=== PATIENT | male | born 1965 | race Caucasian/White ===

== ENCOUNTER 2018-01-23 08:14 | Outpatient (REF) | payer OTHER, SELFPAY ==
[2018-01-23 12:09] LABS: Microalb ug/mg Crea 159.7 ug/mg Cr
== END 2018-01-23 08:34 ==
LOC: NCHCN 08:14
PROVIDERS: PCP Family Medicine; Visit Provider Family Medicine
DX: E11.65 Type 2 diabetes mellitus with hyperglycemia (principal)
CPT/HCPCS: 82043; 82570

== ENCOUNTER 2018-01-23 09:18 | Outpatient (CLI) | payer OTHER, SELFPAY ==
[2018-01-23 09:56] LABS: HCT 41.1 % (40.0-50.0); HGB 13.9 g/dL (13.5-17.5); Mean Corp. HGB Concentration 33.8 g/dL (32.0-36.0); Mean Corpuscular Hemoglobin 26.5 pg (27.0-33.0); Mean Corpuscular Volume 78.3 fL (80-95); Mean Platelet Volume 10.2 fL (8.0-11.0); Platelet Count 282 x1000/uL (130-400); RBC 5.25 m/cumm (4.50-6.00); RBC Distribution Width 13.4 % (11.8-14.1); White Blood Cell Count 8.03 k/cumm (4.4-10.8)
[2018-01-23 11:19] LABS: ALT 38 U/L (12-78); AST 27 U/L (15-37); Alkaline Phosphatase 128 U/L (46-116); Anion Gap 9.9 mmol/L (3-11); BUN 24 mg/dL (7-18); Bilirubin, Total 0.3 mg/dL (0.2-1.0); CO2 33.1 mmol/L (21.0-32.0); CREATININE 0.81 mg/dL (0.70-1.30); Calcium 10.3 mg/dL (8.5-10.1); Chloride 93 mmol/L (98-107); Glucose 245 mg/dL (70-100); Potassium 3.8 mmol/L (3.5-5.1); Sodium 136 mmol/L (136-145); TSH (W/Ref FT4) 1.32 uIU/mL (0.358-3.74); Total Protein 7.5 g/dL (6.4-8.2)
[2018-01-24 12:16] LABS: Hepatitis C Ab w Rflx HCV PCR Reactive (NEGAT)
[2018-01-25 14:21] LABS: HCV RNA Detection Quantitative Undetected IU/mL (UNDECT)
== END 2018-01-23 09:38 ==
PROVIDERS: PCP Family Medicine; Visit Provider Family Medicine
DX: E11.65 Type 2 diabetes mellitus with hyperglycemia (principal); I10 Essential (primary) hypertension; F41.8 Other specified anxiety disorders; Z00.00 Encounter for general adult medical examination without abnormal findings; Z86.19 Personal history of other infectious and parasitic diseases; Z11.59 Encounter for screening for other viral diseases
CPT/HCPCS: 36415; 80053; 85027; 86803; 83036; 84443; 87522

== ENCOUNTER 2018-02-15 07:39 | Day surgery (SDC) | payer OTHER, SELFPAY ==
[2018-02-15 07:58] VITALS: BP 148/98; PULSE 70; RESP 16; TEMP 35.7; O2SAT 93
[2018-02-15] MEDS: Lactated Ringers 1,000 ML 30 ML IV (08:26)
--- NOTE | 2018-02-15 09:34 | W.COLOREPORT ---
Date of service: 02/15/18 Time of Service: 09:34 Colonoscopy Report Date of procedure: 02/15/18 Pre-op diagnosis general: Personal history of Colon Polyps Post-op diagnosis procedure note: other (Ascending colon polyp) Procedure: Colonoscopy to cecum with biopsy by cold Surgeon: Joey Gonzales Anesthesia proc note operative: MAC (Susie Guajardo CRNA; ASA 2 Mallampati class II) Pathology: other (Ascending colon polyp) Complications: None Disposition: same day Indications: 52 y/o male with history of pancreatitis presents for colonoscopy screening pre-op. His last screening was in 2010, which was remarkable for submucosal leiomyoma and surface hyperplastic epithelial changes. He reports a family history of colon cancer in his maternal grandfather. He denies any changes in bowel habits including bloody or black tarry stools, abdominal pain, diarrhea or constipation. He denies constitutional symptoms. Uses marijuana 1-2x/week. Denies use of other recreational or illegal drugs. Prep: Miralax/Dulcolax (Prep quality good) Procedure Start Time: 09:41 Procedure End Time: 10:05 Retraction Time: 18 Findings: In examining the colon from cecum to anus, one polyp less than 1 cm in greatest diameter was found in the ascending colon subsequently removed. No other abnormalities were noted of the colon, rectum, and anus. Procedure Description: The patient was seen in the day surgery waiting area. His identification was confirmed, and procedure checked. He was then brought to the procedure room. Monitoring for telemetry, blood pressure, oxygen saturation, and end tidal CO2 monitoring were applied. An appropriate time out was performed to confirm, identification, allergies, medication, procedure, was performed. Sedation was titrated for affect by the SED SPECIAL EDUCATION TEACHER; Once adequate sedation was achieved, I performed a inspection of the external perineum, and a digitial rectal examination. No significant external abnormalities were noted. On digital rectal examination, there was no blood, no masses, good rectal tone, and a normal prostate. I advanced the colonoscope from the anus to the cecum under direct visualization. The cecum was identified by the ileal-cecal valve, and the appendiceal orifice. The scope was then withdrawn in circumferential manner from the cecum to the rectum. A single polyp was identified in the transverse colon and removed by cold biopsy forceps, no other abnormalities are noted of the colon. The scope was then withdrawn into the rectum, and retroflexed. No abnormalities were noted of the rectum or anorectal junction. The scope was then withdrawn, terminating the procedure. There were no complications during the procedure, and the patient tolerated the procedure well. He was returned to the day surgery recovery area in good condition. Plan: We will await pathology before making further recommendations.
--- NOTE | 2018-02-15 09:54 | BOWEL_PTH ---
PATIENT: Alfredo Perez LOC: [facility] U#:[id number] AGE/SX: 52/M ROOM: RE02/15/[address]: Joey Gonzales DO : 1965 BED: DIS: 02/15/2018 SPEC #: [id number] RECD: 02/15/18 13:00 STATUS: CASSY REQ #: [id number] LUCA: 02/15/18 09:[address]: Joey Gonzales DEPT: Surgical Specimen RECD BY: Loli Burnett ENTERED: 02/15/18 13:00 SP TYPE: Bowel OTHR DR: Yulia Cortez Tissues: 1 - BIOPSY BOWEL Procedures: GROSS AND MICRO LEVEL 4 Comments: [id number]
--- NOTE | 2018-02-15 10:12 | W.PM.DSUDISC ---
Discharge Plan Disposition Patient Disposition: HOME Condition: Good Discharge Details Reason For Visit: Personal history of colon polyps Attending Provider: Joey Gonzales Primary Care Provider: Yulia Cortez Home Meds and New Rx's Prescriptions: Continue buprenorphine-naloxone [Suboxone] 8-2 mg film 1 film SL DAILY RF: 0 venlafaxine [Effexor XR] 75 mg capsule,extended release 24hr 225 mg PO DAILY RF: 0 gabapentin 600 mg tablet 800 mg PO TID RF: 0 sitagliptin-metformin [Janumet] 1 EACH tablet 1 ea PO BID RF: 0 atenolol 100 MG tablet 100 mg PO DAILY RF: 0 glipizide 10 MG tablet 10 mg PO BID RF: 0 aspirin [Aspir-Low] 81 MG tablet,delayed release (DR/EC) 81 mg PO DAILY RF: 0 omeprazole 20 MG capsule,delayed release(DR/EC) 20 mg PO DAILY RF: 0 losartan 100 MG tablet 100 mg PO DAILY RF: 0 rosuvastatin [Crestor] 40 MG tablet 40 mg PO DAILY RF: 0 cholecalciferol (vitamin D3) [Vitamin D3] 2,000 UNIT capsule 2,000 unit PO DAILY RF: 0 insulin glargine [Lantus U-100 Insulin] 100 UNIT/ML solution 50 units SQ HS RF: 0 amlodipine 10 MG tablet 10 mg PO DAILY RF: 0 Discharge Instructions Instructions: Colonoscopy (DC) Stand Alone Forms: Colonoscopy Post Instructions, Nesha Berry (DSU) Activity:: Activity as Tolerated Diet:: As Tolerated Discharge Orders Discharge Orders: Discharge Order (Routine); Ordered 02/15/18 Ordered By: Joey Gonzales DS: Diagnosis Discharge Diagnosis (1) History of colon polyps: Status: Acute Asessment and Plan: Colonoscopy performed: Colonoscopy Report Date of procedure: 02/15/18 Pre-op diagnosis general: Personal history of Colon Polyps Post-op diagnosis procedure note: other (Ascending colon polyp) Procedure: Colonoscopy to cecum with biopsy by cold Surgeon: Joey Gonzales Anesthesia proc note operative: MAC (Susie Guajardo CRNA; ASA 2 Mallampati class II) Pathology: other (Ascending colon polyp) Complications: None Disposition: same day Indications: 52 y/o male with history of pancreatitis presents for colonoscopy screening pre-op. His last screening was in 2010, which was remarkable for submucosal leiomyoma and surface hyperplastic epithelial changes. He reports a family history of colon cancer in his maternal grandfather. He denies any changes in bowel habits including bloody or black tarry stools, abdominal pain, diarrhea or constipation. He denies constitutional symptoms. Uses marijuana 1-2x/week. Denies use of other recreational or illegal drugs. Prep: Miralax/Dulcolax (Prep quality good) Procedure Start Time: 09:41 Procedure End Time: 10:05 Retraction Time: 18 Findings: In examining the colon from cecum to anus, one polyp less than 1 cm in greatest diameter was found in the ascending colon subsequently removed. No other abnormalities were noted of the colon, rectum, and anus. Procedure Description: The patient was seen in the day surgery waiting area. His identification was confirmed, and procedure checked. He was then brought to the procedure room. Monitoring for telemetry, blood pressure, oxygen saturation, and end tidal CO2 monitoring were applied. An appropriate time out was performed to confirm, identification, allergies, medication, procedure, was performed. Sedation was titrated for affect by the SUPERVISOR PHOTOENGRAVING; Once adequate sedation was achieved, I performed a inspection of the external perineum, and a digitial rectal examination. No significant external abnormalities were noted. On digital rectal examination, there was no blood, no masses, good rectal tone, and a normal prostate. I advanced the colonoscope from the anus to the cecum under direct visualization. The cecum was identified by the ileal-cecal valve, and the appendiceal orifice. The scope was then withdrawn in circumferential manner from the cecum to the rectum. A single polyp was identified in the transverse colon and removed by cold biopsy forceps, no other abnormalities are noted of the colon. The scope was then withdrawn into the rectum, and retroflexed. No abnormalities were noted of the rectum or anorectal junction. The scope was then withdrawn, terminating the procedure. There were no complications during the procedure, and the patient tolerated the procedure well. He was returned to the day surgery recovery area in good condition. Plan: We will await pathology before making further recommendations.
[2018-02-15 10:35] VITALS: BP 120/85; PULSE 69; RESP 20; TEMP 36.6; O2SAT 95
== END 2018-02-15 10:45 | disposition home or self-care (01) ==
PROVIDERS: PCP Family Medicine; Visit Provider Surgery
PROC: 0DJD8ZZ Inspection of Lower Intestinal Tract, Via Natural or Artificial Opening Endoscopic (ICD-10-PCS; CPT 45378; principal; 2018-02-15 09:15)
DX: Z12.11 Encounter for screening for malignant neoplasm of colon (principal); Z86.010 Personal history of colon polyps; D12.3 Benign neoplasm of transverse colon; Z80.0 Family history of malignant neoplasm of digestive organs
CPT/HCPCS: 45380; 88305

== ENCOUNTER 2018-06-26 16:06 | Outpatient (REF) | payer OTHER, SELFPAY ==
[2018-06-29 16:05] LABS: Gabapentin, Urine NEGATIVE
== END 2018-06-26 16:26 ==
LOC: NCHCN 16:06
PROVIDERS: PCP Family Medicine; Visit Provider Family Medicine
DX: F11.20 Opioid dependence, uncomplicated (principal)
CPT/HCPCS: 80307

== ENCOUNTER 2018-06-30 13:07 | Inpatient (IN) | payer OTHER, SELFPAY ==
[2018-06-30] VITALS (34 sets, daily range): BP systolic 127–187; BP diastolic 77–145; PULSE 64–169; RESP 9–26; TEMP 36.2–37; O2SAT 89–99
--- NOTE | 2018-06-30 13:28 | DI.COMBO_ITS ---
SYMPTOM/DIAGNOSIS: BACK PAIN, WT LOSS, EPIGASTRIC ABD PAIN, H/O ETOH ABDOMEN AND PELVIC CT: CT examination of the abdomen and pelvis was performed with a bolus infusion of 100 cc's of Omnipaque 350. Images obtained through the lung bases are unremarkable. There is decreased hepatic attenuation consistent with hepatic steatosis. No focal hepatic abnormality is seen. Spleen is unremarkable in appearance. Pancreas is unremarkable in appearance. No biliary dilatation or gallbladder abnormality is seen. Stomach is collapsed, gastric wall thickening not excluded on the basis of this examination. Adrenals and kidneys appear normal. Abdominal aorta is of normal diameter and no major vascular abnormality is seen. Small fat containing left inguinal hernia noted. No abdominal or pelvic adenopathy is seen. Appendix is normal. No evidence of diverticulitis or bowel obstruction. CONCLUSION: Hepatic steatosis. Incidental finding of vacuum disc phenomenon with bulging/herniated disc at L 5-S 1. No evidence of acute intra-abdominal process. PA AND LATERAL CHEST: The heart is not enlarged. The lungs are generally clear except for a questionable nodular density overlying the left lower lung field, likely nipple shadow. Repeat PA chest with nipple markers requested. No pleural effusion is seen. CONCLUSION: Repeat PA chest with nipple markers requested to exclude intrapulmonary nodule. No other significant findings.
--- NOTE | 2018-06-30 13:31 | ED.GENADUL_ITS ---
Discharge Plan Disposition Patient Disposition: [facility] INPATIENT Condition: Fair Discharge Details Chief Complaint: ETOHWithdr Clinical Impression: Hyponatremia, Hyperglycemia, Alcohol withdrawal Primary Care Provider: Yulia Cortez ED Provider: Елена Pearson Home Meds and New Rx's Prescriptions: No Action buprenorphine-naloxone [Suboxone] 8-2 mg film 1 film SL DAILY RF: 0 Janumet 1 EACH tablet 1 ea PO BID RF: 0 atenolol 100 MG tablet 100 mg PO DAILY RF: 0 glipizide 10 MG tablet 10 mg PO BID RF: 0 aspirin [Aspir-Low] 81 MG tablet,delayed release (DR/EC) 81 mg PO DAILY RF: 0 omeprazole 20 MG capsule,delayed release(DR/EC) 20 mg PO DAILY RF: 0 losartan 100 MG tablet 100 mg PO DAILY RF: 0 rosuvastatin [Crestor] 40 MG tablet 40 mg PO DAILY RF: 0 cholecalciferol (vitamin D3) [Vitamin D3] 2,000 UNIT capsule 2,000 unit PO DAILY RF: 0 Lantus U-100 Insulin 100 UNIT/ML solution 50 units SQ HS RF: 0 amlodipine 10 MG tablet 10 mg PO DAILY RF: 0 sertraline 100 mg Tablet 100 mg PO DAILY RF: 0 Medical Decision Making 52-year-old male with history of diabetes, GERD, hypertension, hyperlipidemia, restless leg syndrome and heavy alcohol abuse with previous history of IV drug and prescription drug abuse on Suboxone for the past 3 months who presents with alcohol withdrawal and hyperglycemia. Also c/o decreased appetite and 30 pound weight loss over the last 2 months, intermittent vomiting and diarrhea and epigastric abdominal pain for the past few days. States he has not taken his diabetes medications recently due to his lost appetite and his blood sugar was 534 this morning. Last alcoholic drink 10 a.m. yesterday morning. Blood pressure hypertensive on arrival. Normal heart rate. Remainder vitals wi thin normal limits. Patient appears diaphoretic and mildly shaky. Will give a dose of Ativan. Will place an IV, bolus IV fluids, labs, urinalysis, chest x-ray and CT abdomen and pelvis. EKG notes a rate of 71, sinus and no acute ST findings. 1450 --labs reviewed. Normal white blood cell count. Sodium 121. Glucose 667. Bicarb 30. Anion gap 11. Lipase normal at 294. Urinalysis notes glucose but no infection. UDS notes THC. 1500 --d/w hospitalist - accepts pt for admission. Will notify of CT result. 1600 --CT abdomen negative. Chest x-ray notes possible pulmonary nodule versus nipple shadow but otherwise negative. Hospitalist called and notified of results. Medical Records Medical records reviewed: Yes I reviewed the patient's medical records. Imaging Data Radiologic Study: Radiologist's impression: XR Chest, 2 Views EXAM DATE/TIME: 06/30/2018 1:30 PM FINDINGS: Lungs: Rounded radiodensity superimposed over the lateral aspect of the left lower lung zone, likely presents a nipple shadow. Followup chest radiograph with nipple markers is suggested. However, a pulmonary nodule cannot be excluded. Pleural space: Unremarkable. No pleural effusion. No pneumothorax. Heart/Mediastinum: The cardiomediastinal silhouette and pulmonary vasculature are within normal limits. Bones/joints: Unremarkable. Soft tissues: Unremarkable. IMPRESSION: Rounded radiodensity superimposed over the lateral aspect of the left lower lung zone, likely presents a nipple shadow. However, a pulmonary nodule cannot be excluded. Followup chest radiograph with nipple markers is suggested. The lungs are otherwise clear. CT Abdomen and Pelvis With Contrast EXAM DATE/TIME: 06/30/2018 2:11 PM FINDINGS: Lower thorax: No acute findings. ABDOMEN: Liver: Diffuse fatty infiltration of the liver. Gallbladder and bile ducts: Unremarkable. No calcified stones. No ductal dilation. Pancreas: Unremarkable. No ductal dilation. Spleen: Unremarkable. No splenomegaly. Adrenals: Normal. No mass. Kidneys and ureters: Unremarkable. No stones. No hydronephrosis. Stomach and bowel: Unremarkable. No obstruction. No mucosal thickening. Appendix: No evidence of appendicitis. PELVIS: Bladder: Unremarkable as visualized. Reproductive: Unremarkable as visualized. ABDOMEN and PELVIS: Intraperitoneal space: Unremarkable. No free air. No significant fluid collection. Bones/joints: Degenerative disc disease and facet arthrosis of the lower lumbar spine, most severe at L5-S1. Soft tissues: Unremarkable. Vasculature: Mild atherosclerosis of the abdominal aorta and iliac arteries. No aneurysm. Lymph nodes: Unremarkable. No enlarged lymph nodes. IMPRESSION: No acute abnormality. Lab Data Lab results reviewed: Yes I reviewed the patient's lab results. Laboratory Tests Range/Units 06/30/18 06/30/18 06/30/18 13:24 13:24 13:30 WBC (4.4-10.8) k/cumm RBC (4.50-6.00) m/cumm Hgb (13.5-17.5) g/dL Hct (40.0-50.0) % MCV (80-95) fL MCH (27.0-33.0) pg MCHC (32.0-36.0) g/dL RDW (11.8-14.1) % Plt Count (130-400) x1000/uL MPV (8.0-11.0) fL Immature Gran % Neutrophils % Lymphocytes % Monocytes % Eosinophils % Basophils % Absolute Neutrophils (1.2-6.7) k/cumm Absolute Lymphocytes (1.2-3.4) k/cumm Absolute Monocytes (0.11-0.7) k/cumm Absolute Eosinophils (0.0-0.7) k/cumm Absolute Basophils (0.0-0.2) k/cumm Sodium (136-145) mmol/L Potassium (3.5-5.1) mmol/L Chloride (98-107) mmol/L Carbon Dioxide (21.0-32.0) mmol/L Anion Gap (3-11) mmol/L BUN (7-18) mg/dL Creatinine (0.70-1.30) mg/dL Estimated GFR/1.73 m2 (mL/min/1.73m2) Glucose (70-100) mg/dL Calcium (8.5-10.1) mg/dL Magnesium (1.8-2.4) mg/dL 1.9 Total Bilirubin (0.2-1.0) mg/dL Troponin I (0.00-0.06) ng/mL Total Protein (6.4-8.2) g/dL Albumin (3.4-5.0) g/dL Lipase (73-393) U/L 294 Urine Color (Yellow) Yellow Urine Clarity Clear Urine pH (5-8) 6.5 Ur Specific [place] (1.005-1.025) 1.010 Urine Protein (Negative) mg/dL Negative Urine Ketones (Negative) mg/dL Trace H Urine Blood (Negative) Negative Urine Nitrite (Negative) Negative Urine Bilirubin (Negative) Negative Urine Urobilinogen (Up TO 0.2) EU/dL 0.2 Ur Leukocyte Esterase (Negative) Negative Urine Glucose (Negative) mg/dL 500 H Urine Opiates Screen (Negative) Negative Urine Methadone Screen (Negative) Negative Ur Barbiturates Screen (Negative) Negative Ur Tricyclics Screen (Negative) Negative Ur Amphetamines Screen (Negative) Negative U Benzodiazepines Scrn (Negative) Negative Urine Cocaine Screen (Negative) Negative Ur THC Screen (Negative) Positive Ethyl Alcohol (<3) mg/dL < 3.0 Range/Units 06/30/18 06/30/18 13:30 13:30 WBC (4.4-10.8) k/cumm 10.55 RBC (4.50-6.00) m/cumm 5.67 Hgb (13.5-17.5) g/dL 14.9 Hct (40.0-50.0) % 43.1 MCV (80-95) fL 76.0 L MCH (27.0-33.0) pg 26.3 L MCHC (32.0-36.0) g/dL 34.6 RDW (11.8-14.1) % 13.0 Plt Count (130-400) x1000/uL 321 MPV (8.0-11.0) fL 10.9 Immature Gran % 0.3 Neutrophils % 69.5 Lymphocytes % 22.4 Monocytes % 7.2 Eosinophils % 0.5 Basophils % 0.1 Absolute Neutrophils (1.2-6.7) k/cumm 7.34 H Absolute Lymphocytes (1.2-3.4) k/cumm 2.36 Absolute Monocytes (0.11-0.7) k/cumm 0.76 H Absolute Eosinophils (0.0-0.7) k/cumm 0.05 Absolute Basophils (0.0-0.2) k/cumm 0.01 Sodium (136-145) mmol/L 121 L* Potassium (3.5-5.1) mmol/L 3.5 Chloride (98-107) mmol/L 80 L Carbon Dioxide (21.0-32.0) mmol/L 30.0 Anion Gap (3-11) mmol/L 11.0 BUN (7-18) mg/dL 25 H Creatinine (0.70-1.30) mg/dL 1.18 Estimated GFR/1.73 m2 (mL/min/1.73m2) >= 60.00 Glucose (70-100) mg/dL 667 H* Calcium (8.5-10.1) mg/dL 9.7 Magnesium (1.8-2.4) mg/dL Total Bilirubin (0.2-1.0) mg/dL 0.4 Troponin I (0.00-0.06) ng/mL < 0.02 Total Protein (6.4-8.2) g/dL 8.1 Albumin (3.4-5.0) g/dL 3.8 Lipase (73-393) U/L Urine Color (Yellow) Urine Clarity Urine pH (5-8) Ur Specific [place] (1.005-1.025) Urine Protein (Negative) mg/dL Urine Ketones (Negative) mg/dL Urine Blood (Negative) Urine Nitrite (Negative) Urine Bilirubin (Negative) Urine Urobilinogen (Up TO 0.2) EU/dL Ur Leukocyte Esterase (Negative) Urine Glucose (Negative) mg/dL Urine Opiates Screen (Negative) Urine Methadone Screen (Negative) Ur Barbiturates Screen (Negative) Ur Tricyclics Screen (Negative) Ur Amphetamines Screen (Negative) U Benzodiazepines Scrn (Negative) Urine Cocaine Screen (Negative) Ur THC Screen (Negative) Ethyl Alcohol (<3) mg/dL ECG Data Attestation: I personally reviewed and interpreted this ECG (s) as follows: Interpretation: Rate of 71, sinus, no acute ST elevation or depression. QTc 472. QRS 110. HPI General Mode of arrival: ambulatory . Date/Time Provider Initiated Documentation: 06/30/18 13:24 . Limitations to Documentation: no limitations . Information obtained by: patient . HPI Narrative: Patient is a 52-year-old male with history of diabetes, GERD, hypertension, hyperlipidemia and restless leg syndrome with daily heavy alcohol use and previous history of IV drug use and prescription narcotic abuse who is on Suboxone for the past 3 months who presents with concern for alcohol withdrawal and hyperglycemia. Patient states he has been drinking a pint of 100 proof vodka every day for the past few months. States his last drink was yesterday morning at 10 AM. He states he has not been eating much due to intermittent vomiting and diarrhea over the past few weeks, worse over the past 3-4 days. He states he vomits 1-2 times daily. He states the diarrhea is proximally once daily and is loose without blood. He states his doctor took him off his gabapentin for his restless leg syndrome 2 weeks ago due to concern for abuse and he feels like this is the cause of his loss of appetite and weight loss. He states he has lost approximately 30 pounds in the last 2 months. He also states he has not been taking his diabetes medications due to his lack of appetite. States his blood sugar this morning was 534. He denies fever, chest pain, shortness of breath. He does admit to intermittent epigastric pain and is concerned about pancreatitis. He also admits to lower back pain. He denies any urinary symptoms. Related Data Home Medications Medication Instructions Recorded Confirmed aspirin [Aspir-Low] 81 mg PO DAILY 02/08/13 06/30/18 atenolol 100 mg PO DAILY 02/08/13 06/30/18 glipizide 10 mg PO BID 02/08/13 06/30/18 losartan 100 mg PO DAILY 02/08/13 06/30/18 omeprazole 20 mg PO DAILY 02/08/13 06/30/18 rosuvastatin [Crestor] 40 mg PO DAILY 02/08/13 06/30/18 cholecalciferol (vitamin D3) 2,000 unit PO DAILY 09/09/13 06/30/18 [Vitamin D3] Lantus U-100 Insulin 50 units SQ HS 08/07/14 06/30/18 amlodipine 10 mg PO DAILY 08/07/14 06/30/18 Janumet 1 ea PO BID 08/03/15 06/30/18 buprenorphine 8 mg-naloxone 2 mg 1 film SL DAILY 01/21/18 06/30/18 sublingual film sertraline 100 mg PO DAILY 06/30/18 06/30/18 Allergies Allergy/AdvReac Type Severity Reaction Status Date / Time ampicillin Allergy Skin Rash Verified 06/30/18 13:45 zolpidem tartrate AdvReac Intermediate confusion Verified 06/30/18 13:45 [From Dona] lisinopril AdvReac cough Verified 06/30/18 13:45 General Stated Complaint: ETOHWithdr ANNITA: 2 Review of Systems Review of Systems All systems reviewed & are unremarkable except as noted in HPI and below Constitutional Reports as per HPI, Denies chills, Denies fever(s), Reports poor appetite and Reports weight loss Eyes Denies blurry vision ENT Denies dizziness, Denies sore throat and Denies throat swelling Cardiovascular Denies chest pain and Denies dyspnea Respiratory Denies cough and Denies dyspnea Gastrointestinal Reports abdominal pain, Reports diarrhea and Reports vomiting Genitourinary Denies hematuria and Denies dysuria Musculoskeletal Denies back pain and Denies numbness Integumentary/Breasts Denies lesions and Denies rash Neurologic Denies dizziness, Denies focal weakness and Denies numbness Allergic/Immunologic Denies throat swelling [facility] Medical History Adjustment disorder with anxious mood (Acute) Alcoholism (Acute) Diabetes type 2, uncontrolled (Acute) History of positive hepatitis C (Acute) History of tobacco use (Acute) Hypertension, essential, benign (Acute) Opioid dependence on agonist therapy (Acute) Restless leg syndrome (Acute) Anxiety (Chronic) Surgical History Birthmark (Acute) History of knee surgery (Acute) H/O shoulder surgery (Chronic) H/O colonoscopy (Resolved 02/15/18) Social History Smoking/Tobacco Use Status: Current every day Tobacco Type: cigarettes Smoking cigarettes per day: 10 Alcohol Intake: current Alcohol Intake frequency: 3 or more drinks per day Alcohol type: hard liquor Drug use: Occasionally Substance use type: marijuana Do you feel safe at home: Yes Do you feel safe in your relationship?: Yes Exam Const General: cooperative, diaphoretic and other (mild shaking, tremors) Orientation: alert, awake and oriented x3 HENMT Head: normal to inspection Ears: hearing grossly normal bilaterally, external ears normal and TM's normal bilaterally General nose exam: external nose normal Face and sinus: normal facial exam Mouth: oral mucosae normal Teeth and gingiva: dentition normal Throat: posterior oropharynx normal Eyes General: appearance normal, both eyes and all related structures Eyelids: eyelids normal Pupils: PERRL EOM: EOM intact bilaterally Neck Neck: normal visual inspection Lymphatic: no lymphadenopathy noted Chest Chest: normal inspection of the chest Resp Effort & Inspection: normal respiratory effort and able to speak in complete sentences Auscultation: clear to auscultation bilaterally Cardio Rate: regular rate Rhythm: regular rhythm GI Inspection: normal to inspection Palpation: soft, not firm, no guarding, no hepatosplenomegaly, no masses and tender in the epigastrum Auscultation: normal bowel sounds Skin General skin exam: no rashes or lesions noted Neuro General: alert, awake, oriented x3, moves all extremities and no focal motor deficits Cognition: normal cognition Speech: speech normal Gait: normal gait Motor: muscle tone normal throughout Sensory Exam: no sensory deficits noted Extrem General: normal to inspection, full ROM and no edema Psych Appearance: grossly normal Mental Status: mental status grossly normal Speech and Movement: speech and movement normal Affect: normal affect Thought Process: normal Course Vital Signs Temperature 97.2 F L 06/30/18 13:12 Pulse 71 06/30/18 13:12 Respiratory Rate 16 06/30/18 13:12 Blood Pressure 187/102 H 06/30/18 13:12 Pulse Oximetry 98 06/30/18 13:12 Temperature 97.2 F L 06/30/18 13:12 Temperature Source Temporal Artery Scan 06/30/18 13:12 Pulse 71 06/30/18 13:12 Respiratory Rate 16 06/30/18 13:12 Blood Pressure 187/102 H 06/30/18 13:12 Blood Pressure Position Sitting 06/30/18 13:12 Pulse Oximetry 98 06/30/18 13:12 Oxygen Delivery Method Room Air 06/30/18 13:12 Oxygen Flow Rate 0 06/30/18 13:12 Pain Level 0 06/30/18 13:12
[2018-06-30] MEDS: Normal Saline 1,000 ML 1000 ML IV (13:35)
[2018-06-30 13:37] LABS: Bilirubin Negative (Negative); Blood Negative (Negative); Clarity Clear; Glucose 500 mg/dL (Negative); Ketones Trace mg/dL (Negative); Leukocyte Esterase Negative (Negative); Nitrite Negative (Negative); Urobilinogen 0.2 EU/dL (Up TO 0.2); pH 6.5 (5-8)
[2018-06-30 13:42] LABS: Abs Immature Grans 0.03 k/cumm (0.0-0.09); Absolute Basophil Count 0.01 k/cumm (0.0-0.2); Absolute Eosinophil Count 0.05 k/cumm (0.0-0.7); Absolute Lymphocyte Count 2.36 k/cumm (1.2-3.4); Absolute Monocyte Count 0.76 k/cumm (0.11-0.7); Absolute Neutrophil Count 7.34 k/cumm (1.2-6.7); Basophils % 0.1; Eosinophils % 0.5; HCT 43.1 % (40.0-50.0); HGB 14.9 g/dL (13.5-17.5); Immature Grans % 0.3; Lymphocytes % 22.4; Mean Corp. HGB Concentration 34.6 g/dL (32.0-36.0); Mean Corpuscular Hemoglobin 26.3 pg (27.0-33.0); Mean Platelet Volume 10.9 fL (8.0-11.0); Monocytes % 7.2; Neutrophils % 69.5; Platelet Count 321 x1000/uL (130-400); RBC 5.67 m/cumm (4.50-6.00); White Blood Cell Count 10.55 k/cumm (4.4-10.8)
[2018-06-30 13:45] LABS: *AMPHETAMINES SCREEN URINE Negative (Negative); *BARBITURATES SCREEN URINE Negative (Negative); *BENZODIAZEPINES SCREEN URINE Negative (Negative); Cannabinoids THC POSITIVE (Negative); Cocaine Screen,Urine Negative (Negative); METHADONE URINE SCREEN Negative (Negative); OPIATES URINE SCREEN Negative (Negative)
[2018-06-30 13:47] LABS: Tricyclic Antidepressants Negative (Negative)
[2018-06-30] MEDS: LORazepam 2 MG/ML VIAL IVP (13:56)
[2018-06-30 14:24] LABS: BUN 25 mg/dL (7-18); Calcium 9.7 mg/dL (8.5-10.1)
[2018-06-30 14:25] LABS: Albumin 3.8 g/dL (3.4-5.0); Bilirubin, Total 0.4 mg/dL (0.2-1.0); CREATININE 1.18 mg/dL (0.70-1.30); Chloride 80 mmol/L (98-107); Potassium 3.5 mmol/L (3.5-5.1); Total Protein 8.1 g/dL (6.4-8.2)
[2018-06-30 14:27] LABS: Sodium 121 mmol/L (136-145)
[2018-06-30 14:31] LABS: Glucose 667 mg/dL (70-100)
[2018-06-30 14:34] LABS: Troponin I < 0.02 ng/mL (0.00-0.06)
[2018-06-30 14:48] LABS: ETHANOL BLOOD < 3.0 mg/dL (<3); Lipase 294 U/L (73-393); Magnesium 1.9 mg/dL (1.8-2.4)
[2018-06-30 14:55] LABS: ALT 26 U/L (12-78); AST 16 U/L (15-37); Alkaline Phosphatase 153 U/L (46-116)
[2018-06-30] MEDS: LORazepam 2 MG/ML VIAL 0.5 MG IVP (15:11)
[2018-06-30] MEDS: Insulin REGULAR-Human 100 UNITS/ML UNIT 8 UNITS IV (15:15)
[2018-06-30] MEDS: LORazepam 2 MG/ML VIAL (15:50)
[2018-06-30] MEDS: Omnipaque 350 MG/ML 100 ML BTL IJ (15:51)
--- NOTE | 2018-06-30 15:56 | DI.VRAD_ITS ---
EXAM: CT Abdomen and Pelvis With Contrast EXAM DATE/TIME: 06/30/2018 2:11 PM CLINICAL HISTORY: 52 years old, male; Pain; Abdominal pain; Epigastric; Patient HX: Epigastric pain, h/0 ETOH TECHNIQUE: Imaging protocol: Axial computed tomography images of the abdomen and pelvis with intravenous contrast. Coronal and sagittal reformatted images were created and reviewed. Radiation optimization: All CT scans at this facility use at least one of these dose optimization techniques: automated exposure control; mA and/or kV adjustment per patient size (includes targeted exams where dose is matched to clinical indication); or iterative reconstruction. Contrast material: omni 350 Contrast volume: 100 ml Contrast route: iv COMPARISON: CT ABD PELVIS WITH CONTRAST 06/13/2017 9:59 AM FINDINGS: Lower thorax: No acute findings. ABDOMEN: Liver: Diffuse fatty infiltration of the liver. Gallbladder and bile ducts: Unremarkable. No calcified stones. No ductal dilation. Pancreas: Unremarkable. No ductal dilation. Spleen: Unremarkable. No splenomegaly. Adrenals: Normal. No mass. Kidneys and ureters: Unremarkable. No stones. No hydronephrosis. Stomach and bowel: Unremarkable. No obstruction. No mucosal thickening. Appendix: No evidence of appendicitis. PELVIS: Bladder: Unremarkable as visualized. Reproductive: Unremarkable as visualized. ABDOMEN and PELVIS: Intraperitoneal space: Unremarkable. No free air. No significant fluid collection. Bones/joints: Degenerative disc disease and facet arthrosis of the lower lumbar spine, most severe at L5-S1. Soft tissues: Unremarkable. Vasculature: Mild atherosclerosis of the abdominal aorta and iliac arteries. No aneurysm. Lymph nodes: Unremarkable. No enlarged lymph nodes. IMPRESSION: No acute abnormality. Dictated and Authenticated by: Balbir Barnes MD. Ordering:MAKRIE Christiansen MD
--- NOTE | 2018-06-30 16:00 | DI.VRAD_ITS ---
EXAM: XR Chest, 2 Views EXAM DATE/TIME: 06/30/2018 1:30 PM CLINICAL HISTORY: 52 years old, male; Pain; Other: Back; Patient HX: Back pain. Wt loss TECHNIQUE: Imaging protocol: XR of the chest, 2 views. COMPARISON: CR CHEST 2 VIEWS PA,LAT 07/13/2015 8:32 AM FINDINGS: Lungs: Rounded radiodensity superimposed over the lateral aspect of the left lower lung zone, likely presents a nipple shadow. Followup chest radiograph with nipple markers is suggested. However, a pulmonary nodule cannot be excluded. Pleural space: Unremarkable. No pleural effusion. No pneumothorax. Heart/Mediastinum: The cardiomediastinal silhouette and pulmonary vasculature are within normal limits. Bones/joints: Unremarkable. Soft tissues: Unremarkable. IMPRESSION: Rounded radiodensity superimposed over the lateral aspect of the left lower lung zone, likely presents a nipple shadow. However, a pulmonary nodule cannot be excluded. Followup chest radiograph with nipple markers is suggested. The lungs are otherwise clear. Dictated and Authenticated by: Balbir Barnes MD. Ordering:MARKIE Christiansen MD
[2018-06-30] MEDS: Normal Saline Flush 10 ML SYR IVP (16:41)
[2018-06-30] MEDS: Normal Saline 1,000 ML 125 ML IV (16:46)
--- NOTE | 2018-06-30 17:02 | W.PM.HP.N ---
Date of service: 06/30/18 Time of Service: 17:02 Assessment and Plan (1) Alcohol withdrawal: Current visit: Yes Status: Acute Appears to be actively withdrawing from alcohol. Has been through withdrawal before, no history of seizures with withdrawal. Reports drinking 1 pint of vodka daily x2-3 weeks, since he stopped taking Gabapentin, last drink was yesterday at 1000. Initiate Gabapentin taper at 800 mg TID x4 days, then taper to 400 mg TID x4 days, then stop. Schedule Oxazepam. Monitor on CIWA protocol with PRN ativan. (2) Abdominal pain: Current visit: Yes Status: Acute Likely gastritis in the setting of increased alcohol intake, has not been eating due to abdominal pain, with history of GERD. IV Protonix 40 mg BID, clear liquid diet for now. Consider adding carafate if abdominal pain continues. Hematest stools. Monitor H&H. (3) Hyponatremia: Current visit: Yes Status: Acute New acute hyponatremia. Give IV NS to slowly correct sodium. Follow sodium closely, reassess Sodium level at 2000. (4) History of opioid abuse: Current visit: Yes Status: Acute History of IVDA 17 years ago. Has been treated for Hepatitis C. Had knee surgery and right rotator cuff surgery with opiate pain control which triggered relapse, began abusing prescription opiates. Was started on suboxone by PCP 3 months ago, has not misused opiates since. Continue Suboxone per outpatient dose. (5) Diabetes mellitus, type II: Current visit: No Status: Chronic Hyperglycemia on presentation to >600. Has not been taking diabetic medications for last 2-3 weeks due to poor PO intake and concern for hypoglycemia. Restart home regimen including glipizide, lantus, and janumet. Monitor fingersticks, sliding scale aspart at . (6) GERD (gastroesophageal reflux disease): Current visit: No Status: Chronic History of GERD, presents with likely gastritis as above. PPI as above. Clear liquid diet as above. (7) Hypertension: Current visit: No Status: Chronic Hypertensive on presentation. Continue home regimen for blood pressure. Monitor blood pressure closely. (8) Depression: Current visit: No Status: Chronic Continue sertraline. (9) Hyperlipidemia: Current visit: No Status: Chronic Continue Crestor. (10) Tobacco dependence: Current visit: Yes Status: Acute Smokes 1/2 pack per day. Nicotrol inhaler and nicotine patch PRN. (11) MING (acute kidney injury): Current visit: Yes Status: Acute Mild MING, creatinine within normal limits but high for him. Give IV fluids. (12) DVT prophylaxis: Current visit: Yes Status: Acute Subcutaneous Lovenox. (13) Discharge planning issues: Current visit: Yes Status: Acute He is a FULL code. He verbalizes a desire to stop drinking. He is reluctant to go to rehab as he has been to rehab many times throughout his life and he needs to work. He would be interested in outpatient services for addiction. This case was discussed with Dr. Villatoro who is in agreement. History of Present Illness Chief Complaint: Abdominal pain, hyponatremia, ETOH withdrawal Narrative: Mr. Perez is a very pleasant 52 year old man with a past medical history significant for IDDM2, hepatitis C (has been treated), IVDA (17 years ago), with recent surgeries with opiate pain control triggering relapse to misusing prescription opiates, for which he was placed on suboxone 3 months ago by his PCP. He also has a history of depression and anxiety which was significantly better while he was taking Gabapentin, originally for diabetic peripheral neuropathy, until his PCP tapered him off 2-3 weeks ago. Since then, he has been reportedly drinking 1 pint of vodka daily. He stopped drinking yesterday at 10 am and presented to the ED today with abdominal pain, diaphoresis, tremulousness, and elevated blood glucose, greater than 500 at home. He had not been taking his diabetic medications as he was not eating due to abdominal pain and was worried about hypoglycemia. In the ED, he was found to be in alcohol withdrawal and treated with ativan. His sodium was low at 121. His creatinine was higher than his baseline, but within normal limits at 1.18. His blood glucose was 667, improved to 281 with insulin. Lipase was 294. UDS was positive for THC, alcohol level was less than 3. Troponin negative. UA not suspicious for infection, Chest x-ray negative for acute process, CT abdomen with no acute abnormality. He is admitted to the med/surg floor for alcohol withdrawal, treatment of presumed gastritis, hyperglycemia. He verbalizes a desire to abstain from using alcohol. He would prefer outpatient treatment. He currently continues to feel tremulous, inside especially, but his hands are shaking, he is diaphoretic, he has upper abdominal pain bilaterally, and in the epigastric region, he has been having some diarrhea, he is nauseated, he has had some mild shortness of breath, and occasional cough productive of brown sputum, he has been wheezing occasionally, no chest pain/pressure, palpitations. He has had high anxiety and worsening depression since he stopped taking gabapentin. He felt that the gabapentin was very helpful for his anxiety and depression. He has been through alcohol withdrawal in the past, it has always been medically guided, he denies ever having seizures with alcohol withdrawal. Review of Systems Review of Systems All systems reviewed & are unremarkable except as noted in HPI and below PFS Medical History Adjustment disorder with anxious mood (Acute) Alcoholism (Acute) Diabetes type 2, uncontrolled (Acute) History of positive hepatitis C (Acute) History of tobacco use (Acute) Hypertension, essential, benign (Acute) Opioid dependence on agonist therapy (Acute) Restless leg syndrome (Acute) Anxiety (Chronic) Surgical History Birthmark (Acute) History of knee surgery (Acute) H/O shoulder surgery (Chronic) H/O colonoscopy (Resolved 02/15/18) Social History Smoking/Tobacco Use Status: Current every day Tobacco Type: cigarettes Smoking cigarettes per day: 10 Alcohol Intake: current Alcohol Intake frequency: 3 or more drinks per day Alcohol type: hard liquor Drug use: Occasionally Substance use type: marijuana Do you feel safe at home: Yes Do you feel safe in your relationship?: Yes Meds Home Medications Medication Instructions Recorded Confirmed Type aspirin [Aspir-Low] 81 mg PO DAILY 02/08/13 06/30/18 History atenolol 100 mg PO DAILY 02/08/13 06/30/18 History glipizide 10 mg PO BID 02/08/13 06/30/18 History losartan 100 mg PO DAILY 02/08/13 06/30/18 History omeprazole 20 mg PO DAILY 02/08/13 06/30/18 History rosuvastatin [Crestor] 40 mg PO DAILY 02/08/13 06/30/18 History cholecalciferol (vitamin D3) 2,000 unit PO DAILY 09/09/13 06/30/18 History [Vitamin D3] Lantus U-100 Insulin 50 units SQ HS 08/07/14 06/30/18 History amlodipine 10 mg PO DAILY 08/07/14 06/30/18 History Janumet 1 ea PO BID 08/03/15 06/30/18 History buprenorphine 8 mg-naloxone 2 mg 1 film SL DAILY 01/21/18 06/30/18 History sublingual film sertraline 100 mg PO DAILY 06/30/18 06/30/18 History Allergies Allergy/AdvReac Type Severity Reaction Status Date / Time ampicillin Allergy Skin Rash Verified 06/30/18 13:45 zolpidem tartrate AdvReac Intermediate confusion Verified 06/30/18 13:45 [From Ambien] lisinopril AdvReac cough Verified 06/30/18 13:45 Exam Narrative Exam Narrative: General: He is sitting up in bed, he is tremulous, he appears anxious, his face is flushed, he is diaphoretic. He is answering questions appropriately, he is very pleasant, depressed affect. HEENT: Normocephalic, atraumatic, mucous membranes dry, pupils equal round and reactive to light, extraocular movements intact. Neck: Supple, no JVD, no lymphadenopathy. Cardiovascular: Heart has regular rate and rhythm, no murmur appreciated. Respiratory: Respirations even and unlabored, lung sounds clear to auscultation throughout. Gastrointestinal: Normoactive bowel sounds throughout, abdomen soft, mildly tender on palpation, especially across upper abdomen. Extremities: Well perfused, no clubbing, cyanosis or edema. Results Labs : 07/01/18 06:43 07/01/18 06:43 Laboratory Results - last 24 hr 06/30/18 06/30/18 06/30/18 13:24 13:24 13:30 WBC RBC Hgb Hct MCV MCH MCHC RDW Plt Count MPV Immature Gran % Neutrophils % Lymphocytes % Monocytes % Eosinophils % Basophils % Absolute Neutrophils Absolute Lymphocytes Absolute Monocytes Absolute Eosinophils Absolute Basophils Sodium Potassium Chloride Carbon Dioxide Anion Gap BUN Creatinine Estimated GFR/1.73 m2 Glucose Calcium Magnesium 1.9 Total Bilirubin AST ALT Alkaline Phosphatase Troponin I Total Protein Albumin Lipase 294 Urine Color Yellow Urine Clarity Clear Urine pH 6.5 Ur Specific [place] 1.010 Urine Protein Negative Urine Ketones Trace H Urine Blood Negative Urine Nitrite Negative Urine Bilirubin Negative Urine Urobilinogen 0.2 Ur Leukocyte Esterase Negative Urine Glucose 500 H Urine Opiates Screen Negative Urine Methadone Screen Negative Ur Barbiturates Screen Negative Ur Tricyclics Screen Negative Ur Amphetamines Screen Negative U Benzodiazepines Scrn Negative Urine Cocaine Screen Negative Ur THC Screen Positive Ethyl Alcohol < 3.0 06/30/18 06/30/18 13:30 13:30 WBC 10.55 RBC 5.67 Hgb 14.9 Hct 43.1 MCV 76.0 L MCH 26.3 L MCHC 34.6 RDW 13.0 Plt Count 321 MPV 10.9 Immature Gran % 0.3 Neutrophils % 69.5 Lymphocytes % 22.4 Monocytes % 7.2 Eosinophils % 0.5 Basophils % 0.1 Absolute Neutrophils 7.34 H Absolute Lymphocytes 2.36 Absolute Monocytes 0.76 H Absolute Eosinophils 0.05 Absolute Basophils 0.01 Sodium 121 L* Potassium 3.5 Chloride 80 L Carbon Dioxide 30.0 Anion Gap 11.0 BUN 25 H Creatinine 1.18 Estimated GFR/1.73 m2 >= 60.00 Glucose 667 H* Calcium 9.7 Magnesium Total Bilirubin 0.4 AST 16 ALT 26 Alkaline Phosphatase 153 H Troponin I < 0.02 Total Protein 8.1 Albumin 3.8 Lipase Urine Color Urine Clarity Urine pH Ur Specific [place] Urine Protein Urine Ketones Urine Blood Urine Nitrite Urine Bilirubin Urine Urobilinogen Ur Leukocyte Esterase Urine Glucose Urine Opiates Screen Urine Methadone Screen Ur Barbiturates Screen Ur Tricyclics Screen Ur Amphetamines Screen U Benzodiazepines Scrn Urine Cocaine Screen Ur THC Screen Ethyl Alcohol Last Vital Signs Temp 36.2 C L 06/30/18 13:12 Pulse 70 06/30/18 16:31 Resp 18 06/30/18 16:40 BP 143/96 H 06/30/18 16:31 Pulse Ox 89 L 06/30/18 16:40
[2018-06-30] MEDS: LORazepam 1 MG TAB PO/SL ×2 (17:33→20:28)
[2018-06-30] MEDS: glipiZIDE 10 MG TAB PO (18:34)
[2018-06-30] MEDS: Pantoprazole 40 MG VIAL IVP (19:23)
[2018-06-30] MEDS: Enoxaparin 40 MG/0.4 ML SYR SC (19:23)
[2018-06-30] MEDS: Rosuvastatin 10 MG TAB 40 MG PO (19:24)
[2018-06-30] MEDS: Gabapentin 800 MG TAB PO (19:24)
[2018-06-30 20:34] LABS: Sodium 127 mmol/L (136-145)
[2018-06-30] MEDS: Insulin Glargine 300 UNITS/3 ML PEN 50 UNITS SC (21:30)
[2018-07-01] VITALS (7 sets, daily range): BP systolic 118–143; BP diastolic 78–92; PULSE 64–78; RESP 16–20; TEMP 36.1–37.1; O2SAT 92–98
[2018-07-01] MEDS: Normal Saline 1,000 ML 125 ML IV ×4 (00:37→22:09)
[2018-07-01 07:08] LABS: HCT 38.9 % (40.0-50.0); HGB 13.3 g/dL (13.5-17.5); Mean Corp. HGB Concentration 34.2 g/dL (32.0-36.0); Mean Corpuscular Hemoglobin 26.5 pg (27.0-33.0); Mean Corpuscular Volume 77.5 fL (80-95); Mean Platelet Volume 10.4 fL (8.0-11.0); Platelet Count 250 x1000/uL (130-400); RBC 5.02 m/cumm (4.50-6.00); RBC Distribution Width 13.1 % (11.8-14.1); White Blood Cell Count 6.96 k/cumm (4.4-10.8)
[2018-07-01 07:53] LABS: BUN 15 mg/dL (7-18); CREATININE 0.67 mg/dL (0.70-1.30); Calcium 8.4 mg/dL (8.5-10.1); Chloride 95 mmol/L (98-107); Glucose 269 mg/dL (70-100); Magnesium 1.7 mg/dL (1.8-2.4); Sodium 134 mmol/L (136-145)
[2018-07-01 08:02] LABS: Potassium 2.6 mmol/L (3.5-5.1)
[2018-07-01] MEDS: Normal Saline Flush 10 ML SYR IVP (08:19)
[2018-07-01] MEDS: Buprenorphine/Naloxone 8 mg/2 mg FILM 1 EACH SL (08:19)
[2018-07-01] MEDS: Sertraline 50 MG TAB 100 MG PO (08:19)
[2018-07-01] MEDS: Pantoprazole 40 MG VIAL IVP ×2 (08:19→19:36)
[2018-07-01] MEDS: Multivitamin TAB 1 TAB PO (08:20)
[2018-07-01] MEDS: Aspirin E.C. 81 MG TABEC PO (08:20)
[2018-07-01] MEDS: Gabapentin 800 MG TAB PO ×3 (08:20→19:35)
[2018-07-01] MEDS: Atenolol 50 MG TAB 100 MG PO (08:20)
[2018-07-01] MEDS: Folic Acid 1 MG TAB PO (08:21)
[2018-07-01] MEDS: Thiamine 100 MG TAB PO (08:21)
[2018-07-01] MEDS: metFORMIN 500 MG TAB 1000 MG PO ×2 (08:21→17:17)
[2018-07-01] MEDS: amLODIPine 10 MG TAB PO (08:21)
[2018-07-01] MEDS: Insulin Aspart 300 UNITS/3 ML PEN SC ×3 (08:22→17:18)
[2018-07-01] MEDS: glipiZIDE 10 MG TAB PO ×2 (08:30→15:23)
[2018-07-01] MEDS: SITagliptin 100 MG TAB PO ×2 (08:30→17:17)
[2018-07-01] MEDS: Potassium Chloride 20 MEQ TABCR 40 MEQ PO ×2 (08:35→15:23)
[2018-07-01] MEDS: LORazepam 1 MG TAB PO/SL ×6 (08:35→22:17)
[2018-07-01] MEDS: POTASSIUM CHLORIDE 10 MEQ/100 ML BAG 100 MEQ IVPB ×2 (09:19→10:24)
[2018-07-01] MEDS: Magnesium Oxide 400 MG TAB PO (09:56)
--- NOTE | 2018-07-01 11:53 | PDOC.CMIN ---
Care Management Initial Assess REASON FOR HOSPITALIZATION:: ETOH Withdrawal, Hyponatremia, ABD Pain, hyperglycemia PAST MEDICAL HISTORY/PAST SURGICAL HISTORY:: Adjustment disorder with anxious mood, anxiety, restless leg syndrome, MING, Tobacco dependence, DVT, discharge planning issues, opiod abuse, hyponatremia, abdominal pain, alcohol withdrawal, osteoarthritis R knee, total right knee replacement, [place] [facility] [place] back pain, hypertension, depression, DM type II, IV drug use in remission, Hep C with undetectable load, GERD, Hyperlipemia PREVIOUS FUNCTIONAL STATUS/SOCIAL/FAMILY SUPPORTS:: Alfredo resides in [place], [place] with his of 32 years, Nidia. 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 Alfredo reports a robust local support system of family and friends. CURRENT FUNCTIONAL STATUS:: Alfredo is sleeping when attempts to meet with him. ADVANCE DIRECTIVES:: None on file at [facility]. Has patient been provided with information about the portal?: Yes Did the patient sign up for the portal?: No CODE STATUS:: Full Code INSURANCE COVERAGE / FINANCIAL ISSUES:: BCBS CURRENT HOME/COMMUNITY SERVICES/EQUIPMENT:: Currently Alfredo has no services or medical equipment at home. PRIMARY CARE PHYSICIAN:: Yulia Cortez POTENTIAL DISCHARGE NEEDS:: Follow up appointments with PCP PATIENT/FAMILY EDUCATION NEEDS:: Review discharge instructions, discuss Ask Me Three. ANTICIPATED BARRIERS TO DISCHARGE:: None identified. TRANSPORTATION:: Via private vehicle with his . PLAN:: Alfredo will continue to be closely monitored at this time. He will discharge home when ready per MD. He will follow up with his PCP and plan of care as prescribed. No additional services anticipated at this time. Alfredo will transport via private vehicle with his .
--- NOTE | 2018-07-01 13:22 | INITIAL_ITS ---
Care Management Initial Assess REASON FOR HOSPITALIZATION:: ETOH Withdrawal, Hyponatremia, ABD Pain, hyperglycemia PAST MEDICAL HISTORY/PAST SURGICAL HISTORY:: Adjustment disorder with anxious mood, anxiety, restless leg syndrome, MING, Tobacco dependence, DVT, discharge planning issues, opiod abuse, hyponatremia, abdominal pain, alcohol withdrawal, osteoarthritis R knee, total right knee replacement, right rotator cuff surgery [facility] [place], low back pain, hypertension, depression, DM type II, IV drug use in remission, Hep C with undetectable load, GERD, Hyperlipemia PREVIOUS FUNCTIONAL STATUS/SOCIAL/FAMILY SUPPORTS:: Alfredo resides in [place], [place] with his of 32 years, Nidia. 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 Alfredo reports a robust local support system of family and friends. CURRENT FUNCTIONAL STATUS:: Alfredo is sleeping when attempts to meet with him. ADVANCE DIRECTIVES:: None on file at [facility]. Has patient been provided with information about the portal?: Yes Did the patient sign up for the portal?: No CODE STATUS:: Full Code INSURANCE COVERAGE / FINANCIAL ISSUES:: BCBS CURRENT HOME/COMMUNITY SERVICES/EQUIPMENT:: Currently Alfredo has no services or medical equipment at home. PRIMARY CARE PHYSICIAN:: Yulia Cortez POTENTIAL DISCHARGE NEEDS:: Follow up appointments with PCP PATIENT/FAMILY EDUCATION NEEDS:: Review discharge instructions, discuss Ask Me Three. ANTICIPATED BARRIERS TO DISCHARGE:: None identified. TRANSPORTATION:: Via private vehicle with his . PLAN:: Alfredo will continue to be closely monitored at this time. He will discharge home when ready per MD. He will follow up with his PCP and plan of care as prescribed. No additional services anticipated at this time. Alfredo will transport via private vehicle with his .
[2018-07-01] MEDS: ROSUVASTATIN 20 MG TAB 40 MG PO (19:35)
[2018-07-01] MEDS: Enoxaparin 40 MG/0.4 ML SYR SC (19:35)
--- NOTE | 2018-07-01 19:50 | W.PM.PROGNOT ---
Date of Service Date of service: 07/01/18 Time of Service: 19:51 Assessment and Plan (1) Alcohol withdrawal: Current visit: Yes Status: Acute Initially with concern for active alcohol withdrawal,the patient has appeared fairly stable since the time of his admission. Continue current treatment with standing oxazepam as well as gabapentin taper. Continue to monitor on CIWA protocol. (2) Abdominal pain: Current visit: Yes Status: Acute Potential for alcohol-induced gastritis in the setting of significant EtOH intake in patient with a history of GERD. Continue twice daily dosing of IV PPI, and advance diet as patient reports essential resolution of his discomfort. Continue to monitor hemoglobin. (3) Hyponatremia: Current visit: Yes Status: Acute Likely hypovolemic hyponatremia in the setting of decreased oral intake and dehydration. Appears improved with IV fluid hydration. (4) History of opioid abuse: Current visit: Yes Status: Acute Noted. Continue home Suboxone dose. (5) Diabetes mellitus, type II: Current visit: No Status: Chronic Initial hyperglycemia in the setting of insulin noncompliance?patient had not been taking his diabetic medications for some time now due to poor oral intake and concern for hypoglycemia. Continue reinitiated home regimen of glipizide and Lantus, as well as Janumet. Monitor fingersticks and blood sugar closely. (6) MING (acute kidney injury): Current visit: Yes Status: Acute Creatinine improved with hydration. Etiology likely pre-renal in the setting of dehydration. (7) DVT prophylaxis: Current visit: Yes Status: Acute SC Lovenox. Subjective Interval history since last seen: 52 year old man with a prior history significant for anxiety, prior IVDA, and EtOH abuse admitted from [facility] emergency department on 06/30 with a diagnosis of Mr. Perez has a prior medical history significant for insulin-dependent DM, previously treated HCV, prior IVDA in remission, and EtOH abuse. Reportedly the patient has had some recent surgeries requiring opiates for pain control, triggering relapse to misuse of prescription medications, for which she was placed on Suboxone 3 months ago by his PCP. His gabapentin, originally being taken for his diabetic neuropathy as well as subjective control of his anxiety, was weaned off approximately 3 weeks ago due to concern for misuse. Since that time the patient has been reportedly drinking 1 pint of vodka daily. Reportedly stopped drinking alcohol, and stopped having oral intake of any kind at approximately 10 AM on the day prior to his admission secondary to onset of significant abdominal pain. Evaluation in the ED noted diaphoretic patient's with obvious tremors, significant elevation in blood glucose (the patient reportedly stopped taking his home insulin regimen due to poor p.o. intake), hyponatremia, MING, and an undetectable alcohol level. CT of the abdomen and pelvis showed no acute abnormality. Since his admission the patient has been scoring steadily on the CIWA protocol, but mostly for anxiety, headache, and abdominal discomfort with nausea. This morning he appears comfortable, nondiaphoretic, and at baseline mental status without any confusion or delirium. He is also not overtly hypertensive. No other overnight events reported. Remains afebrile. Exam Narrative Exam Narrative: General: Patient appears comfortable, AAOX3, NAD. Appears tremulous only when attempting to show the examiner's hands. Nondiaphoretic. Neck: Supple CV: Regular, nontachycardic, S1S2, No rubs, murmurs, or gallops. Pulmonary: Clear to auscultation bilaterally, no crackles, wheezing, or rhonchi Abdomen: + Bowel Sounds, soft, nontender, nondistended Vascular: No lower extremity edema Psych: Normal mood and affect. Objective Objective Clinical Data: Abnormal lab results 06/30/18 07/01/18 07/01/18 Range/Units 20:16 06:43 06:43 Hgb 13.3 L (13.5-17.5) g/dL Hct 38.9 L (40.0-50.0) % MCV 77.5 L (80-95) fL MCH 26.5 L (27.0-33.0) pg Sodium 127 L 134 L (136-145) mmol/L Potassium 2.6 L* (3.5-5.1) mmol/L Chloride 95 L (98-107) mmol/L Creatinine 0.67 L (0.70-1.30) mg/dL Glucose 269 H D (70-100) mg/dL Calcium 8.4 L (8.5-10.1) mg/dL Magnesium 1.7 L (1.8-2.4) mg/dL Vital Signs Temperature 37.1 C 07/01/18 19:20 Temperature Source Tympanic 07/01/18 19:20 Pulse 76 07/01/18 19:20 Pulse Rhythm Regular 07/01/18 09:05 Pulse 70 06/30/18 16:40 Respiratory Rate 18 07/01/18 19:20 Respiratory Effort Non-Labored 07/01/18 09:05 Respiratory Depth Normal 07/01/18 09:05 Respiratory Pattern Normal 07/01/18 09:05 Blood Pressure 134/86 07/01/18 19:20 Blood Pressure Mean 105 06/30/18 16:31 Blood Pressure Position Sitting 06/30/18 13:12 Pulse Oximetry 94 L 07/01/18 19:20 Oxygen Delivery Method Room Air 07/01/18 19:20 Oxygen Flow Rate 0 07/01/18 19:20 Pain Level 3 07/01/18 12:05 Comment 07/01/18 07:38 Intake & Output 06/30/18 07/01/18 07/01/18 23:59 11:59 23:59 Intake Total 1240 / 1240 2610 / 3970 1360 / 3970 Balance 1240 / 1240 2610 / 3970 1360 / 3970 Weight 86.183 kg 88.2 kg Intake: IV 1000 / 1000 2210 / 3210 1000 / 3210 Oral 240 / 240 400 / 760 360 / 760 Other: Urine Color Yellow Yellow Urine Appearance Clear Clear Comment Pt voiding ad indira in toilet. No hat. Voiding Methods Toilet Toilet Laboratory Results WBC 6.96 k/cumm (4.4-10.8) D 07/01/18 06:43 RBC 5.02 m/cumm (4.50-6.00) 07/01/18 06:43 Hgb 13.3 g/dL (13.5-17.5) L 07/01/18 06:43 Hct 38.9 % (40.0-50.0) L 07/01/18 06:43 MCV 77.5 fL (80-95) L 07/01/18 06:43 MCH 26.5 pg (27.0-33.0) L 07/01/18 06:43 MCHC 34.2 g/dL (32.0-36.0) 07/01/18 06:43 RDW 13.1 % (11.8-14.1) 07/01/18 06:43 Plt Count 250 x1000/uL (130-400) 07/01/18 06:43 MPV 10.4 fL (8.0-11.0) 07/01/18 06:43 Immature Gran % 0.3 06/30/18 13:30 Neutrophils % 69.5 06/30/18 13:30 Lymphocytes % 22.4 06/30/18 13:30 Monocytes % 7.2 06/30/18 13:30 Eosinophils % 0.5 06/30/18 13:30 Basophils % 0.1 06/30/18 13:30 Absolute Neutrophils 7.34 k/cumm (1.2-6.7) H 06/30/18 13:30 Absolute Lymphocytes 2.36 k/cumm (1.2-3.4) 06/30/18 13:30 Absolute Monocytes 0.76 k/cumm (0.11-0.7) H 06/30/18 13:30 Absolute Eosinophils 0.05 k/cumm (0.0-0.7) 06/30/18 13:30 Absolute Basophils 0.01 k/cumm (0.0-0.2) 06/30/18 13:30 Sodium 134 mmol/L (136-145) L 07/01/18 06:43 Potassium 2.6 mmol/L (3.5-5.1) L* 07/01/18 06:43 Chloride 95 mmol/L (98-107) L 07/01/18 06:43 Carbon Dioxide 31.0 mmol/L (21.0-32.0) 07/01/18 06:43 Anion Gap 8.0 mmol/L (3-11) 07/01/18 06:43 BUN 15 mg/dL (7-18) D 07/01/18 06:43 Creatinine 0.67 mg/dL (0.70-1.30) L 07/01/18 06:43 Estimated GFR/1.73 m2 >= 60.00 (mL/min/1.73m2) 07/01/18 06:43 Glucose 269 mg/dL (70-100) H D 07/01/18 06:43 Calcium 8.4 mg/dL (8.5-10.1) L 07/01/18 06:43 Magnesium 1.7 mg/dL (1.8-2.4) L 07/01/18 06:43 Total Bilirubin 0.4 mg/dL (0.2-1.0) 06/30/18 13:30 AST 16 U/L (15-37) 06/30/18 13:30 ALT 26 U/L (12-78) 06/30/18 13:30 Alkaline Phosphatase 153 U/L (46-116) H 06/30/18 13:30 Troponin I < 0.02 ng/mL (0.00-0.06) 06/30/18 13:30 Total Protein 8.1 g/dL (6.4-8.2) 06/30/18 13:30 Albumin 3.8 g/dL (3.4-5.0) 06/30/18 13:30 Lipase 294 U/L (73-393) 06/30/18 13:30 Urine Color Yellow (Yellow) 06/30/18 13:24 Urine Clarity Clear 06/30/18 13:24 Urine pH 6.5 (5-8) 06/30/18 13:24 Ur Specific Solomon 1.010 (1.005-1.025) 06/30/18 13:24 Urine Protein Negative mg/dL (Negative) 06/30/18 13:24 Urine Ketones Trace mg/dL (Negative) H 06/30/18 13:24 Urine Blood Negative (Negative) 06/30/18 13:24 Urine Nitrite Negative (Negative) 06/30/18 13:24 Urine Bilirubin Negative (Negative) 06/30/18 13:24 Urine Urobilinogen 0.2 EU/dL (Up TO 0.2) 06/30/18 13:24 Ur Leukocyte Esterase Negative (Negative) 06/30/18 13:24 Urine Glucose 500 mg/dL (Negative) H 06/30/18 13:24 Urine Opiates Screen Negative (Negative) 06/30/18 13:24 Urine Methadone Screen Negative (Negative) 06/30/18 13:24 Ur Barbiturates Screen Negative (Negative) 06/30/18 13:24 Ur Tricyclics Screen Negative (Negative) 06/30/18 13:24 Ur Amphetamines Screen Negative (Negative) 06/30/18 13:24 U Benzodiazepines Scrn Negative (Negative) 06/30/18 13:24 Urine Cocaine Screen Negative (Negative) 06/30/18 13:24 Ur THC Screen Positive (Negative) 06/30/18 13:24 Ethyl Alcohol < 3.0 mg/dL (<3) 06/30/18 13:30
[2018-07-01] MEDS: Insulin Glargine 300 UNITS/3 ML PEN 50 UNITS SC (21:09)
--- NOTE | 2018-07-01 21:52 | NUR.NOTE ---
Nursing Note: Pt. requesting something for pain I have offered the patient the PRN tylenol ordered by the MD, pt refuses this saying tylenol won't do anything for me. Pt. did accept nicotine inhaler.
[2018-07-02] VITALS (7 sets, daily range): BP systolic 132–154; BP diastolic 81–102; PULSE 71–80; RESP 14–20; TEMP 35.2–36.6; O2SAT 94–98
[2018-07-02] MEDS: LORazepam 1 MG TAB PO/SL ×4 (02:01→17:05)
[2018-07-02] MEDS: Normal Saline 1,000 ML 125 ML IV ×3 (06:24→20:36)
[2018-07-02] MEDS: Atenolol 50 MG TAB 100 MG PO (08:32)
[2018-07-02] MEDS: Sertraline 50 MG TAB 100 MG PO (08:32)
[2018-07-02] MEDS: Buprenorphine/Naloxone 8 mg/2 mg FILM 1 EACH SL (08:32)
[2018-07-02] MEDS: glipiZIDE 10 MG TAB PO ×2 (08:32→15:59)
[2018-07-02] MEDS: Gabapentin 800 MG TAB PO ×3 (08:33→19:15)
[2018-07-02] MEDS: Multivitamin TAB 1 TAB PO (08:33)
[2018-07-02] MEDS: SITagliptin 100 MG TAB PO ×2 (08:33→17:06)
[2018-07-02] MEDS: Folic Acid 1 MG TAB PO (08:34)
[2018-07-02] MEDS: Pantoprazole 40 MG VIAL IVP ×2 (08:34→19:15)
[2018-07-02] MEDS: Thiamine 100 MG TAB PO (08:34)
[2018-07-02] MEDS: amLODIPine 10 MG TAB PO (08:34)
[2018-07-02] MEDS: Aspirin E.C. 81 MG TABEC PO (08:34)
[2018-07-02] MEDS: metFORMIN 500 MG TAB 1000 MG PO ×2 (08:34→17:06)
[2018-07-02 09:27] LABS: Abs Immature Grans 0.01 k/cumm (0.0-0.09); Absolute Basophil Count 0.01 k/cumm (0.0-0.2); Absolute Eosinophil Count 0.17 k/cumm (0.0-0.7); Absolute Lymphocyte Count 1.61 k/cumm (1.2-3.4); Absolute Monocyte Count 0.43 k/cumm (0.11-0.7); Absolute Neutrophil Count 3.59 k/cumm (1.2-6.7); Basophils % 0.2; Eosinophils % 2.9; HCT 37.2 % (40.0-50.0); HGB 12.5 g/dL (13.5-17.5); Immature Grans % 0.2; Lymphocytes % 27.7; Mean Corp. HGB Concentration 33.6 g/dL (32.0-36.0); Mean Corpuscular Hemoglobin 26.3 pg (27.0-33.0); Mean Corpuscular Volume 78.2 fL (80-95); Mean Platelet Volume 10.3 fL (8.0-11.0); Monocytes % 7.4; Neutrophils % 61.6; Platelet Count 247 x1000/uL (130-400); RBC 4.76 m/cumm (4.50-6.00); RBC Distribution Width 13.3 % (11.8-14.1); White Blood Cell Count 5.82 k/cumm (4.4-10.8)
[2018-07-02 09:40] LABS: Alkaline Phosphatase 88 U/L (46-116); Anion Gap 9.4 mmol/L (3-11); BUN 10 mg/dL (7-18); Bilirubin, Total 0.3 mg/dL (0.2-1.0); CO2 26.6 mmol/L (21.0-32.0); CREATININE 0.61 mg/dL (0.70-1.30); Calcium 8.2 mg/dL (8.5-10.1); Chloride 99 mmol/L (98-107); Glucose 239 mg/dL (70-100); Magnesium 1.7 mg/dL (1.8-2.4); Sodium 135 mmol/L (136-145); Total Protein 6.3 g/dL (6.4-8.2)
[2018-07-02] MEDS: Acetaminophen 325 MG TAB PO (09:40)
[2018-07-02] MEDS: Ondansetron 4 MG/2 ML VIAL IVP (09:40)
[2018-07-02 09:46] LABS: Potassium 2.9 mmol/L (3.5-5.1)
[2018-07-02 10:29] LABS: ALT 20 U/L (12-78); AST 20 U/L (15-37)
[2018-07-02] MEDS: Insulin Aspart 300 UNITS/3 ML PEN SC ×2 (12:32→17:06)
[2018-07-02] MEDS: Normal Saline Flush 10 ML SYR (14:42)
--- NOTE | 2018-07-02 17:00 | CMPROGNOTE_ITS ---
Care Management Progress Note S/O: Alfredo remains unable to participate in assessment at this time due to increasing withdrawal symptoms. He continues to be closely monitored with CIWA protocol. CM will continue to follow. A: 52 year old male admitted to [facility] 06/30/18 for ETOH Withdrawal, Hyponatremia, Abd Pain P: Alfredo will continue to be closely monitored at this time. He will discharge home when ready per MD. He will follow up with his PCP and plan of care as prescribed. Alfredo will transport via private vehicle with his .
[2018-07-02] MEDS: ROSUVASTATIN 20 MG TAB 40 MG PO (19:14)
[2018-07-02] MEDS: Enoxaparin 40 MG/0.4 ML SYR SC (19:16)
--- NOTE | 2018-07-02 20:07 | PGE_ITS ---
Date of Service Date of service: 07/02/18 Time of Service: 20:03 Assessment and Plan (1) Alcohol withdrawal: Current visit: Yes Status: Acute Initially with concern for active alcohol withdrawal,the patient has appeared fairly stable since the time of his admission. Continue current treatment with standing oxazepam as well as gabapentin taper. Continue to monitor on CIWA protocol. (2) Abdominal pain: Current visit: Yes Status: Acute Potential for alcohol-induced gastritis in the setting of significant EtOH intake in patient with a history of GERD. Continue twice daily dosing of IV PPI. Tolerating advanced diet with resolution of his abdominal discomfort. Hemoglobin mildly low but stable. (3) Hyponatremia: Current visit: Yes Status: Acute Likely hypovolemic hyponatremia in the setting of decreased oral intake and dehydration. Continues to improve with IV fluid hydration. (4) History of opioid abuse: Current visit: Yes Status: Acute Noted. Continue home Suboxone dose. (5) Diabetes mellitus, type II: Current visit: No Status: Chronic Initial hyperglycemia in the setting of insulin noncompliance?patient had not been taking his diabetic medications for some time now due to poor oral intake and concern for hypoglycemia. Continue reinitiated home regimen of glipizide and Lantus, as well as Janumet. Monitor fingersticks and blood sugar closely - currently mostly in the 100's range. (6) MING (acute kidney injury): Current visit: Yes Status: Acute Resolved with hydration. Etiology likely pre-renal in the setting of dehydration. (7) DVT prophylaxis: Current visit: Yes Status: Acute SC Lovenox. Subjective Interval history since last seen: 52 year old man with a prior history significant for anxiety, prior IVDA, and EtOH abuse admitted from [facility] emergency department on 06/30 with a diagnosis of Mr. Perez has a prior medical history significant for insulin-dependent DM, previously treated HCV, prior IVDA in remission, and EtOH abuse. Reportedly the patient has had some recent surgeries requiring opiates for pain control, triggering relapse to misuse of prescription medications, for which she was placed on Suboxone 3 months ago by his PCP. His gabapentin, originally being taken for his diabetic neuropathy as well as subjective control of his anxiety, was weaned off approximately 3 weeks ago due to concern for misuse. Since that time the patient has been reportedly drinking 1 pint of vodka daily. Reportedly stopped drinking alcohol, and stopped having oral intake of any kind at approximately 10 AM on the day prior to his admission secondary to onset of significant abdominal pain. Evaluation in the ED noted diaphoretic patient's with obvious tremors, significant elevation in blood glucose (the patient reportedly stopped taking his home insulin regimen due to poor p.o. intake), hyponatremia, MING, and an undetectable alcohol level. CT of the abdomen and pelvis showed no acute abnormality. Since his admission the patient has been scoring steadily on the CIWA protocol, but mostly for anxiety, headache, and abdominal discomfort with nausea. This morning he AGAIN appears comfortable, nondiaphoretic, and at baseline mental status without any confusion or delirium. He is somewhat sedated following administration of Lorazepam, but witnessed ambulating and back to his baseline later in the day. He is also not significantly hypertensive. No other overnight events reported. Remains afebrile. Exam Narrative Exam Narrative: General: Patient appears comfortable, AAOX3, NAD. Appears tremulous only when attempting to show the examiner's hands. Nondiaphoretic. Neck: Supple CV: Regular, nontachycardic, S1S2, No rubs, murmurs, or gallops. Pulmonary: Clear to auscultation bilaterally, no crackles, wheezing, or rhonchi Abdomen: + Bowel Sounds, soft, nontender, nondistended Vascular: No lower extremity edema Psych: Normal mood and affect. Objective Objective Clinical Data: Abnormal lab results 07/02/18 07/02/18 Range/Units 09:16 09:16 Hgb 12.5 L (13.5-17.5) g/dL Hct 37.2 L (40.0-50.0) % MCV 78.2 L (80-95) fL MCH 26.3 L (27.0-33.0) pg Sodium 135 L (136-145) mmol/L Potassium 2.9 L* (3.5-5.1) mmol/L Creatinine 0.61 L (0.70-1.30) mg/dL Glucose 239 H (70-100) mg/dL Calcium 8.2 L (8.5-10.1) mg/dL Magnesium 1.7 L (1.8-2.4) mg/dL Total Protein 6.3 L (6.4-8.2) g/dL Albumin 3.0 L (3.4-5.0) g/dL Vital Signs Temperature 36.6 C 07/02/18 16:14 Temperature Source Tympanic 07/02/18 16:14 Pulse 72 07/02/18 16:14 Pulse Rhythm Regular 07/02/18 15:50 Pulse 70 06/30/18 16:40 Respiratory Rate 18 07/02/18 16:14 Respiratory Effort Non-Labored 07/02/18 15:50 Respiratory Depth Normal 07/02/18 15:50 Respiratory Pattern Normal 07/02/18 15:50 Blood Pressure 143/81 H 07/02/18 16:14 Blood Pressure Mean 105 06/30/18 16:31 Blood Pressure Position Sitting 06/30/18 13:12 Pulse Oximetry 96 07/02/18 16:14 Oxygen Delivery Method Room Air 07/02/18 16:14 Oxygen Flow Rate 0 07/02/18 16:14 Pain Level 6 07/02/18 09:40 Comment 07/02/18 11:13 Intake & Output 07/01/18 07/02/18 07/02/18 23:59 11:59 23:59 Intake Total 2631.25 / 5241.25 1208.75 / 2987.500 1778.750 / 2987.500 Balance 2631.25 / 5241.25 1208.75 / 2987.500 1778.750 / 2987.500 Weight 90.2 kg Intake: IV 2031.25 / 4241.25 968.75 / 2387.500 1418.750 / 2387.500 Oral 600 / 1000 240 / 600 360 / 600 Other: Urine Color Yellow Yellow Yellow Urine Appearance Clear Clear Clear Urine Odor None Normal Comment Pt voiding ad indira in toilet. No hat. no hat Voiding Methods Toilet Toilet Toilet Laboratory Results WBC 5.82 k/cumm (4.4-10.8) 07/02/18 09:16 RBC 4.76 m/cumm (4.50-6.00) 07/02/18 09:16 Hgb 12.5 g/dL (13.5-17.5) L 07/02/18 09:16 Hct 37.2 % (40.0-50.0) L 07/02/18 09:16 MCV 78.2 fL (80-95) L 07/02/18 09:16 MCH 26.3 pg (27.0-33.0) L 07/02/18 09:16 MCHC 33.6 g/dL (32.0-36.0) 07/02/18 09:16 RDW 13.3 % (11.8-14.1) 07/02/18 09:16 Plt Count 247 x1000/uL (130-400) 07/02/18 09:16 MPV 10.3 fL (8.0-11.0) 07/02/18 09:16 Immature Gran % 0.2 07/02/18 09:16 Neutrophils % 61.6 07/02/18 09:16 Lymphocytes % 27.7 07/02/18 09:16 Monocytes % 7.4 07/02/18 09:16 Eosinophils % 2.9 07/02/18 09:16 Basophils % 0.2 07/02/18 09:16 Absolute Neutrophils 3.59 k/cumm (1.2-6.7) 07/02/18 09:16 Absolute Lymphocytes 1.61 k/cumm (1.2-3.4) 07/02/18 09:16 Absolute Monocytes 0.43 k/cumm (0.11-0.7) 07/02/18 09:16 Absolute Eosinophils 0.17 k/cumm (0.0-0.7) 07/02/18 09:16 Absolute Basophils 0.01 k/cumm (0.0-0.2) 07/02/18 09:16 Sodium 135 mmol/L (136-145) L 07/02/18 09:16 Potassium 2.9 mmol/L (3.5-5.1) L* 07/02/18 09:16 Chloride 99 mmol/L (98-107) 07/02/18 09:16 Carbon Dioxide 26.6 mmol/L (21.0-32.0) 07/02/18 09:16 Anion Gap 9.4 mmol/L (3-11) 07/02/18 09:16 BUN 10 mg/dL (7-18) 07/02/18 09:16 Creatinine 0.61 mg/dL (0.70-1.30) L 07/02/18 09:16 Estimated GFR/1.73 m2 >= 60.00 (mL/min/1.73m2) 07/02/18 09:16 Glucose 239 mg/dL (70-100) H 07/02/18 09:16 Calcium 8.2 mg/dL (8.5-10.1) L 07/02/18 09:16 Magnesium 1.7 mg/dL (1.8-2.4) L 07/02/18 09:16 Total Bilirubin 0.3 mg/dL (0.2-1.0) 07/02/18 09:16 AST 20 U/L (15-37) 07/02/18 09:16 ALT 20 U/L (12-78) 07/02/18 09:16 Alkaline Phosphatase 88 U/L (46-116) 07/02/18 09:16 Troponin I < 0.02 ng/mL (0.00-0.06) 06/30/18 13:30 Total Protein 6.3 g/dL (6.4-8.2) L 07/02/18 09:16 Albumin 3.0 g/dL (3.4-5.0) L 07/02/18 09:16 Lipase 294 U/L (73-393) 06/30/18 13:30 Urine Color Yellow (Yellow) 06/30/18 13:24 Urine Clarity Clear 06/30/18 13:24 Urine pH 6.5 (5-8) 06/30/18 13:24 Ur Specific Hundred 1.010 (1.005-1.025) 06/30/18 13:24 Urine Protein Negative mg/dL (Negative) 06/30/18 13:24 Urine Ketones Trace mg/dL (Negative) H 06/30/18 13:24 Urine Blood Negative (Negative) 06/30/18 13:24 Urine Nitrite Negative (Negative) 06/30/18 13:24 Urine Bilirubin Negative (Negative) 06/30/18 13:24 Urine Urobilinogen 0.2 EU/dL (Up TO 0.2) 06/30/18 13:24 Ur Leukocyte Esterase Negative (Negative) 06/30/18 13:24 Urine Glucose 500 mg/dL (Negative) H 06/30/18 13:24 Urine Opiates Screen Negative (Negative) 06/30/18 13:24 Urine Methadone Screen Negative (Negative) 06/30/18 13:24 Ur Barbiturates Screen Negative (Negative) 06/30/18 13:24 Ur Tricyclics Screen Negative (Negative) 06/30/18 13:24 Ur Amphetamines Screen Negative (Negative) 06/30/18 13:24 U Benzodiazepines Scrn Negative (Negative) 06/30/18 13:24 Urine Cocaine Screen Negative (Negative) 06/30/18 13:24 Ur THC Screen Positive (Negative) 06/30/18 13:24 Ethyl Alcohol < 3.0 mg/dL (<3) 06/30/18 13:30
--- NOTE | 2018-07-02 20:24 | NUR.NOTE ---
Nursing Note: At approximately 2014 Mr. Perez tried to go down the back stairwell, setting off the alarms. He was found sitting in an upright position but stated that he fell. Pt had been seen earlier ambulating the halls as if looking for a way out with a cigarette in his hand. When asked where he was going he stated i don't know. Nursing Library Page was informed of this incident and the nursing staff requested a cadre to sit with the patient as he is clearly confused and is a fall/elopement risk. Staff was informed there are no cadres available at this time to sit with this patient.
[2018-07-02] MEDS: Magnesium Oxide 400 MG TAB PO (20:27)
[2018-07-02] MEDS: Potassium Chloride 20 MEQ TABCR 40 MEQ PO (20:27)
[2018-07-02] MEDS: LORazepam 2 MG/ML VIAL IVP (20:28)
[2018-07-03 01:00] VITALS: BP 123/82; PULSE 72; RESP 18; TEMP 36.4; O2SAT 95
[2018-07-03 02:47] VITALS: O2SAT 95
[2018-07-03] MEDS: Normal Saline 1,000 ML 125 ML IV (04:32)
[2018-07-03 07:22] VITALS: BP 168/108; PULSE 74; RESP 15; TEMP 36.6; O2SAT 95
--- NOTE | 2018-07-03 08:14 | CMPROGNOTE_ITS ---
- If Service Date Differs Date of service: 07/03/18 Time of Service: 08:13 Care Management Progress Note S/O: Alfredo remains unable to participate in assessment at this time due to increasing withdrawal symptoms. He continues to be closely monitored with [facility] protocol. CM will continue to follow. A: 52 year old male admitted to [facility] 06/30/18 for ETOH Withdrawal, Hyponatremia, Abd Pain P: Alfredo will continue to be closely monitored at this time. He will discharge home when ready per MD. He will follow up with his PCP and plan of care as prescribed. Alfredo will transport via private vehicle with his .
[2018-07-03] MEDS: SITagliptin 100 MG TAB PO (09:02)
[2018-07-03] MEDS: Pantoprazole 40 MG VIAL IVP (09:02)
[2018-07-03] MEDS: metFORMIN 500 MG TAB 1000 MG PO (09:02)
[2018-07-03] MEDS: Folic Acid 1 MG TAB PO (09:03)
[2018-07-03] MEDS: Aspirin E.C. 81 MG TABEC PO (09:03)
[2018-07-03] MEDS: Atenolol 50 MG TAB 100 MG PO (09:03)
[2018-07-03] MEDS: Sertraline 50 MG TAB 100 MG PO (09:03)
[2018-07-03] MEDS: glipiZIDE 10 MG TAB PO (09:03)
[2018-07-03] MEDS: Multivitamin TAB 1 TAB PO (09:03)
[2018-07-03] MEDS: Gabapentin 800 MG TAB PO (09:03)
[2018-07-03] MEDS: Thiamine 100 MG TAB PO (09:03)
[2018-07-03] MEDS: Buprenorphine/Naloxone 8 mg/2 mg FILM 1 EACH SL (09:03)
[2018-07-03] MEDS: amLODIPine 10 MG TAB PO (09:03)
[2018-07-03 09:30] VITALS: O2SAT 95
[2018-07-03 10:03] LABS: BUN 10 mg/dL (7-18); CREATININE 0.68 mg/dL (0.70-1.30); Calcium 8.2 mg/dL (8.5-10.1); Chloride 100 mmol/L (98-107); Glucose 236 mg/dL (70-100); Magnesium 1.5 mg/dL (1.8-2.4); Potassium 3.3 mmol/L (3.5-5.1); Sodium 135 mmol/L (136-145)
[2018-07-03] MEDS: Normal Saline Flush 10 ML SYR (10:10)
--- NOTE | 2018-07-03 11:01 | NUR.NOTE ---
DESTIN entered the room to removed the Patients IV. The patient was attempting to remove it himself at this time. He stated The doctor needs to have better bed side manner, He thinks I'm a piece of shit because I use drugs. The Patient Then stated that I'm just gonna go home and put a shot gun in my mouth. You'll be reading about it. After removing the IV the WORKFORCE INVESTMENT ACT CAREER MANAGER left the room And informed the Charge Nurse. Nursing Note:
--- NOTE | 2018-07-03 11:54 | NUR.NOTE ---
Nursing Note: 07/03/18 1200 During the course of care with Mr. Perez this morning, he stated I'll go home and drink myself to and I'll put a shotgun in my mouth. Mr. Perez became upset and insistent on leaving the unit. He took out the IV that was present in his left hand. With LEGAL PRACTICE MANAGER assistance, gauze and tape were placed over the site. On each occasion of the above statements, I stayed in the room with the patient to try to calm him down, and when I felt it appropriate, I left the room to report this to both his RN and manager of production. He stated drinking himself to at least three times, and the shotgun twice - once with an LEGAL PRACTICE MANAGER present in the room as well.
--- NOTE | 2018-07-03 12:05 | NUR.NOTE ---
Nursing Note: HW 1027 07/03/2018 (Copied from Nursing Communication Note at this date and time) Alfredo was sleeping but arousable to name when I entered his room initially this morning at 0720. I took his vitals and FS, and let him rest. His bed alarms were set, and he was up at 0830 to use the restroom, when breakfast was provided to him. His medications were administered after breakfast. He became increasingly anxious. He received word from his that his boss wanted to visit him. He verbally stated he was worried about this, but stated he was sure his boss was only interested in a supportive visit to see how he was doing. His anxiety seemed to lessen when he received a text directly from his boss asking if it was ok to visit later this evening. Alfredo asked to go outside and to talk to the doctor regarding his medications. He began to exhibit increased signs of anxiety - crying, concerned about when his oxazepam would start working, asking for lorazepam, figity, stating he was shaky. He continued to ask about his medications, saying he needed a drink or lorazepam, and I encouraged him to let more time pass for the meds he had already taken start to work. He stated he wanted to go outside, and I told him that we couldn't becuase he was receiving IV fluids. He then stated he would rip out the IV if that's all it would take to go outside. I offered a walk around the unit when we discussed again what medications he had been given for his symptoms, and to let more time pass for them to start working. We returned to his room, and he requested to talk to the DrMatthew and for lorazepam again. He then stated he wished he was at home becuause then it would be his problem and continued, stating he would drink myself to . We continued talking about distraction methods, to let more time pass for his current medications to start working. This appeased him for the time, and I said I would see about when the DrMatthew would be in, but we would see what we could do. I reset his bed alarms, and left the room. Reported to RN and qi specialist.
[2018-07-03] MEDS: Insulin Aspart 300 UNITS/3 ML PEN SC (12:16)
--- NOTE | 2018-07-03 12:26 | W.INMHPGNOTE ---
Date of service: 07/03/18 Time of Service: 12:26 Mental Health Crisis Note Presenting Issue How did you arrive at the ED and why did you come: Alfredo arrived to [facility] for pain and medical issues he was experiencing. While discharging, it was determined that changes to medications needed to be made due to risk factors identified by his PCP. Alfredo said some comments about suicide that prompted a mental health evaluation. Precipitating Factors Alfredo immediately reported that he told the doctor something about shooting himself that he is not going to do. He denies a history of suicidal ideation, planning, intent, or attempts. He denies homicidal ideation, planning, or attempts. From this, he discussed difficulties he has had with accessing services in the past. He agreed to have a counselor from [facility] and is seeing a med. provider tomorrow at his PCP office. Disposition BEHAVIOR: cooperative, fluent EYE CONTACT: good MOOD: calm, euthymic AFFECT: full APPETITE: good SLEEP(trouble falling/staying asleep: reports sleep is fair Plan Alfredo is being released on his own accord. He has a job that he plans to be present. He will see an COAL SCREENER at his physician's office. A referral for a counselor at [facility] will be made. Alfredo will call the [facility] number if he decides he needs an COAL SCREENER for medication for depression and/or if he starts to feel anxious or depressed to the point he contemplates giving up. Signature Clinician's Name/Title: Gwyn Parker MA [facility]
--- NOTE | 2018-07-03 12:33 | MHPN_ITS ---
Date of service: 07/03/18 Time of Service: 12:26 Mental Health Crisis Note Presenting Issue How did you arrive at the ED and why did you come: Alfredo arrived to [facility] for pain and medical issues he was experiencing. While discharging, it was determined that changes to medications needed to be made due to risk factors identified by his PCP. Alfredo said some comments about suicide that prompted a mental health evaluation. Precipitating Factors Alfredo immediately reported that he told the doctor something about shooting himself that he is not going to do. He denies a history of suicidal ideation, planning, intent, or attempts. He denies homicidal ideation, planning, or attempts. From this, he discussed difficulties he has had with accessing services in the past. He agreed to have a counselor from [facility] and is seeing a med. provider tomorrow at his PCP office. Disposition BEHAVIOR: cooperative, fluent EYE CONTACT: good MOOD: calm, euthymic AFFECT: full APPETITE: good SLEEP(trouble falling/staying asleep: reports sleep is fair Plan Alfredo is being released on his own accord. He has a job that he plans to be present. He will see an MATERIAL INSPECTOR at his physician's office. A referral for a counselor at [facility] will be made. Alfredo will call the [facility] number if he decides he needs an MATERIAL INSPECTOR for medication for depression and/or if he starts to feel anxious or depressed to the point he contemplates giving up. Signature Clinician's Name/Title: Gwyn Parker MA [facility]
--- NOTE | 2018-07-03 12:46 | W.PM.DS.N ---
Date of service: 07/03/18 Time of Service: 12:46 DS: Diagnosis Discharge Diagnosis (1) Alcohol withdrawal: Status: Suspected (2) Abdominal pain: Status: Acute (3) Hyponatremia: Status: Acute (4) History of opioid abuse: Status: Chronic (5) Diabetes mellitus, type II: Status: Chronic (6) MING (acute kidney injury): Status: Acute (7) DVT prophylaxis: Status: Acute Discharge Plan Disposition Patient Disposition: HOME Condition: Fair Discharge Details Reason For Visit: ETOH WITHDRAWAL, HYPONATREMIA, ABD PAIN Admit Date/Time: 06/30/18 16:09 Admit Provider: Steve Villatoro Attending Provider: Steve Villatoro Primary Care Provider: Yulia Cortez [facility] Hospital Course: CC: HPI: 52 year old man with a prior history significant for anxiety, prior IVDA, and EtOH abuse admitted from [facility] emergency department on 06/30 with a diagnosis of Dehydration, Hyperglycemia, potential gastritis, and possible Alcohol Withdrawl. Mr. Perez has a prior medical history significant for insulin-dependent DM, previously treated HCV, prior IVDA in remission, and EtOH abuse. Reportedly the patient has had some recent surgeries requiring opiates for pain control, triggering relapse to misuse of prescription medications, for which she was placed on Suboxone 3 months ago by his PCP. Per discussion with Dr. Cortez, there was also strong suspicion regarding gabapentin abuse, confirmed with a negative UDS during a time when the patient was supposedly actively taking this medication. The patient however reports that he was on this medicine for his diabetic neuropathy as well as subjective control of his anxiety, was weaned off approximately 3 weeks ago. Since that time the patient has been reportedly drinking 1 pint of vodka daily. Reportedly stopped drinking alcohol, and stopped having oral intake of any kind at approximately 10 AM on the day prior to his admission secondary to onset of significant abdominal pain. Evaluation in the ED noted diaphoretic patient's with tremors, significant elevation in blood glucose (the patient reportedly stopped taking his home insulin regimen due to poor p.o. intake), hyponatremia, MING, and an undetectable alcohol level. CT of the abdomen and pelvis showed no acute abnormality. Since his admission the patient has been scoring steadily on the CIWA protocol, but mostly for anxiety, headache, and abdominal discomfort with nausea. This morning he AGAIN appears comfortable, nondiaphoretic, and at baseline mental status without any confusion or delirium. He has been witnessed ambulating and back to his baseline mental status. Was noted to be attempting to smoke in the stairway last evening, but reported to have 'fallen' when confronted. He is also not significantly hypertensive. No other overnight events reported. Remains afebrile. Hospital Course: (1) Alcohol withdrawal: Initially with concern for active alcohol withdrawal,the patient has appeared stable since the time of his admission. Though he reports auditory and visual hallucinations he has been at a baseline and apparent normal mental status, and has also displayed some significant seeking type behavior. He also was caught in a lie regarding his prior use and misuse of medications (as confirmed via conversation with patient's PCP this morning). Please note that while being observed the patient does not appear tremulous, his anxiety is lifelong and at baseline, is not suffering from GI distress (as confirmed by his appetite and demand for food and intake), has not been diaphoretic, and has not been tachycardic. Despite a one time blood pressure this morning of 168, his systolic values have been in the 110-140's throughout his hospital course, and this is off of his usual antihypertensive medication Losartan (Held due to initial kidney injury). He has not been febrile or hyperthermic, and his agitation appears at the prospect of having Gabapentin discontinued. Patient does not appear to be in withdrawl. Gabapentin will be discontinued, and he will receive 2 additional days of Oxazepam to conclude a course >96 hours following his last stated EtOH intake. Both case management and Mental Health have met with the patient, and he has been provided with outpatient resources, and scheduled with [facility] Services. Of note, Mr. Perez had remarked that if he was discharged without Gabapentin he would return home and potentially harm himself. [facility] / Mental Health has met with patient, deemed him not suicidal, and safe for discharge. As stated, he will be scheduled to be seen as an outpatient. (2) Abdominal pain: Potential for alcohol-induced gastritis in the setting of significant EtOH intake in patient with a history of GERD. Continue twice daily dosing of PPI, and continue as outpatient. Has been tolerating advanced diet with resolution of his abdominal discomfort. Hemoglobin mildly low but stable. (3) Hyponatremia: Likely hypovolemic hyponatremia in the setting of decreased oral intake and dehydration. Sodium nearly normalized with hydration. (4) History of opioid abuse: Noted. Continue home Suboxone dose. Strongly recommended outpatient support services given his history as of IVDA, opiate abuse, prescription drug abuse, and EtOH abuse. (5) Diabetes mellitus, type II: Initial hyperglycemia in the setting of insulin noncompliance?patient had not been taking his diabetic medications for some time now due to poor oral intake and concern for hypoglycemia. Continue reinitiated home regimen of glipizide and Lantus, as well as Janumet. Monitor fingersticks and blood sugar closely - currently mostly in the 100's range. (6) MING (acute kidney injury): Resolved with hydration. Etiology likely pre-renal in the setting of dehydration. (7) DVT prophylaxis: Was maintained on SC Lovenox. (8) Hypokalemia Will be discharged with supplements given his significantly low values of 2.9 and 3.3 this morning, with a repeat BMP in 3 days, especially with reinitiation of his Losartan. (9) Abnormal CXR: Rounded radiodensity likely nipple shadow - repeat CXR to ensure lack of pulmonary nodule. Home Meds and New Rx's Prescriptions: New multivitamin [Multiple Vitamins] Tablet 1 tab PO DAILY Qty: 0 RF: 0 folic acid 1 mg Tablet 1 mg PO DAILY Qty: 30 RF: 0 oxazepam 15 mg Capsule 15 mg PO QID Qty: 5 RF: 0 thiamine mononitrate (vit B1) [Vitamin B-1 (mononitrate)] 100 mg Tablet 100 mg PO DAILY Qty: 30 RF: 0 omeprazole 40 mg capsule,delayed release(DR/EC) 40 mg PO BID Qty: 60 RF: 0 potassium chloride 20 mEq tablet extended release 20 meq PO BID Qty: 60 RF: 0 Continued buprenorphine-naloxone [Suboxone] 8-2 mg film 1 film SL DAILY RF: 0 Janumet 1 EACH tablet 1 ea PO BID RF: 0 atenolol 100 MG tablet 100 mg PO DAILY RF: 0 glipizide 10 MG tablet 10 mg PO BID RF: 0 aspirin [Aspir-Low] 81 MG tablet,delayed release (DR/EC) 81 mg PO DAILY RF: 0 losartan 100 MG tablet 100 mg PO DAILY RF: 0 rosuvastatin [Crestor] 40 MG tablet 40 mg PO DAILY RF: 0 cholecalciferol (vitamin D3) [Vitamin D3] 2,000 UNIT capsule 2,000 unit PO DAILY RF: 0 Lantus U-100 Insulin 100 UNIT/ML solution 50 units SQ HS RF: 0 amlodipine 10 MG tablet 10 mg PO DAILY RF: 0 sertraline 100 mg Tablet 100 mg PO DAILY RF: 0 Discontinued omeprazole 20 MG capsule,delayed release(DR/EC) 20 mg PO DAILY RF: 0 Discharge Instructions Stand Alone Forms: Nursing Discharge Form Referrals: Yulia Cortez MD [Primary Care Provider] - 07/17/18 8:20 am Activity:: No strenuous activity Equipment/Supplies:: No Equipment Needed Diet:: Carb Counting Discharge Orders Discharge Orders: Discharge Order (Routine); Ordered 07/03/18 Ordered By: Steve Villatoro Other Ambulatory Orders: Basic Metabolic Panel (Routine) Timeframe: 3 Days Location: Determined by Patient Ordered By: Steve Villatoro XR chest 2V PA & lateral (Routine) Timeframe: 3 Days Location: Determined by Patient Ordered By: Steve Villatoro DS: Data Vitals/I&O Vitals and I&O: Vital Signs Temperature 36.6 C 07/03/18 07:22 Temperature Source Tympanic 07/03/18 07:22 Pulse 74 07/03/18 07:22 Pulse Rhythm Regular 07/03/18 10:17 Pulse 70 06/30/18 16:40 Respiratory Rate 15 07/03/18 07:22 Respiratory Effort Non-Labored 07/03/18 10:17 Respiratory Depth Normal 07/03/18 10:17 Respiratory Pattern Normal 07/03/18 10:17 Blood Pressure 168/108 H 07/03/18 07:22 Blood Pressure Mean 105 06/30/18 16:31 Blood Pressure Position Sitting 06/30/18 13:12 Pulse Oximetry 95 07/03/18 07:22 Oxygen Delivery Method Room Air 07/03/18 07:22 Oxygen Flow Rate 0 07/03/18 07:22 Pain Level 6 07/02/18 09:40 Comment 07/03/18 07:22 Intake & Output 07/02/18 07/03/18 07/03/18 23:59 11:59 23:59 Intake Total 2302.083 / 3510.833 1231.667 / 1231.667 Balance 2302.083 / 3510.833 1231.667 / 1231.667 Weight 91.3 kg Intake: IV 1702.083 / 2670.833 991.667 / 991.667 Oral 600 / 840 240 / 240 Other: Urine Color Yellow Yellow Urine Appearance Clear Clear Urine Odor Normal Normal Comment voided in the tiolet Voiding Methods Toilet Toilet Completed studies during hospitalization [Text1]: Exam(s) 06/[address]:CT abdomen & pelvis w a RAD:XR chest 2V PA & lateral SYMPTOM/DIAGNOSIS: BACK PAIN, WT LOSS, EPIGASTRIC ABD PAIN, H/O ETOH ABDOMEN AND PELVIC CT: CT examination of the abdomen and pelvis was performed with a bolus infusion of 100 cc's of Omnipaque 350. Images obtained through the lung bases are unremarkable. There is decreased hepatic attenuation consistent with hepatic steatosis. No focal hepatic abnormality is seen. Spleen is unremarkable in appearance. Pancreas is unremarkable in appearance. No biliary dilatation or gallbladder abnormality is seen. Stomach is collapsed, gastric wall thickening not excluded on the basis of this examination. Adrenals and kidneys appear normal. Abdominal aorta is of normal diameter and no major vascular abnormality is seen. Small fat containing left inguinal hernia noted. No abdominal or pelvic adenopathy is seen. Appendix is normal. No evidence of diverticulitis or bowel obstruction. CONCLUSION: Hepatic steatosis. Incidental finding of vacuum disc phenomenon with bulging/herniated disc at L 5-S 1. No evidence of acute intra-abdominal process. PA AND LATERAL CHEST: The heart is not enlarged. The lungs are generally clear except for a questionable nodular density overlying the left lower lung field, likely nipple shadow. Repeat PA chest with nipple markers requested. No pleural effusion is seen. CONCLUSION: Repeat PA chest with nipple markers requested to exclude intrapulmonary nodule. No other significant findings. Labs on day of discharge: Labs from last 24 hours 07/03/18 09:40 Sodium 135 L Potassium 3.3 L Chloride 100 Carbon Dioxide 26.0 Anion Gap 9.0 BUN 10 Creatinine 0.68 L Estimated GFR/1.73 m2 >= 60.00 Glucose 236 H Calcium 8.2 L Magnesium 1.5 L PFS Medical History Adjustment disorder with anxious mood (Acute) Alcoholism (Acute) Diabetes type 2, uncontrolled (Acute) History of positive hepatitis C (Acute) History of tobacco use (Acute) Hypertension, essential, benign (Acute) Opioid dependence on agonist therapy (Acute) Restless leg syndrome (Acute) Anxiety (Chronic) Surgical History Birthmark (Acute) History of knee surgery (Acute) H/O shoulder surgery (Chronic) H/O colonoscopy (Resolved 02/15/18) Social History Smoking/Tobacco Use Status: Current every day Tobacco Type: cigarettes Smoking cigarettes per day: 10 Alcohol Intake: current Alcohol Intake frequency: 3 or more drinks per day Alcohol type: hard liquor Drug use: Occasionally Substance use type: marijuana Do you feel safe at home: Yes Do you feel safe in your relationship?: Yes
[2018-07-03] MEDS: Magnesium Oxide 400 MG TAB 800 MG PO (13:02)
[2018-07-03] MEDS: Potassium Chloride 20 MEQ TABCR 40 MEQ PO (13:02)
--- NOTE | 2018-07-03 15:31 | PDOC.CMDIS ---
- If Service Date Differs Date of service: 07/03/18 Time of Service: 15:31 Care Management Discharge Reason for Hospitalization: ETOH Withdrawal, Hyponatremia, ABD Pain, hyperglycemia Discharge Plan: Alfredo will have a psychiatric consult tomtala with YSABEL at [facility]. He will also have an appointment with a mental health counselor. He was provided resources for local AA groups and Recovery Services. Patient was seen by mental health crisis service prior to discharge. Patient familiarized with service and will follow up as needed. Patient's spouse present during discharge planning meeeting. Patient/Family Education Needs: Discharge education, limitations, follow up plan of care and self management. - MH Services (Omit if N/A) Current MH Services: Other (PCP for substance abuse services and psychiatric care.) Referred to [facility] (ED embedded) piano case maker?: Yes
--- NOTE | 2018-07-03 16:47 | NUR.NOTE ---
Nursing Note: 07/03/18 1030 Pt stated to MD i'm just going to go home and drink, drink myself to if I don't get to the shotgun first. Mental Health consulted, cleared pt for discharge with follow up plan in place.
--- NOTE | 2018-07-03 16:55 | W.INDIABCONS ---
Date of service: 07/03/18 Time of Service: 16:56 Diabetes Inpatient Consult DESCRIPTION/ASSESSMENT: Appreciate diabetes consult for Mr. Perez who is hospitalized for alcohol withdrawal and gastritis. A1c 10 last March. BMI 29 Alfredo is known to us from past outpatient consultation. Mr. Perez manages diabetes with Glipizide, glargine 50untis, Metformin and Sitagliptin. He recently stopped his medications for diabetes to prevent hypoglycemia. It appears this is not managing his blood sugars given his A1c. Here he receives his usual basal insulin dose and sensitive insulin correction.He eats 30-45 grams carbohydrate at a meal here. BLood sugars have improved from 200s to 100s yesterday and today. Attempted to visit last evening around mealtime but he was occupied with nursing. INTERVENTION: Blood sugars are reasonably well controlled eating a moderate carbohydrate intake and minimal insulin intervention beyond his usual basal insulin. PLAN: Will watch blood sugars. Will f/u by telephone as outpatient. Time Spent in Nutritional Counseling and Treatment: 0 minutes face to face inpatient
== END 2018-07-03 15:03 | disposition home or self-care (01) | DRG 895 ==
LOC: ER 16:49 → MS 17:08
PROVIDERS: Nurse Practitioner; Admitting Provider Internal Medicine; Emergency Provider Physician Assistant; PCP Family Medicine; Visit Provider Internal Medicine
DX: E87.1 Hypo-osmolality and hyponatremia; N17.9 Acute kidney failure, unspecified; R25.1 Tremor, unspecified; K29.20 Alcoholic gastritis without bleeding; E86.0 Dehydration; E11.65 Type 2 diabetes mellitus with hyperglycemia; E11.40 Type 2 diabetes mellitus with diabetic neuropathy, unspecified; E87.6 Hypokalemia; R91.1 Solitary pulmonary nodule; F41.8 Other specified anxiety disorders; I10 Essential (primary) hypertension; K21.9 Gastro-esophageal reflux disease without esophagitis; T38.3X6A Underdosing of insulin and oral hypoglycemic [antidiabetic] drugs, initial encounter; Z91.128 Patient's intentional underdosing of medication regimen for other reason; F17.210 Nicotine dependence, cigarettes, uncomplicated; Z79.4 Long term (current) use of insulin; Z71.3 Dietary counseling and surveillance; F11.11 Opioid abuse, in remission; F10.239 Alcohol dependence with withdrawal, unspecified
CPT/HCPCS: 36415; 36416; 80048; 80053; 80307; 82962; 83690; 85027; 93005; 96361; 96374; 96375; 96376; 99222; 99232; 99233; 99239; 99285; J1650; 71046; 74177; 80320; 81003; 83735; 84295; 84484; 85025; 93010; J2060; J2405; J3480; J3490

== ENCOUNTER 2018-08-05 18:19 | Emergency (ER) | payer OTHER, SELFPAY ==
[2018-08-05 18:22] VITALS: BP 131/78; PULSE 84; RESP 18; TEMP 36.7; O2SAT 96
--- NOTE | 2018-08-05 18:33 | ED.GENADUL_ITS ---
Discharge Plan Disposition Patient Disposition: AGAINST MEDICAL ADVICE Condition: Stable Discharge Details Chief Complaint: GenMedical Clinical Impression: Abdominal pain Primary Care Provider: Yulia Cortez ED Provider: Monster Drew [place] Meds and New Rx's Prescriptions: Continued buprenorphine-naloxone [Suboxone] 8-2 mg film 1 film SL DAILY RF: 0 Janumet 1 EACH tablet 1 ea PO BID RF: 0 atenolol 100 MG tablet 100 mg PO DAILY RF: 0 glipizide 10 MG tablet 10 mg PO BID RF: 0 aspirin [Aspir-Low] 81 MG tablet,delayed release (DR/EC) 81 mg PO DAILY RF: 0 losartan 100 MG tablet 100 mg PO DAILY RF: 0 rosuvastatin [Crestor] 40 MG tablet 40 mg PO DAILY RF: 0 cholecalciferol (vitamin D3) [Vitamin D3] 2,000 UNIT capsule 2,000 unit PO DAILY RF: 0 Lantus U-100 Insulin 100 UNIT/ML solution 50 units SQ HS RF: 0 amlodipine 10 MG tablet 10 mg PO DAILY RF: 0 sertraline 100 mg Tablet 100 mg PO DAILY RF: 0 multivitamin [Multiple Vitamins] Tablet 1 tab PO DAILY Qty: 0 RF: 0 folic acid 1 mg Tablet 1 mg PO DAILY Qty: 30 RF: 0 thiamine mononitrate (vit B1) [Vitamin B-1 (mononitrate)] 100 mg Tablet 100 mg PO DAILY Qty: 30 RF: 0 omeprazole 40 mg capsule,delayed release(DR/EC) 40 mg PO BID Qty: 60 RF: 0 potassium chloride 20 mEq tablet extended release 20 meq PO BID Qty: 60 RF: 0 Discharge Instructions Instructions: Abdominal Pain (ED) Referrals: Yulia Cortez MD [Primary Care Provider] - Medical Decision Making Patient history a little vague and he is not a great historian. He is a heavy drinker and seems to be complaining of abdominal and back pain. He is telling me it feels like his previous pancreatitis. EKG was obtained from triage and is sinus rhythm with no acute changes. We will establish IV and start fluids. Will give Toradol for pain. Will give Phenergan for nausea. Will check laboratory studies and get CT of the abdomen and pelvis. Patient laboratory studies for the most part unremarkable. Potassium and magnesium low. Lipase normal. Alcohol level only 60. CT scan is still pending. Toradol not helping with his pain. He wants something stronger. Given that his labs are unremarkable and he had a benign abdominal exam I told him that using narcotics for undifferentiated abdominal pain was probably not in his best interest. Told him I would try IV Tylenol when he came back from CAT scan. As he was being wheeled away he jumped off the stretcher came back to the room and demanded to be discharged if we were not going to treat his pain. Told him that that was not the case, that I was just not willing to use narcotics given his prior history until I had evidence of a significant problem. This was not acceptable to him. Patient attempted to leave with the IV in place. He was not allowed to leave until the IV was discontinued. He did not wait for discharge instructions. Started to mumble statements that he might have to hurt himself. When questioned directly he states he is not going to, then he states maybe he will. states that she is going to be with him at all times and is not worried about this, he is not going to harm himself. She could not convince him to stay for the CT scan. Patient left without d/c instructions and without signing AMA. HPI General Mode of arrival: ambulatory . Date/Time Provider Initiated Documentation: 08/05/18 18:23 . Limitations to Documentation: no limitations . Information obtained by: patient, RN notes reviewed and old records reviewed . HPI Narrative: Patient presents to ED complaining of not feeling well. He states he has shortness of breath but on elucidating this, it's that he has abdominal and low back pain that makes it hard for him to take a deep breath. He has had some nausea and vomiting today. He denies having chest pain or tightness. He denies upper back pain. He has had sweats but he does not know whether he has had fevers or not. He is a heavy drinker anywhere from 1/2 pint to a pint of vodka a day. He has been drinking today. He has had symptoms for a couple of days now. He reports having history of pancreatitis in the past. Related Data Home Medications Medication Instructions Recorded Confirmed aspirin [Aspir-Low] 81 mg PO DAILY 02/08/13 08/05/18 atenolol 100 mg PO DAILY 02/08/13 08/05/18 glipizide 10 mg PO BID 02/08/13 08/05/18 losartan 100 mg PO DAILY 02/08/13 08/05/18 rosuvastatin [Crestor] 40 mg PO DAILY 02/08/13 08/05/18 cholecalciferol (vitamin D3) 2,000 unit PO DAILY 09/09/13 08/05/18 [Vitamin D3] Lantus U-100 Insulin 50 units SQ HS 08/07/14 08/05/18 amlodipine 10 mg PO DAILY 08/07/14 08/05/18 Janumet 1 ea PO BID 08/03/15 08/05/18 buprenorphine 8 mg-naloxone 2 mg 1 film SL DAILY 01/21/18 08/05/18 sublingual film sertraline 100 mg PO DAILY 06/30/18 08/05/18 folic acid 1 mg PO DAILY #30 tab 07/03/18 08/05/18 multivitamin [Multiple Vitamins] 1 tab PO DAILY #0 tab 07/03/18 08/05/18 omeprazole 40 mg PO BID #60 cap 07/03/18 08/05/18 potassium chloride 20 meq PO BID #60 tab 07/03/18 08/05/18 thiamine mononitrate (vit B1) 100 mg PO DAILY #30 tab 07/03/18 08/05/18 [Vitamin B-1 (mononitrate)] Previous Rx's Medication Instructions Recorded folic acid 1 mg PO DAILY #30 tab 07/03/18 multivitamin [Multiple Vitamins] 1 tab PO DAILY #0 tab 07/03/18 omeprazole 40 mg PO BID #60 cap 07/03/18 potassium chloride 20 meq PO BID #60 tab 07/03/18 thiamine mononitrate (vit B1) 100 mg PO DAILY #30 tab 07/03/18 [Vitamin B-1 (mononitrate)] Allergies Allergy/AdvReac Type Severity Reaction Status Date / Time ampicillin Allergy Skin Rash Verified 08/05/18 18:26 zolpidem tartrate AdvReac Intermediate confusion Verified 08/05/18 18:26 [From Ambien] lisinopril AdvReac cough Verified 08/05/18 18:26 General ANNITA: 2 Review of Systems Review of Systems 01/13 Review of Systems completed and is negative except as stated above in HPI (Systems reviewed: Const, Eyes, ENT, Resp, CV, GI, , MSK, Skin, Neuro) PFSH Medical History Tobacco dependence (Chronic) History of colon polyps (Chronic) Low back pain (Chronic) Hypertension (Chronic) Depression (Chronic) Diabetes mellitus, type II (Chronic) 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) hepatitis c with undetectable load (Chronic) GERD (gastroesophageal reflux disease) (Chronic) Hyperlipidemia (Chronic) Adjustment disorder with anxious mood (Chronic) Alcoholism (Chronic) Anxiety (Chronic) Restless leg syndrome (Chronic) Surgical History History of total right knee replacement (Chronic 08/10/14) H/O shoulder surgery (Chronic) History of knee surgery (Chronic) H/O colonoscopy (Resolved 02/15/18) Birthmark (Inactive) Social History Smoking/Tobacco Use Status: Current every day Tobacco Type: cigarettes Alcohol Intake: current Alcohol Intake frequency: 3 or more drinks per day Alcohol type: hard liquor Drug use: Occasionally Substance use type: marijuana Do you feel safe at home: Yes Do you feel safe in your relationship?: Yes Exam Narrative Exam Narrative: Vitals: Afebrile with normal vital signs and normal saturations. Const: WDWN male in NAD. HEENT: NC/AT. Normal facial exam. Eyes: Normal conjunctiva and sclera. Neck: Supple. Trachea midline. Lungs: Normal respiratory effort. Lungs are clear. Cor: RRR without murmur/gallop. Good peripheral pulses. GI: Soft. NT/ND. No guarding or rebound. Neuro: A+O x 3. CN grossly in tact. Good strength and no focal deficit. Ext: No C/C/E. No deformity or tenderness. Skin: Warm and dry without rash.
[2018-08-05] MEDS: Lactated Ringers 1,000 ML 200 ML IV (19:02)
[2018-08-05] MEDS: Ketorolac 15 MG/ML VIAL IVP (19:03)
[2018-08-05 19:40] LABS: Lipase 286 U/L (73-393); Magnesium 1.7 mg/dL (1.8-2.4)
[2018-08-05 19:43] LABS: Albumin 3.7 g/dL (3.4-5.0); Alkaline Phosphatase 117 U/L (46-116); BUN 19 mg/dL (7-18); Bilirubin, Total 0.3 mg/dL (0.2-1.0); CREATININE 0.75 mg/dL (0.70-1.30); Calcium 9.6 mg/dL (8.5-10.1); Chloride 98 mmol/L (98-107); Glucose 213 mg/dL (70-100); Potassium 3.1 mmol/L (3.5-5.1); Sodium 137 mmol/L (136-145); Total Protein 7.2 g/dL (6.4-8.2)
[2018-08-05 19:44] LABS: ALT 26 U/L (12-78); AST 26 U/L (15-37); Anion Gap 9.6 mmol/L (3-11); CO2 29.4 mmol/L (21.0-32.0); Troponin I < 0.02 ng/mL (0.00-0.06)
--- NOTE | 2018-08-05 20:04 | NUR.NOTE ---
Nursing Note: Pt jumped off the stretcher on the way to radiology. Pt went back in the room and started getting dressed. He was going to leave because he was not being treated for the pain he was having. He had asked for methadone for his pain and was informed that we do not carry it in the ER. Pt allowed SCHUYLER Luciano to remove his IV. Pt ambulated out the door with steady gait. Dr. Drew spoke with him prior to his departure. at side.
[2018-08-05 20:08] VITALS: BP 131/78; PULSE 84; RESP 18; O2SAT 96
[2018-08-05 20:14] LABS: Abs Immature Grans 0.05 k/cumm (0.0-0.09); Absolute Basophil Count 0.02 k/cumm (0.0-0.2); Absolute Eosinophil Count 0.24 k/cumm (0.0-0.7); Absolute Lymphocyte Count 2.94 k/cumm (1.2-3.4); Basophils % 0.2; Eosinophils % 2.7; HCT 37.2 % (40.0-50.0); HGB 12.6 g/dL (13.5-17.5); Immature Grans % 0.6; Lymphocytes % 33.6; Mean Corp. HGB Concentration 33.9 g/dL (32.0-36.0); Mean Corpuscular Hemoglobin 26.4 pg (27.0-33.0); Mean Platelet Volume 9.8 fL (8.0-11.0); Neutrophils % 54.9; Platelet Count 277 x1000/uL (130-400); RBC 4.77 m/cumm (4.50-6.00); RBC Distribution Width 13.8 % (11.8-14.1); White Blood Cell Count 8.75 k/cumm (4.4-10.8)
--- NOTE | 2018-08-06 10:36 | PDOC.ERCMPRO ---
Care Management Progress Note 08/06-Alfredo presented to the ED last evening for abdominal pain. Alfredo left AMA as he stated he was not given Methadone for his pain. Please see provider and nursing notes. This CM called Alfredo and left a voice message with contact information if further assistance is needed.
== END 2018-08-05 20:30 | disposition left against medical advice (07) ==
PROVIDERS: Emergency Provider Emergency Medicine; PCP Family Medicine
DX: R10.9 Unspecified abdominal pain (principal); E11.9 Type 2 diabetes mellitus without complications; Z79.4 Long term (current) use of insulin; I10 Essential (primary) hypertension
CPT/HCPCS: 36415; 80053; 83690; 93005; 96361; 96365; 96375; 99285; 80320; 83735; 84484; 85025; 93010; J1885

== ENCOUNTER 2018-08-06 11:11 | Inpatient (IN) | payer OTHER, SELFPAY ==
[2018-08-06] VITALS (100 sets, daily range): BP systolic 86–136; BP diastolic 44–93; PULSE 67–83; RESP 10–30; TEMP 36.3–36.5; O2SAT 89–99
--- NOTE | 2018-08-06 11:31 | W.ED.GENAD ---
Discharge Plan Disposition Patient Disposition: [facility] INPATIENT Condition: Stable Discharge Details Chief Complaint: ETOHWithdr Clinical Impression: Abdominal pain, Hallucinations, Alcohol abuse Admit Date/Time: 08/06/18 16:01 Admit Provider: Luz Lynn Attending Provider: Luz Lynn Primary Care Provider: Yulia Cortez ED Provider: Елена Pearson Discharge Data Discharge Date/Time-TO BE ENTERED AT DEPARTURE: 08/06/18 18:11 Medical Decision Making 52-year-old male with a history of chronic alcohol abuse and diabetes who presents with lower abdominal and lower back pain for the past 10 days. Also admits to visual and auditory hallucinations. Last alcoholic drink at 10 AM today. Vitals within normal limits. Patient is complaining of feeling shaky but does not appear to be tremulous or diaphoretic. Patient is requesting a dose of Ativan for his shaking. EKG on arrival noted a rate of 80 in sinus with no acute ST findings. His abdomen is tender diffusely but worse in the left upper quadrant. Differential diagnosis includes pancreatitis, cholecystitis, appendicitis, colitis, electrolyte abnormality. 1340 --labs and imaging reviewed. Potassium 3. Magnesium 1.4. Lipase within normal limits. Troponin negative. Urinalysis negative. CT abdomen negative for acute findings. Patient given p.o. potassium and IV magnesium. 1415 --on reassessment, patient states he feels shaky again. Normal heart rate and blood pressure. Patient also admits to episodes of auditory and visual hallucinations while here. Nurse stated that patient seemed to be confused at times and asking questions that did not make sense. When the nurse asked patient if he felt better, he stated that he needed to check the weather outside. states she does not feel comfortable with patient going home. Will admit patient for observation. He does not appear clinically consistent with alcohol withdrawal, but concerned with this history of hallucinations. 1430 --discussed with hospitalist -accepts patient for admission. Medical Records Medical records reviewed: Yes I reviewed the patient's medical records. Imaging Data Radiologic Study: Radiologist's impression: CT SCAN OF THE ABDOMEN AND PELVIS: CT scan of the abdomen and pelvis was performed following the uneventful administration of intravenous contrast material. Comparison examination is 06/30/18. Mild atelectatic changes are seen in the lung bases. The liver shows diffuse decreased attenuation consistent with hepatic steatosis. No suspicious hepatic masses seen. The portal, superior mesenteric and splenic veins are patent. The gallbladder is negative. There is no biliary ductal dilatation. The pancreas is unremarkable. The spleen and adrenal glands are unremarkable. The kidneys show normal and symmetric enhancement. No suspicious solid renal mass or obstruction is identified. There is a tiny cyst in the lower pole of the right kidney. The urinary bladder is intact. The reproductive organs are unremarkable. There is atherosclerosis of the abdominal aorta but no aneurysmal dilatation is present. No significant abdominal or pelvic adenopathy, ascites or pneumoperitoneum is present. The bowel shows no evidence of obstruction or inflammation. No evidence of an acute appendicitis is present. The stomach wall appears thickened, but this is likely due to decreased distention. Degenerative changes are seen in the lower lumbar spine. IMPRESSION: 1. No evidence of an acute abdomen. 2. Hepatic steatosis. Lab Data Lab results reviewed: Yes I reviewed the patient's lab results. Laboratory Tests Range/Units 08/06/18 08/06/18 08/06/18 11:26 11:26 11:50 WBC (4.4-10.8) k/cumm RBC (4.50-6.00) m/cumm Hgb (13.5-17.5) g/dL Hct (40.0-50.0) % MCV (80-95) fL MCH (27.0-33.0) pg MCHC (32.0-36.0) g/dL RDW (11.8-14.1) % Plt Count (130-400) x1000/uL MPV (8.0-11.0) fL Immature Gran % Neutrophils % Lymphocytes % Monocytes % Eosinophils % Basophils % Absolute Neutrophils (1.2-6.7) k/cumm Absolute Lymphocytes (1.2-3.4) k/cumm Absolute Monocytes (0.11-0.7) k/cumm Absolute Eosinophils (0.0-0.7) k/cumm Absolute Basophils (0.0-0.2) k/cumm Sodium (136-145) mmol/L 139 Potassium (3.5-5.1) mmol/L 3.0 L Chloride (98-107) mmol/L 100 Carbon Dioxide (21.0-32.0) mmol/L 28.6 Anion Gap (3-11) mmol/L 10.4 BUN (7-18) mg/dL 20 H Creatinine (0.70-1.30) mg/dL 0.68 L Estimated GFR/1.73 m2 (mL/min/1.73m2) >= 60.00 Glucose (70-100) mg/dL 225 H Calcium (8.5-10.1) mg/dL 8.9 Magnesium (1.8-2.4) mg/dL 1.4 L Total Bilirubin (0.2-1.0) mg/dL 0.3 AST (15-37) U/L 20 ALT (12-78) U/L 26 Alkaline Phosphatase (46-116) U/L 111 Troponin I (0.00-0.06) ng/mL < 0.02 Total Protein (6.4-8.2) g/dL 6.7 Albumin (3.4-5.0) g/dL 3.5 Lipase (73-393) U/L 241 Urine Color (Yellow) Yellow Urine Clarity Clear Urine pH (5-8) 6.0 Ur Specific [place] (1.005-1.025) 1.025 Urine Protein (Negative) mg/dL Negative Urine Ketones (Negative) mg/dL Negative Urine Blood (Negative) Negative Urine Nitrite (Negative) Negative Urine Bilirubin (Negative) Negative Urine Urobilinogen (Up TO 0.2) EU/dL 0.2 Ur Leukocyte Esterase (Negative) Negative Urine Glucose (Negative) mg/dL 100 Urine Opiates Screen (Negative) Negative Urine Methadone Screen (Negative) Negative Ur Barbiturates Screen (Negative) Negative Ur Tricyclics Screen (Negative) Negative Ur Amphetamines Screen (Negative) Negative U Benzodiazepines Scrn (Negative) Negative Urine Cocaine Screen (Negative) Negative Ur THC Screen (Negative) Positive Ethyl Alcohol (<3) mg/dL 30.1 Range/Units 08/06/18 11:50 WBC (4.4-10.8) k/cumm 9.45 RBC (4.50-6.00) m/cumm 4.54 Hgb (13.5-17.5) g/dL 12.0 L Hct (40.0-50.0) % 35.8 L MCV (80-95) fL 78.9 L MCH (27.0-33.0) pg 26.4 L MCHC (32.0-36.0) g/dL 33.5 RDW (11.8-14.1) % 13.8 Plt Count (130-400) x1000/uL 264 MPV (8.0-11.0) fL 9.7 Immature Gran % 0.5 Neutrophils % 58.5 Lymphocytes % 31.2 Monocytes % 7.2 Eosinophils % 2.4 Basophils % 0.2 Absolute Neutrophils (1.2-6.7) k/cumm 5.52 Absolute Lymphocytes (1.2-3.4) k/cumm 2.95 Absolute Monocytes (0.11-0.7) k/cumm 0.68 Absolute Eosinophils (0.0-0.7) k/cumm 0.23 Absolute Basophils (0.0-0.2) k/cumm 0.02 Sodium (136-145) mmol/L Potassium (3.5-5.1) mmol/L Chloride (98-107) mmol/L Carbon Dioxide (21.0-32.0) mmol/L Anion Gap (3-11) mmol/L BUN (7-18) mg/dL Creatinine (0.70-1.30) mg/dL Estimated GFR/1.73 m2 (mL/min/1.73m2) Glucose (70-100) mg/dL Calcium (8.5-10.1) mg/dL Magnesium (1.8-2.4) mg/dL Total Bilirubin (0.2-1.0) mg/dL AST (15-37) U/L ALT (12-78) U/L Alkaline Phosphatase (46-116) U/L Troponin I (0.00-0.06) ng/mL Total Protein (6.4-8.2) g/dL Albumin (3.4-5.0) g/dL Lipase (73-393) U/L Urine Color (Yellow) Urine Clarity Urine pH (5-8) Ur Specific [place] (1.005-1.025) Urine Protein (Negative) mg/dL Urine Ketones (Negative) mg/dL Urine Blood (Negative) Urine Nitrite (Negative) Urine Bilirubin (Negative) Urine Urobilinogen (Up TO 0.2) EU/dL Ur Leukocyte Esterase (Negative) Urine Glucose (Negative) mg/dL Urine Opiates Screen (Negative) Urine Methadone Screen (Negative) Ur Barbiturates Screen (Negative) Ur Tricyclics Screen (Negative) Ur Amphetamines Screen (Negative) U Benzodiazepines Scrn (Negative) Urine Cocaine Screen (Negative) Ur THC Screen (Negative) Ethyl Alcohol (<3) mg/dL ECG Data Attestation: I personally reviewed and interpreted this ECG (s) as follows: Interpretation: Rate of 80 and sinus with no acute ST elevation or depression. QTc 496. QRS 110. HPI General Mode of arrival: ambulatory. Date/Time Provider Initiated Documentation: 08/06/18 11:29. Limitations to Documentation: no limitations. Information obtained by: patient. HPI Narrative: Patient is a 52-year-old male with a history of GERD, diabetes, hypertension, high cholesterol, chronic alcohol abuse and history of previous opioid dependence who presents with abdominal pain and back pain for the past 10 days. He describes abdominal pain is diffuse and constant described as dull and achy, and worse in the lower abdomen. He states his back pain is in his lower back. He states the abdominal pain is currently 6/10. He denies any aggravating or alleviating factors. He admits to occasional loose stools but denies any bleeding. He also states he has been hearing voices and seeing things that are not there for the past 3 to 4 days. He states he had stopped drinking several months ago but restarted 3 months ago. He states he has been drinking 1 pint of vodka daily. He states he last drank 1/2 pint of vodka at 10 AM this morning. He denies any suicidal or homicidal ideation, fever, chest pain, shortness of breath, urinary symptoms or leg weakness. Related Data Home Medications Medication Instructions Recorded Confirmed aspirin [Aspir-Low] 81 mg PO DAILY 02/08/13 08/06/18 atenolol 100 mg PO DAILY 02/08/13 08/06/18 glipizide 10 mg PO BID 02/08/13 08/06/18 losartan 100 mg PO DAILY 02/08/13 08/06/18 rosuvastatin [Crestor] 40 mg PO HS 02/08/13 08/06/18 Lantus U-100 Insulin 50 units SQ HS 08/07/14 08/06/18 amlodipine 10 mg PO DAILY 08/07/14 08/06/18 Janumet 1 ea PO BID 08/03/15 08/06/18 sertraline 150 mg PO DAILY 06/30/18 08/06/18 buprenorphine-naloxone [Suboxone] 1 film SUBLINGUAL DAILY 08/06/18 08/06/18 chlorthalidone 50 mg PO DAILY 08/06/18 08/06/18 omeprazole 20 mg PO DAILY 08/06/18 08/06/18 trazodone 100 mg PO HS 08/06/18 08/06/18 Allergies Allergy/AdvReac Type Severity Reaction Status Date / Time ampicillin Allergy Skin Rash Verified 08/05/18 18:26 zolpidem tartrate AdvReac Intermediate confusion Verified 08/05/18 18:26 [From Ambien] lisinopril AdvReac cough Verified 08/05/18 18:26 General Stated Complaint: ETOHWithdr ANNITA: 2 Review of Systems Review of Systems All systems reviewed & are unremarkable except as noted in HPI and below Constitutional Reports as per HPI, Denies chills, Denies fever(s) and Reports other (Shaking/tremors) Eyes Denies blurry vision ENT Denies dizziness, Denies sore throat and Denies throat swelling Cardiovascular Denies chest pain and Denies dyspnea Respiratory Denies cough and Denies dyspnea Gastrointestinal Reports abdominal pain, Denies diarrhea and Denies vomiting Genitourinary Denies hematuria and Denies dysuria Musculoskeletal Reports back pain and Denies numbness Integumentary/Breasts Denies lesions and Denies rash Neurologic Denies dizziness, Denies focal weakness and Denies numbness Allergic/Immunologic Denies throat swelling [facility] Medical History Tobacco dependence (Chronic) History of colon polyps (Chronic) Low back pain (Chronic) Hypertension (Chronic) Depression (Chronic) Diabetes mellitus, type II (Chronic) 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) hepatitis c with undetectable load (Chronic) GERD (gastroesophageal reflux disease) (Chronic) Hyperlipidemia (Chronic) Adjustment disorder with anxious mood (Chronic) Alcoholism (Chronic) Anxiety (Chronic) Restless leg syndrome (Chronic) Surgical History History of total right knee replacement (Chronic 08/10/14) H/O shoulder surgery (Chronic) History of knee surgery (Chronic) H/O colonoscopy (Resolved 02/15/18) Birthmark (Inactive) Social History Smoking/Tobacco Use Status: Current every day Tobacco Type: cigarettes Alcohol Intake: current Alcohol Intake frequency: 3 or more drinks per day Alcohol type: hard liquor Drug use: Occasionally Substance use type: marijuana Do you feel safe at home: Yes Do you feel safe in your relationship?: Yes Exam Const General: cooperative and anxious HENMT Head: normal to inspection Face and sinus: normal facial exam Eyes General: appearance normal, both eyes and all related structures EOM: EOM intact bilaterally Neck Neck: normal visual inspection and No submandibular swelling Lymphatic: no lymphadenopathy noted Chest Chest: normal inspection of the chest and no tenderness Resp Effort & Inspection: normal respiratory effort and able to speak in complete sentences Auscultation: clear to auscultation bilaterally Cardio Rate: regular rate Rhythm: regular rhythm GI Inspection: normal to inspection Palpation: soft, not firm, not rigid and tender (Diffuse, worse in left upper quadrant) Auscultation: normal bowel sounds Skin General skin exam: no rashes or lesions noted Neuro General: alert, awake and oriented x3 Cognition: normal cognition Speech: speech normal Motor: muscle tone normal throughout Sensory Exam: no sensory deficits noted Extrem General: normal to inspection, full ROM and no edema Psych Appearance: grossly normal Mental Status: mental status grossly normal Speech and Movement: speech and movement normal Affect: normal affect Course Vital Signs Temperature 97.3 F L 08/06/18 11:21 Pulse 81 08/06/18 11:21 Respiratory Rate 16 08/06/18 11:21 Blood Pressure 136/75 08/06/18 11:21 Pulse Oximetry 96 08/06/18 11:21 Temperature 97.3 F L 08/06/18 11:21 Temperature Source Temporal Artery Scan 08/06/18 11:21 Pulse 81 08/06/18 11:21 Respiratory Rate 16 08/06/18 11:21 Blood Pressure 136/75 08/06/18 11:21 Blood Pressure Position Sitting 08/06/18 11:21 Pulse Oximetry 96 08/06/18 11:21 Oxygen Delivery Method Room Air 08/06/18 11:21 Oxygen Flow Rate 0 08/06/18 11:21 Pain Level 7 08/06/18 11:21
[2018-08-06 11:42] LABS: Bilirubin Negative (Negative); Blood Negative (Negative); Clarity Clear; Glucose 100 mg/dL (Negative); Ketones Negative (Negative); Leukocyte Esterase Negative (Negative); Nitrite Negative (Negative); Specific Gravity 1.025 (1.005-1.025); Urobilinogen 0.2 EU/dL (Up TO 0.2)
[2018-08-06 11:58] LABS: *AMPHETAMINES SCREEN URINE Negative (Negative); *BARBITURATES SCREEN URINE Negative (Negative); *BENZODIAZEPINES SCREEN URINE Negative (Negative); Cannabinoids THC POSITIVE (Negative); Cocaine Screen,Urine Negative (Negative); METHADONE URINE SCREEN Negative (Negative); OPIATES URINE SCREEN Negative (Negative)
[2018-08-06 12:03] LABS: Tricyclic Antidepressants Negative (Negative)
--- NOTE | 2018-08-06 12:08 | DI.CT_ITS ---
SYMPTOMS/DIAGNOSIS: ABDOMINAL AND BACK PAIN, ? ACUTE PROCESS CT SCAN OF THE ABDOMEN AND PELVIS: CT scan of the abdomen and pelvis was performed following the uneventful administration of intravenous contrast material. Comparison examination is 06/30/18. Mild atelectatic changes are seen in the lung bases. The liver shows diffuse decreased attenuation consistent with hepatic steatosis. No suspicious hepatic masses seen. The portal, superior mesenteric and splenic veins are patent. The gallbladder is negative. There is no biliary ductal dilatation. The pancreas is unremarkable. The spleen and adrenal glands are unremarkable. The kidneys show normal and symmetric enhancement. No suspicious solid renal mass or obstruction is identified. There is a tiny cyst in the lower pole of the right kidney. The urinary bladder is intact. The reproductive organs are unremarkable. There is atherosclerosis of the abdominal aorta but no aneurysmal dilatation is present. No significant abdominal or pelvic adenopathy, ascites or pneumoperitoneum is present. The bowel shows no evidence of obstruction or inflammation. No evidence of an acute appendicitis is present. The stomach wall appears thickened, but this is likely due to decreased distention. Degenerative changes are seen in the lower lumbar spine. IMPRESSION: 1. No evidence of an acute abdomen. 2. Hepatic steatosis. The findings were discussed with the Emergency Department on the date of the examination.
[2018-08-06 12:09] LABS: Abs Immature Grans 0.05 k/cumm (0.0-0.09); Absolute Basophil Count 0.02 k/cumm (0.0-0.2); Absolute Eosinophil Count 0.23 k/cumm (0.0-0.7); Absolute Lymphocyte Count 2.95 k/cumm (1.2-3.4); Absolute Monocyte Count 0.68 k/cumm (0.11-0.7); Absolute Neutrophil Count 5.52 k/cumm (1.2-6.7); Basophils % 0.2; Eosinophils % 2.4; HCT 35.8 % (40.0-50.0); Immature Grans % 0.5; Lymphocytes % 31.2; Mean Corp. HGB Concentration 33.5 g/dL (32.0-36.0); Mean Corpuscular Hemoglobin 26.4 pg (27.0-33.0); Mean Corpuscular Volume 78.9 fL (80-95); Mean Platelet Volume 9.7 fL (8.0-11.0); Monocytes % 7.2; Neutrophils % 58.5; Platelet Count 264 x1000/uL (130-400); RBC 4.54 m/cumm (4.50-6.00); RBC Distribution Width 13.8 % (11.8-14.1); White Blood Cell Count 9.45 k/cumm (4.4-10.8)
[2018-08-06 12:42] LABS: ALT 26 U/L (12-78); AST 20 U/L (15-37); Albumin 3.5 g/dL (3.4-5.0); Alkaline Phosphatase 111 U/L (46-116); Anion Gap 10.4 mmol/L (3-11); BUN 20 mg/dL (7-18); Bilirubin, Total 0.3 mg/dL (0.2-1.0); CO2 28.6 mmol/L (21.0-32.0); CREATININE 0.68 mg/dL (0.70-1.30); Calcium 8.9 mg/dL (8.5-10.1); Chloride 100 mmol/L (98-107); ETHANOL BLOOD 30.1 mg/dL (<3); Glucose 225 mg/dL (70-100); Lipase 241 U/L (73-393); Magnesium 1.4 mg/dL (1.8-2.4); Sodium 139 mmol/L (136-145); Total Protein 6.7 g/dL (6.4-8.2)
[2018-08-06 12:43] LABS: Troponin I < 0.02 ng/mL (0.00-0.06)
[2018-08-06] MEDS: Omnipaque 350 MG/ML 100 ML BTL IJ (12:52)
[2018-08-06] MEDS: LORazepam 2 MG/ML VIAL 0.5 MG IVP ×2 (12:53→15:02)
[2018-08-06] MEDS: MAGNESIUM SULFATE 2 GM/50 ML BAG IVPB ×2 (13:05→19:01)
[2018-08-06] MEDS: Potassium Chloride 20 MEQ TABCR 40 MEQ PO (13:06)
[2018-08-06] MEDS: Normal Saline Flush 10 ML SYR IVP ×2 (13:06→19:00)
[2018-08-06] MEDS: LORazepam 1 MG TAB PO/SL (16:30)
--- NOTE | 2018-08-06 17:13 | HPE_ITS ---
Date of service: 08/06/18 Time of Service: 17:10 Assessment and Plan (1) Delirium tremens: Current visit: Yes Status: Acute With auditory and visual hallucinations as well as high CIWA score in the ED, requiring a high dose of IV ativan. Admit to ICU with CIWA, scheduled oxazepam, prn ativan; PO vitamins, IVF. (2) Abdominal pain: Current visit: No Status: Acute Based on the clinical picture, I think this is likely alcoholic gastritis. Diet is clear liquids. Start PPI IV BID + carafate. (3) Hypomagnesemia: Current visit: Yes Status: Acute Repleted - monitor (4) Hypokalemia: Current visit: Yes Status: Acute repleted (5) Hyperlipidemia: Current visit: No Status: Chronic Continue statin (6) GERD (gastroesophageal reflux disease): Current visit: No Status: Chronic PPI upgraded to BID (7) Diabetes mellitus, type II: Current visit: No Status: Chronic I lowered basal insulin a little as the patient is going to be on clears and not drinking. SSI. Hold oral hypoglycemics. (8) Hypertension: Current visit: No Status: Chronic Hold chlorthalidone. Continue remainder of home meds. (9) Depression: Current visit: No Status: Chronic Continue sertraline and trazodone (10) Discharge planning issues: Current visit: No Status: Acute Full code (11) DVT prophylaxis: Current visit: No Status: Acute Lovenox - but checking hemoccult. Low threshold to d/c. History of Present Illness Chief Complaint: Abdominal pain, alcohol withdrawal Narrative: Mr Perez is a 52 year old male with PMHx of alcohol abuse with prior episode of alcohol withd germain with auditory and visual hallucinations, as well as IDDM2, Hypertension, hyperlipidemia, whose last drink was at 10 am this morning, who presented to [facility] ED today complaining of abdominal pain and hallucinations. To me he reports that the pain is epigastric. He states he was having visual and auditory hallucinations just a little bit earlier. He did receive a dose of 4 mg of IV lasix for a CIWA score of 26. Per nursing, he was quite agitated, anxious, confused. He is not hallucinating now. Abdominal pain is also controlled. He is able to provide his history. He states he has never had a seizure. Review of Systems Review of Systems 12 systems reviewed. Pertinent positives and negatives are per HPI. Additionally. The patient describes nausea and vomiting at least 2-3 times per week for the last 3 months. He last vomited yesterday. Describes emetic contents as green. No blood in emesis. Last BM this morning - normal consistency, brown. No fevers. Describes night sweats. No weight loss. [facility] Social History Smoking/Tobacco Use Status: Current every day Tobacco Type: cigarettes Alcohol Intake: current Alcohol Intake frequency: 3 or more drinks per day Alcohol type: hard liquor Drug use: Occasionally Substance use type: marijuana Do you feel safe at home: Yes Do you feel safe in your relationship?: Yes Meds Home Medications Medication Instructions Recorded Confirmed Type aspirin [Aspir-Low] 81 mg PO DAILY 02/08/13 08/06/18 History atenolol 100 mg PO DAILY 02/08/13 08/06/18 History glipizide 10 mg PO BID 02/08/13 08/06/18 History losartan 100 mg PO DAILY 02/08/13 08/06/18 History rosuvastatin [Crestor] 40 mg PO DAILY 02/08/13 08/06/18 History Lantus U-100 Insulin 50 units SQ HS 08/07/14 08/06/18 History amlodipine 10 mg PO DAILY 08/07/14 08/06/18 History Janumet 1 ea PO BID 08/03/15 08/06/18 History sertraline 100 mg PO DAILY 06/30/18 08/06/18 History buprenorphine-naloxone [Suboxone] 1 film SUBLINGUAL DAILY 08/06/18 08/06/18 History chlorthalidone 50 mg PO DAILY 08/06/18 08/06/18 History omeprazole 20 mg PO DAILY 08/06/18 08/06/18 History trazodone 100 mg PO HS 08/06/18 08/06/18 History Allergies Allergy/AdvReac Type Severity Reaction Status Date / Time ampicillin Allergy Skin Rash Verified 08/05/18 18:26 zolpidem tartrate AdvReac Intermediate confusion Verified 08/05/18 18:26 [From Ambien] lisinopril AdvReac cough Verified 08/05/18 18:26 Exam Narrative Exam Narrative: General: well nourished, well developed middle aged male, atraumatic, appears under influence, but able to provide history, conversing fluently, mildly tremulous Neurological: alert and oriented x3, no focal deficits, mildly tremulous Psychiatric: appropriate speech pattern and content, appropriate affect Skin: on obvious bruising or rashes; intact HEENT: normocephalic, extraocular movements are intact, dry mucous membranes, clear oropharynx, no submandibular or cervical lymphadenopathy, no goiter or JVD Cardiovascular: regularly regular rhythm, no murmurs, rubs, or gallops Pulmonary: nonlabored breathing, clear to auscultation bilaterally Gastrointestinal: Abdomen is soft, nontender, nondistended. No organomegaly or ascites. Extremities: No edema, clubbing, or cyanosis. 2+ pedal pulses bilaterally. Results Labs : 08/06/18 11:50 08/06/18 11:50 Laboratory Results - last 24 hr 08/06/18 08/06/18 08/06/18 11:26 11:26 11:50 WBC RBC Hgb Hct MCV MCH MCHC RDW Plt Count MPV Immature Gran % Neutrophils % Lymphocytes % Monocytes % Eosinophils % Basophils % Absolute Neutrophils Absolute Lymphocytes Absolute Monocytes Absolute Eosinophils Absolute Basophils Sodium 139 Potassium 3.0 L Chloride 100 Carbon Dioxide 28.6 Anion Gap 10.4 BUN 20 H Creatinine 0.68 L Estimated GFR/1.73 m2 >= 60.00 Glucose 225 H Calcium 8.9 Magnesium 1.4 L Total Bilirubin 0.3 AST 20 ALT 26 Alkaline Phosphatase 111 Troponin I < 0.02 Total Protein 6.7 Albumin 3.5 Lipase 241 Urine Color Yellow Urine Clarity Clear Urine pH 6.0 Ur Specific Sullivan 1.025 Urine Protein Negative Urine Ketones Negative Urine Blood Negative Urine Nitrite Negative Urine Bilirubin Negative Urine Urobilinogen 0.2 Ur Leukocyte Esterase Negative Urine Glucose 100 Urine Opiates Screen Negative Urine Methadone Screen Negative Ur Barbiturates Screen Negative Ur Tricyclics Screen Negative Ur Amphetamines Screen Negative U Benzodiazepines Scrn Negative Urine Cocaine Screen Negative Ur THC Screen Positive Ethyl Alcohol 30.1 08/06/18 11:50 WBC 9.45 RBC 4.54 Hgb 12.0 L Hct 35.8 L MCV 78.9 L MCH 26.4 L MCHC 33.5 RDW 13.8 Plt Count 264 MPV 9.7 Immature Gran % 0.5 Neutrophils % 58.5 Lymphocytes % 31.2 Monocytes % 7.2 Eosinophils % 2.4 Basophils % 0.2 Absolute Neutrophils 5.52 Absolute Lymphocytes 2.95 Absolute Monocytes 0.68 Absolute Eosinophils 0.23 Absolute Basophils 0.02 Sodium Potassium Chloride Carbon Dioxide Anion Gap BUN Creatinine Estimated GFR/1.73 m2 Glucose Calcium Magnesium Total Bilirubin AST ALT Alkaline Phosphatase Troponin I Total Protein Albumin Lipase Urine Color Urine Clarity Urine pH Ur Specific [place] Urine Protein Urine Ketones Urine Blood Urine Nitrite Urine Bilirubin Urine Urobilinogen Ur Leukocyte Esterase Urine Glucose Urine Opiates Screen Urine Methadone Screen Ur Barbiturates Screen Ur Tricyclics Screen Ur Amphetamines Screen U Benzodiazepines Scrn Urine Cocaine Screen Ur THC Screen Ethyl Alcohol CT abdomen: . No evidence of an acute abdomen. 2. Hepatic steatosis. Last Vital Signs Temp 36.3 C L 08/06/18 11:21 Pulse 81 08/06/18 11:21 Resp 16 08/06/18 11:21 BP 136/75 08/06/18 11:21 Pulse Ox 96 08/06/18 11:21
[2018-08-06] MEDS: LORazepam 2 MG/ML VIAL IVP ×2 (18:00→22:25)
[2018-08-06] MEDS: Normal Saline 1,000 ML 150 ML IV (18:51)
[2018-08-06] MEDS: THIAMINE 100 MG in Normal Saline 100 ML 200 MG IVPB (18:57)
[2018-08-06] MEDS: Enoxaparin 40 MG/0.4 ML SYR SC (19:01)
[2018-08-06] MEDS: Pantoprazole 40 MG VIAL IVP (21:57)
[2018-08-06] MEDS: Sucralfate 1 GM TAB PO (22:09)
[2018-08-06] MEDS: Potassium Chloride 20 MEQ TABCR PO (22:09)
[2018-08-07] VITALS (30 sets, daily range): BP systolic 87–135; BP diastolic 44–89; PULSE 67–93; RESP 11–25; TEMP 36.1–37.6; O2SAT 89–99
[2018-08-07] MEDS: Normal Saline 1,000 ML 150 ML IV (02:43)
[2018-08-07] MEDS: LORazepam 2 MG/ML VIAL IVP ×5 (02:57→17:24)
[2018-08-07] MEDS: Normal Saline Flush 10 ML SYR IVP ×6 (02:58→21:03)
[2018-08-07] MEDS: LORazepam 1 MG TAB PO/SL ×3 (05:50→08:16)
[2018-08-07 07:33] LABS: HCT 39.8 % (40.0-50.0); HGB 13.1 g/dL (13.5-17.5); Mean Corp. HGB Concentration 32.9 g/dL (32.0-36.0); Mean Corpuscular Hemoglobin 26.2 pg (27.0-33.0); Mean Corpuscular Volume 79.6 fL (80-95); Mean Platelet Volume 10.1 fL (8.0-11.0); Platelet Count 275 x1000/uL (130-400); RBC Distribution Width 14.3 % (11.8-14.1)
[2018-08-07 07:38] LABS: Anion Gap 9.2 mmol/L (3-11); BUN 12 mg/dL (7-18); CO2 28.8 mmol/L (21.0-32.0); CREATININE 0.63 mg/dL (0.70-1.30); Calcium 8.2 mg/dL (8.5-10.1); Chloride 102 mmol/L (98-107); Glucose 122 mg/dL (70-100); Magnesium 1.9 mg/dL (1.8-2.4); Potassium 3.2 mmol/L (3.5-5.1); Sodium 140 mmol/L (136-145)
[2018-08-07 07:41] LABS: Lipase 165 U/L (73-393)
[2018-08-07 07:44] LABS: ALT 29 U/L (12-78); AST 27 U/L (15-37); Albumin 3.5 g/dL (3.4-5.0); Alkaline Phosphatase 95 U/L (46-116); Bilirubin, Total 0.5 mg/dL (0.2-1.0); Total Protein 6.9 g/dL (6.4-8.2)
[2018-08-07] MEDS: Pantoprazole 40 MG VIAL IVP ×2 (07:45→21:01)
[2018-08-07] MEDS: Sertraline 50 MG TAB 150 MG PO (07:46)
[2018-08-07] MEDS: Multivitamin TAB 1 TAB PO (07:46)
[2018-08-07] MEDS: Insulin Aspart 300 UNITS/3 ML PEN SC ×3 (07:46→21:12)
--- NOTE | 2018-08-07 07:46 | PDOC.CMIN ---
Care Management Initial Assess REASON FOR HOSPITALIZATION:: Alcohol withdrawal, hypokalemia, hypomagnesemia PAST MEDICAL HISTORY/PAST SURGICAL HISTORY:: Adjustment disorder with anxious mood, anxiety, restless leg syndrome, MING, Tobacco dependence, DVT, discharge planning issues, opiod abuse, hyponatremia, abdominal pain, alcohol withdrawal, osteoarthritis R knee, total right knee replacement, [place] rotator [place] [facility] [place] low back pain, hypertension, depression, DM type II, IV drug use in remission, Hep C with undetectable load, GERD, Hyperlipemia PREVIOUS FUNCTIONAL STATUS/SOCIAL/FAMILY SUPPORTS:: Alfredo resides in [place], [place] with his of 32 years, Nidia. 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 Alfredo reports a robust local support system of family and friends. CURRENT FUNCTIONAL STATUS:: Alfredo was sleeping the two times CM attempted to meet with him, CM will continue to follow. ADVANCE DIRECTIVES:: None on file at [facility]. Has patient been provided with information about the portal?: Yes Did the patient sign up for the portal?: No CODE STATUS:: Full Code INSURANCE COVERAGE / FINANCIAL ISSUES:: [employer]BS CURRENT HOME/COMMUNITY SERVICES/EQUIPMENT:: Currently Alfredo has no services or medical equipment at home. PRIMARY CARE PHYSICIAN:: Yulia Cortez POTENTIAL DISCHARGE NEEDS:: Follow up appointments with PCP PATIENT/FAMILY EDUCATION NEEDS:: Review discharge instructions, discuss Ask Me Three. ANTICIPATED BARRIERS TO DISCHARGE:: None identified. TRANSPORTATION:: Via private vehicle with his . PLAN:: Alfredo will continue to be closely monitored at this time. He will discharge home when ready per MD. He will follow up with his PCP and plan of care as prescribed. No additional services anticipated at this time. Alfredo will transport via private vehicle with his .
[2018-08-07] MEDS: Oxazepam 10 MG CAP PO ×3 (07:47→21:01)
[2018-08-07] MEDS: Folic Acid 1 MG TAB PO (07:47)
[2018-08-07] MEDS: Thiamine 100 MG TAB PO (07:48)
[2018-08-07] MEDS: Losartan 50 MG TAB 100 MG PO (07:48)
[2018-08-07] MEDS: amLODIPine 10 MG TAB PO (07:48)
[2018-08-07] MEDS: Sucralfate 1 GM TAB PO ×3 (07:48→21:01)
[2018-08-07] MEDS: Buprenorphine/Naloxone 12 mg/3 mg FILM 1 EACH SL (07:48)
[2018-08-07] MEDS: Aspirin E.C. 81 MG TABEC PO (07:48)
--- NOTE | 2018-08-07 07:56 | INITIAL_ITS ---
Care Management Initial Assess REASON FOR HOSPITALIZATION:: Alcohol withdrawal, hypokalemia, hypomagnesemia PAST MEDICAL HISTORY/PAST SURGICAL HISTORY:: Adjustment disorder with anxious mood, anxiety, restless leg syndrome, MING, Tobacco dependence, DVT, discharge planning issues, opiod abuse, hyponatremia, abdominal pain, alcohol withdrawal, osteoarthritis R knee, total right knee replacement, right rotator cuff surgery [facility], low back pain, hypertension, depression, DM type II, IV drug use in remission, Hep C with undetectable load, GERD, Hyperlipemia PREVIOUS FUNCTIONAL STATUS/SOCIAL/FAMILY SUPPORTS:: Alfredo resides in [place], [place] with his of 32 years, Nidia. 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 Alfredo reports a robust local support system of family and friends. CURRENT FUNCTIONAL STATUS:: Alfredo was sleeping the two times CM attempted to meet with him, CM will continue to follow. ADVANCE DIRECTIVES:: None on file at [facility]. Has patient been provided with information about the portal?: Yes Did the patient sign up for the portal?: No CODE STATUS:: Full Code INSURANCE COVERAGE / FINANCIAL ISSUES:: BCBS CURRENT HOME/COMMUNITY SERVICES/EQUIPMENT:: Currently Alfredo has no services or medical equipment at home. PRIMARY CARE PHYSICIAN:: Yulia Cortez POTENTIAL DISCHARGE NEEDS:: Follow up appointments with PCP PATIENT/FAMILY EDUCATION NEEDS:: Review discharge instructions, discuss Ask Me Three. ANTICIPATED BARRIERS TO DISCHARGE:: None identified. TRANSPORTATION:: Via private vehicle with his . PLAN:: Alfredo will continue to be closely monitored at this time. He will discharge home when ready per MD. He will follow up with his PCP and plan of care as prescribed. No additional services anticipated at this time. Alfredo will transport via private vehicle with his .
[2018-08-07 08:22] LABS: Vitamin B12 716 pg/mL (193-986)
[2018-08-07 08:25] LABS: Folate > 20.0 ng/mL (8.6-20.0)
[2018-08-07] MEDS: Potassium Chloride 20 MEQ TABCR PO ×2 (09:13→21:01)
[2018-08-07] MEDS: POTASSIUM CHLORIDE/0.9% NACL 1,000 ML 150 MEQ IV ×3 (09:19→22:24)
[2018-08-07] MEDS: Atenolol 50 MG TAB 100 MG PO (09:57)
[2018-08-07] MEDS: Gabapentin 300 MG CAP 600 MG PO (09:57)
[2018-08-07] MEDS: Potassium Chloride 20 MEQ TABCR 40 MEQ PO (09:59)
--- NOTE | 2018-08-07 11:25 | PGE_ITS ---
Date of Service Date of service: 08/07/18 Time of Service: 11:23 Assessment and Plan (1) Delirium tremens: Current visit: Yes Status: Acute With auditory and visual hallucinations, high CIWA scores, continuing to require IV ativan. I have scheduled oxazepam and added neurontin. Continue monitoring in ICU with prn ativan.Continue IVF, vitamins. (2) Abdominal pain: Current visit: No Status: Acute Likely alcoholic gastritis. Continue clear liquids, PPI IV BID + carafate. (3) Hypomagnesemia: Current visit: Yes Status: Acute Repleted - monitor (4) Hypokalemia: Current visit: Yes Status: Acute repleted (5) Hyperlipidemia: Current visit: No Status: Chronic Continue statin (6) GERD (gastroesophageal reflux disease): Current visit: No Status: Chronic Continue PPI (bid) (7) Diabetes mellitus, type II: Current visit: No Status: Chronic Decrease basal insulin to 40 units HS. SSI. Hold oral hypoglycemics. (8) Hypertension: Current visit: No Status: Chronic Hold chlorthalidone. Continue remainder of home meds. (9) Depression: Current visit: No Status: Chronic Continue sertraline and trazodone (10) Discharge planning issues: Current visit: No Status: Acute Full code (11) DVT prophylaxis: Current visit: No Status: Acute Lovenox Subjective Interval history since last seen: Mr Perez was quite agitated last night and this morning. No hallucinations in ICU, but he has been confused, anxious, agitated. CIWA score of 18 this am. He has required 3 mg of PO ativan and 3 mg of IV ativan as well as 10 mg of oxazepam this morning already. Patient is deeply asleep and snoring when I came to see him. Based on his agitation earlier, I did not wake him up. Exam Narrative Exam Narrative: General: well nourished, well developed middle aged male, asleep in bed, snoring, not waking up to when I call his name HEENT: eyes closed, MMM Cardiovascular: regularly regular rhythm, no murmurs, rubs, or gallops Pulmonary: nonlabored breathing, clear to auscultation bilaterally, snoring Gastrointestinal: Abdomen is soft, nondistended. Extremities: legs covered by a blanket. Upper extremities without edema Objective Objective Clinical Data: Abnormal lab results 08/06/18 08/06/18 08/07/18 Range/Units 11:50 11:50 06:20 Hgb 12.0 L (13.5-17.5) g/dL Hct 35.8 L (40.0-50.0) % MCV 78.9 L (80-95) fL MCH 26.4 L (27.0-33.0) pg RDW (11.8-14.1) % Potassium 3.0 L 3.2 L (3.5-5.1) mmol/L BUN 20 H (7-18) mg/dL Creatinine 0.68 L 0.63 L (0.70-1.30) mg/dL Glucose 225 H 122 H D (70-100) mg/dL Calcium 8.2 L (8.5-10.1) mg/dL Magnesium 1.4 L (1.8-2.4) mg/dL Folate (8.6-20.0) ng/mL 08/07/18 08/07/18 Range/Units 06:20 06:20 Hgb 13.1 L (13.5-17.5) g/dL Hct 39.8 L (40.0-50.0) % MCV 79.6 L (80-95) fL MCH 26.2 L (27.0-33.0) pg RDW 14.3 H (11.8-14.1) % Potassium (3.5-5.1) mmol/L BUN (7-18) mg/dL Creatinine (0.70-1.30) mg/dL Glucose (70-100) mg/dL Calcium (8.5-10.1) mg/dL Magnesium (1.8-2.4) mg/dL Folate > 20.0 H (8.6-20.0) ng/mL Vital Signs Temperature 37.0 C 08/07/18 07:45 Temperature Source Temporal Artery Scan 08/07/18 07:45 Pulse 87 08/07/18 09:04 Pulse 89 08/07/18 09:04 Respiratory Rate 16 08/07/18 09:04 Respiratory Effort 08/07/18 07:45 Respiratory Depth Normal 08/07/18 07:45 Respiratory Pattern Normal 08/07/18 07:45 Blood Pressure 117/72 08/07/18 09:04 Blood Pressure Mean 82 08/07/18 09:04 Blood Pressure Position Supine 08/07/18 04:20 Pulse Oximetry 98 08/07/18 08:00 Oxygen Delivery Method Room Air 08/07/18 07:45 Oxygen Flow Rate 0 08/07/18 07:45 Pain Level 0 08/07/18 07:45 Intake & Output 08/06/18 08/06/18 08/07/18 11:59 23:59 11:59 Intake Total 721 / 721 2490 / 2490 Output Total 550 / 550 1700 / 1700 Balance 171 / 171 790 / 790 Weight 92.986 kg 91.3 kg Intake: IV 721 / 721 1410 / 1410 Oral 1080 / 1080 Output: Urine 550 / 550 1700 / 1700 Other: Urine Color Yellow Yellow Urine Appearance Clear Clear Urine Odor None Comment reports urinary incontinence WILL IN PLACE. PATIENT AGITATED ABOUT PRESENCE OF WILL. Voiding Methods Urinal Laboratory Results WBC 9.90 k/cumm (4.4-10.8) 08/07/18 06:20 RBC 5.00 m/cumm (4.50-6.00) 08/07/18 06:20 Hgb 13.1 g/dL (13.5-17.5) L 08/07/18 06:20 Hct 39.8 % (40.0-50.0) L 08/07/18 06:20 MCV 79.6 fL (80-95) L 08/07/18 06:20 MCH 26.2 pg (27.0-33.0) L 08/07/18 06:20 MCHC 32.9 g/dL (32.0-36.0) 08/07/18 06:20 RDW 14.3 % (11.8-14.1) H 08/07/18 06:20 Plt Count 275 x1000/uL (130-400) 08/07/18 06:20 MPV 10.1 fL (8.0-11.0) 08/07/18 06:20 Immature Gran % 0.5 08/06/18 11:50 Neutrophils % 58.5 08/06/18 11:50 Lymphocytes % 31.2 08/06/18 11:50 Monocytes % 7.2 08/06/18 11:50 Eosinophils % 2.4 08/06/18 11:50 Basophils % 0.2 08/06/18 11:50 Absolute Neutrophils 5.52 k/cumm (1.2-6.7) 08/06/18 11:50 Absolute Lymphocytes 2.95 k/cumm (1.2-3.4) 08/06/18 11:50 Absolute Monocytes 0.68 k/cumm (0.11-0.7) 08/06/18 11:50 Absolute Eosinophils 0.23 k/cumm (0.0-0.7) 08/06/18 11:50 Absolute Basophils 0.02 k/cumm (0.0-0.2) 08/06/18 11:50 Sodium 140 mmol/L (136-145) 08/07/18 06:20 Potassium 3.2 mmol/L (3.5-5.1) L 08/07/18 06:20 Chloride 102 mmol/L (98-107) 08/07/18 06:20 Carbon Dioxide 28.8 mmol/L (21.0-32.0) 08/07/18 06:20 Anion Gap 9.2 mmol/L (3-11) 08/07/18 06:20 BUN 12 mg/dL (7-18) D 08/07/18 06:20 Creatinine 0.63 mg/dL (0.70-1.30) L 08/07/18 06:20 Estimated GFR/1.73 m2 >= 60.00 (mL/min/1.73m2) 08/07/18 06:20 Glucose 122 mg/dL (70-100) H D 08/07/18 06:20 Calcium 8.2 mg/dL (8.5-10.1) L 08/07/18 06:20 Magnesium 1.9 mg/dL (1.8-2.4) 08/07/18 06:20 Total Bilirubin 0.5 mg/dL (0.2-1.0) 08/07/18 06:20 Conjugated Bilirubin 0.10 mg/dL (0.00-0.20) 08/07/18 06:20 AST 27 U/L (15-37) 08/07/18 06:20 ALT 29 U/L (12-78) 08/07/18 06:20 Alkaline Phosphatase 95 U/L (46-116) 08/07/18 06:20 Troponin I < 0.02 ng/mL (0.00-0.06) 08/06/18 11:50 Total Protein 6.9 g/dL (6.4-8.2) 08/07/18 06:20 Albumin 3.5 g/dL (3.4-5.0) 08/07/18 06:20 Lipase 165 U/L (73-393) 08/07/18 06:20 Vitamin B12 716 pg/mL (193-986) 08/07/18 06:20 Folate > 20.0 ng/mL (8.6-20.0) H 08/07/18 06:20 Urine Color Yellow (Yellow) 08/06/18 11:26 Urine Clarity Clear 08/06/18 11:26 Urine pH 6.0 (5-8) 08/06/18 11:26 Ur Specific [place] 1.025 (1.005-1.025) 08/06/18 11:26 Urine Protein Negative mg/dL (Negative) 08/06/18 11:26 Urine Ketones Negative mg/dL (Negative) 08/06/18 11:26 Urine Blood Negative (Negative) 08/06/18 11:26 Urine Nitrite Negative (Negative) 08/06/18 11:26 Urine Bilirubin Negative (Negative) 08/06/18 11:26 Urine Urobilinogen 0.2 EU/dL (Up TO 0.2) 08/06/18 11:26 Ur Leukocyte Esterase Negative (Negative) 08/06/18 11:26 Urine Glucose 100 mg/dL (Negative) 08/06/18 11:26 Urine Opiates Screen Negative (Negative) 08/06/18 11:26 Urine Methadone Screen Negative (Negative) 08/06/18 11:26 Ur Barbiturates Screen Negative (Negative) 08/06/18 11:26 Ur Tricyclics Screen Negative (Negative) 08/06/18 11:26 Ur Amphetamines Screen Negative (Negative) 08/06/18 11:26 U Benzodiazepines Scrn Negative (Negative) 08/06/18 11:26 Urine Cocaine Screen Negative (Negative) 08/06/18 11:26 Ur THC Screen Positive (Negative) 08/06/18 11:26 Ethyl Alcohol 30.1 mg/dL (<3) 08/06/18 11:50
--- NOTE | 2018-08-07 12:24 | PHARADMIT ---
Addendum entered by Alisha Vázquez 08/10/18 10:14: Pharmacy Note Subjective day 4 of withdrawal Objective vs ok, CIWA 4, FS 128 Assessment Md will de escalate meds if pt improving, one dose quetiapine yesterday, magox x 1 today Plan awaiting potential med changes today Addendum entered by Skyler Henry III 08/08/18 14:16: Pharmacy Note Subjective Patient experiecned quiet night (CIWA 1-8 with no hallucinations), but have disgressed this afternoon, (CIWA-25) and MD has increased Serx from 10mg to 15mg q6h. Electrolytes have normalized (K+3.8 Mag-1.8) Objective VS-OK SCr-0.56 H&H-11.7/36.4 WBC- 6.68 Wgt-93.1kg No BM Assessment Still requires IV Lorazepam & PO Gabapentin. Alcoholic gastritis treated with protonix & Carafate Lantus decreased fro 30units to 20. Home diabetes meds on hold. Plan Awaiting patients condition to improve, continue supportive care. Original Note: Admission Pharmacy Clinical Review alcohol withdrawal, hypokalemia,hypomagnesemia Code Status Full Code Current Weight 91.3 kg Renally Cleared and Narrow Therapeutic Index Meds crcl ~106ml/min QTc Value / Action Taken 496(meds listed as CR trazodone, pantoprazole, sertraline, ondansetron) BP Control, Fever 110/70 afebrile Electrolytes reviewed K 3.2 being replaced DVT Prophylaxis enoxaparin Opiate Usage / Scheduled Bowel Regimen Ordered no/PRN Plt/SCr for Heparin / Enoxaparin 275/0.63 INR for Warfarin na H/H stable, WBC/Bands 13.1/39.8 wbc 9.90 Antibiotic appropriateness na Cultures and Sensitivities na Surgical ABX d/c within 24 hr na DM control / Insulin Dosing insulin aspart and glargine, FS 163, Heart Failure (Check EF%) (MARITZA's, B-Block, Diuretics) na IV to PO Switch Home Meds Reviewed glipizide 10 mg PO BID Janumet 1 ea PO BID chlorthalidone 50 mg PO DAILY omeprazole 20 mg PO DAILY (on pantoprazole inpt) Home Meds Not Ordered Comments
[2018-08-07] MEDS: Enoxaparin 40 MG/0.4 ML SYR SC (17:55)
[2018-08-07] MEDS: LORazepam 2 MG/ML VIAL 0.5 MG IVP ×2 (18:25→21:39)
[2018-08-07] MEDS: ROSUVASTATIN 20 MG TAB 40 MG PO (21:01)
[2018-08-07] MEDS: traZODone 100 MG TAB PO (21:01)
[2018-08-07] MEDS: Insulin Glargine 300 UNITS/3 ML PEN 30 UNITS SC (21:12)
[2018-08-08] VITALS (30 sets, daily range): BP systolic 97–163; BP diastolic 61–97; PULSE 67–85; RESP 9–27; TEMP 36.7–37.3; O2SAT 90–98
[2018-08-08] MEDS: LORazepam 2 MG/ML VIAL IVP ×5 (03:12→18:20)
[2018-08-08] MEDS: Oxazepam 10 MG CAP PO ×2 (03:49→10:08)
[2018-08-08 06:45] LABS: Abs Immature Grans 0.02 k/cumm (0.0-0.09); Absolute Basophil Count 0.01 k/cumm (0.0-0.2); Absolute Eosinophil Count 0.23 k/cumm (0.0-0.7); Absolute Lymphocyte Count 2.26 k/cumm (1.2-3.4); Absolute Monocyte Count 0.49 k/cumm (0.11-0.7); Absolute Neutrophil Count 3.68 k/cumm (1.2-6.7); Basophils % 0.1; Eosinophils % 3.4; HCT 36.4 % (40.0-50.0); HGB 11.7 g/dL (13.5-17.5); Immature Grans % 0.3; Lymphocytes % 33.8; Mean Corp. HGB Concentration 32.1 g/dL (32.0-36.0); Mean Corpuscular Hemoglobin 26.2 pg (27.0-33.0); Mean Corpuscular Volume 81.4 fL (80-95); Mean Platelet Volume 9.8 fL (8.0-11.0); Monocytes % 7.3; Neutrophils % 55.1; Platelet Count 255 x1000/uL (130-400); RBC 4.47 m/cumm (4.50-6.00); RBC Distribution Width 14.5 % (11.8-14.1); White Blood Cell Count 6.68 k/cumm (4.4-10.8)
[2018-08-08 06:56] LABS: Anion Gap 4.5 mmol/L (3-11); BUN 7 mg/dL (7-18); CO2 29.5 mmol/L (21.0-32.0); CREATININE 0.56 mg/dL (0.70-1.30); Calcium 8.3 mg/dL (8.5-10.1); Chloride 106 mmol/L (98-107); Glucose 110 mg/dL (70-100); Magnesium 1.8 mg/dL (1.8-2.4); Potassium 3.8 mmol/L (3.5-5.1); Sodium 140 mmol/L (136-145)
--- NOTE | 2018-08-08 08:11 | W.PM.PROGNOT ---
Date of Service Date of service: 08/08/18 Time of Service: 14:19 Assessment and Plan (1) Delirium tremens: Current visit: Yes Status: Acute With auditory and visual hallucinations, high CIWA scores, continuing to require IV ativan. Increase scheduled oxazepam, continue neurontin, prn ativan, monitor in ICU (2) Abdominal pain: Current visit: No Status: Acute Likely alcoholic gastritis. Improved. PPI IV BID + carafate. Advancing diet as tolerated - with low threshold to make NPO if agitation worsens in anticipation of ativan gtt. (3) Hypomagnesemia: Current visit: Yes Status: Acute Repleted - monitor (4) Hypokalemia: Current visit: Yes Status: Acute repleted (5) Hyperlipidemia: Current visit: No Status: Chronic Continue statin (6) GERD (gastroesophageal reflux disease): Current visit: No Status: Chronic Continue PPI (bid) (7) Diabetes mellitus, type II: Current visit: No Status: Chronic Continue basal bolus insulin. Lower dose of long acting insulin. Hold oral hypoglycemics. (8) Hypertension: Current visit: No Status: Chronic Hold chlorthalidone. Continue remainder of home meds. (9) Depression: Current visit: No Status: Chronic Continue sertraline and trazodone (10) Discharge planning issues: Current visit: No Status: Acute Full code (11) DVT prophylaxis: Current visit: No Status: Acute Lovenox Subjective Interval history since last seen: A&Ox2, CIWA 1-8 overnight, 2 mg PO ativan given overnight. He just required 4 mg of IV ativan after starting to hallucinate again. He was having conversations with people that weren't there and seeing the chair move. He was really anxious. Earlier today, he denied hallucinations, dizziness, chest pain, shortness of breath, nausea, abdominal pain. Nursing reported unsteady gait. He wanted to have his diet advanced. He has been thinking about his alcohol cessation plan on the outside. He has a substance abuse counselor he wants to see, as well as two different support groups/AA he would like to attend. Exam Narrative Exam Narrative: General: well nourished, well developed middle aged male, anxious, tremulous HEENT: EOMI, MMM Cardiovascular: regularly regular rhythm, no murmurs, rubs, or gallops (in the am) Pulmonary: nonlabored breathing, CTAB (in the am) Gastrointestinal: Abdomen is soft, nondistended. Extremities: no e/c/c BLE's Objective Objective Clinical Data: Abnormal lab results 08/07/18 08/08/18 08/08/18 Range/Units 06:20 06:15 06:15 RBC 4.47 L (4.50-6.00) m/cumm Hgb 11.7 L (13.5-17.5) g/dL Hct 36.4 L (40.0-50.0) % MCH 26.2 L (27.0-33.0) pg RDW 14.5 H (11.8-14.1) % Creatinine 0.56 L (0.70-1.30) mg/dL Glucose 110 H (70-100) mg/dL Calcium 8.3 L (8.5-10.1) mg/dL Folate > 20.0 H (8.6-20.0) ng/mL Vital Signs Temperature 36.7 C 08/08/18 04:23 Temperature Source Temporal Artery Scan 08/08/18 04:23 Pulse 72 08/08/18 07:00 Pulse 73 08/08/18 07:00 Respiratory Rate 19 08/08/18 06:01 Respiratory Effort Non-Labored 08/08/18 04:23 Respiratory Depth Normal 08/08/18 04:23 Respiratory Pattern Normal 08/08/18 04:23 Blood Pressure 111/71 08/08/18 07:00 Blood Pressure Mean 80 08/08/18 07:00 Blood Pressure Position Supine 08/08/18 04:23 Pulse Oximetry 93 L 08/08/18 07:00 Oxygen Delivery Method Room Air 08/07/18 23:50 Oxygen Flow Rate 0 08/07/18 23:50 Pain Level 0 08/08/18 04:23 Intake & Output 08/07/18 08/07/18 08/08/18 11:59 23:59 11:59 Intake Total 2490 / 5300 2810 / 5300 Output Total 3150 / 5050 1900 / 5050 800 / 800 Balance -660 / 250 910 / 250 -800 / -800 Weight 93.1 kg Intake: IV 1410 / 3550 2140 / 3550 Oral 1080 / 1750 670 / 1750 Output: Urine 3150 / 5050 1900 / 5050 800 / 800 Other: Urine Color Yellow Yellow Yellow Urine Appearance Clear Clear Clear Urine Odor None Normal Normal Comment WILL REMOVED THIS AM, HAS SINCE VOIDED. PATIENT IS CONTINENT TO URINAL, BUT NEEDS HELP WITH URINAL PLACEMENT. void of 350ml, with 45ml pVR URINE DIP: PH 6, SG 1.025, 500 GLUCOSE, LARGE BLOOD. Voiding Methods Urinal Urinal Urinal Laboratory Results WBC 6.68 k/cumm (4.4-10.8) D 08/08/18 06:15 RBC 4.47 m/cumm (4.50-6.00) L 08/08/18 06:15 Hgb 11.7 g/dL (13.5-17.5) L 08/08/18 06:15 Hct 36.4 % (40.0-50.0) L 08/08/18 06:15 MCV 81.4 fL (80-95) 08/08/18 06:15 MCH 26.2 pg (27.0-33.0) L 08/08/18 06:15 MCHC 32.1 g/dL (32.0-36.0) 08/08/18 06:15 RDW 14.5 % (11.8-14.1) H 08/08/18 06:15 Plt Count 255 x1000/uL (130-400) 08/08/18 06:15 MPV 9.8 fL (8.0-11.0) 08/08/18 06:15 Immature Gran % 0.3 08/08/18 06:15 Neutrophils % 55.1 08/08/18 06:15 Lymphocytes % 33.8 08/08/18 06:15 Monocytes % 7.3 08/08/18 06:15 Eosinophils % 3.4 08/08/18 06:15 Basophils % 0.1 08/08/18 06:15 Absolute Neutrophils 3.68 k/cumm (1.2-6.7) 08/08/18 06:15 Absolute Lymphocytes 2.26 k/cumm (1.2-3.4) 08/08/18 06:15 Absolute Monocytes 0.49 k/cumm (0.11-0.7) 08/08/18 06:15 Absolute Eosinophils 0.23 k/cumm (0.0-0.7) 08/08/18 06:15 Absolute Basophils 0.01 k/cumm (0.0-0.2) 08/08/18 06:15 Sodium 140 mmol/L (136-145) 08/08/18 06:15 Potassium 3.8 mmol/L (3.5-5.1) 08/08/18 06:15 Chloride 106 mmol/L (98-107) 08/08/18 06:15 Carbon Dioxide 29.5 mmol/L (21.0-32.0) 08/08/18 06:15 Anion Gap 4.5 mmol/L (3-11) 08/08/18 06:15 BUN 7 mg/dL (7-18) 08/08/18 06:15 Creatinine 0.56 mg/dL (0.70-1.30) L 08/08/18 06:15 Estimated GFR/1.73 m2 >= 60.00 (mL/min/1.73m2) 08/08/18 06:15 Glucose 110 mg/dL (70-100) H 08/08/18 06:15 Calcium 8.3 mg/dL (8.5-10.1) L 08/08/18 06:15 Magnesium 1.8 mg/dL (1.8-2.4) 08/08/18 06:15 Total Bilirubin 0.5 mg/dL (0.2-1.0) 08/07/18 06:20 Conjugated Bilirubin 0.10 mg/dL (0.00-0.20) 08/07/18 06:20 AST 27 U/L (15-37) 08/07/18 06:20 ALT 29 U/L (12-78) 08/07/18 06:20 Alkaline Phosphatase 95 U/L (46-116) 08/07/18 06:20 Troponin I < 0.02 ng/mL (0.00-0.06) 08/06/18 11:50 Total Protein 6.9 g/dL (6.4-8.2) 08/07/18 06:20 Albumin 3.5 g/dL (3.4-5.0) 08/07/18 06:20 Lipase 165 U/L (73-393) 08/07/18 06:20 Vitamin B12 716 pg/mL (193-986) 08/07/18 06:20 Folate > 20.0 ng/mL (8.6-20.0) H 08/07/18 06:20 Urine Color Yellow (Yellow) 08/06/18 11:26 Urine Clarity Clear 08/06/18 11:26 Urine pH 6.0 (5-8) 08/06/18 11:26 Ur Specific [place] 1.025 (1.005-1.025) 08/06/18 11:26 Urine Protein Negative mg/dL (Negative) 08/06/18 11:26 Urine Ketones Negative mg/dL (Negative) 08/06/18 11:26 Urine Blood Negative (Negative) 08/06/18 11:26 Urine Nitrite Negative (Negative) 08/06/18 11:26 Urine Bilirubin Negative (Negative) 08/06/18 11:26 Urine Urobilinogen 0.2 EU/dL (Up TO 0.2) 08/06/18 11:26 Ur Leukocyte Esterase Negative (Negative) 08/06/18 11:26 Urine Glucose 100 mg/dL (Negative) 08/06/18 11:26 Urine Opiates Screen Negative (Negative) 08/06/18 11:26 Urine Methadone Screen Negative (Negative) 08/06/18 11:26 Ur Barbiturates Screen Negative (Negative) 08/06/18 11:26 Ur Tricyclics Screen Negative (Negative) 08/06/18 11:26 Ur Amphetamines Screen Negative (Negative) 08/06/18 11:26 U Benzodiazepines Scrn Negative (Negative) 08/06/18 11:26 Urine Cocaine Screen Negative (Negative) 08/06/18 11:26 Ur THC Screen Positive (Negative) 08/06/18 11:26 Ethyl Alcohol 30.1 mg/dL (<3) 08/06/18 11:50
[2018-08-08] MEDS: Normal Saline Flush 10 ML SYR IVP ×2 (09:01→14:12)
[2018-08-08] MEDS: Pantoprazole 40 MG VIAL IVP ×2 (09:01→19:58)
--- NOTE | 2018-08-08 09:23 | PDOC.CMPRO ---
Care Management Progress Note S/O: Alfredo is sitting up in bed, engaging with MD when CM first observes him. He is not agreeable to inpatient intervention. CM met with Alfredo and provided resources for community follow up. Alfredo immediately began to struggle, and required Ativan. CM sat with Alfredo for an extended period of time. Anjana reported Alfredo requested Real Estate Transaction Manager coordination which she is working on. CM notified Lumber Salvager that Alfredo would appreciate consult prior to discharge. CM also reviewed AA supports which Alfredo found helpful in the past, and Al-Anon for his family which he was receptive to as well. CM provided patient education around the tipping point of alcohol abuse and Alfredo's organs and provided a metaphor for his body's warning system. Alfredo was receptive to this conversation and appeared open to engaging in further discussion and recovery supports. Alfredo will meet with the certified diabetes educator and have a physical therapy evaluation. Per MD, he still requires continued inpatient care for withdrawal monitoring. CM continues to follow. A: 52 year old male admitted to [facility] 08/06/18 for Alcohol Withdrawal, Hypokalemia, Hypomagnesemia P: Alfredo will continue to be closely monitored at this time. He will discharge home when ready per MD. He will follow up with his PCP and plan of care as prescribed. He will also follow up with community based services supports. Alfredo will transport via private vehicle with his .
[2018-08-08] MEDS: LORazepam 1 MG TAB PO/SL ×3 (09:27→20:18)
[2018-08-08] MEDS: Atenolol 50 MG TAB 100 MG PO (09:28)
[2018-08-08] MEDS: Sertraline 50 MG TAB 150 MG PO (09:28)
[2018-08-08] MEDS: Sucralfate 1 GM TAB PO ×4 (09:28→21:00)
[2018-08-08] MEDS: Buprenorphine/Naloxone 12 mg/3 mg FILM 1 EACH SL (09:28)
[2018-08-08] MEDS: Folic Acid 1 MG TAB PO (09:29)
[2018-08-08] MEDS: amLODIPine 10 MG TAB PO (09:29)
[2018-08-08] MEDS: Aspirin E.C. 81 MG TABEC PO (09:29)
[2018-08-08] MEDS: Losartan 50 MG TAB 100 MG PO (09:29)
[2018-08-08] MEDS: Gabapentin 300 MG CAP 600 MG PO (09:29)
[2018-08-08] MEDS: Thiamine 100 MG TAB PO (09:29)
[2018-08-08] MEDS: Multivitamin TAB 1 TAB PO (09:29)
[2018-08-08] MEDS: Potassium Chloride 20 MEQ TABCR PO ×2 (09:30→20:12)
--- NOTE | 2018-08-08 09:58 | CMPROGNOTE_ITS ---
Care Management Progress Note S/O: Alfredo is sitting up in bed, engaging with MD when CM first observes him. He is not agreeable to inpatient intervention. CM met with Alfredo and provided resources for community follow up. Alfredo immediately began to struggle, and required Ativan. CM sat with Alfredo for an extended period of time. Anjana reported Alfredo requested [employer] coordination which she is working on. CM notified Rrt that Alfredo would appreciate consult prior to discharge. CM also reviewed AA supports which Alfredo found helpful in the past, and Al-Anon for his family which he was receptive to as well. CM provided patient education around the tipping point of alcohol abuse and Alfredo's organs and provided a metaphor for his body's warning system. Alfredo was receptive to this conversation and appeared open to engaging in further discussion and recovery supports. Alfredo will meet with the adaptive physical educator and have a physical therapy evaluation. Per MD, he still requires continued inpatient care for withdrawal monitoring. CM continues to follow. A: 52 year old male admitted to [facility] 08/06/18 for Alcohol Withdrawal, Hypokalemia, Hypomagnesemia P: Alfredo will continue to be closely monitored at this time. He will discharge home when ready per MD. He will follow up with his PCP and plan of care as prescribed. He will also follow up with community based services supports. Alfredo will transport via private vehicle with his .
[2018-08-08] MEDS: POTASSIUM CHLORIDE/0.9% NACL 1,000 ML 150 MEQ IV ×2 (11:02→18:32)
[2018-08-08] MEDS: Insulin Aspart 300 UNITS/3 ML PEN SC ×3 (13:07→21:04)
[2018-08-08] MEDS: Haloperidol 5 MG/ML VIAL 2 MG IM (15:43)
--- NOTE | 2018-08-08 16:11 | CHAPLAIN ---
I visited Alfredo this morning, after a requested from Shweta Tapia RN, who was caring for Alfredo today. She said he was behaving anxiously and has been having visual hallucinations. He is detoxing from alcohol use. Alfredo was talkative and told me that he has been seeing people in his room, and has felt like he was looking at a coworker and having a conversation with them, but would realize that he was in the hospital. This happened both when his eyes were opened and closed. During our conversation I learned that Alfredo is part of the [facility], and in the past has participated in their Celebrate Recovery program, and hopes to do that again. He has also been involved in AA and found that helpful. He said his goal is to leave here with a plan to support him in staying sober. He shared some personal history and talked about bit out his knowledge of AA, as well as the history of alcoholism in his family. He is grateful for the support of his and son. He has been nearly more than 30 years. Alfredo gave me permission to contact Rev. Luke Chowdary at [facility] to request him to visit. I left a message of Rev. Weathers's voice mail. I offered a prayer with Alfredo before leaving. Later Shweta asked me to return, as Alfredo continued to seem anxious and was calmed by having someone else in the room with him. He eventually asked Shweta for stronger medication. After he received that dose and had some custard, he seemed more relaxed.
[2018-08-08] MEDS: Enoxaparin 40 MG/0.4 ML SYR SC (18:21)
[2018-08-08] MEDS: ROSUVASTATIN 20 MG TAB 40 MG PO (21:01)
[2018-08-08] MEDS: traZODone 100 MG TAB PO (21:01)
[2018-08-08] MEDS: Insulin Glargine 300 UNITS/3 ML PEN 20 UNITS SC (21:05)
[2018-08-09] VITALS (36 sets, daily range): BP systolic 96–141; BP diastolic 55–98; PULSE 68–100; RESP 12–28; TEMP 37–38; O2SAT 89–98
[2018-08-09] MEDS: POTASSIUM CHLORIDE/0.9% NACL 1,000 ML 150 MEQ IV ×4 (00:46→19:52)
[2018-08-09] MEDS: LORazepam 2 MG/ML VIAL IVP ×4 (00:59→17:53)
[2018-08-09 07:31] LABS: HCT 36.5 % (40.0-50.0); HGB 11.9 g/dL (13.5-17.5); Mean Corp. HGB Concentration 32.6 g/dL (32.0-36.0); Mean Corpuscular Hemoglobin 26.2 pg (27.0-33.0); Mean Corpuscular Volume 80.4 fL (80-95); Mean Platelet Volume 9.9 fL (8.0-11.0); Platelet Count 243 x1000/uL (130-400); RBC 4.54 m/cumm (4.50-6.00); RBC Distribution Width 13.8 % (11.8-14.1); White Blood Cell Count 11.89 k/cumm (4.4-10.8)
[2018-08-09 07:46] LABS: Anion Gap 8.3 mmol/L (3-11); BUN 6 mg/dL (7-18); CO2 26.7 mmol/L (21.0-32.0); CREATININE 0.58 mg/dL (0.70-1.30); Calcium 8.7 mg/dL (8.5-10.1); Chloride 102 mmol/L (98-107); Glucose 144 mg/dL (70-100); Magnesium 1.7 mg/dL (1.8-2.4); Sodium 137 mmol/L (136-145)
--- NOTE | 2018-08-09 07:48 | DI.RAD_ITS ---
SYMPTOM/DIAGNOSIS: LEUKOCYTOSIS PORTABLE CHEST: 0800 HOURS 08/09/18 The heart is not enlarged. The lungs appear clear. No pleural effusion seen on this frontal film. CONCLUSION: No evidence of acute disease.
--- NOTE | 2018-08-09 08:14 | PGE_ITS ---
Date of Service Date of service: 08/09/18 Time of Service: 08:13 Assessment and Plan (1) Delirium tremens: Current visit: Yes Status: Acute With auditory and visual hallucinations, high CIWA scores, continuing to require IV ativan. Continue scheduled oxazepam, continue neurontin, prn ativan, monitoring in ICU (2) Abdominal pain: Current visit: No Status: Resolved Likely alcoholic gastritis. Resolved. Continue PPI IV BID + carafate. Tolerating advanced diet. (3) Hypomagnesemia: Current visit: Yes Status: Acute Repleted - monitor (4) Hypokalemia: Current visit: Yes Status: Acute repleted (5) Hyperlipidemia: Current visit: No Status: Chronic Continue statin (6) GERD (gastroesophageal reflux disease): Current visit: No Status: Chronic Continue PPI (bid) (7) Diabetes mellitus, type II: Current visit: No Status: Chronic Continue current doses of basal bolus insulin. Hold oral hypoglycemics. (8) Hypertension: Current visit: No Status: Chronic Hold chlorthalidone. Continue remainder of home meds. (9) Depression: Current visit: No Status: Chronic Continue sertraline and trazodone (10) Discharge planning issues: Current visit: No Status: Acute Full code (11) DVT prophylaxis: Current visit: No Status: Acute Lovenox Subjective Interval history since last seen: CIWA 11-12 overnight, got a total of 5 mg of ativan (2 mg of PO, 3 mg IV) over 12 hours. Anxious again in am. Needed IV ativan again today - No BM yet. The patient is anxious talking to me, states he wants to leave AMA. I spoke with him about him needing medications which requiring monitoring while he is withdrawing. He denied dizziness, chest pain, shortness of breath, nausea, vomiting. Abdominal pain has resolved. Exam Narrative Exam Narrative: General: well nourished, well developed middle aged male, anxious, tremulous, agitated HEENT: EOMI, MMM Cardiovascular: regularly regular rhythm, no murmurs, rubs, or gallops Pulmonary: nonlabored breathing, CTAB Gastrointestinal: Abdomen is soft, nondistended. Extremities: no e/c/c BLE's Objective Objective Clinical Data: Abnormal lab results 08/09/18 08/09/18 Range/Units 06:35 06:35 WBC 11.89 H D (4.4-10.8) k/cumm Hgb 11.9 L (13.5-17.5) g/dL Hct 36.5 L (40.0-50.0) % MCH 26.2 L (27.0-33.0) pg BUN 6 L (7-18) mg/dL Creatinine 0.58 L (0.70-1.30) mg/dL Glucose 144 H (70-100) mg/dL Magnesium 1.7 L (1.8-2.4) mg/dL Vital Signs Temperature 37.3 C 08/09/18 04:19 Temperature Source Tympanic 08/09/18 04:19 Pulse 85 08/09/18 06:00 Pulse 85 08/09/18 06:00 Respiratory Rate 21 08/09/18 06:00 Respiratory Effort 08/09/18 04:12 Respiratory Depth Normal 08/09/18 04:12 Respiratory Pattern Normal 08/09/18 04:12 Blood Pressure 128/82 08/09/18 06:00 Blood Pressure Mean 91 08/09/18 06:00 Blood Pressure Position Supine 08/08/18 18:20 Pulse Oximetry 95 08/09/18 06:00 Oxygen Delivery Method Room Air 08/08/18 21:01 Oxygen Flow Rate 0 08/08/18 21:01 Pain Level 0 08/09/18 04:19 Intake & Output 08/08/18 08/08/18 08/09/18 11:59 23:59 11:59 Intake Total 1240 / 3480 2240 / 3480 1707.5 / 1707.5 Output Total 1970 / 3770 1800 / 3770 900 / 900 Balance -730 / -290 440 / -290 807.5 / 807.5 Weight 93.1 kg 93.2 kg Intake: IV 1000 / 3000 2000 / 3000 1707.5 / 1707.5 Oral 240 / 480 240 / 480 Output: Urine 1969 / 3770 1800 / 3770 900 / 900 Other: Urine Color Yellow Yellow Yellow Urine Appearance Clear Clear Clear Urine Odor Normal Normal Comment Patient stands to void with 1 assist. Patient stands to void with 1 assist. Voiding Methods Urinal Urinal Incontinent Laboratory Results WBC 11.89 k/cumm (4.4-10.8) H D 08/09/18 06:35 RBC 4.54 m/cumm (4.50-6.00) 08/09/18 06:35 Hgb 11.9 g/dL (13.5-17.5) L 08/09/18 06:35 Hct 36.5 % (40.0-50.0) L 08/09/18 06:35 MCV 80.4 fL (80-95) 08/09/18 06:35 MCH 26.2 pg (27.0-33.0) L 08/09/18 06:35 MCHC 32.6 g/dL (32.0-36.0) 08/09/18 06:35 RDW 13.8 % (11.8-14.1) 08/09/18 06:35 Plt Count 243 x1000/uL (130-400) 08/09/18 06:35 MPV 9.9 fL (8.0-11.0) 08/09/18 06:35 Immature Gran % 0.3 08/08/18 06:15 Neutrophils % 55.1 08/08/18 06:15 Lymphocytes % 33.8 08/08/18 06:15 Monocytes % 7.3 08/08/18 06:15 Eosinophils % 3.4 08/08/18 06:15 Basophils % 0.1 08/08/18 06:15 Absolute Neutrophils 3.68 k/cumm (1.2-6.7) 08/08/18 06:15 Absolute Lymphocytes 2.26 k/cumm (1.2-3.4) 08/08/18 06:15 Absolute Monocytes 0.49 k/cumm (0.11-0.7) 08/08/18 06:15 Absolute Eosinophils 0.23 k/cumm (0.0-0.7) 08/08/18 06:15 Absolute Basophils 0.01 k/cumm (0.0-0.2) 08/08/18 06:15 Sodium 137 mmol/L (136-145) 08/09/18 06:35 Potassium 4.0 mmol/L (3.5-5.1) 08/09/18 06:35 Chloride 102 mmol/L (98-107) 08/09/18 06:35 Carbon Dioxide 26.7 mmol/L (21.0-32.0) 08/09/18 06:35 Anion Gap 8.3 mmol/L (3-11) 08/09/18 06:35 BUN 6 mg/dL (7-18) L 08/09/18 06:35 Creatinine 0.58 mg/dL (0.70-1.30) L 08/09/18 06:35 Estimated GFR/1.73 m2 >= 60.00 (mL/min/1.73m2) 08/09/18 06:35 Glucose 144 mg/dL (70-100) H 08/09/18 06:35 Calcium 8.7 mg/dL (8.5-10.1) 08/09/18 06:35 Magnesium 1.7 mg/dL (1.8-2.4) L 08/09/18 06:35 Total Bilirubin 0.5 mg/dL (0.2-1.0) 08/07/18 06:20 Conjugated Bilirubin 0.10 mg/dL (0.00-0.20) 08/07/18 06:20 AST 27 U/L (15-37) 08/07/18 06:20 ALT 29 U/L (12-78) 08/07/18 06:20 Alkaline Phosphatase 95 U/L (46-116) 08/07/18 06:20 Troponin I < 0.02 ng/mL (0.00-0.06) 08/06/18 11:50 Total Protein 6.9 g/dL (6.4-8.2) 08/07/18 06:20 Albumin 3.5 g/dL (3.4-5.0) 08/07/18 06:20 Lipase 165 U/L (73-393) 08/07/18 06:20 Vitamin B12 716 pg/mL (193-986) 08/07/18 06:20 Folate > 20.0 ng/mL (8.6-20.0) H 08/07/18 06:20 Urine Color Yellow (Yellow) 08/06/18 11:26 Urine Clarity Clear 08/06/18 11:26 Urine pH 6.0 (5-8) 08/06/18 11:26 Ur Specific [place] 1.025 (1.005-1.025) 08/06/18 11:26 Urine Protein Negative mg/dL (Negative) 08/06/18 11:26 Urine Ketones Negative mg/dL (Negative) 08/06/18 11:26 Urine Blood Negative (Negative) 08/06/18 11:26 Urine Nitrite Negative (Negative) 08/06/18 11:26 Urine Bilirubin Negative (Negative) 08/06/18 11:26 Urine Urobilinogen 0.2 EU/dL (Up TO 0.2) 08/06/18 11:26 Ur Leukocyte Esterase Negative (Negative) 08/06/18 11:26 Urine Glucose 100 mg/dL (Negative) 08/06/18 11:26 Urine Opiates Screen Negative (Negative) 08/06/18 11:26 Urine Methadone Screen Negative (Negative) 08/06/18 11:26 Ur Barbiturates Screen Negative (Negative) 08/06/18 11:26 Ur Tricyclics Screen Negative (Negative) 08/06/18 11:26 Ur Amphetamines Screen Negative (Negative) 08/06/18 11:26 U Benzodiazepines Scrn Negative (Negative) 08/06/18 11:26 Urine Cocaine Screen Negative (Negative) 08/06/18 11:26 Ur THC Screen Positive (Negative) 08/06/18 11:26 Ethyl Alcohol 30.1 mg/dL (<3) 08/06/18 11:50
[2018-08-09] MEDS: Normal Saline Flush 10 ML SYR IVP ×2 (08:40→21:15)
[2018-08-09] MEDS: Buprenorphine/Naloxone 12 mg/3 mg FILM 1 EACH SL (09:02)
[2018-08-09] MEDS: Losartan 50 MG TAB 100 MG PO (09:03)
[2018-08-09] MEDS: Folic Acid 1 MG TAB PO (09:03)
[2018-08-09] MEDS: Sertraline 50 MG TAB 150 MG PO (09:03)
[2018-08-09] MEDS: Multivitamin TAB 1 TAB PO (09:03)
[2018-08-09] MEDS: amLODIPine 10 MG TAB PO (09:03)
[2018-08-09] MEDS: Atenolol 50 MG TAB 100 MG PO (09:03)
[2018-08-09] MEDS: Gabapentin 300 MG CAP 600 MG PO (09:03)
[2018-08-09] MEDS: Pantoprazole 40 MG VIAL IVP ×2 (09:04→21:15)
[2018-08-09] MEDS: Aspirin E.C. 81 MG TABEC PO (09:04)
[2018-08-09] MEDS: Docusate Sodium 100 MG CAP PO ×2 (09:04→22:15)
[2018-08-09] MEDS: Sucralfate 1 GM TAB PO ×4 (09:04→22:15)
[2018-08-09] MEDS: Senna TAB 1 TAB PO ×2 (09:04→22:15)
[2018-08-09] MEDS: Thiamine 100 MG TAB PO (09:04)
[2018-08-09] MEDS: Potassium Chloride 20 MEQ TABCR PO ×2 (09:04→22:14)
[2018-08-09] MEDS: Insulin Aspart 300 UNITS/3 ML PEN SC ×3 (09:14→21:30)
[2018-08-09] MEDS: MAGNESIUM SULFATE 2 GM/50 ML BAG IVPB (09:17)
[2018-08-09] MEDS: LORazepam 1 MG TAB PO/SL ×3 (10:05→15:27)
[2018-08-09] MEDS: LORazepam 2 MG/ML VIAL 1 MG IVP (10:06)
[2018-08-09] MEDS: Nicotine 14 MG/24 HR PATCH TD (10:43)
[2018-08-09] MEDS: Nicotine 2 MG GUM CH (10:44)
[2018-08-09 12:15] LABS: Bilirubin Negative (Negative); Blood Moderate (Negative); Clarity Clear; Glucose 500 mg/dL (Negative); Ketones Negative (Negative); Leukocyte Esterase Negative (Negative); Nitrite Negative (Negative); Specific Gravity 1.015 (1.005-1.025); Urobilinogen 0.2 EU/dL (Up TO 0.2)
[2018-08-09 12:28] LABS: Bacteria Negative HPF (Negative); C & S Indicated? No; Casts Negative LPF (Negative); Crystals Negative HPF (Negative); Epithelial Cells Negative HPF (Negative); Mucus Trace (Negative); RBC >50 (0-2); WBC 0-2 HPF (0-5)
--- NOTE | 2018-08-09 12:48 | PT.INNT ---
Date of service: 08/09/18 Time of Service: 11:42 PT Notes Patient was seen today for a referral for physical therapy evaluation and treat received on 08/08/2018. Patient states that he does not need physical therapy and that he is getting enough exercises at his work already. 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 Patient agreed to a strength testing to bilateral upper and lower extremities which are found to be 5/5. He refused any other testing and was hoping that he could go home today. ICU nurse updated and referring MD notified about patient's declination of services. Thank you for this referral. Joellen Guadalupe, PT, DPT, [facility]
--- NOTE | 2018-08-09 12:54 | NT_ITS ---
Date of service: 08/09/18 Time of Service: 11:42 PT Notes Patient was seen today for a referral for physical therapy evaluation and treat received on 08/08/2018. Patient states that he does not need physical therapy and that he is getting enough exercises at his work already. 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 Patient agreed to a strength testing to bilateral upper and lower extremities which are found to be 5/5. He refused any other testing and was hoping that he could go home today. ICU nurse updated and referring MD notified about patient's declination of services. Thank you for this referral. Joellen Guadalupe, PT, DPT, [facility]
--- NOTE | 2018-08-09 13:25 | NUR.NOTE ---
THIS MORNING AFTER PATIENT HAD PORTABLE CHEST XRAY, THIS RN FOUND A CAN OF SKOAL CHEWING TOBACCO IN PATIENTS BED. PATIENT WAS NOT FULLY AWAKE AT THIS TIME. I REMOVED THE CAN FROM HIS ROOM AND BROUGHT IT TO NURSES STATION. A LITTLE LATER IN THE MORNING WHEN PATIENT WAS FULLY AWAKE I HAD A CONVERSATION WITH HIM REGARDING THE CAN OF CHEWING TOBACCO. PATIENT REQUESTED TO HAVE THE CAN BACK, STATING I JUST WANT ONE DIP AND THEN YOU CAN FLUSH THE REST. HAD DISCUSSION WITH PATIENT ABOUT THE HOSPITAL'S TOBACCO POLICY. OFFERED PATIENT OTHER FORMS OF NICOTINE REPLACEMENT WHICH HE INITIALLY DENIED, THEN REQUESTED LATER IN SHIFT. Nursing Note:
--- NOTE | 2018-08-09 13:50 | PDOC.CMPRO ---
Care Management Progress Note S/O: MD request for support as Alfredo was reportedly threatening to leave AMA. Alfredo was sitting up in his chair, eating custard. He engaged with this song writer calmly and appeared alert and oriented. He stated he was feeling all better and was ready to return home. He reported MD was not on board with his discharge so he would be leaving AMA. He reported feeling confident about the process and shared no concerns or needs. CM spoke with RN who reported Alfredo had a period of struggle early this morning but had been calm and appropriate throughout the day. Alfredo shared meeting with a swimming coach or instructor this morning and shared a plan for follow up when he returns home. CM will continue to follow. A: 52 year old male admitted to [facility] 08/06/18 for Alcohol Withdrawal, Hypokalemia, Hypomagnesemia P: Alfredo will discharge home when ready per MD-vs-AMA when he so wishes. From a care management perspective; he has been provided all pertinent resources and the next steps to sobriety will be up to him. He has the opportunity to attend AA meetings, follow up with a swimming coach or instructor, meet with his Vice President Of Instruction and was provided resources for inpatient support as well. Alfredo reports he will transport via private vehicle with his .
--- NOTE | 2018-08-09 13:53 | CHAPLAIN ---
I visited with Alfredo this morning after spending some time with him yesterday. He asked me to call Blood Splatter Analyst Luke Chowdary at the [facility] to see if he could visit Alfredo. I left a message with Luke yesterday, but Alfredo said he hasn't been in to visit yet. Alfredo was waiting for his to arrive and said he is thinking about leaving AMA.
--- NOTE | 2018-08-09 14:09 | CMPROGNOTE_ITS ---
Care Management Progress Note S/O: MD request for support as Alfredo was reportedly threatening to leave AMA. Alfredo was sitting up in his chair, eating custard. He engaged with this specifications writer calmly and appeared alert and oriented. He stated he was feeling all better and was ready to return home. He reported MD was not on board with his discharge so he would be leaving AMA. He reported feeling confident about the process and shared no concerns or needs. CM spoke with RN who reported Alfredo had a period of struggle early this morning but had been calm and appropriate throughout the day. Alfredo shared meeting with a gymnastics coach this morning and shared a plan for follow up when he returns home. CM will continue to follow. A: 52 year old male admitted to [facility] 08/06/18 for Alcohol Withdrawal, Hypokalemia, Hypomagnesemia P: Alfredo will discharge home when ready per MD-vs-AMA when he so wishes. From a care management perspective; he has been provided all pertinent resources and the next steps to sobriety will be up to him. He has the opportunity to attend AA meetings, follow up with a gymnastics coach, meet with his Dean Of Men and was provided resources for inpatient support as well. Alfredo reports he will transport via private vehicle with his .
--- NOTE | 2018-08-09 15:03 | W.INDIABCONS ---
Date of service: 08/09/18 Time of Service: 15:04 Diabetes Inpatient Consult DESCRIPTION/ASSESSMENT: Appreciate diabetes consult for Alfredo Perez, 52 year old hospitalized with delirium tremens. BMI 10 6 months ago; BMI 30 BLood sugars this hospitalization fasting 123-164, otherwise 119-225. He is managed with now 20u Lantus and sensitive insulin correction. His usual medication regimen at home includes Metformin, Januvia, GLipizide and Lantus 50units a day. Even with that, his A1c is elevated. It is unclear how frequently he takes his medication. He continues on clear liquids consuming 15 grams carbohydrate at a time. Given this, will visit with him when he is feeling better. INTERVENTION: Current insulin intervention reasonable given unpredictable calorie consumption. PLAN: Will follow blood sugars and follow up with him prior to discharge regarding self management support desired. Time Spent in Nutritional Counseling and Treatment: 0 minutes face to face
[2018-08-09] MEDS: QUEtiapine 25 MG TAB PO (16:14)
[2018-08-09] MEDS: Enoxaparin 40 MG/0.4 ML SYR SC (17:10)
[2018-08-09] MEDS: Insulin Glargine 300 UNITS/3 ML PEN 20 UNITS SC (21:32)
[2018-08-09] MEDS: ROSUVASTATIN 20 MG TAB 40 MG PO (22:14)
[2018-08-09] MEDS: traZODone 100 MG TAB PO (22:14)
[2018-08-10] VITALS (14 sets, daily range): BP systolic 91–140; BP diastolic 62–91; PULSE 70–82; RESP 11–26; TEMP 36.5–37.3; O2SAT 87–98
[2018-08-10] MEDS: POTASSIUM CHLORIDE/0.9% NACL 1,000 ML 150 MEQ IV (02:36)
[2018-08-10 06:21] LABS: Abs Immature Grans 0.01 k/cumm (0.0-0.09); Absolute Basophil Count 0.02 k/cumm (0.0-0.2); Absolute Eosinophil Count 0.18 k/cumm (0.0-0.7); Absolute Lymphocyte Count 1.96 k/cumm (1.2-3.4); Absolute Monocyte Count 0.61 k/cumm (0.11-0.7); Absolute Neutrophil Count 6.37 k/cumm (1.2-6.7); Basophils % 0.2; HCT 34.5 % (40.0-50.0); HGB 11.3 g/dL (13.5-17.5); Immature Grans % 0.1; Lymphocytes % 21.4; Mean Corp. HGB Concentration 32.8 g/dL (32.0-36.0); Mean Corpuscular Hemoglobin 26.4 pg (27.0-33.0); Mean Corpuscular Volume 80.6 fL (80-95); Mean Platelet Volume 9.5 fL (8.0-11.0); Monocytes % 6.7; Neutrophils % 69.6; Platelet Count 250 x1000/uL (130-400); RBC 4.28 m/cumm (4.50-6.00); RBC Distribution Width 14.1 % (11.8-14.1); White Blood Cell Count 9.15 k/cumm (4.4-10.8)
[2018-08-10 06:24] LABS: Anion Gap 6.5 mmol/L (3-11); BUN 6 mg/dL (7-18); CO2 27.5 mmol/L (21.0-32.0); CREATININE 0.55 mg/dL (0.70-1.30); Calcium 8.6 mg/dL (8.5-10.1); Chloride 105 mmol/L (98-107); Glucose 119 mg/dL (70-100); Magnesium 1.9 mg/dL (1.8-2.4); Sodium 139 mmol/L (136-145)
[2018-08-10] MEDS: Sucralfate 1 GM TAB PO ×2 (08:38→11:46)
[2018-08-10] MEDS: amLODIPine 10 MG TAB PO (08:39)
[2018-08-10] MEDS: Aspirin E.C. 81 MG TABEC PO (08:39)
[2018-08-10] MEDS: Pantoprazole 40 MG VIAL IVP (08:39)
[2018-08-10] MEDS: Gabapentin 300 MG CAP 600 MG PO (08:40)
[2018-08-10] MEDS: Buprenorphine/Naloxone 12 mg/3 mg FILM 1 EACH SL (08:40)
[2018-08-10] MEDS: Losartan 50 MG TAB 100 MG PO (08:40)
[2018-08-10] MEDS: Atenolol 50 MG TAB 100 MG PO (08:40)
[2018-08-10] MEDS: Docusate Sodium 100 MG CAP PO (08:40)
[2018-08-10] MEDS: Folic Acid 1 MG TAB PO (08:40)
[2018-08-10] MEDS: Senna TAB 1 TAB PO (08:41)
[2018-08-10] MEDS: Multivitamin TAB 1 TAB PO (08:41)
[2018-08-10] MEDS: Sertraline 50 MG TAB 150 MG PO (08:41)
[2018-08-10] MEDS: Normal Saline Flush 10 ML SYR IVP (08:41)
[2018-08-10] MEDS: Potassium Chloride 20 MEQ TABCR PO (08:41)
[2018-08-10] MEDS: Thiamine 100 MG TAB PO (08:41)
[2018-08-10] MEDS: Magnesium Oxide 400 MG TAB PO (08:43)
--- NOTE | 2018-08-10 10:49 | DSE_ITS ---
Date of service: 08/10/18 Time of Service: 10:27 DS: Diagnosis Discharge Diagnosis (1) Abdominal pain: Status: Resolved (2) Hypomagnesemia: Status: Acute (3) Hypokalemia: Status: Acute (4) Hyperlipidemia: Status: Chronic (5) GERD (gastroesophageal reflux disease): Status: Chronic (6) Diabetes mellitus, type II: Status: Chronic (7) Hypertension: Status: Chronic (8) Alcohol withdrawal: Status: Suspected Discharge Plan Disposition Patient Disposition: HOME Condition: Stable Discharge Details Reason For Visit: ALCOHOL WITHDRAWAL, HYPOKALEMIA, HYPOMAGNESEMIA Admit Date/Time: 08/06/18 16:01 Admit Provider: Luz Lynn Attending Provider: Luz Lynn Primary Care Provider: Yulia Cortez [place] [facility] Hospital Course: 52 year old man with a past history significant for anxiety, prior IVDA, and EtOH abuse admitted from [facility] emergency department on 08/06 with a diagnosis of Alcohol Withdrawl and Abdominal Pain. Mr. Perez has a prior medical history significant for insulin-dependent DM, previously treated HCV, prior IVDA in remission, and EtOH abuse. He had experienced a relapse of misuse of prescription medications due to recent surgeries, for which he was placed on Suboxone 3 months ago by his PCP. Per prior discussion with Dr. Cortez, there was also strong suspicion regarding gabapentin abuse, and after discontinuation he had reportedly resorted to drinking 1 pint of vodka daily and leading to a hospitalization in early July. During that admission he was noted to have tremors, significant elevation in blood glucose (the patient reportedly stopped taking his home insulin regimen due to poor p.o. intake), hyponatremia, MING, and an undetectable alcohol level. CT of the abdomen and pelvis showed no acute abnormality. He vastly improved with hydration, and showed no signs of real withdrawl, appearing comfortable, non-diaphoretic, and at baseline mental status with stable vitals. The patient was admitted on 08/06 with complaints of abdominal pain and hallucinations. He reported having visual and auditory hallucinations, and was admitted and treated in the ICU for acute alcohol withdrawl. He continued to require IV Lorazepam based on his subjective complaints of hallucinations and tremors - however, he never appeared diaphoretic, and review of his vitals did not reveal any evidence of significant hypertension or labile blood pressure, and he was not tachycardic during the entirety of his hospitalization. He also reports his last drink on the morning of admission, at which time he was already reporting hallucinations. Of note, Mr. Perez had presented to the ED on the day prior to his admission with complaints of abdominal and back pain, and according to review of the ED notes left AMA when 'not given Methadone' for pain control. He is now nearly 96 hours past last drink, and close to 24 hours until his last administration of Lorazepam. He will be discharged with a 6 day taper off of Oxazepam. This morning he reports excellent sleep overnight, no hallucinations, lack of tremors, and appears to be at baseline mental status. No overnight events reported, and nursing reports no need for additional Benzodiazepine therapy. He was also treated for abdominal pain, deemed likely alcoholic gastritis, and now reports resolution of his discomfort and tolerating oral intake. His hemoglobin has remained mildly low and stable at 11.3 this morning. He will be discharged on oral PPI therapy on a BID basis. He is being discharged in stable condition, with outpatient services already scheduled and in place per discussion with Case Management and patient himself. Home Meds and New Rx's Prescriptions: New oxazepam 15 mg Capsule 15 mg PO Q6H Qty: 12 RF: 0 omeprazole 40 mg capsule,delayed release(DR/EC) 40 mg PO BID Qty: 60 RF: 0 Continued Janumet 1 EACH tablet 1 ea PO BID RF: 0 atenolol 100 MG tablet 100 mg PO DAILY RF: 0 glipizide 10 MG tablet 10 mg PO BID RF: 0 aspirin [Aspir-Low] 81 MG tablet,delayed release (DR/EC) 81 mg PO DAILY RF: 0 losartan 100 MG tablet 100 mg PO DAILY RF: 0 rosuvastatin [Crestor] 40 MG tablet 40 mg PO HS RF: 0 Lantus U-100 Insulin 100 UNIT/ML solution 50 units SQ HS RF: 0 amlodipine 10 MG tablet 10 mg PO DAILY RF: 0 sertraline 100 mg Tablet 150 mg PO DAILY RF: 0 trazodone 100 mg Tablet 100 mg PO HS RF: 0 buprenorphine-naloxone [Suboxone] 12-3 mg Film 1 film Sublingual DAILY RF: 0 chlorthalidone 50 mg Tablet 50 mg PO DAILY RF: 0 Discontinued omeprazole 20 mg Capsule,Delayed Release(Dr/Ec) 20 mg PO DAILY RF: 0 Discharge Instructions Additional Instructions: Please see your Primary Care Doctor (Dr. Cortez) as scheduled on 08/14 Activity:: No Strenuous Activity. Equipment/Supplies:: No Equipment Needed Diet:: Carb Counting Discharge Orders Discharge Orders: Discharge Order (Routine); Ordered 08/10/18 Ordered By: Steve Villatoro Exam Narrative Exam Narrative: General: Patient appears comfortable, AAOX3, NAD. Non- diaphoretic. Neck: Supple CV: Regular, nontachycardic, S1S2, No rubs, murmurs, or gallops. Pulmonary: Clear to auscultation bilaterally, no crackles, wheezing, or rhonchi Abdomen: + Bowel Sounds, soft, nontender, nondistended Vascular: No lower extremity edema Neurologic: CN II-XII grossly intact. No focal deficits. Psych: Normal mood and affect. DS: Data Vitals/I&O Vitals and I&O: Vital Signs Temperature 37.3 C 08/10/18 10:08 Temperature Source Temporal Artery Scan 08/10/18 10:08 Pulse 82 08/10/18 10:08 Pulse 82 08/10/18 10:00 Respiratory Rate 22 08/10/18 10:08 Respiratory Effort 08/10/18 08:03 Respiratory Depth Normal 08/10/18 08:03 Respiratory Pattern Normal 08/10/18 08:03 Blood Pressure 140/91 H 08/10/18 10:08 Blood Pressure Mean 84 08/10/18 08:00 Blood Pressure Position Supine 08/10/18 08:03 Pulse Oximetry 95 08/10/18 10:08 Oxygen Delivery Method Room Air 08/10/18 10:08 Oxygen Flow Rate 0 08/10/18 10:08 Pain Level 0 08/10/18 10:08 Comment 08/10/18 10:08 Intake & Output 08/09/18 08/09/18 08/10/18 11:59 23:59 11:59 Intake Total 2237.5 / 5570.0 3332.5 / 5570.0 2720 / 2720 Output Total 2275 / 4750 2475 / 4750 2150 / 2150 Balance -37.5 / 820.0 857.5 / 820.0 570 / 570 Weight 93.2 kg 89.2 kg Intake: IV 1707.5 / 3700.0 1992.5 / 3700.0 2019 Oral 530 / 1870 1340 / 1870 700 / 700 Output: Urine 2275 / 4750 2475 / 4750 2150 / 2150 Other: Urine Color Yellow Yellow Yellow Urine Appearance Clear Clear Clear Urine Odor None Normal Normal Comment CONTINENT VOID TO URINAL. Urinal contained 550 ml; Estimated 50 ml spilled due to grogginess and clumsiness with urinal. patient voided 600cc clear yellow urine to urinal at this time. Voiding Methods Urinal Urinal Bedside Commode Completed studies during hospitalization [Text1]: Exam(s) 08/06/[address]:CT abdomen & pelvis w SYMPTOMS/DIAGNOSIS: ABDOMINAL AND BACK PAIN, ? ACUTE PROCESS CT SCAN OF THE ABDOMEN AND PELVIS: CT scan of the abdomen and pelvis was performed following the uneventful administration of intravenous contrast material. Comparison examination is 06/30/18. Mild atelectatic changes are seen in the lung bases. The liver shows diffuse decreased attenuation consistent with hepatic steatosis. No suspicious hepatic masses seen. The portal, superior mesenteric and splenic veins are patent. The gallbladder is negative. There is no biliary ductal dilatation. The pancreas is unremarkable. The spleen and adrenal glands are unremarkable. The kidneys show normal and symmetric enhancement. No suspicious solid renal mass or obstruction is identified. There is a tiny cyst in the lower pole of the right kidney. The urinary bladder is intact. The reproductive organs are unremarkable. There is atherosclerosis of the abdominal aorta but no aneurysmal dilatation is present. No significant abdominal or pelvic adenopathy, ascites or pneumoperitoneum is present. The bowel shows no evidence of obstruction or inflammation. No evidence of an acute appendicitis is present. The stomach wall appears thickened, but this is likely due to decreased distention. Degenerative changes are seen in the lower lumbar spine. IMPRESSION: 1. No evidence of an acute abdomen. 2. Hepatic steatosis. Exam(s) 08/09/2018 a RAD:XR portable chest AP SYMPTOM/DIAGNOSIS: LEUKOCYTOSIS PORTABLE CHEST: 0800 HOURS 08/09/18 The heart is not enlarged. The lungs appear clear. No pleural effusion seen on this frontal film. CONCLUSION: No evidence of acute disease. Labs on day of discharge: Labs from last 24 hours 08/10/18 08/10/18 08/09/18 05:49 05:49 11:33 WBC 9.15 RBC 4.28 L Hgb 11.3 L Hct 34.5 L MCV 80.6 MCH 26.4 L MCHC 32.8 RDW 14.1 Plt Count 250 MPV 9.5 Immature Gran % 0.1 Neutrophils % 69.6 Lymphocytes % 21.4 Monocytes % 6.7 Eosinophils % 2.0 Basophils % 0.2 Absolute Neutrophils 6.37 Absolute Lymphocytes 1.96 Absolute Monocytes 0.61 Absolute Eosinophils 0.18 Absolute Basophils 0.02 Sodium 139 Potassium 4.0 Chloride 105 Carbon Dioxide 27.5 Anion Gap 6.5 BUN 6 L Creatinine 0.55 L Estimated GFR/1.73 m2 >= 60.00 Glucose 119 H Calcium 8.6 Magnesium 1.9 Urine Color Yellow Urine Clarity Clear Urine pH 6.0 Ur Specific [place] 1.015 Urine Protein Negative Urine Ketones Negative Urine Blood Moderate H Urine Nitrite Negative Urine Bilirubin Negative Urine Urobilinogen 0.2 Ur Leukocyte Esterase Negative Urine RBC >50 H Urine WBC 0-2 Ur Epithelial Cells Negative Urine Crystals Negative Urine Bacteria Negative Urine Casts Negative Urine Mucus Trace Ur Culture Indicated? 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) hepatitis c with undetectable load (Chronic) GERD (gastroesophageal reflux disease) (Chronic) Hyperlipidemia (Chronic) Adjustment disorder with anxious mood (Chronic) Alcoholism (Chronic) Anxiety (Chronic) Restless leg syndrome (Chronic) Surgical History History of total right knee replacement (Chronic 08/10/14) H/O shoulder surgery (Chronic) History of knee surgery (Chronic) H/O colonoscopy (Resolved 02/15/18) Birthmark (Inactive) Social History Smoking/Tobacco Use Status: Current every day Tobacco Type: cigarettes Alcohol Intake: current Alcohol Intake frequency: 3 or more drinks per day Alcohol type: hard liquor Drug use: Occasionally Substance use type: marijuana Do you feel safe at home: Yes Do you feel safe in your relationship?: Yes
[2018-08-10] MEDS: Insulin Aspart 300 UNITS/3 ML PEN SC (11:46)
--- NOTE | 2018-08-10 14:25 | PDOC.CMDIS ---
LACE Index Scoring Tool - Questions: Length of Stay (in days): 4 - 6 Acuity (Admit via E.D.?): Yes E.D. Visits: 2 - Answers: Total Score: 9 Risk of Readmission: Low Risk Care Management Discharge Reason for Hospitalization: Alcohol withdrawal, hypokalemia, hypomagnesemia Discharge Plan: Alfredo will return home today. He has been provided all pertinent resources and the next steps to sobriety will be up to him. He has the opportunity to attend AA meetings, follow up with a organ recovery coordinator, meet with his Cutting Table Operator and was provided resources for inpatient support as well. His will be transporting him home by car. Patient/Family Education Needs: Discharge instructions
--- NOTE | 2018-08-10 14:29 | CMDISCH_ITS ---
LACE Index Scoring Tool - Questions: Length of Stay (in days): 4 - 6 Acuity (Admit via E.D.?): Yes E.D. Visits: 2 - Answers: Total Score: 9 Risk of Readmission: Low Risk Care Management Discharge Reason for Hospitalization: Alcohol withdrawal, hypokalemia, hypomagnesemia Discharge Plan: Alfredo will return home today. He has been provided all pertinent resources and the next steps to sobriety will be up to him. He has the opportunity to attend AA meetings, follow up with a recovery analyst, meet with his Director Sales Support and was provided resources for inpatient support as well. His will be transporting him home by car. Patient/Family Education Needs: Discharge instructions
== END 2018-08-10 12:20 | disposition home or self-care (01) | DRG 897 ==
LOC: ER 16:57 → ICU 18:32
PROVIDERS: Nurse Practitioner; Admitting Provider Internal Medicine; Emergency Provider Physician Assistant; PCP Family Medicine; Visit Provider Internal Medicine
DX: F10.231 Alcohol dependence with withdrawal delirium (principal); F11.20 Opioid dependence, uncomplicated; F10.232 Alcohol dependence with withdrawal with perceptual disturbance; K29.20 Alcoholic gastritis without bleeding; R10.9 Unspecified abdominal pain; E83.42 Hypomagnesemia; E87.6 Hypokalemia; E78.5 Hyperlipidemia, unspecified; K21.9 Gastro-esophageal reflux disease without esophagitis; I10 Essential (primary) hypertension; F32.9 Major depressive disorder, single episode, unspecified; F17.210 Nicotine dependence, cigarettes, uncomplicated; D72.829 Elevated white blood cell count, unspecified; F19.11 Other psychoactive substance abuse, in remission; E11.9 Type 2 diabetes mellitus without complications; Z79.4 Long term (current) use of insulin
CPT/HCPCS: 36415; 36416; 80048; 80053; 80076; 80307; 82962; 83690; 85027; 93005; 96365; 96366; 99223; 99232; 99233; 99239; 99285; J1650; 71045; 74177; 80320; 81003; 81015; 82607; 82746; 83735; 84484; 85025; 93010; J1630; J2060; J3490

== ENCOUNTER 2018-08-14 15:57 | Outpatient (REF) | payer OTHER, SELFPAY ==
[2018-08-14 20:56] LABS: COMMENT (LAB VIEW ONLY) 119.81 mg/dL; Microalb ug/mg Crea 62.4 ug/mg Cr
== END 2018-08-14 16:17 ==
LOC: NCHCN 15:57
PROVIDERS: PCP Family Medicine; Visit Provider Family Medicine
DX: E11.65 Type 2 diabetes mellitus with hyperglycemia (principal)
CPT/HCPCS: 82043; 82570

== ENCOUNTER 2018-09-03 05:43 | Inpatient (IN) | payer OTHER, SELFPAY ==
[2018-09-03] VITALS (95 sets, daily range): BP systolic 81–214; BP diastolic 46–154; PULSE 56–98; RESP 10–34; TEMP 36.3–36.5; O2SAT 67–99
--- NOTE | 2018-09-03 05:55 | ED.GENADUL_ITS ---
Discharge Plan Disposition Patient Disposition: [facility] INPATIENT Condition: Stable Discharge Details Chief Complaint: Chest Pain Clinical Impression: Shortness of breath, Pneumonia Primary Care Provider: Yulia Cortez ED Provider: Kiran Smith Home Meds and New Rx's Prescriptions: No Action Janumet 1 EACH tablet 1 ea PO BID RF: 0 atenolol 100 MG tablet 100 mg PO DAILY RF: 0 glipizide 10 MG tablet 10 mg PO BID RF: 0 aspirin [Aspir-Low] 81 MG tablet,delayed release (DR/EC) 81 mg PO DAILY RF: 0 losartan 100 MG tablet 100 mg PO DAILY RF: 0 rosuvastatin [Crestor] 40 MG tablet 40 mg PO HS RF: 0 Lantus U-100 Insulin 100 UNIT/ML solution 50 units SQ HS RF: 0 amlodipine 10 MG tablet 10 mg PO DAILY RF: 0 methadone 10 mg/mL Concentrate 65 mg PO DAILY RF: 0 sertraline 100 mg Tablet 150 mg PO DAILY RF: 0 trazodone 100 mg Tablet 100 mg PO HS RF: 0 chlorthalidone 50 mg Tablet 50 mg PO DAILY RF: 0 omeprazole 40 mg capsule,delayed release(DR/EC) 40 mg PO BID Qty: 60 RF: 0 Medical Decision Making <Bogdan Garcia MD - Last Filed: 09/03/18 07:31> 52 yo male with hx of alcohol abuse, prior ivdu on methadone and denies any recent illicit drug use, htn, t2dm, who comes in with complaints of shortness of breath lasting for the past 5 hours. Denies any recent fevers or cough, also has chest tightness per patient anteriorly. He appears very anxious on exam and has an oxygen saturation of 88% otherwise normal vital signs. He is noted to have wheezing at the bases bilaterally on exam, no jvd or pitting pedal edema. Will tx with nebs and nebulizer and obtain CTA to eval for pe vs pna given his wells score is moderate given Pe just as likely dx. Will also tx his anxiety with lorazepam pt less anxious with anxiolytics, labs notable for wbc of 19 and probnp of over 1000. Also low K and mag ,will replete. His CTA reading is pending, I do not see a Pe or ptx or pericardial effusion. He appears to have either pulmonary edema vs pna on chest ct, given the elevated probnp and hypoxia and possible edema will tx with a dose of lasix Differential Diagnosis Pe, anxiety, copd, pna Medical Records Medical records reviewed: Yes I reviewed the patient's medical records. Lab Data Lab results reviewed: Yes I reviewed the patient's lab results. ECG Data Attestation: I personally reviewed and interpreted this ECG (s) as follows: Prior ECG tracings: available for review Interpretation: sinus rhythm, rate of 77, pr 146, qtc 473, no acute st t wave ischemic changes 2nd ekg shows sinus rhythm, rate of 68, pr 142, no acute changes <Kiran Smith DO - Last Filed: 09/03/18 08:37> Case was signed out to me by my colleague Dr. Bogdan Garcia pending CT scan results. Prior to signout the patient's proBNP was notably elevated, initial review of the CT scan did show concerns for pulmonary edema. Laboratory work-up shows an elevated white count of 19. Potassium was low at 3 and this was corrected, magnesium was low at 1.4 and this was corrected. Initial troponin was less than 0.02. However the proBNP was elevated at 1200 which is atypical for the patient. CT results per virtual radiologist have returned and are interpreted as bilateral lower lobe predominant groundglass opacities nearly diffuse with in the bilateral lower lobes right middle lobe and lingula. No PE. Differential includes opportunistic infection versus hypersensitivity pneumonitis. Patient has already been given [address] Garcia, patient has been admitted in the last 90 days, patient does have an ampicillin allergy, will give vancomycin, Flagyl, and aztreonam.. We discussed atypical coverage with the hospitalist and Dr. Lynn would like to hold off on doxycycline or azithromycin at this time. We will add HIV screen, sputum cultures, and admit for echocardiogram and further IV antibiotics and management. Dr. Lynn has asked that I place admission orders, and these will be placed.. I have extensively reviewed the treatment plan with the patient. I have addressed all patient concerns at this time. I have also discussed the plan with the admitting physician and they agree with the current assessment and plan and have agreed to assume responsibility for the patient. All parties demonstrate verbal understanding and agreement with our assessment and plan at this time. HPI <Bogdan Garcia MD - Last Filed: 09/03/18 07:31> General Mode of arrival: ambulatory . Date/Time Provider Initiated Documentation: 09/03/18 05:46 . Limitations to Documentation: no limitations . Information obtained by: patient . History of Present Illness 52 year old M presents to the emergency department with the chief complaint of shortness of breath, described as severe, Patient started experiencing this hour(s) (5) and it has been constant. No relieving factors improve symptom(s), No exacerbating factors reported . Patient notes chest pain. Patient did receive the following treatments prior to arrival, none Related Data Home Medications Medication Instructions Recorded Confirmed aspirin [Aspir-Low] 81 mg PO DAILY 02/08/13 09/03/18 atenolol 100 mg PO DAILY 02/08/13 09/03/18 glipizide 10 mg PO BID 02/08/13 09/03/18 losartan 100 mg PO DAILY 02/08/13 09/03/18 rosuvastatin [Crestor] 40 mg PO HS 02/08/13 09/03/18 Lantus U-100 Insulin 50 units SQ HS 08/07/14 09/03/18 amlodipine 10 mg PO DAILY 08/07/14 09/03/18 Janumet 1 ea PO BID 08/03/15 09/03/18 sertraline 150 mg PO DAILY 06/30/18 09/03/18 chlorthalidone 50 mg PO DAILY 08/06/18 09/03/18 trazodone 100 mg PO HS 08/06/18 09/03/18 omeprazole 40 mg PO BID #60 cap 08/10/18 09/03/18 methadone 65 mg PO DAILY 09/03/18 09/03/18 Previous Rx's Medication Instructions Recorded omeprazole 40 mg PO BID #60 cap 08/10/18 Allergies Allergy/AdvReac Type Severity Reaction Status Date / Time ampicillin Allergy Skin Rash Verified 08/28/18 09:04 zolpidem tartrate AdvReac Intermediate confusion Verified 08/28/18 09:04 [From Ambien] lisinopril AdvReac cough Verified 08/28/18 09:04 General ANNITA: 2 Review of Systems <Bogdan Garcia MD - Last Filed: 09/03/18 07:31> Review of Systems All systems reviewed & are unremarkable except as noted in HPI and below Constitutional Denies chills, Denies fever(s) and Denies weakness Respiratory Denies cough Gastrointestinal Denies abdominal pain, Denies nausea and Denies vomiting Integumentary/Breasts Denies rash Neurologic Denies weakness Endocrine Denies heat intolerance PFSH <Bogdan Garcia MD - Last Filed: 09/03/18 07:31> Social History Smoking/Tobacco Use Status: Current every day Tobacco Type: cigarettes Smoking cigarettes per day: 10 Tobacco: How many years used: 25 Alcohol Intake: current Alcohol Intake frequency: 3 or more drinks per day Alcohol type: hard liquor Drug use: Occasionally Substance use type: marijuana Do you feel safe at home: Yes Do you feel safe in your relationship?: Yes Exam <Bogdan Garcia MD - Last Filed: 09/03/18 07:31> Const General: no acute distress and anxious Orientation: alert HENMT Head: normal to inspection Ears: external ears normal General nose exam: external nose normal Mouth: moist mucous membranes Eyes General: appearance normal, both eyes and all related structures Neck Neck: normal visual inspection Resp Effort & Inspection: normal respiratory effort and able to speak in complete sentences Cardio Rate: regular rate Skin General skin exam: no rashes or lesions noted Neuro General: alert and oriented x3 Extrem General: normal to inspection Psych Mental Status: mental status grossly normal Sign Out <Bogdan Garcia MD - Last Filed: 09/03/18 07:31> Sign Out Data: Sign Out Comment: f/u on ct and dispo Last updated by Bogdan Garcia MD at 09/03/18 07:51
[2018-09-03] MEDS: Albuterol/Ipratropium 3 ML UPD VIAL UPD (06:01)
[2018-09-03] MEDS: LORazepam 2 MG/ML VIAL 1 MG IVP (06:01)
[2018-09-03] MEDS: Normal Saline 1,000 ML 1000 ML IV (06:01)
[2018-09-03] MEDS: Normal Saline Flush 10 ML SYR IVP ×6 (06:02→19:40)
[2018-09-03] MEDS: Omnipaque 350 MG/ML 100 ML BTL IJ (06:04)
[2018-09-03 06:17] LABS: Abs Immature Grans 0.11 k/cumm (0.0-0.09); Absolute Lymphocyte Count 1.52 k/cumm (1.2-3.4); Basophils % 0.1; Eosinophils % 0.1; HCT 36.2 % (40.0-50.0); HGB 11.9 g/dL (13.5-17.5); Immature Grans % 0.6; Lymphocytes % 7.9; Mean Corp. HGB Concentration 32.9 g/dL (32.0-36.0); Mean Corpuscular Hemoglobin 26.4 pg (27.0-33.0); Mean Corpuscular Volume 80.4 fL (80-95); Mean Platelet Volume 10.2 fL (8.0-11.0); Monocytes % 4.3; Platelet Count 279 x1000/uL (130-400); RBC Distribution Width 14.2 % (11.8-14.1); White Blood Cell Count 19.19 k/cumm (4.4-10.8)
[2018-09-03 06:20] LABS: Absolute Basophil Count 0.02 k/cumm (0.0-0.2); Absolute Eosinophil Count 0.02 k/cumm (0.0-0.7); Absolute Monocyte Count 0.83 k/cumm (0.11-0.7)
[2018-09-03 06:24] LABS: PTT Activated 26.7 sec (21.0-31.4); Prothrombin Time 9.8 sec (9.3-11.0)
--- NOTE | 2018-09-03 06:35 | DI.CT_ITS ---
SYMPTOM/DIAGNOSIS: SOB, CHEST PAIN PE CHEST CT: CT angiography was performed with multi slice acquisition and multi planar and 3D reconstruction. CT angiography of the chest was performed with a bolus infusion of 80 cc's of Omnipaque 350. Images obtained through the upper abdomen show unremarkable appearance of visualized portions of the liver, spleen and pancreas. Thoracic aorta is of normal diameter and there is no evidence of aneurysm or dissection. There is no evidence of pulmonary embolic disease. No pleural effusion is seen. There are diffuse bilateral, predominantly ground glass opacities seen in the lower lobes bilaterally. The findings are nonspecific and differential diagnosis would include CHF, ARDS or infectious process. Opportunistic infection or hypersensitivity pneumonia not excluded on the basis of this examination. Appropriate follow up studies requested.
[2018-09-03 06:37] LABS: ALT 22 U/L (12-78); AST 35 U/L (15-37); Albumin 3.6 g/dL (3.4-5.0); Alkaline Phosphatase 95 U/L (46-116); Anion Gap 9.9 mmol/L (3-11); BUN 21 mg/dL (7-18); Bilirubin, Total 0.8 mg/dL (0.2-1.0); CO2 30.1 mmol/L (21.0-32.0); CREATININE 1.01 mg/dL (0.70-1.30); Calcium 9.9 mg/dL (8.5-10.1); Chloride 94 mmol/L (98-107); ETHANOL BLOOD < 3.0 mg/dL (<3); Glucose 193 mg/dL (70-100); Magnesium 1.4 mg/dL (1.8-2.4); NT-proBNP 1239 pg/mL; Sodium 134 mmol/L (136-145); Total Protein 7.8 g/dL (6.4-8.2); Troponin I < 0.02 ng/mL (0.00-0.06)
[2018-09-03] MEDS: Potassium Chloride 20 MEQ TABCR 40 MEQ PO (06:45)
[2018-09-03] MEDS: MAGNESIUM SULFATE 2 GM/50 ML BAG IVPB (06:45)
[2018-09-03] MEDS: Furosemide 20 MG/2 ML VIAL IVP ×2 (06:51→07:35)
--- NOTE | 2018-09-03 06:52 | NUR.NOTE ---
Nursing Note: Contacted [facility] and spoke w/Nurse Uma. Verified pt takes 65mg of Methadone daily, last dose given yesterday, September 02. IF pt is not discharged before last dosing @ 12:30- requesting Pt to be dosed here and a letter of dosing to be sent to [facility] clinic. MD and next shift is aware.
[2018-09-03] MEDS: methylPREDNISolone SUCC 125 MG VIAL (07:15)
--- NOTE | 2018-09-03 07:56 | DI.VRAD_ITS ---
EXAM: CT Angiography Chest With Contrast EXAM DATE/TIME: 09/03/2018 5:52 AM CLINICAL HISTORY: 52 years old, male; Signs and symptoms; Shortness of breath; Patient HX: SOB, TECHNIQUE: Imaging protocol: Axial computed tomographic angiography images of the chest with intravenous contrast using CT angiography protocol. Coronal and sagittal reformatted images were created and reviewed. 3D rendering: MIP reconstructed images were created and reviewed. Radiation optimization: All CT scans at this facility use at least one of these dose optimization techniques: automated exposure control; mA and/or kV adjustment per patient size (includes targeted exams where dose is matched to clinical indication); or iterative reconstruction. Contrast material: OMNIPAQUE 350; Contrast volume: 80 ml; Contrast route: IV LAC; COMPARISON: CR XR PORTABLE CHEST AP 08/09/2018 7:[address] ABDOMEN AND PELVIS 08/06/2018 FINDINGS: Pulmonary arteries: No acute pulmonary embolus. Aorta: No aortic aneurysm. No aortic dissection. Lungs: Bilateral lower lobe predominant groundglass opacities, nearly diffuse within the bilateral lower lobes, right middle lobe, and lingula. Pleural space: Normal. No pneumothorax. No pleural effusion. Heart: No cardiomegaly. No pericardial effusion. Lymph nodes: Unremarkable. No enlarged lymph nodes. Bones/joints: No acute fracture. Soft tissues: Unremarkable. IMPRESSION: 1. No acute pulmonary embolus. 2. Bilateral lower lobe predominant groundglass opacities, nearly diffuse within the bilateral lower lobes, right middle lobe, and lingula. This is new since 08/06/2018. Differential diagnoses include opportunistic infections and hypersensitivity pneumonitis. Dictated and Authenticated by: João Kumar MD. Ordering:GRAY Mcfadden MD
[2018-09-03] MEDS: Methadone Liquid 10 MG/ML 65 MG PO (08:36)
[2018-09-03 09:40] LABS: Troponin I < 0.02 ng/mL (0.00-0.06)
[2018-09-03 09:48] LABS: *AMPHETAMINES SCREEN URINE Negative (Negative); *BARBITURATES SCREEN URINE Negative (Negative); *BENZODIAZEPINES SCREEN URINE Negative (Negative); Cannabinoids THC Negative (Negative); Cocaine Screen,Urine Negative (Negative); METHADONE URINE SCREEN POSITIVE (Negative); OPIATES URINE SCREEN Negative (Negative); Tricyclic Antidepressants Negative (Negative)
[2018-09-03 10:56] LABS: BE 8.7 mmol/L (-3-3); HCO3 33 mmol/L (22-28); pCO2 47 mmHg (34-47); pH 7.45 (7.35-7.45); pO2 55 mmHg (83-108); sO2 90 % (94-98); tCO2 30 mmol/L (22-29)
[2018-09-03 10:59] LABS: FIO2L 14 L; Site Right Radial
--- NOTE | 2018-09-03 11:09 | W.PM.HP.N ---
Date of service: 09/03/18 Time of Service: 11:09 Assessment and Plan (1) Acute respiratory failure with hypoxia: Current visit: Yes Status: Acute Etiology is not yet 100% clear - ARDS due to aspiration pneumonia/pneumonitis is highly suspected; additionally, the patient could have CHF or inhalation pneumonitis from drug use to which he is not confessing, ILD, opportunistic infection (HIV status unknown, Hep C+). Transferring to the ICU due to worsening oxygen requirement; will be placed on CPAP. Will diurese, treat aspiration pneumonia/pneumonitis with vancomycin, aztreonam, flagyl, IV steroids, nebs. Checking HIV. I have requested [place] [facility] [place] awaiting call back. (2) Sepsis: Current visit: Yes Status: Acute Due to aspiration pneumonia - as above (3) Aspiration pneumonitis: Current visit: Yes Status: Acute As above (4) Alcohol withdrawal: Current visit: Yes Status: Acute Admitted with CIWA and prn ativan (5) ARDS (adult respiratory distress syndrome): Current visit: Yes Status: Suspected As above (6) CHF (congestive heart failure): Current visit: Yes Status: Suspected EF unknown - obtain echo. (7) Hyponatremia: Current visit: Yes Status: Acute Monitor with diuresis. (8) Opioid dependence: Current visit: Yes Status: Chronic on methadone therapy through [facility] (9) GERD (gastroesophageal reflux disease): Current visit: No Status: Chronic Cover with PPI (10) Hypomagnesemia: Current visit: No Status: Acute Replete (11) Hypokalemia: Current visit: No Status: Acute Repleted - monitor (12) Tobacco dependence: Current visit: No Status: Chronic provide nicotine replacement therapy (13) Chronic anemia: Current visit: Yes Status: Chronic Follow up as outpatient (14) Diabetes mellitus, type II: Current visit: No Status: Chronic Half basal insulin as NPO in anticipation of possible intubation - on SSI q6H. Anticipate steroid induced hyperglycemia. (15) Hypertension: Current visit: No Status: Chronic Hold oral meds (16) Hyperlipidemia: Current visit: No Status: Chronic hold oral meds (17) Discharge planning issues: Current visit: Yes Status: Acute may require transfer to a tertiary care facility - awaiting call back from [facility] A total of 45 minutes were spent providing critical care/documentation for this patient. (18) DVT prophylaxis: Current visit: Yes Status: Acute lovenox History of Present Illness Chief Complaint: shortness of breath Narrative: Mr Perez is a 52 year old male with PMHx of alcohol abuse (last drink yesterday with history of prior alcohol withdrawal/DT's), IDDM2, IVD in remission, HTN, Hyperlipidemia, who presented to [facility] ED overnight complaining of shortness of breath. To me, he describes symptoms going on for 2 weeks, but especially worse over the last couple of nights. The patient states he vomited yesterday and may have aspirated. He has a cough productive of brown sputum. He describes fevers of up to 101 by oral thermometer at home. States he has a runny nose and a sore throat. He has been very thirsty all the time, describes decreased urinary output, although he is not sure because he also describes worsening forgetfulness. In the ED, he was found to be mildly hypoxic initially (87% on RA, 2L in the 90's); he was found to have bibasilar crackles and received a dose of IV lasix. Evidently, his oxygen requirement rapidly worsened. He is now requiring 14 L of O2 by high flow nasal cannula. He states it hurts to take a deep breath sometimes. He feels he is withdrawing from alcohol now. His feels he may have been doing drugs other than the ones prescribed to him. He is on methadone therapy through [facility] program, recently switched from suboxone. His last dose of methadone was this morning. Review of Systems Review of Systems 12 systems reviewed. Pertinent positives and negatives are as per [facility] Social History Smoking/Tobacco Use Status: Current every day Tobacco Type: cigarettes Smoking cigarettes per day: 10 Tobacco: How many years used: 25 Alcohol Intake: current Alcohol Intake frequency: 3 or more drinks per day Alcohol type: hard liquor Drug use: Occasionally Substance use type: marijuana Do you feel safe at home: Yes Do you feel safe in your relationship?: Yes Meds Home Medications Medication Instructions Recorded Confirmed Type aspirin [Aspir-Low] 81 mg PO DAILY 02/08/13 09/03/18 History atenolol 100 mg PO DAILY 02/08/13 09/03/18 History glipizide 10 mg PO BID 02/08/13 09/03/18 History losartan 100 mg PO DAILY 02/08/13 09/03/18 History rosuvastatin [Crestor] 40 mg PO HS 02/08/13 09/03/18 History Lantus U-100 Insulin 50 units SQ HS 08/07/14 09/03/18 History amlodipine 10 mg PO DAILY 08/07/14 09/03/18 History Janumet 1 ea PO BID 08/03/15 09/03/18 History sertraline 150 mg PO DAILY 06/30/18 09/03/18 History chlorthalidone 50 mg PO DAILY 08/06/18 09/03/18 History trazodone 100 mg PO HS 08/06/18 09/03/18 History omeprazole 40 mg PO BID #60 cap 08/10/18 09/03/18 Rx methadone 65 mg PO DAILY 09/03/18 09/03/18 History Allergies Allergy/AdvReac Type Severity Reaction Status Date / Time ampicillin Allergy Skin Rash Verified 08/28/18 09:04 zolpidem tartrate AdvReac Intermediate confusion Verified 08/28/18 09:04 [From Ambien] lisinopril AdvReac cough Verified 08/28/18 09:04 Exam Narrative Exam Narrative: General: Very pleasant and cooperative, but tremulous Middle-aged male, not visibly tachypneic, appears anxious, withdrawing from alcohol Neurological: tremulous, A&Ox3, no focal deficits Psychiatric: anxious Skin: visible skin intact HEENT: Atraumatic, normocephalic, EOMI, Dry MM, No goiter or JVD Cardiovascular: RRR, no m/r/g Lungs: Crackles auscultated to midlung; otherwise, no rhonchi/wheezing Gastrointestinal: abdomen is soft, nontender, nondistended Extremities: no e/c/c; 1+ pedal pulses B Results Imaging Additional studies: CTA chest 09/03/18: Thoracic aorta is of normal diameter and there is no evidence of aneurysm or dissection. There is no evidence of pulmonary embolic disease. No pleural effusion is seen. There are diffuse bilateral, predominantly ground glass opacities seen in the lower lobes bilaterally. The findings are nonspecific and differential diagnosis would include CHF, ARDS or infectious process. Opportunistic infection or hypersensitivity pneumonia not excluded on the basis of this examination. Appropriate follow up studies requested. CXR done, official read pending; per my read, he does have pulmonary edema vs alveolar edema C/w ARDS in BLL. Labs : 09/03/18 06:03 09/03/18 06:03 Laboratory Results - last 24 hr 09/03/18 09/03/18 09/03/18 06:03 06:03 06:03 WBC 19.19 H RBC 4.50 Hgb 11.9 L Hct 36.2 L MCV 80.4 MCH 26.4 L MCHC 32.9 RDW 14.2 H Plt Count 279 MPV 10.2 Immature Gran % 0.6 Neutrophils % 87.0 Lymphocytes % 7.9 Monocytes % 4.3 Eosinophils % 0.1 Basophils % 0.1 Absolute Neutrophils 16.70 H Absolute Lymphocytes 1.52 Absolute Monocytes 0.83 H Absolute Eosinophils 0.02 Absolute Basophils 0.02 PT 9.8 INR 1.0 APTT 26.7 Sample Site pCO2 pO2 O2 Saturation ABG pH ABG HCO3 ABG Total CO2 ABG Base Excess Oxygen Liter Flow Sodium 134 L Potassium 3.0 L Chloride 94 L Carbon Dioxide 30.1 Anion Gap 9.9 BUN 21 H Creatinine 1.01 Estimated GFR/1.73 m2 >= 60.00 Glucose 193 H Calcium 9.9 Magnesium 1.4 L Total Bilirubin 0.8 AST 35 ALT 22 Alkaline Phosphatase 95 Troponin I < 0.02 NT-Pro-B Natriuret Pep 1239 H Total Protein 7.8 Albumin 3.6 Urine Opiates Screen Urine Methadone Screen Ur Barbiturates Screen Ur Tricyclics Screen Ur Amphetamines Screen U Benzodiazepines Scrn Urine Cocaine Screen Ur THC Screen Ethyl Alcohol < 3.0 09/03/18 09/03/18 09/03/18 09:10 09:25 10:09 WBC RBC Hgb Hct MCV MCH MCHC RDW Plt Count MPV Immature Gran % Neutrophils % Lymphocytes % Monocytes % Eosinophils % Basophils % Absolute Neutrophils Absolute Lymphocytes Absolute Monocytes Absolute Eosinophils Absolute Basophils PT INR APTT Sample Site Right radial pCO2 47 pO2 55 L O2 Saturation 90 L ABG pH 7.45 ABG HCO3 33 H ABG Total CO2 30 H ABG Base Excess 8.7 H Oxygen Liter Flow 14 Sodium Potassium Chloride Carbon Dioxide Anion Gap BUN Creatinine Estimated GFR/1.73 m2 Glucose Calcium Magnesium Total Bilirubin AST ALT Alkaline Phosphatase Troponin I < 0.02 NT-Pro-B Natriuret Pep Total Protein Albumin Urine Opiates Screen Negative Urine Methadone Screen Positive Ur Barbiturates Screen Negative Ur Tricyclics Screen Negative Ur Amphetamines Screen Negative U Benzodiazepines Scrn Negative Urine Cocaine Screen Negative Ur THC Screen Negative Ethyl Alcohol Last Vital Signs Temp 36.4 C L 09/03/18 05:47 Pulse 66 09/03/18 08:03 Resp 27 H 09/03/18 09:20 BP 115/62 09/03/18 08:03 Pulse Ox 94 L 09/03/18 09:20
[2018-09-03] MEDS: LORazepam 2 MG/ML VIAL IVP (11:13)
--- NOTE | 2018-09-03 11:13 | DI.RAD_ITS ---
SYMPTOMS/DIAGNOSIS: SHORTNESS OF BREATH, CONCERN FOR ARDS PORTABLE AP CHEST AT 11:00 HOURS 09/03/18: The examination is compared with chest CT obtained early this morning, ground glass opacities noted in the lower lung menendez on the chest CT are appreciated as diffuse bilateral lower lung field radiodensities. Heart is mildly enlarged. No gross pleural effusion seen on this AP film. CONCLUSION: Bilateral diffuse lower lobe intrapulmonary infiltrates consistent with chest CT appearance noted this morning.
--- NOTE | 2018-09-03 11:21 | HPE_ITS ---
Date of service: 09/03/18 Time of Service: 11:09 Assessment and Plan (1) Acute respiratory failure with hypoxia: Current visit: Yes Status: Acute Etiology is not yet 100% clear - ARDS due to aspiration pneumon ia/pneumonitis is highly suspected; additionally, the patient could have CHF or inhalation pneumonitis from drug use to which he is not confessing, ILD, opportunistic infection (HIV status unknown, Hep C+). Transferring to the ICU due to worsening oxygen requirement; will be placed on CPAP. Will diurese, treat aspiration pneumonia/pneumonitis with vancomycin, aztreonam, flagyl, IV steroids, nebs. Checking HIV. I have [place] [facility] [place]. (2) Sepsis: Current visit: Yes Status: Acute Due to aspiration pneumonia - as above (3) Aspiration pneumonitis: Current visit: Yes Status: Acute As above (4) Alcohol withdrawal: Current visit: Yes Status: Acute Admitted with CIWA and prn ativan (5) ARDS (adult respiratory distress syndrome): Current visit: Yes Status: Suspected As above (6) CHF (congestive heart failure): Current visit: Yes Status: Suspected EF unknown - obtain echo. (7) Hyponatremia: Current visit: Yes Status: Acute Monitor with diuresis. (8) Opioid dependence: Current visit: Yes Status: Chronic on methadone therapy through [facility] (9) GERD (gastroesophageal reflux disease): Current visit: No Status: Chronic Cover with PPI (10) Hypomagnesemia: Current visit: No Status: Acute Replete (11) Hypokalemia: Current visit: No Status: Acute Repleted - monitor (12) Tobacco dependence: Current visit: No Status: Chronic provide nicotine replacement therapy (13) Chronic anemia: Current visit: Yes Status: Chronic Follow up as outpatient (14) Diabetes mellitus, type II: Current visit: No Status: Chronic Half basal insulin as NPO in anticipation of possible intubation - on SSI q6H. Anticipate steroid induced hyperglycemia. (15) Hypertension: Current visit: No Status: Chronic Hold oral meds (16) Hyperlipidemia: Current visit: No Status: Chronic hold oral meds (17) Discharge planning issues: Current visit: Yes Status: Acute may require transfer to a tertiary care facility - awaiting call back from [facility] A total of 45 minutes were spent providing critical care/documentation for this patient. (18) DVT prophylaxis: Current visit: Yes Status: Acute lovenox History of Present Illness Chief Complaint: shortness of breath Narrative: Mr Perez is a 52 year old male with PMHx of alcohol abuse (last drink yesterday with history of prior alcohol withdrawal/DT's), IDDM2, IVD in remission, HTN, Hyperlipidemia, who presented to [facility] ED overnight complaining of shortness of breath. To me, he describes symptoms going on for 2 weeks, but especially worse over the last couple of nights. The patient states he vomited yesterday and may have aspirated. He has a cough productive of brown sputum. He describes fevers of up to 101 by oral thermometer at home. States he has a runny nose and a sore throat. He has been very thirsty all the time, describes decreased urinary output, although he is not sure because he also describes worsening forgetfulness. In the ED, he was found to be mildly hypoxic initially (87% on RA, 2L in the 90's); he was found to have bibasilar crackles and received a dose of IV lasix. Evidently, his oxygen requirement rapidly worsened. He is now requiring 14 L of O2 by high flow nasal cannula. He states it hurts to take a deep breath sometimes. He feels he is withdrawing from alcohol now. His feels he may have been doing drugs other than the ones prescribed to him. He is on methadone therapy through [facility] program, recently switched from suboxone. His last dose of methadone was this morning. Review of Systems Review of Systems 12 systems reviewed. Pertinent positives and negatives are as per [facility] Social History Smoking/Tobacco Use Status: Current every day Tobacco Type: cigarettes Smoking cigarettes per day: 10 Tobacco: How many years used: 25 Alcohol Intake: current Alcohol Intake frequency: 3 or more drinks per day Alcohol type: hard liquor Drug use: Occasionally Substance use type: marijuana Do you feel safe at home: Yes Do you feel safe in your relationship?: Yes Meds Home Medications Medication Instructions Recorded Confirmed Type aspirin [Aspir-Low] 81 mg PO DAILY 02/08/13 09/03/18 History atenolol 100 mg PO DAILY 02/08/13 09/03/18 History glipizide 10 mg PO BID 02/08/13 09/03/18 History losartan 100 mg PO DAILY 02/08/13 09/03/18 History rosuvastatin [Crestor] 40 mg PO HS 02/08/13 09/03/18 History Lantus U-100 Insulin 50 units SQ HS 08/07/14 09/03/18 History amlodipine 10 mg PO DAILY 08/07/14 09/03/18 History Janumet 1 ea PO BID 08/03/15 09/03/18 History sertraline 150 mg PO DAILY 06/30/18 09/03/18 History chlorthalidone 50 mg PO DAILY 08/06/18 09/03/18 History trazodone 100 mg PO HS 08/06/18 09/03/18 History omeprazole 40 mg PO BID #60 cap 08/10/18 09/03/18 Rx methadone 65 mg PO DAILY 09/03/18 09/03/18 History Allergies Allergy/AdvReac Type Severity Reaction Status Date / Time ampicillin Allergy Skin Rash Verified 08/28/18 09:04 zolpidem tartrate AdvReac Intermediate confusion Verified 08/28/18 09:04 [From Ambien] lisinopril AdvReac cough Verified 08/28/18 09:04 Exam Narrative Exam Narrative: General: Very pleasant and cooperative, but tremulous Middle- aged male, not visibly tachypneic, appears anxious, withdrawing from alcohol Neurological: tremulous, A&Ox3, no focal deficits Psychiatric: anxious Skin: visible skin intact HEENT: Atraumatic, normocephalic, EOMI, Dry MM, No goiter or JVD Cardiovascular: RRR, no m/r/g Lungs: Crackles auscultated to midlung; otherwise, no rhonchi/wheezing Gastrointestinal: abdomen is soft, nontender, nondistended Extremities: no e/c/c; 1+ pedal pulses B Results Imaging Additional studies: CTA chest 09/03/18: Thoracic aorta is of normal diameter and there is no evidence of aneurysm or dissection. There is no evidence of pulmonary embolic disease. No pleural effusion is seen. There are diffuse bilateral, predominantly ground glass opacities seen in the lower lobes bilaterally. The findings are nonspecific and differential diagnosis would include CHF, ARDS or infectious process. Opportunistic infection or hypersensitivity pneumonia not excluded on the basis of this examination. Appropriate follow up studies requested. CXR done, official read pending; per my read, he does have pulmonary edema vs alveolar edema C/w ARDS in BLL. Labs : 09/03/18 06:03 09/03/18 06:03 Laboratory Results - last 24 hr 09/03/18 09/03/18 09/03/18 06:03 06:03 06:03 WBC 19.19 H RBC 4.50 Hgb 11.9 L Hct 36.2 L MCV 80.4 MCH 26.4 L MCHC 32.9 RDW 14.2 H Plt Count 279 MPV 10.2 Immature Gran % 0.6 Neutrophils % 87.0 Lymphocytes % 7.9 Monocytes % 4.3 Eosinophils % 0.1 Basophils % 0.1 Absolute Neutrophils 16.70 H Absolute Lymphocytes 1.52 Absolute Monocytes 0.83 H Absolute Eosinophils 0.02 Absolute Basophils 0.02 PT 9.8 INR 1.0 APTT 26.7 Sample Site pCO2 pO2 O2 Saturation ABG pH ABG HCO3 ABG Total CO2 ABG Base Excess Oxygen Liter Flow Sodium 134 L Potassium 3.0 L Chloride 94 L Carbon Dioxide 30.1 Anion Gap 9.9 BUN 21 H Creatinine 1.01 Estimated GFR/1.73 m2 >= 60.00 Glucose 193 H Calcium 9.9 Magnesium 1.4 L Total Bilirubin 0.8 AST 35 ALT 22 Alkaline Phosphatase 95 Troponin I < 0.02 NT-Pro-B Natriuret Pep 1239 H Total Protein 7.8 Albumin 3.6 Urine Opiates Screen Urine Methadone Screen Ur Barbiturates Screen Ur Tricyclics Screen Ur Amphetamines Screen U Benzodiazepines Scrn Urine Cocaine Screen Ur THC Screen Ethyl Alcohol < 3.0 09/03/18 09/03/18 09/03/18 09:10 09:25 10:09 WBC RBC Hgb Hct MCV MCH MCHC RDW Plt Count MPV Immature Gran % Neutrophils % Lymphocytes % Monocytes % Eosinophils % Basophils % Absolute Neutrophils Absolute Lymphocytes Absolute Monocytes Absolute Eosinophils Absolute Basophils PT INR APTT Sample Site Right radial pCO2 47 pO2 55 L O2 Saturation 90 L ABG pH 7.45 ABG HCO3 33 H ABG Total CO2 30 H ABG Base Excess 8.7 H Oxygen Liter Flow 14 Sodium Potassium Chloride Carbon Dioxide Anion Gap BUN Creatinine Estimated GFR/1.73 m2 Glucose Calcium Magnesium Total Bilirubin AST ALT Alkaline Phosphatase Troponin I < 0.02 NT-Pro-B Natriuret Pep Total Protein Albumin Urine Opiates Screen Negative Urine Methadone Screen Positive Ur Barbiturates Screen Negative Ur Tricyclics Screen Negative Ur Amphetamines Screen Negative U Benzodiazepines Scrn Negative Urine Cocaine Screen Negative Ur THC Screen Negative Ethyl Alcohol Last Vital Signs Temp 36.4 C L 09/03/18 05:47 Pulse 66 09/03/18 08:03 Resp 27 H 09/03/18 09:20 BP 115/62 09/03/18 08:03 Pulse Ox 94 L 09/03/18 09:20
--- NOTE | 2018-09-03 12:08 | W.PM.DS.N ---
Date of service: 09/03/18 Time of Service: 12:08 DS: Diagnosis Discharge Diagnosis (1) Acute respiratory failure with hypoxia: Status: Acute (2) Sepsis: Status: Acute (3) Aspiration pneumonitis: Status: Acute (4) Alcohol withdrawal: Status: Acute (5) ARDS (adult respiratory distress syndrome): Status: Suspected (6) CHF (congestive heart failure): Status: Suspected (7) Hyponatremia: Status: Acute (8) Opioid dependence: Status: Chronic (9) GERD (gastroesophageal reflux disease): Status: Chronic (10) Hypomagnesemia: Status: Acute (11) Hypokalemia: Status: Acute (12) Tobacco dependence: Status: Chronic (13) Chronic anemia: Status: Chronic (14) Diabetes mellitus, type II: Status: Chronic (15) Hypertension: Status: Chronic (16) Hyperlipidemia: Status: Chronic Discharge Plan Disposition Condition: Stable Discharge Details Chief Complaint: Chest Pain Reason For Visit: HCAP Admit Date/Time: 09/03/18 08:17 Admit Provider: Luz Lynn Attending Provider: Luz Lynn Primary Care Provider: Yulia Cortez ED Provider: Kiran Smith Hospital Course Hospital Course: Mr Perez is a 52 year old male with PMHx of alcohol abuse (last drink yesterday with history of prior alcohol withdrawal/DT's), IDDM2, IVD in remission, HTN, Hyperlipidemia, who presented to [facility] ED overnight complaining of shortness of breath. To me, he describes symptoms going on for 2 weeks, but especially worse over the last couple of nights. The patient states he vomited yesterday and may have aspirated. He has a cough productive of brown sputum. He describes fevers of up to 101 by oral thermometer at home. States he has a runny nose and a sore throat. He has been very thirsty all the time, describes decreased urinary output, although he is not sure because he also describes worsening forgetfulness. In the ED, he was found to be mildly hypoxic initially (87% on RA, 2L in the 90's); he was found to have bibasilar crackles and received a dose of IV lasix. His oxygen requirement rapidly worsened, as he became hypoxic with PO2 of 55% on 14 L of O2 by HFNC. He is now requiring BiPAP therapy (03/07, 60% FiO2). He was transferred to ICU. His imaging is concerning for possible ARDS, B pneumonia, opportunistic disease. He was initiated on vancomycin (recent admission to [facility]), aztreonam/flagyl (allergic to PCN), doxycycline, IV steroids, nebs, IV lasix. His case was discussed with [facility] [place] Care team - Dr Lundy accepts the patient in transfer to [facility] [place] ICU Green team. Of note, the patient is also withdrawing from alcohol and is on CIWA scale. Critical Care time spent on care of patient, arrangement of transfer is 45 minutes Home Meds and New Rx's Prescriptions: New furosemide 10 mg/mL Solution 40 mg IVP BID@0800,1600 Qty: 0 RF: 0 ipratropium-albuterol 0.5 mg-3 mg(2.5 mg base)/3 mL Solution For Nebulization 3 ml UPD Q4H Qty: 0 RF: 0 albuterol sulfate 2.5 mg /3 mL (0.083 %) Solution For Nebulization 2.5 mg UPD Q2H PRN PRNQty: 0 RF: 0 doxycycline hyclate [Doxy-100] 100 mg Recon Soln 100 mg IVPB NOW Qty: 0 RF: 0 enoxaparin [Lovenox] 40 mg/0.4 mL Syringe 40 mg subcut Q24H Qty: 0 RF: 0 Novolog Flexpen U-100 Insulin 100 unit/mL Insulin Pen subcut Q6H Qty: 0 RF: 0 Lantus Solostar U-100 Insulin 100 unit/mL (3 mL) Insulin Pen 25 units subcut HS Qty: 0 RF: 0 lorazepam 2 mg/mL Solution 1 - 4 mg IVP DIRECTED PRNQty: 0 RF: 0 Solu-Medrol (PF) 125 mg/2 mL Recon Soln 80 mg IVP Q8H Qty: 0 RF: 0 nicotine 14 mg/24 hr Patch 24 Hour 14 mg Transdermal DAILY PRN PRN (Reason: nicotine cravings) Qty: 1 RF: 0 metronidazole in NaCl (iso-os) 500 mg/100 mL Piggyback 500 mg IVPB Q8H Qty: 0 RF: 0 pantoprazole [Protonix] 40 mg Recon Soln 40 mg IVP Q24H Qty: 0 RF: 0 Continued aspirin [Aspir-Low] 81 MG tablet,delayed release (DR/EC) 81 mg PO DAILY RF: 0 rosuvastatin [Crestor] 40 MG tablet 40 mg PO HS RF: 0 methadone 10 mg/mL Concentrate 65 mg PO DAILY RF: 0 sertraline 100 mg Tablet 150 mg PO DAILY RF: 0 trazodone 100 mg Tablet 100 mg PO HS RF: 0 Discontinued Janumet 1 EACH tablet 1 ea PO BID RF: 0 atenolol 100 MG tablet 100 mg PO DAILY RF: 0 glipizide 10 MG tablet 10 mg PO BID RF: 0 losartan 100 MG tablet 100 mg PO DAILY RF: 0 Lantus U-100 Insulin 100 UNIT/ML solution 50 units SQ HS RF: 0 amlodipine 10 MG tablet 10 mg PO DAILY RF: 0 chlorthalidone 50 mg Tablet 50 mg PO DAILY RF: 0 omeprazole 40 mg capsule,delayed release(DR/EC) 40 mg PO BID Qty: 60 RF: 0 Exam Narrative Exam Narrative: General: Middle aged male, in bed on BiPAP. Neurological: tremulous, A&Ox3, no focal deficits Psychiatric: anxious Skin: visible skin intact HEENT: Atraumatic, normocephalic, EOMI, Dry MM, No goiter or JVD Cardiovascular: RRR, no m/r/g Lungs: Crackles auscultated to midlung; otherwise, no rhonchi/wheezing Gastrointestinal: abdomen is soft, nontender, nondistended Extremities: no e/c/c; 1+ pedal pulses B DS: Data Vitals/I&O Vitals and I&O: Vital Signs Temperature 36.3 C L 09/03/18 09:58 Temperature Source Tympanic 09/03/18 09:58 Pulse 72 09/03/18 11:49 Pulse Rhythm Irregular 09/03/18 09:53 Pulse 68 09/03/18 09:20 Respiratory Rate 30 H 09/03/18 11:49 Respiratory Effort Incrsd Work of Breathing 09/03/18 09:53 Respiratory Depth Deep 09/03/18 09:53 Respiratory Pattern Irregular 09/03/18 09:53 Blood Pressure 117/67 09/03/18 09:58 Blood Pressure Mean 76 09/03/18 08:03 Blood Pressure Position Sitting 09/03/18 05:47 Pulse Oximetry 92 L 09/03/18 11:49 Oxygen Delivery Method Hi Flow Nasal Cannula 09/03/18 11:23 Oxygen Flow Rate 14 09/03/18 11:23 Fraction of Inspired Oxygen (FIO2) 60 09/03/18 11:49 Pain Level 1 09/03/18 09:53 Comment 09/03/18 09:53 Intake & Output 09/02/18 09/03/18 09/03/18 23:59 11:59 23:59 Intake Total 700.000 / 700.000 Output Total 100 / 100 Balance 600.000 / 600.000 Weight 90.2 kg Intake: IV 700.000 / 700.000 Output: Urine 100 / 100 Other: Urine Color Yellow Urine Appearance Clear Voiding Methods Urinal Completed studies during hospitalization [Text1]: CTA chest: Images obtained through the upper abdomen show unremarkable appearance of visualized portions of the liver, spleen and pancreas. Thoracic aorta is of normal diameter and there is no evidence of aneurysm or dissection. There is no evidence of pulmonary embolic disease. No pleural effusion is seen. There are diffuse bilateral, predominantly ground glass opacities seen in the lower lobes bilaterally. The findings are nonspecific and differential diagnosis would include CHF, ARDS or infectious process. Opportunistic infection or hypersensitivity pneumonia not excluded on the basis of this examination. Appropriate follow up studies requested. CXR: Bilateral diffuse lower lobe intrapulmonary infiltrates consistent with chest CT appearance noted this morning. Labs on day of discharge: Labs from last 24 hours 09/03/18 09/03/18 09/03/18 17:21 14:21 10:09 WBC RBC Hgb Hct MCV MCH MCHC RDW Plt Count MPV Immature Gran % Neutrophils % Lymphocytes % Monocytes % Eosinophils % Basophils % Absolute Neutrophils Absolute Lymphocytes Absolute Monocytes Absolute Eosinophils Absolute Basophils PT INR APTT Sample Site Right radial pCO2 47 pO2 55 L O2 Saturation 90 L ABG pH 7.45 ABG HCO3 33 H ABG Total CO2 30 H ABG Base Excess 8.7 H Oxygen Liter Flow 14 Sodium Potassium Chloride Carbon Dioxide Anion Gap BUN Creatinine Estimated GFR/1.73 m2 Glucose Lactate Pending Pending Calcium Magnesium Total Bilirubin AST ALT Alkaline Phosphatase Troponin I C-Reactive Protein NT-Pro-B Natriuret Pep Total Protein Albumin Urine Opiates Screen Urine Methadone Screen Ur Barbiturates Screen Ur Tricyclics Screen Ur Amphetamines Screen U Benzodiazepines Scrn Urine Cocaine Screen Ur THC Screen Ethyl Alcohol HIV 1&2 Ag/Ab, 4th Gen 09/03/18 09/03/18 09/03/18 09:25 09:10 07:32 WBC RBC Hgb Hct MCV MCH MCHC RDW Plt Count MPV Immature Gran % Neutrophils % Lymphocytes % Monocytes % Eosinophils % Basophils % Absolute Neutrophils Absolute Lymphocytes Absolute Monocytes Absolute Eosinophils Absolute Basophils PT INR APTT Sample Site pCO2 pO2 O2 Saturation ABG pH ABG HCO3 ABG Total CO2 ABG Base Excess Oxygen Liter Flow Sodium Potassium Chloride Carbon Dioxide Anion Gap BUN Creatinine Estimated GFR/1.73 m2 Glucose Lactate Calcium Magnesium Total Bilirubin AST ALT Alkaline Phosphatase Troponin I < 0.02 C-Reactive Protein NT-Pro-B Natriuret Pep Total Protein Albumin Urine Opiates Screen Negative Urine Methadone Screen Positive Ur Barbiturates Screen Negative Ur Tricyclics Screen Negative Ur Amphetamines Screen Negative U Benzodiazepines Scrn Negative Urine Cocaine Screen Negative Ur THC Screen Negative Ethyl Alcohol HIV 1&2 Ag/Ab, 4th Gen Pending 09/03/18 09/03/18 09/03/18 06:03 06:03 06:03 WBC 19.19 H RBC 4.50 Hgb 11.9 L Hct 36.2 L MCV 80.4 MCH 26.4 L MCHC 32.9 RDW 14.2 H Plt Count 279 MPV 10.2 Immature Gran % 0.6 Neutrophils % 87.0 Lymphocytes % 7.9 Monocytes % 4.3 Eosinophils % 0.1 Basophils % 0.1 Absolute Neutrophils 16.70 H Absolute Lymphocytes 1.52 Absolute Monocytes 0.83 H Absolute Eosinophils 0.02 Absolute Basophils 0.02 PT 9.8 INR 1.0 APTT 26.7 Sample Site pCO2 pO2 O2 Saturation ABG pH ABG HCO3 ABG Total CO2 ABG Base Excess Oxygen Liter Flow Sodium Potassium Chloride Carbon Dioxide Anion Gap BUN Creatinine Estimated GFR/1.73 m2 Glucose Lactate Calcium Magnesium Total Bilirubin AST ALT Alkaline Phosphatase Troponin I C-Reactive Protein 18.10 H NT-Pro-B Natriuret Pep Total Protein Albumin Urine Opiates Screen Urine Methadone Screen Ur Barbiturates Screen Ur Tricyclics Screen Ur Amphetamines Screen U Benzodiazepines Scrn Urine Cocaine Screen Ur THC Screen Ethyl Alcohol HIV 1&2 Ag/Ab, 4th Gen 09/03/18 06:03 WBC RBC Hgb Hct MCV MCH MCHC RDW Plt Count MPV Immature Gran % Neutrophils % Lymphocytes % Monocytes % Eosinophils % Basophils % Absolute Neutrophils Absolute Lymphocytes Absolute Monocytes Absolute Eosinophils Absolute Basophils PT INR APTT Sample Site pCO2 pO2 O2 Saturation ABG pH ABG HCO3 ABG Total CO2 ABG Base Excess Oxygen Liter Flow Sodium 134 L Potassium 3.0 L Chloride 94 L Carbon Dioxide 30.1 Anion Gap 9.9 BUN 21 H Creatinine 1.01 Estimated GFR/1.73 m2 >= 60.00 Glucose 193 H Lactate Calcium 9.9 Magnesium 1.4 L Total Bilirubin 0.8 AST 35 ALT 22 Alkaline Phosphatase 95 Troponin I < 0.02 C-Reactive Protein NT-Pro-B Natriuret Pep 1239 H Total Protein 7.8 Albumin 3.6 Urine Opiates Screen Urine Methadone Screen Ur Barbiturates Screen Ur Tricyclics Screen Ur Amphetamines Screen U Benzodiazepines Scrn Urine Cocaine Screen Ur THC Screen Ethyl Alcohol < 3.0 HIV 1&2 Ag/Ab, 4th Gen 09/03/18 07:42 Blood Blood Culture - Pending 09/03/18 07:42 Blood Blood Culture - Pending Preliminary micro results at discharge 09/03/18 07:42 Blood Culture - Pending Blood 09/03/18 07:42 Blood Culture - Pending Blood [facility] Social History Smoking/Tobacco Use Status: Current every day Tobacco Type: cigarettes Smoking cigarettes per day: 10 Tobacco: How many years used: 25 Alcohol Intake: current Alcohol Intake frequency: 3 or more drinks per day Alcohol type: hard liquor Drug use: Occasionally Substance use type: marijuana Do you feel safe at home: Yes Do you feel safe in your relationship?: Yes
[2018-09-03] MEDS: Furosemide 40 MG/4 ML VIAL IVP (12:09)
--- NOTE | 2018-09-03 12:14 | DSE_ITS ---
Date of service: 09/03/18 Time of Service: 12:08 DS: Diagnosis Discharge Diagnosis (1) Acute respiratory failure with hypoxia: Status: Acute (2) Sepsis: Status: Acute (3) Aspiration pneumonitis: Status: Acute (4) Alcohol withdrawal: Status: Acute (5) ARDS (adult respiratory distress syndrome): Status: Suspected (6) CHF (congestive heart failure): Status: Suspected (7) Hyponatremia: Status: Acute (8) Opioid dependence: Status: Chronic (9) GERD (gastroesophageal reflux disease): Status: Chronic (10) Hypomagnesemia: Status: Acute (11) Hypokalemia: Status: Acute (12) Tobacco dependence: Status: Chronic (13) Chronic anemia: Status: Chronic (14) Diabetes mellitus, type II: Status: Chronic (15) Hypertension: Status: Chronic (16) Hyperlipidemia: Status: Chronic Discharge Plan Disposition Condition: Stable Discharge Details Chief Complaint: Chest Pain Reason For Visit: HCAP Admit Date/Time: 09/03/18 08:17 Admit Provider: Luz Lynn Attending Provider: Luz Lynn Primary Care Provider: Yulia Cortez ED Provider: Kiran Smith Hospital Course Hospital Course: Mr Perez is a 52 year old male with PMHx of alcohol abuse (last drink yesterday with history of prior alcohol withdrawal/DT's), IDDM2, IVD in remission, HTN, Hyperlipidemia, who presented to [facility] ED overnight complaining of shortness of breath. To me, he describes symptoms going on for 2 weeks, but especially worse over the last couple of nights. The patient states he vomited yesterday and may have aspirated. He has a cough productive of brown sputum. He describes fevers of up to 101 by oral thermometer at home. States he has a runny nose and a sore throat. He has been very thirsty all the time, describes d ecreased urinary output, although he is not sure because he also describes worsening forgetfulness. In the ED, he was found to be mildly hypoxic initially (87% on RA, 2L in the 90's); he was found to have bibasilar crackles and received a dose of IV lasix. His oxygen requirement rapidly worsened, as he became hypoxic with PO2 of 55% on 14 L of O2 by HFNC. He is now requiring BiPAP therapy (12/6, 60% FiO2). He was transferred to ICU. His imaging is concerning for possible ARDS, B pneumonia, opportunistic disease. He was initiated on vancomycin (recent admission to [facility]), aztreonam/flagyl (allergic to PCN), doxycycline, IV steroids, nebs, IV lasix. His case was discussed with [facility] [place] Critical Care team - Dr Lundy accepts the patient in transfer to [facility] [place] ICU Green team. Of note, the patient is also withdrawing from alcohol and is on CIWA scale. Critical Care time spent on care of patient, arrangement of transfer is 45 minutes Home Meds and New Rx's Prescriptions: New furosemide 10 mg/mL Solution 40 mg IVP BID@0800,1600 Qty: 0 RF: 0 ipratropium-albuterol 0.5 mg-3 mg(2.5 mg base)/3 mL Solution For Nebulization 3 ml UPD Q4H Qty: 0 RF: 0 albuterol sulfate 2.5 mg /3 mL (0.083 %) Solution For Nebulization 2.5 mg UPD Q2H PRN PRNQty: 0 RF: 0 doxycycline hyclate [Doxy-100] 100 mg Recon Soln 100 mg IVPB NOW Qty: 0 RF: 0 enoxaparin [Lovenox] 40 mg/0.4 mL Syringe 40 mg subcut Q24H Qty: 0 RF: 0 Novolog Flexpen U-100 Insulin 100 unit/mL Insulin Pen subcut Q6H Qty: 0 RF: 0 Lantus Solostar U-100 Insulin 100 unit/mL (3 mL) Insulin Pen 25 units subcut HS Qty: 0 RF: 0 lorazepam 2 mg/mL Solution 1 - 4 mg IVP DIRECTED PRNQty: 0 RF: 0 Solu-Medrol (PF) 125 mg/2 mL Recon Soln 80 mg IVP Q8H Qty: 0 RF: 0 nicotine 14 mg/24 hr Patch 24 Hour 14 mg Transdermal DAILY PRN PRN (Reason: nicotine cravings) Qty: 1 RF: 0 metronidazole in NaCl (iso-os) 500 mg/100 mL Piggyback 500 mg IVPB Q8H Qty: 0 RF: 0 pantoprazole [Protonix] 40 mg Recon Soln 40 mg IVP Q24H Qty: 0 RF: 0 Continued aspirin [Aspir-Low] 81 MG tablet,delayed release (DR/EC) 81 mg PO DAILY RF: 0 rosuvastatin [Crestor] 40 MG tablet 40 mg PO HS RF: 0 methadone 10 mg/mL Concentrate 65 mg PO DAILY RF: 0 sertraline 100 mg Tablet 150 mg PO DAILY RF: 0 trazodone 100 mg Tablet 100 mg PO HS RF: 0 Discontinued Janumet 1 EACH tablet 1 ea PO BID RF: 0 atenolol 100 MG tablet 100 mg PO DAILY RF: 0 glipizide 10 MG tablet 10 mg PO BID RF: 0 losartan 100 MG tablet 100 mg PO DAILY RF: 0 Lantus U-100 Insulin 100 UNIT/ML solution 50 units SQ HS RF: 0 amlodipine 10 MG tablet 10 mg PO DAILY RF: 0 chlorthalidone 50 mg Tablet 50 mg PO DAILY RF: 0 omeprazole 40 mg capsule,delayed release(DR/EC) 40 mg PO BID Qty: 60 RF: 0 Exam Narrative Exam Narrative: General: Middle aged male, in bed on BiPAP. Neurological: tremulous, A&Ox3, no focal deficits Psychiatric: anxious Skin: visible skin intact HEENT: Atraumatic, normocephalic, EOMI, Dry MM, No goiter or JVD Cardiovascular: RRR, no m/r/g Lungs: Crackles auscultated to midlung; otherwise, no rhonchi/wheezing Gastrointestinal: abdomen is soft, nontender, nondistended Extremities: no e/c/c; 1+ pedal pulses B DS: Data Vitals/I&O Vitals and I&O: Vital Signs Temperature 36.3 C L 09/03/18 09:58 Temperature Source Tympanic 09/03/18 09:58 Pulse 72 09/03/18 11:49 Pulse Rhythm Irregular 09/03/18 09:53 Pulse 68 09/03/18 09:20 Respiratory Rate 30 H 09/03/18 11:49 Respiratory Effort Incrsd Work of Breathing 09/03/18 09:53 Respiratory Depth Deep 09/03/18 09:53 Respiratory Pattern Irregular 09/03/18 09:53 Blood Pressure 117/67 09/03/18 09:58 Blood Pressure Mean 76 09/03/18 08:03 Blood Pressure Position Sitting 09/03/18 05:47 Pulse Oximetry 92 L 09/03/18 11:49 Oxygen Delivery Method Hi Flow Nasal Cannula 09/03/18 11:23 Oxygen Flow Rate 14 09/03/18 11:23 Fraction of Inspired Oxygen (FIO2) 60 09/03/18 11:49 Pain Level 1 09/03/18 09:53 Comment 09/03/18 09:53 Intake & Output 09/02/18 09/03/18 09/03/18 23:59 11:59 23:59 Intake Total 700.000 / 700.000 Output Total 100 / 100 Balance 600.000 / 600.000 Weight 90.2 kg Intake: IV 700.000 / 700.000 Output: Urine 100 / 100 Other: Urine Color Yellow Urine Appearance Clear Voiding Methods Urinal Completed studies during hospitalization [Text1]: CTA chest: Images obtained through the upper abdomen show unremarkable appearance of visualized portions of the liver, spleen and pancreas. Thoracic aorta is of normal diameter and there is no evidence of aneurysm or dissection. There is no evidence of pulmonary embolic disease. No pleural effusion is seen. There are diffuse bilateral, predominantly ground glass opacities seen in the lower lobes bilaterally. The findings are nonspecific and differential diagnosis would include CHF, ARDS or infectious process. Opportunistic infection or hypersensitivity pneumonia not excluded on the basis of this examination. Appropriate follow up studies requested. CXR: Bilateral diffuse lower lobe intrapulmonary infiltrates consistent with chest CT appearance noted this morning. Labs on day of discharge: Labs from last 24 hours 09/03/18 09/03/18 09/03/18 17:21 14:21 10:09 WBC RBC Hgb Hct MCV MCH MCHC RDW Plt Count MPV Immature Gran % Neutrophils % Lymphocytes % Monocytes % Eosinophils % Basophils % Absolute Neutrophils Absolute Lymphocytes Absolute Monocytes Absolute Eosinophils Absolute Basophils PT INR APTT Sample Site Right radial pCO2 47 pO2 55 L O2 Saturation 90 L ABG pH 7.45 ABG HCO3 33 H ABG Total CO2 30 H ABG Base Excess 8.7 H Oxygen Liter Flow 14 Sodium Potassium Chloride Carbon Dioxide Anion Gap BUN Creatinine Estimated GFR/1.73 m2 Glucose Lactate Pending Pending Calcium Magnesium Total Bilirubin AST ALT Alkaline Phosphatase Troponin I C-Reactive Protein NT-Pro-B Natriuret Pep Total Protein Albumin Urine Opiates Screen Urine Methadone Screen Ur Barbiturates Screen Ur Tricyclics Screen Ur Amphetamines Screen U Benzodiazepines Scrn Urine Cocaine Screen Ur THC Screen Ethyl Alcohol HIV 1&2 Ag/Ab, 4th Gen 09/03/18 09/03/18 09/03/18 09:25 09:10 07:32 WBC RBC Hgb Hct MCV MCH MCHC RDW Plt Count MPV Immature Gran % Neutrophils % Lymphocytes % Monocytes % Eosinophils % Basophils % Absolute Neutrophils Absolute Lymphocytes Absolute Monocytes Absolute Eosinophils Absolute Basophils PT INR APTT Sample Site pCO2 pO2 O2 Saturation ABG pH ABG HCO3 ABG Total CO2 ABG Base Excess Oxygen Liter Flow Sodium Potassium Chloride Carbon Dioxide Anion Gap BUN Creatinine Estimated GFR/1.73 m2 Glucose Lactate Calcium Magnesium Total Bilirubin AST ALT Alkaline Phosphatase Troponin I < 0.02 C-Reactive Protein NT-Pro-B Natriuret Pep Total Protein Albumin Urine Opiates Screen Negative Urine Methadone Screen Positive Ur Barbiturates Screen Negative Ur Tricyclics Screen Negative Ur Amphetamines Screen Negative U Benzodiazepines Scrn Negative Urine Cocaine Screen Negative Ur THC Screen Negative Ethyl Alcohol HIV 1&2 Ag/Ab, 4th Gen Pending 09/03/18 09/03/18 09/03/18 06:03 06:03 06:03 WBC 19.19 H RBC 4.50 Hgb 11.9 L Hct 36.2 L MCV 80.4 MCH 26.4 L MCHC 32.9 RDW 14.2 H Plt Count 279 MPV 10.2 Immature Gran % 0.6 Neutrophils % 87.0 Lymphocytes % 7.9 Monocytes % 4.3 Eosinophils % 0.1 Basophils % 0.1 Absolute Neutrophils 16.70 H Absolute Lymphocytes 1.52 Absolute Monocytes 0.83 H Absolute Eosinophils 0.02 Absolute Basophils 0.02 PT 9.8 INR 1.0 APTT 26.7 Sample Site pCO2 pO2 O2 Saturation ABG pH ABG HCO3 ABG Total CO2 ABG Base Excess Oxygen Liter Flow Sodium Potassium Chloride Carbon Dioxide Anion Gap BUN Creatinine Estimated GFR/1.73 m2 Glucose Lactate Calcium Magnesium Total Bilirubin AST ALT Alkaline Phosphatase Troponin I C-Reactive Protein 18.10 H NT-Pro-B Natriuret Pep Total Protein Albumin Urine Opiates Screen Urine Methadone Screen Ur Barbiturates Screen Ur Tricyclics Screen Ur Amphetamines Screen U Benzodiazepines Scrn Urine Cocaine Screen Ur THC Screen Ethyl Alcohol HIV 1&2 Ag/Ab, 4th Gen 09/03/18 06:03 WBC RBC Hgb Hct MCV MCH MCHC RDW Plt Count MPV Immature Gran % Neutrophils % Lymphocytes % Monocytes % Eosinophils % Basophils % Absolute Neutrophils Absolute Lymphocytes Absolute Monocytes Absolute Eosinophils Absolute Basophils PT INR APTT Sample Site pCO2 pO2 O2 Saturation ABG pH ABG HCO3 ABG Total CO2 ABG Base Excess Oxygen Liter Flow Sodium 134 L Potassium 3.0 L Chloride 94 L Carbon Dioxide 30.1 Anion Gap 9.9 BUN 21 H Creatinine 1.01 Estimated GFR/1.73 m2 >= 60.00 Glucose 193 H Lactate Calcium 9.9 Magnesium 1.4 L Total Bilirubin 0.8 AST 35 ALT 22 Alkaline Phosphatase 95 Troponin I < 0.02 C-Reactive Protein NT-Pro-B Natriuret Pep 1239 H Total Protein 7.8 Albumin 3.6 Urine Opiates Screen Urine Methadone Screen Ur Barbiturates Screen Ur Tricyclics Screen Ur Amphetamines Screen U Benzodiazepines Scrn Urine Cocaine Screen Ur THC Screen Ethyl Alcohol < 3.0 HIV 1&2 Ag/Ab, 4th Gen 09/03/18 07:42 Blood Blood Culture - Pending 09/03/18 07:42 Blood Blood Culture - Pending Preliminary micro results at discharge 09/03/18 07:42 Blood Culture - Pending Blood 09/03/18 07:42 Blood Culture - Pending Blood [facility] Social History Smoking/Tobacco Use Status: Current every day Tobacco Type: cigarettes Smoking cigarettes per day: 10 Tobacco: How many years used: 25 Alcohol Intake: current Alcohol Intake frequency: 3 or more drinks per day Alcohol type: hard liquor Drug use: Occasionally Substance use type: marijuana Do you feel safe at home: Yes Do you feel safe in your relationship?: Yes
[2018-09-03] MEDS: THIAMINE 100 MG in Normal Saline 100 ML 200 MG IVPB (12:15)
[2018-09-03] MEDS: AZTREONAM 2,000 MG in Normal Saline 100 ML 200 MG IVPB (12:22)
[2018-09-03] MEDS: Naloxone 0.4 MG/ML VIAL (12:33)
[2018-09-03] MEDS: LORazepam 2 MG/ML VIAL 0.5 MG IVP ×2 (12:40→12:45)
[2018-09-03 12:41] LABS: BE 9.7 mmol/L (-3-3); HCO3 34 mmol/L (22-28); pCO2 49 mmHg (34-47); pH 7.45 (7.35-7.45); pO2 64 mmHg (83-108); sO2 92 % (94-98); tCO2 31 mmol/L (22-29)
[2018-09-03 12:42] LABS: Site Right Radial
[2018-09-03 12:43] LABS: FIO2 65 %
[2018-09-03] MEDS: LORazepam 2 MG/ML VIAL (12:49)
[2018-09-03] MEDS: Rocuronium 50 MG/5 ML SYR 100 MG IVP ×2 (13:15→14:16)
--- NOTE | 2018-09-03 13:15 | DI.RAD_ITS ---
SYMPTOMS/DIAGNOSIS: HEALTHCARE-ASSOCIATED PNEUMONIA, S/P INTUBATION, CONFIRM ET TUBE PLACEMENT PORTABLE AP CHEST: Comparison with previous examination obtained at approximately 1100 hours shows increasing radiodensities in the lung bases bilaterally. Upper lung zones remain clear. ET tube is now noted in position, the tip of the ET tube lies approximately 7.5 cm above the mayra and should be advanced as clinically appropriate.
[2018-09-03] MEDS: DOXYCYCLINE 100 MG in Normal Saline 100 ML IVPB (14:04)
[2018-09-03 14:28] LABS: BE 6.1 mmol/L (-3-3); HCO3 31 mmol/L (22-28); pCO2 54 mmHg (34-47); pH 7.37 (7.35-7.45); pO2 70 mmHg (83-108); sO2 94 % (94-98); tCO2 29 mmol/L (22-29)
[2018-09-03 14:30] LABS: FIO2 100 %; Site Right Radial
[2018-09-03 14:33] LABS: Lactate 2.3 mmol/L (0.6-1.4)
[2018-09-03] MEDS: Enoxaparin 40 MG/0.4 ML SYR SC (14:43)
[2018-09-03] MEDS: Pantoprazole 40 MG VIAL IVP (14:43)
--- NOTE | 2018-09-03 19:06 | NUR.NOTE ---
The patient was on Bipap / 60% when he came to ICU from Med-Surg. Increased 02 to 80% on Bipap when obtunded. Ventilator started at 80% and then adjustments made between 80-100% with patient patient leaving the building at 100% 02 on a ventilator. Nursing Note:
[2018-09-03] MEDS: Normal Saline 100 ML BAG 90 ML IV (19:51)
--- NOTE | 2018-09-03 19:52 | NUR.NOTE ---
The patient received a total of 3mg ativan at 0.5mg, 0.5mg, 1mg and 1mg. The dosage was given from two 2mg/ml vials with 0.5mg being wasted in the patient's IV during his combative state. An additional vial was wasted from being out of the fridge also. All other vials were returned to the [facility] by Sowmya BROWNLEE Nursing Note:
[2018-09-04 12:09] LABS: HIV-1/2 Ag & Ab Screen Negative (NEGAT)
== END 2018-09-03 15:20 | disposition short-term general hospital (02) | DRG 208 ==
LOC: ER 08:37 → MS 10:02 → ICU 11:16
PROVIDERS: Emergency Medicine; Admitting Provider Internal Medicine; Emergency Provider Student in an Organized Health Care Education/Training Program; PCP Family Medicine; Visit Provider Internal Medicine
DX: R06.03 Acute respiratory distress (principal); A41.9 Sepsis, unspecified organism; R65.20 Severe sepsis without septic shock; J96.91 Respiratory failure, unspecified with hypoxia; J69.0 Pneumonitis due to inhalation of food and vomit; R40.20 Unspecified coma; E87.1 Hypo-osmolality and hyponatremia; F10.239 Alcohol dependence with withdrawal, unspecified; R45.1 Restlessness and agitation; Y95 Nosocomial condition; I50.9 Heart failure, unspecified; E83.42 Hypomagnesemia; R00.8 Other abnormalities of heart beat; K21.9 Gastro-esophageal reflux disease without esophagitis; E11.9 Type 2 diabetes mellitus without complications; I10 Essential (primary) hypertension; F11.21 Opioid dependence, in remission; Z79.4 Long term (current) use of insulin; Z78.1 Physical restraint status; F17.210 Nicotine dependence, cigarettes, uncomplicated
CPT/HCPCS: 36410; 36415; 71275; 80053; 80307; 82805; 87040; 87389; 93005; 94640; 96365; 96375; 99285; 99291; J1650; 36600; 71045; 80320; 83605; 83735; 83880; 84484; 85025; 85610; 85730; 86140; 93010; 94002; 94660; J1940; J1941; J2060; J2310; J2930; J3370; J3490; J7620

== ENCOUNTER 2018-10-02 14:18 | Outpatient (REF) | payer OTHER, SELFPAY ==
[2018-10-02 18:58] LABS: Ferritin 156 ng/mL (8-388); Folate > 20.0 ng/mL (8.6-20.0); Vitamin B12 835 pg/mL (193-986)
== END 2018-10-02 14:38 ==
LOC: NCHCN 14:18
PROVIDERS: PCP Family Medicine; Visit Provider Family Medicine
DX: F10.10 Alcohol abuse, uncomplicated (principal); R53.83 Other fatigue
CPT/HCPCS: 85027; 82607; 82728; 82746

== ENCOUNTER 2018-10-16 00:13 | Outpatient (CLI) | payer OTHER, SELFPAY ==
--- NOTE | 2018-10-16 08:15 | MERGEMPI_ITS ---
*[facility]* *[facility]* [address] [place] [address] Myocardial Perfusion Imaging - SPECT Jim protocol Date of study: 10/16/2018 *PATIENT PRESENTATION* Height: 172.7cm (68in) Blood Pressure: Weight: 86.4kg (190lb) BSA: 2.06m^2 Referring physician: Seven Rutledge Ordering physician: Yulia Cortez Impressions: - Prolonged QT interval. - Normal study after maximal exercise. - Low risk of cardiac events. Summary: 1. Myocardial perfusion imaging: No myocardial perfusion defects noted. 2. The calculated left ventricular ejection fraction after stress: 60%. LV global systolic function is normal. No left ventricular regional motion abnormality. 3. Stress ECG conclusions: The stress ECG is negative. 4. Stress: The target heart rate was achieved. There is a normal resting blood pressure with an appropriate response to stress. The patient experienced no chest pain during stress. Exercise capacity is above normal for age. 5. Baseline ECG: QTc 485ms; long QT interval. 6. Treadmill exercise testing was performed using the Jim protocol. The patient exercised for 11 min 52 sec, to protocol stage 4. Exercise was terminated due to fatigue. Imaging information: gated. Image quality reduced due to diaphragmatic attenuation. Attenuation correction used. Indication: R07.9, Appropriate Use Criteria: A (Appropriate). History: REASON FOR TESTING: PATIENT TESTING FOR FURTHER RISK STRATIFICATION. PATIENT REPORTS HE PRESENTED TO PCP'S OFFICE ON 10/02/18 WITH ANTERIOR UPPER BILATERAL CHEST PAIN (4/10) WHICH LASTED FOR APPROXIMATELY 30 MINUTES; SLIGHT DIZZYNESS REPORTED WITH CHEST PAIN. HE STATES HE HAS NOT HAD ANY CHEST PAIN SINCE THAT EPISODE. HE REPORTS HIS EKG WAS NORMAL IN THE PCP'S OFFICE. PATIENT DENIES CHEST PAIN UPON ARRIVAL TO TESTING TODAY. SIGNIFICANT PAST MEDICAL HISTORY: CHF, ARDS (RECENT ADMISSION TO [facility] [place] 09/03/18), GERD, OPIOID DEPENDENCE, HISTORY OF INTRAVENOUS DRUG USE IN REMISSION. SMOKING STATUS: QUIT August. SMOKED FOR 28 YEARS. 1 PPD. EXERCISE ROUTINE: DAILY ADLS. Risk factors: Hypertension. Diabetes mellitus. Dyslipidemia. Cholesterol: 191mg/dl. HDL: 38mg/dl. LDL: 112mg/dl. Triglycerides: 178mg/dl. ALLERGIES: AMPICILLIN, AMBIEN, LISINOPRIL. MEDICATIONS: ASPIRIN 81 MG DAILY, ATENOLOL 100 MG DAILY, GLIPIZIDE 10 MG BID, LOSARTAN 100 MG DAILY, ROSUVASTATIN 40 MG HS, LANTUS INSULIN 50 UNITS HS, AMLODIPINE 10 MG DAILY, JANUMET BID, SERTRALINE 50 MG DAILY, CHLORTHALIDONE 50 MG DAILY, TRAZODONE 100 MG HS, OMEPRAZOLE 20 MG BID. Imaging Technique: Protocol: Jim protocol. Acquisition: Gated SPECT; 1 day - rest/stress. The patient was imaged in the supine position. Attenuation correction used. Isotope administration: - Rest. Tc[99m]-sestamibi. Dose: 9.7mCi. Injection time: 08:30 AM. Injection to stress time: 00:45. - Stress. Tc[99m]-sestamibi. Dose: 33.1mCi. Injection time: 10:25 AM. 1-2 min before end of exercise Baseline ECG: SINUS RHYTHM WITH PROLONGED QT INTERVAL (0.40). QTc 485ms; long QT interval. Normal sinus rhythm. Stress protocol: + +---+ + !Stage !HR !BP (mmHg) ! + +---+ + !Baseline supine !67 !130/80 (97) ! + +---+ + !Baseline standing !82 !130/88 (102)! + +---+ + !Stage I; 1.7mph, 10degrees; 3 min !101!132/86 (101)! + +---+ + !Stage II; 2.5mph, 12degrees; 3 min !115!140/80 (100)! + +---+ + !Stage III; 3.4mph, 14degrees; 3 min!122!156/80 (105)! + +---+ + !Stage IV; 4.2mph, 16degrees; 3 min !143!180/90 (120)! + +---+ + !Peak stress !144! ! + +---+ + !Recovery; 1 min !126!158/70 (99) ! + +---+ + !Recovery; 3 min !98 !146/80 (102)! + +---+ + !Recovery; 6 min !94 !132/70 (91) ! + +---+ + !Recovery; 9 min !92 !120/74 (89) ! + +---+ + !Recovery; 12 min !89 !118/78 (91) ! + +---+ + * Stress results: STRESS TEST ENDED IN 11 MINUTES 57 SECONDS DUE TO FATIGUE. NORMAL HEART RATE AND BLOOD PRESSURE RESPONSE TO EXERCISE. MAX HEART RATE: 145 85 % OF TARGET HEART RATE ACHIEVED. MET'S: 13.48. NO ECTOPY. NO ANGINA. NO SIGNIFICANT ST SEGMENT CHANGES. ABOVE AVERAGE FUNCTIONAL CAPACITY. Maximal heart rate during stress was 145bpm (86% of maximal predicted heart rate). The maximal predicted heart rate was 169bpm. The target heart rate was achieved. There is a normal resting blood pressure with an appropriate response to stress. The rate-pressure product for the peak heart rate and blood pressure was 59744zl Hg/min. The patient experienced no chest pain during stress. Exercise capacity is above normal for age. Stress ECG: The stress ECG is negative. Bey treadmill score: 12. This score predicts a low risk of cardiac events. Myocardial perfusion: Imaging information: gated. Image quality reduced due to diaphragmatic attenuation. Left ventricular size is normal. No myocardial perfusion defects noted. Ventricular Function (Wall Motion): The calculated left ventricular ejection fraction after stress: 60%. LV global systolic function is normal. No left ventricular regional motion abnormality. Study data: Seven Rutledge MD supervised and was readily available during the procedure. This study was interpreted by [facility]. Study status: Routine. Consent: The risks, benefits, and alternatives to the procedure were explained to the patient and informed consent was obtained. Procedure: Initial setup. A baseline ECG was recorded. Surface ECG leads and manual cuff blood pressure measurements were monitored. Heart sounds: Normal. Lung sounds: Normal. Treadmill exercise testing was performed using the Jim protocol. The patient exercised for 11 min 52 sec, to protocol stage 4. Exercise was terminated due to fatigue. Study completion: All catheters inserted during the procedure were removed. The patient tolerated the procedure well and was discharged from the lab. Discharge: The patient left the laboratory in stable condition. Birthdate: Patient birthdate: 1965. Sex: Gender: male. Study date: Study date: 10/16/2018. Study time: 00:01 AM. Signature Documentation: - The imaging portion of this study was interpreted by Nuclear Vice President Tax Seven Rutledge MD. - The imaging portion of this study was interpreted by Nuclear Radiologist Dane Cummings MD. - The Stress ECG portion of this study was interpreted by Seven Rutledge MD. Electronically signed by Seven Rutledge 10/16/2018 15:42
== END 2018-10-16 00:33 ==
PROVIDERS: PCP Family Medicine; Visit Provider Family Medicine
DX: R07.9 Chest pain, unspecified (principal); R42 Dizziness and giddiness; I50.9 Heart failure, unspecified; F11.21 Opioid dependence, in remission; K21.9 Gastro-esophageal reflux disease without esophagitis; Z87.891 Personal history of nicotine dependence
CPT/HCPCS: 78452; 93017

== ENCOUNTER 2018-11-04 21:39 | Emergency (ER) | payer OTHER, SELFPAY ==
[2018-11-04 21:44] VITALS: BP 143/92; PULSE 75; RESP 16; TEMP 36.6; O2SAT 98
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
--- NOTE | 2018-11-04 21:49 | DI.RAD_ITS ---
SYMPTOM/DIAGNOSIS: RT LATERAL MALLEOLUS SWELLING, ? FX RIGHT ANKLE: There is soft tissue swelling over the lateral malleolus. No fracture or ankle mortise widening is seen. The talar dome appears intact. IMPRESSION: Lateral soft tissue swelling.
[2018-11-04] MEDS: Ibuprofen 600 MG TAB PO (21:56)
--- NOTE | 2018-11-04 22:45 | DI.VRAD_ITS ---
EXAM: XR Right Ankle EXAM DATE/TIME: 11/04/2018 10:07 PM CLINICAL HISTORY: 53 years old, male; Injury or trauma; Injury history: PT states he rolled ankle; Initial encounter; Blunt trauma; Right; Injury date: 11/04/2018 TECHNIQUE: Imaging protocol: XR Right ankle. Views: 3 or more views. COMPARISON: No relevant prior studies available. FINDINGS: Bones/joints: Normal. No fracture or subluxation. Soft tissues: Soft tissue swelling about lateral malleolus. IMPRESSION: 1. No fracture or subluxation. 2. Soft tissue swelling about lateral malleolus. Dictated and Authenticated by: Jose Angel Weiner MD. Ordering:MARKIE Christiansen MD
[2018-11-04] MEDS: Ibuprofen 600 MG TAB (23:01)
== END 2018-11-04 23:00 | disposition home or self-care (01) ==
PROVIDERS: Emergency Provider Physician Assistant; PCP Family Medicine
DX: S93.401A Sprain of unspecified ligament of right ankle, initial encounter (principal); I10 Essential (primary) hypertension; E11.9 Type 2 diabetes mellitus without complications; Z79.4 Long term (current) use of insulin
CPT/HCPCS: 29515; 99283; 73610; 99282; L1902

== ENCOUNTER 2018-12-23 09:15 | Outpatient (CLI) | payer OTHER, SELFPAY ==
[2018-12-23 14:32] LABS: Hemoglobin A1C 10.6 % (4.5-6.2)
== END 2018-12-23 09:35 ==
PROVIDERS: PCP Family Medicine; Visit Provider Family Medicine
DX: I10 Essential (primary) hypertension (principal); E11.65 Type 2 diabetes mellitus with hyperglycemia
CPT/HCPCS: 36415; 83036

== ENCOUNTER 2019-02-20 14:57 | Outpatient (CLI) | payer OTHER, SELFPAY ==
[2019-02-20 16:06] LABS: HCT 44.2 % (40.0-50.0); Mean Corp. HGB Concentration 33.9 g/dL (32.0-36.0); Mean Corpuscular Hemoglobin 25.2 pg (27.0-33.0); Mean Corpuscular Volume 74.2 fL (80-95); Mean Platelet Volume 10.4 fL (8.0-11.0); Platelet Count 281 x1000/uL (130-400); RBC 5.96 m/cumm (4.50-6.00); RBC Distribution Width 12.7 % (11.8-14.1); White Blood Cell Count 11.27 k/cumm (4.4-10.8)
[2019-02-20 17:27] LABS: ALT 28 U/L (16-63); AST 15 U/L (15-37); Albumin 4.3 g/dL (3.4-5.0); Alkaline Phosphatase 96 U/L (46-116); Anion Gap 9.6 mmol/L (3-11); BUN 21 mg/dL (7-18); Bilirubin, Total 0.2 mg/dL (0.2-1.0); CO2 29.4 mmol/L (21.0-32.0); CREATININE 0.97 mg/dL (0.70-1.30); Calcium 9.8 mg/dL (8.5-10.1); Chloride 96 mmol/L (98-107); Glucose 360 mg/dL (74-106); Potassium 3.5 mmol/L (3.5-5.1); Sodium 135 mmol/L (136-145); Total Protein 7.7 g/dL (6.4-8.2)
[2019-02-20 17:32] LABS: Hemoglobin A1C 11.3 % (4.5-6.2)
== END 2019-02-20 15:17 ==
PROVIDERS: PCP Family Medicine; Visit Provider Family Medicine
DX: E11.65 Type 2 diabetes mellitus with hyperglycemia (principal); I10 Essential (primary) hypertension
CPT/HCPCS: 36415; 80053; 85027; 83036

== ENCOUNTER 2020-01-19 16:41 | Outpatient (REF) | payer OTHER, SELFPAY ==
[2020-01-19 19:18] LABS: COMMENT (LAB VIEW ONLY) 114.05 mg/dL
[2020-01-19 19:23] LABS: Microalb ug/mg Crea 150.6 ug/mg Cr
== END 2020-01-19 17:01 ==
LOC: NCHCN 16:41
PROVIDERS: PCP Family Medicine; Visit Provider Family Medicine
DX: E11.65 Type 2 diabetes mellitus with hyperglycemia (principal)
CPT/HCPCS: 82043; 82570

== ENCOUNTER 2020-01-21 16:08 | Outpatient (REF) | payer OTHER, SELFPAY ==
[2020-01-25 15:55] LABS: Patient Race White; SARS-CoV-2 RNA Undetected (Undetected); SARS-CoV-2 Specimen Source Nasal
== END 2020-01-21 16:28 ==
LOC: NCHCN 16:08
PROVIDERS: PCP Family Medicine; Visit Provider Nurse Practitioner Family
DX: Z20.828 Contact with and (suspected) exposure to other viral communicable diseases (principal)
CPT/HCPCS: U0003

== ENCOUNTER 2020-02-11 04:43 | Outpatient (CLI) | payer OTHER, SELFPAY ==
[2020-02-11 11:38] LABS: HGB 13.9 g/dL (13.5-17.5); MCH 24.6 pg (27.0-33.0); MCHC 33.1 % (32.0-36.0); MCV 74.2 fL (80-95); Platelet Count 366 10^3/uL (130-400); RBC 5.66 10^6/uL (4.36-5.78); RDW 12.8 % (11.8-14.1); RDW-SD 34.1 fL; WBC 8.41 10^3/uL (4.4-10.8)
[2020-02-11 13:04] LABS: ALT 29 U/L (16-63); AST 22 U/L (15-37); Albumin 3.9 g/dL (3.4-5.0); Alkaline Phosphatase 136 U/L (46-116); BUN 24 mg/dL (7-18); Bilirubin, Total 0.3 mg/dL (0.2-1.0); CREATININE 1.06 mg/dL (0.70-1.30); Calcium 10.1 mg/dL (8.5-10.1); Chloride 97 mmol/L (98-107); Glucose 393 mg/dL (74-106); Potassium 3.4 mmol/L (3.5-5.1); Sodium 136 mmol/L (136-145); TSH (W/Ref FT4) 1.16 uIU/mL (0.36-3.74); Total Protein 7.3 g/dL (6.4-8.2)
[2020-02-12 13:25] LABS: C-Peptide 4.8 ng/mL (1.1 - 4.4)
[2020-02-12 17:06] LABS: Fructosamine 437 mcmol/L (200 - 285)
== END 2020-02-11 05:03 ==
PROVIDERS: PCP Family Medicine; Visit Provider Family Medicine
DX: E11.65 Type 2 diabetes mellitus with hyperglycemia (principal)
CPT/HCPCS: 36415; 80053; 85027; 82985; 84443; 84681

== ENCOUNTER 2020-04-23 02:46 | Outpatient (CLI) | payer OTHER, SELFPAY ==
[2020-04-23 16:39] LABS: Hemoglobin A1C 11.2 % (<5.7)
[2020-04-27 08:25] LABS: Fructosamine 340 mcmol/L (200 - 285)
== END 2020-04-23 03:06 ==
PROVIDERS: PCP Family Medicine; Visit Provider Family Medicine
DX: E11.65 Type 2 diabetes mellitus with hyperglycemia (principal)
CPT/HCPCS: 36415; 82985; 83036

== ENCOUNTER 2021-02-16 16:11 | Outpatient (REF) | payer BC, SELFPAY ==
[2021-02-16 18:42] LABS: HCT 44.3 % (40.0-50.0); HGB 13.4 g/dL (13.5-17.5); MCH 21.6 pg (27.0-33.0); MCHC 30.2 % (32.0-36.0); MCV 71.5 fL (80-95); MPV 9.7 fL (8.0-11.0); Platelet Count 411 10^3/uL (130-400); RDW 15.1 % (11.8-14.1); RDW-SD 37.6 fL; WBC 10.62 10^3/uL (4.4-10.8)
[2021-02-16 19:17] LABS: COMMENT (LAB VIEW ONLY) 80.64 mg/dL; Microalb ug/mg Crea 74.7 ug/mg Cr
[2021-02-16 19:29] LABS: ALT 38 U/L (16-63); AST 29 U/L (15-37); Alkaline Phosphatase 115 U/L (46-116); Anion Gap 9.3 mmol/L (3-11); BUN 21 mg/dL (7-18); Bilirubin, Total 0.3 mg/dL (0.2-1.0); CO2 30.7 mmol/L (21.0-32.0); CREATININE 1.1 mg/dL (0.70-1.30); Calcium 9.7 mg/dL (8.5-10.1); Chloride 102 mmol/L (98-107); Glucose 162 mg/dL (74-106); Potassium 3.1 mmol/L (3.5-5.1); Sodium 142 mmol/L (136-145); Total Protein 7.3 g/dL (6.4-8.2)
[2021-02-18 13:44] LABS: Fructosamine 301 mcmol/L (200 - 285)
[2021-02-18 18:50] LABS: Ferritin 15 ng/mL (26-388)
[2021-02-18 19:00] LABS: Iron 44 ug/dL (65-175); Total Iron Binding Capacity 477 ug/dL (250-450); Transferrin Sat 9 % (20-55)
== END 2021-02-16 16:12 | disposition home or self-care (01) ==
LOC: NCHCN 16:11
PROVIDERS: PCP Family Medicine; Visit Provider Family Medicine
DX: E11.65 Type 2 diabetes mellitus with hyperglycemia (principal); I10 Essential (primary) hypertension; E78.5 Hyperlipidemia, unspecified; R80.9 Proteinuria, unspecified
CPT/HCPCS: 80053; 85027; 82043; 82570; 82728; 82985; 83540; 83550

== ENCOUNTER 2021-03-07 02:57 | Outpatient (CLI) | payer BC, SELFPAY ==
[2021-03-07 10:42] LABS: Source Nasal/Nares
[2021-03-07 17:06] LABS: COVID-19 PCR Negative (Negative)
== END 2021-03-07 02:58 | disposition home or self-care (01) ==
LOC: LBO 02:57
PROVIDERS: PCP Family Medicine; Visit Provider Surgery
DX: Z20.822 Contact with and (suspected) exposure to COVID-19 (principal)
CPT/HCPCS: 87635

== ENCOUNTER 2021-03-08 09:48 | Day surgery (SDC) | payer BC, SELFPAY ==
--- NOTE | 2021-03-07 20:59 | PDOC.DSDIS_ITS ---
Discharge Plan Disposition Patient Disposition: HOME Condition: Good Discharge Details Reason For Visit: stomach and colon scope Attending Provider: Stephanie Whiteside Primary Care Provider: Yulia Cortez Home Meds and New Rx's Prescriptions: New pantoprazole [Protonix] 40 mg tablet,delayed release (DR/EC) 40 mg PO DAILY Qty: 90 RF: 4 ferrous sulfate 220 mg (44 mg iron)/5 mL solution 110 mg PO DAILY Qty: 473 RF: 6 Continued Humulin R U-500 (Conc) Kwikpen 500 unit/mL (3 mL) insulin pen 80 unit subcut BID RF: 0 sertraline 100 mg tablet 100 mg PO DAILY RF: 0 multivitamin Tablet 1 tab PO DAILY RF: 0 cholecalciferol (vitamin D3) 50 mcg (2,000 unit) capsule 50 mcg PO DAILY RF: 0 amlodipine 10 mg tablet 10 mg PO DAILY RF: 0 metformin 500 mg tablet extended release 24 hr 2,000 mg PO DAILY RF: 0 Jardiance 25 mg tablet 25 mg PO DAILY RF: 0 insulin lispro [Humalog KwikPen Insulin] 100 unit/mL insulin pen See Rx Instructions subcut USEASDIRECTD RF: 0 potassium chloride 10 mEq tablet extended release 10 meq PO DAILY RF: 0 Victoza 2-Papo 0.6 mg/0.1 mL (18 mg/3 mL) pen injector 3 mg subcut DAILY RF: 0 aspirin [Aspir-Low] 81 MG tablet,delayed release (DR/EC) 81 mg PO DAILY RF: 0 rosuvastatin [Crestor] 40 MG tablet 40 mg PO HS RF: 0 atenolol 100 mg Tablet 100 mg PO DAILY RF: 0 chlorthalidone 50 mg Tablet 50 mg PO DAILY RF: 0 losartan 100 mg Tablet 100 mg PO DAILY RF: 0 Discontinued polyethylene glycol 3350 17 gram/dose powder 238 g PO ONCE Qty: 238 RF: 0 bisacodyl [Dulcolax (bisacodyl)] 5 mg tablet,delayed release (DR/EC) 5 mg PO ONCE Qty: 4 RF: 0 omeprazole 20 mg Capsule,Delayed Release(Dr/Ec) 20 mg PO DAILY RF: 0 Discharge Instructions Additional Instructions: DSU Colonoscopy Post- Op Instructions Instructions for Everyone who is given Anesthesia: For your safety, please do the following for the next twenty-four (24) hours: *Do Not operate a motor vehicle (car, truck, motorcycle, etc.) *Do Not drink alcoholic beverages or use any recreational drugs for the first 24 hours or while taking pain medications. The medications in your body may have a reaction that can be dangerous. *Do Not make any important decisions or sign any important papers. Findings:bile alkaline reflux normal colon labs as outpt on 03/09 US- as outpt start: protonix daily. stop prilosec Iron drops daily Follow up: 04/04/21 @ 9:30am 1. No lifting over 20 pounds or strenuous activity for the first 24 hours after your procedure. After 24 hours there are no restrictions on your activity but you may feel fatigued for a few days. 2. After you arrive home you may have a light meal and return to your normal diet as you can tolerate it without feeling sick to your stomach. 3. You may have a bloated, gaseous feeling in your belly (abdomen) after a colonoscopy. Passing gas and belching will help. Walking or lying down on your left side with your knees flexed may relieve the discomfort. Call the office at [phone] (Office) or [phone] (Hospital) right away if you notice any of the following: a.Vomiting of blood or ?coffee ground stools?. b.Rectal bleeding 1Tbsp, blood clots or continuous bleeding. c.Severe belly (abdominal) pain. d.A hard distended belly (abdomen) and an inability to pass gas. 4. Please don?t expect to have a normal BM (bowel movement) for 2-3 days after your procedure. 5. If there are questions regarding the findings of your procedure, please contact your doctor 6. If you are unable to contact your doctor with a problem, contact the hospital at [phone]. 7. Continue all your regular medications unless directed otherwise. I understand the above instructions and have no questions. Signature of Patient or Adult Escort Name of Responsible Adult Escort Signature of Nurse Date/Time Activity:: see above Remove Dressings/Wound Care:: 24 hours Shower/Bathe:: 24 hours Diet:: Carb Counting Discharge Orders Discharge Orders: Discharge Order (Routine); Ordered 03/07/21 Ordered By: Stephanie Whiteside DS: Diagnosis Discharge Diagnosis (1) GERD (gastroesophageal reflux disease): Status: Acute (2) History of adenomatous polyp of colon: Status: Acute (3) Diabetes mellitus: Status: Acute (4) Iron deficiency anemia refractory to iron therapy: Status: Acute (5) Microalbuminuria: Status: Acute (6) Hyperlipidemia: Status: Chronic (7) Liver cirrhosis secondary to nonalcoholic steatohepatitis (CHOW[place]URY): Status: Acute
[2021-03-08 10:20] VITALS: BP 127/84; PULSE 77; RESP 18; TEMP 38.2; O2SAT 99
[2021-03-08] MEDS: Lactated Ringers 1,000 ML 80 ML IV (10:28)
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
[2021-03-08 11:29] VITALS: BMI 32.5
--- NOTE | 2021-03-08 12:21 | STOM_PTH ---
PATIENT: Alfredo Perez LOC: [facility] U#:[id number] AGE/SX: 55/M ROOM: RE03/08/[address]: Stephanie Whiteside : 1965 BED: DIS: 03/08/2021 SPEC #: [id number] RECD: 03/08/21 17:29 STATUS: CASSY REButch #: [id number] LUCA: 03/08/21 12:[address]: Stephanie Whiteside DEPT: Surgical Specimen RECD BY: Loli Burnett ENTERED: 03/08/21 17:30 SP TYPE: STOMACH OTHR DR: Yulia Cortez Tissues: 1 - BIOPSY BOWEL 2 - BIOPSY BOWEL 3 - STOMACH BIOPSY 4 - STOMACH BIOPSY 5 - ESOPHAGUS BIOPSY 6 - ESOPHAGUS BIOPSY Procedures: GROSS AND MICRO LEVEL 4 Comments: [id number]
[2021-03-08 12:57] VITALS: BP 91/54; PULSE 78; RESP 18; TEMP 36.7; O2SAT 94
--- NOTE | 2021-03-08 13:03 | W.ANESPOSTOP ---
Postoperative Evaluation Date, Time and Location Date Performed: 03/08/21 Time Performed: 12:57 Patient Location: Day Surgery Unit Vital Signs Most Recent Imported Vital Signs: Most Recent Vital Signs Temp Pulse Resp BP Pulse Ox 36.7 C 78 18 91/54 L 94 03/08/21 12:57 03/08/21 12:57 03/08/21 12:57 03/08/21 12:57 03/08/21 12:57 Pain Score Most Recent Pain Score: Most Recent Pain Score Pain Level 0 03/08/21 12:57 Assessment Mental Status: Awake (Alert & Oriented to Patient Baseline) Airway and Respiratory Function: Patent airway with normal (patient baseline) respiratory exam Cardiovascular Function: Hemodynamically Stable Hydration Status: Adequately Hydrated Nausea & Vomiting: No Nausea or Vomiting Pain: Pt. Denies Any Pain Peripheral Nerve Block: Patient did not receive a nerve block
[2021-03-08] MEDS: IRON SUCROSE COMPLEX 200 MG in Normal Saline 100 ML 400 MG IVPB (13:18)
[2021-03-08 13:24] VITALS: BP 105/72; PULSE 74; RESP 18; TEMP 37.2; O2SAT 96
--- NOTE | 2021-03-08 22:20 | ENDO_ITS ---
Date of service: 03/08/21 Time of Service: 13:30 Endoscopy Report DATE OF PROCEDURE: 03/08/21 PRE-OP DIAGNOSIS: gerd/hx hep C POST-OP DIAGNOSIS: other (bile reflux astritis) SURGEON: Stephanie Whiteside ANESTHESIA TYPE: General:No Airway ESTIMATED BLOOD LOSS: 1 PATHOLOGY: other COMPLICATIONS: None DISPOSITION: same day PROCEDURE DESCRIPTION: After informed consent was obtained the patient was take to the procedure room and placed in a supine position. Monitors were applied and a time out was done. The patients name, date of , procedure type, allergies to medications and metal in their body was reviewed. A bite block was placed and the patient was sedated. Once sedated and comfortable the gastroscope was advanced through the oropharynx which was grossly normal into the esophagus. The proximal and mid-esophagus were nl. In the distal esophagus there was no: Esophageal erosions, varices, diverticula or stricture apparent. As the scope enters the stomach, there is noted to be a small pool of bile in the antrum. This was suction. There is mild diffuse erythematous/gastritic pattern to this region. Biopsies are taken. The scope was advanced into the stomach and through the pylorus into the 3rd portion of the duodenum. The duodenum was noted to be normal. Biopsies were done, all specimens are retrieved and no bleeding is noted.. The scope was retracted back into the stomach and biopsies were done to rule out H. pylori. There were no ulcers. The scope was retroflexed. The cardia and fundus were noted to be normal. There no hiatal hernia noted. The scope was retracted back into the esophagus and biopsies were done of the GE junction to rule out Castro's. The Z line was regular. The scope was removed and the patient was woken up and taken back to [facility] in stable condition. Follow up:
--- NOTE | 2021-03-08 22:26 | W.COLOREPORT ---
Colonoscopy Report Date of procedure: 03/08/21 Pre-op diagnosis general: polyps Post-op diagnosis procedure note: other (normal) Surgeon: Stephanie Whiteside Anesthesia Type: General:No Airway Estimated blood loss (mL): 0 Pathology: none sent Complications: None Prep: Miralax/Dulcolax Retraction Time: 8 mins Procedure Description: After informed consent was obtained the patient was taken to the procedure room and placed in a left decubitous position. Monitors were applied and a time out was done. The patients name, date of , procedure, allergies to medications and metal in their body was reviewed. The patient was then sedated. Once sedated and comfortable a rectal exam was done. External exam was normal. Internal exam revealed a normal sphincter tone and no palpable masses. The scope was then introduced and retrofelexed. No internal hemorrhoids were identified. The scope was then advanced to the cecum [] difficulty. The TI and appendiceal orifice were identified. The prep was adequate. There was thick stool coating the lynch of the colon. This was lavaged w/ 1L of fluid. The scope was then slowly retracted over 8 minutes back into the rectum. There are no polyps, AVMs, or diverticula visualized today. The mucosa appears pink and healthy. The scope was removed and the patient was woken up and taken back to Same day surgery in stable condition. The patient tolerated the procedure well and there were no immediate complications. Follow up: The patient should follow up in 5 years unless they develop changes in bowel habits or other new gastrointestinal complaints.
== END 2021-03-08 14:24 | disposition home or self-care (01) ==
PROVIDERS: PCP Family Medicine; Visit Provider Surgery
PROC: (CPT 43239; principal; 2021-03-08 11:15)
DX: D50.9 Iron deficiency anemia, unspecified (principal); K21.9 Gastro-esophageal reflux disease without esophagitis; Z86.010 Personal history of colon polyps; E11.9 Type 2 diabetes mellitus without complications; I10 Essential (primary) hypertension; Z79.4 Long term (current) use of insulin; K29.70 Gastritis, unspecified, without bleeding; K31.89 Other diseases of stomach and duodenum
CPT/HCPCS: 43239; 45378; 88305; 96365; J1756

== ENCOUNTER 2021-03-09 09:23 | Outpatient (REF) | payer BC, SELFPAY ==
[2021-03-09 14:16] LABS: Reticulocyte 1.4 % (0.5-2.4)
[2021-03-09 14:36] LABS: C-Reactive Protein 0.62 mg/dL (0.0-0.3); TSH (W/Ref FT4) 2.32 uIU/mL (0.36-3.74)
[2021-03-09 14:39] LABS: Calculated LDL 87 mg/dL (<100); Cholesterol 191 mg/dL (<200); HDL Cholesterol 38 mg/dL (40-60); Triglyceride 332 mg/dL (<150)
[2021-03-09 15:09] LABS: Folate > 20.0 ng/mL (8.6-20.0)
[2021-03-10 21:48] LABS: Hemoglobin A1C 9.1 % (<5.7)
== END 2021-03-09 09:24 | disposition home or self-care (01) ==
LOC: NCHCN 09:23
PROVIDERS: Surgery; PCP Family Medicine; Visit Provider Family Medicine
DX: D50.8 Other iron deficiency anemias (principal); E11.65 Type 2 diabetes mellitus with hyperglycemia; F43.10 Post-traumatic stress disorder, unspecified; I10 Essential (primary) hypertension; K21.9 Gastro-esophageal reflux disease without esophagitis; M54.9 Dorsalgia, unspecified; R14.0 Abdominal distension (gaseous); R80.9 Proteinuria, unspecified; Z86.010 Personal history of colon polyps; Z87.09 Personal history of other diseases of the respiratory system; E78.5 Hyperlipidemia, unspecified; M54.50 Low back pain, unspecified; E87.6 Hypokalemia
CPT/HCPCS: 80061; 82746; 83036; 84443; 85045; 86140

== ENCOUNTER 2021-03-15 13:29 | Outpatient (REF) | payer BC, SELFPAY ==
[2021-03-15 16:34] LABS: Anion Gap 9.3 mmol/L (3-11); BUN 20 mg/dL (7-18); CO2 28.7 mmol/L (21.0-32.0); CREATININE 0.9 mg/dL (0.70-1.30); Calcium 9.5 mg/dL (8.5-10.1); Chloride 104 mmol/L (98-107); Glucose 135 mg/dL (74-106); Potassium 4.3 mmol/L (3.5-5.1); Sodium 142 mmol/L (136-145)
[2021-03-18 17:37] LABS: Testosterone, Free 7.17 ng/dL (4.06-15.6); Testosterone, Total 224 ng/dL (240-950)
== END 2021-03-15 13:30 | disposition home or self-care (01) ==
LOC: NCHCN 13:29
PROVIDERS: PCP Family Medicine; Visit Provider Family Medicine
DX: I10 Essential (primary) hypertension (principal); R53.83 Other fatigue
CPT/HCPCS: 80048; 84402; 84403

== ENCOUNTER 2021-04-04 12:37 | Outpatient (REF) | payer BC, SELFPAY ==
[2021-04-04 10:46] LABS: HCT 46.2 % (40.0-50.0); HGB 14.5 g/dL (13.5-17.5); MCH 22.3 pg (27.0-33.0); MCHC 31.4 % (32.0-36.0); MPV 9.6 fL (8.0-11.0); Platelet Count 334 10^3/uL (130-400); RBC 6.51 10^6/uL (4.36-5.78); RDW 17.7 % (11.8-14.1); RDW-SD 41.1 fL; WBC 9.74 10^3/uL (4.4-10.8)
[2021-04-04 11:03] LABS: Iron 119 ug/dL (65-175); Total Iron Binding Capacity 490 ug/dL (250-450); Transferrin Sat 24 % (20-55)
[2021-04-04 11:10] LABS: Ferritin 23 ng/mL (26-388)
== END 2021-04-04 12:38 | disposition home or self-care (01) ==
LOC: LBN 12:37
PROVIDERS: PCP Family Medicine; Visit Provider Surgery
DX: D50.8 Other iron deficiency anemias (principal); E11.9 Type 2 diabetes mellitus without complications; E78.5 Hyperlipidemia, unspecified; K21.9 Gastro-esophageal reflux disease without esophagitis; K74.60 Unspecified cirrhosis of liver; K75.81 Nonalcoholic steatohepatitis (NASH); R14.0 Abdominal distension (gaseous); R53.83 Other fatigue; R80.9 Proteinuria, unspecified
CPT/HCPCS: 85027; 82728; 83540; 83550

== ENCOUNTER 2021-06-13 11:21 | Outpatient (REF) | payer BC, SELFPAY ==
[2021-06-13 13:24] LABS: HCT 50.4 % (40.0-50.0); HGB 15.5 g/dL (13.5-17.5); MCH 22.3 pg (27.0-33.0); MCHC 30.8 % (32.0-36.0); MCV 72.4 fL (80-95); MPV 10.1 fL (8.0-11.0); Platelet Count 395 10^3/uL (130-400); RBC 6.96 10^6/uL (4.36-5.78); RDW 17.2 % (11.8-14.1); RDW-SD 40.7 fL; WBC 11.81 10^3/uL (4.4-10.8)
[2021-06-13 13:36] LABS: Iron 42 ug/dL (65-175); Total Iron Binding Capacity 488 ug/dL (250-450); Transferrin Sat 9 % (20-55)
[2021-06-13 13:49] LABS: Ferritin 15 ng/mL (26-388)
[2021-06-13 14:35] LABS: Hemoglobin A1C 8.7 % (<5.7)
== END 2021-06-13 11:22 | disposition home or self-care (01) ==
LOC: LBN 11:21
PROVIDERS: PCP Family Medicine; Visit Provider Family Medicine
DX: D50.9 Iron deficiency anemia, unspecified (principal); E11.65 Type 2 diabetes mellitus with hyperglycemia
CPT/HCPCS: 84402; 84403; 85027; 82728; 83036; 83540; 83550

== ENCOUNTER 2021-06-22 09:27 | Outpatient (REF) | payer BC, SELFPAY ==
[2021-06-28 15:17] LABS: Testosterone, Free 19.2 ng/dL (4.06-15.6); Testosterone, Total 392 ng/dL (240-950)
== END 2021-06-22 09:28 | disposition home or self-care (01) ==
LOC: NCHCN 09:27
PROVIDERS: PCP Family Medicine; Visit Provider Family Medicine
DX: E29.1 Testicular hypofunction (principal)
CPT/HCPCS: 84402; 84403

== ENCOUNTER 2021-06-29 13:50 | Outpatient (REF) | payer BC, SELFPAY | END 2021-06-29 13:51 | disposition home or self-care (01) | LOC: NCHCN 13:50 | PROVIDERS: PCP Family Medicine; Visit Provider Physician Assistant Medical ==

== ENCOUNTER 2021-06-29 15:13 | Outpatient (REF) | payer BC, SELFPAY ==
[2021-07-01 12:06] LABS: COVID-19 RT-PCR UVMMC Result Negative (Negative)
== END 2021-06-29 15:14 | disposition home or self-care (01) ==
LOC: LBN 15:13
PROVIDERS: PCP Family Medicine; Visit Provider Physician Assistant Medical
DX: Z20.822 Contact with and (suspected) exposure to COVID-19 (principal); R09.89 Other specified symptoms and signs involving the circulatory and respiratory systems
CPT/HCPCS: U0003

== ENCOUNTER 2021-06-29 15:41 | Outpatient (CLI) | payer BC, SELFPAY ==
--- NOTE | 2021-06-29 11:33 | DI.RAD_ITS ---
Exam(s) XR CHEST 2V PA LATERAL EXAM: XR CHEST 2V PA LATERAL CLINICAL HISTORY: COUGH, R05 TECHNIQUE: 2D digital imaging was performed. COMPARISON: CR XR PORTABLE CHEST AP from 09/03/2018 FINDINGS: The heart is not enlarged. The lungs are clear and well expanded. No pleural effusion seen. Mediastin al contours appear intact. IMPRESSION: Normal chest. RADIATION DOSE DELIVERED: Total DLP
== END 2021-06-29 16:01 ==
PROVIDERS: PCP Family Medicine; Visit Provider Physician Assistant Medical
DX: R05.8 Other specified cough (principal)
CPT/HCPCS: 71046

== ENCOUNTER 2022-01-05 09:34 | Emergency (ER) | payer BC, SELFPAY ==
[2022-01-05 09:48] VITALS: BP 161/94; PULSE 74; RESP 18; TEMP 37; O2SAT 97
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
[2022-01-05] MEDS: Cyclobenzaprine 10 MG TAB PO (10:50)
[2022-01-05] MEDS: Ketorolac 15 MG/ML VIAL IM (10:50)
== END 2022-01-05 10:56 | disposition home or self-care (01) ==
PROVIDERS: Emergency Provider Physician Assistant; PCP Family Medicine
DX: M54.50 Low back pain, unspecified (principal); I10 Essential (primary) hypertension; E11.9 Type 2 diabetes mellitus without complications; Z79.4 Long term (current) use of insulin; Z79.84 Long term (current) use of oral hypoglycemic drugs
CPT/HCPCS: 96372; 99284; J1885

== ENCOUNTER 2022-01-06 05:38 | Emergency (ER) | payer BC, SELFPAY ==
[2022-01-06 05:45] VITALS: BP 167/94; PULSE 91; RESP 18; TEMP 37.1; O2SAT 97
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
[2022-01-06] MEDS: oxyCODONE 5 MG TAB PO (06:31)
== END 2022-01-06 06:35 | disposition home or self-care (01) ==
PROVIDERS: Emergency Provider Emergency Medicine; PCP Family Medicine
DX: M54.16 Radiculopathy, lumbar region (principal); I10 Essential (primary) hypertension; E11.9 Type 2 diabetes mellitus without complications
CPT/HCPCS: 99283; 99284

== ENCOUNTER 2022-02-14 05:57 | Day surgery (SDC) | payer OTHER, SELFPAY ==
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
[2022-02-14 06:32] VITALS: BP 142/93; PULSE 80; RESP 16; TEMP 36.4; O2SAT 98
[2022-02-14] MEDS: Lactated Ringers 1,000 ML 80 ML IV (06:58)
[2022-02-14 07:02] VITALS: BMI 36.1
--- NOTE | 2022-02-14 07:14 | W.PM.DSUDISC ---
Date of service: 02/14/22 Time of Service: 07:15 Discharge Plan Disposition Patient Disposition: HOME Condition: Good Discharge Details Reason For Visit: R ECTR Attending Provider: Jan Hussein Primary Care Provider: Yulia Cortez Home Meds and New Rx's Prescriptions: New hydrocodone-acetaminophen 5-325 mg tablet 1 tab PO Q6H PRN (Reason: pain) Qty: 4 0RF acetaminophen 500 mg tablet 1,000 mg PO TID Qty: 90 0RF ibuprofen 600 mg tablet 600 mg PO TID PRN (Reason: pain) Qty: 90 0RF Continued sucralfate [Carafate] 1 gram tablet 1 g PO QAC Qty: 60 12RF Rx Instructions: and prn as needed for heartburn/indigestion sertraline 100 mg tablet 100 mg PO DAILY multivitamin Tablet 1 tab PO DAILY cholecalciferol (vitamin D3) 50 mcg (2,000 unit) capsule 50 mcg PO DAILY amlodipine 10 mg tablet 10 mg PO DAILY metformin 500 mg tablet extended release 24 hr 2,000 mg PO DAILY Jardiance 25 mg tablet 25 mg PO DAILY insulin lispro [Humalog KwikPen Insulin] 100 unit/mL insulin pen See Rx Instructions subcut USEASDIRECTD Rx Instructions: Directed subcut use as directed; rosuvastatin [Crestor] 40 MG tablet 40 mg PO HS atenolol 100 mg Tablet 100 mg PO DAILY chlorthalidone 50 mg Tablet 50 mg PO DAILY losartan 100 mg Tablet 100 mg PO DAILY pantoprazole [Protonix] 40 mg tablet,delayed release (DR/EC) 40 mg PO DAILY Qty: 90 4RF ferrous sulfate 220 mg (44 mg iron)/5 mL solution 110 mg PO DAILY Qty: 473 6RF Rx Instructions: -will cause constipation -will turn stools black testosterone 1 % (50 mg/5 gram) gel in packet 1 packet DAILY Toujeo Max U-300 SoloStar 300 unit/mL (3 mL) insulin pen 80 device SUBCUT BID Label Comments: INJECT 100 TO 200 UNITS SUBCUTANEOUSLY ONCE A DAY Discharge Instructions Stand Alone Forms: Keenan Hunt Tunnel Release Activity:: Activity as Tolerated Remove Dressings/Wound Care:: 48 hours Shower/Bathe:: 48 hours Diet:: As Tolerated Discharge Orders Discharge Orders: Discharge Order (Routine); Ordered 02/14/22 Ordered By: Leonardo Julio DS: Diagnosis Discharge Diagnosis (1) Bilateral carpal tunnel syndrome: Status: Acute
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
[2022-02-14] MEDS: ceFAZolin 2 GM/50 ML BAG IVPB (07:24)
[2022-02-14 07:49] VITALS: BP 136/92; PULSE 91; RESP 18; TEMP 36.8; O2SAT 93
[2022-02-14 08:12] VITALS: BP 122/90; PULSE 82; RESP 16; TEMP 36.9; O2SAT 93
--- NOTE | 2022-02-14 08:26 | W.ANESPOSTOP ---
Postoperative Evaluation Date, Time and Location Date Performed: 02/14/22 Time Performed: 08:26 Patient Location: Day Surgery Unit Vital Signs Most Recent Imported Vital Signs: Most Recent Vital Signs Temp Pulse Resp BP Pulse Ox 36.8 C 91 H 18 136/92 H 93 02/14/22 07:49 02/14/22 07:49 02/14/22 07:49 02/14/22 07:49 02/14/22 07:49 Pain Score Most Recent Pain Score: Most Recent Pain Score Pain Level 0 02/14/22 07:49 Assessment Mental Status: Awake (Alert & Oriented to Patient Baseline) Airway and Respiratory Function: Patent airway with normal (patient baseline) respiratory exam Cardiovascular Function: Hemodynamically Stable Hydration Status: Adequately Hydrated Nausea & Vomiting: No Nausea or Vomiting Pain: Pt. Denies Any Pain Peripheral Nerve Block: Patient did not receive a nerve block
--- NOTE | 2022-02-15 05:37 | W.PM.OP ---
Date of service: 02/14/22 Time of Service: 07:40 Operative Note Operative Note PRE-OP DIAGNOSIS: Right Carpal Tunnel Syndrome POST-OP DIAGNOSIS: same PROCEDURE: Right Endoscopic Carpal Tunnel Release SURGEON: Jan Hussein ANESTHESIA TYPE: General:No Airway Refer to Anesthesia Record ESTIMATED BLOOD LOSS: 0 PATHOLOGY: none sent TOURNIQUET TIME: 6 COMPLICATIONS: None Patient was transported to: same day Patient's condition: stable Indications: I have seen Alfredo in clinic for symptoms of carpal tunnel syndrome. The numbness, tingling, and pain limited function. Clinical exam findings with nerve conduction tests confirmed the diagnosis of carpal tunnel syndrome. Nonoperative measures such as bracing, time, activity modifications had been tried but disability and pain persisted. I discussed carpal tunnel release with the patient. I reviewed the risks of the procedure to include, but not limited to, bleeding, infection, pain, stiffness, incomplete release, damage to nerves or vessels, persistent numbness, recurrence. Despite these risks, the patient elected to proceed. Findings: There was tightened carpal tunnel. This was dilated and released successfully with the endoscopic with increased space within the tunnel. The antebrachial fascia was released proximally freeing the median nerve at the wrist. Procedure Description: Alfredo was greeted in the preoperative holding area where the correct side was identified and marked. The consent was reviewed with the patient and signed. The history and physical was updated. All questions were answered. He was taken back to the operating room. The patient was placed into the supine position on the operating room table with the right arm on an arm board. A nonsterile tourniquet was placed high onto the arm. All bony prominences were well padded. Prophylactic antibiotics in the form of Cefazolin were administered. The right arm was then prepped with Chloraprep and draped in a standard fashion with stockinette and extremity drape. A timeout to confirm correct identity, side and site, procedure, allergies, anesthesia, and medical concerns was performed. The surgical site was marked in the volar wrist creases in line with the radial border of the fourth ray. This area was anesthetized with approximately 6cc of 1% Lidocaine. The limb was then exsanguinated with an Esmarch. The skin was incised with a 15 blade, approximately 1cm. The skin only was cut and the deeper tissue was dissected bluntly with a tenotomy scissor, avoiding passing nerve and venous structures. The fascia was penetrated and opened bluntly. A two-prong skin hook was placed under this proximal fascial edge. A series of hamate finders were used to identify and dilate the carpal tunnel. Synovial elevator was used to free synovial attachments to the underside of the transverse carpal ligament. My thumb was kept in the palm to christian the distal extent of the carpal tunnel and correctly position the hand. The Microaire endoscope was inserted without difficulty and without resistance. Excellent visualization showed horizontally running fibers of the transverse carpal ligament (TCL). The distal extent of the TCL was visualized and the end of the scope palpated with the thumb. The blade was elevated and withdrawn from distal to proximal. The TCL was split into two flaps. The endoscope was reinserted to confirm complete release and any remnant ligament was incised. The scope was withdrawn and the proximal aspect of the carpal tunnel was grossly inspected and appeared release with the median nerve visible. The antebrachial fascia at the level of the wrist was then freed from the overlying skin and then the underlying median nerve with blunt dissection. This was transected longitudinally for about 3cm proximal to the wrist incision. The wound was then irrigated with easy flow of irrigant distally and proximally. The incision was closed with a single 4-0 Nylon suture. The wound was dressed with Xeroform, Gauze, Kerlix and Mak. The tourniquet was deflated with the initial dressing and held with some pressure. Blood flow returned easily to all digits with capillary refill less than 2 seconds. The patient tolerated the procedure well and was returned to the Same Day Surgery area in a stable condition suffering no known complication.
== END 2022-02-14 08:53 | disposition home or self-care (01) ==
PROVIDERS: PCP Family Medicine; Visit Provider Student in an Organized Health Care Education/Training Program
PROC: 01N54ZZ Release Median Nerve, Percutaneous Endoscopic Approach (ICD-10-PCS; CPT 29848; principal; 2022-02-14 07:30)
DX: G56.03 Carpal tunnel syndrome, bilateral upper limbs (principal); I10 Essential (primary) hypertension; D50.9 Iron deficiency anemia, unspecified; F17.210 Nicotine dependence, cigarettes, uncomplicated; E11.9 Type 2 diabetes mellitus without complications
CPT/HCPCS: 29848; J0690; J1100; J1885; J2405

== ENCOUNTER 2022-02-21 05:49 | Day surgery (SDC) | payer OTHER, SELFPAY ==
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
[2022-02-21 06:15] VITALS: BP 148/100; PULSE 76; RESP 18; TEMP 36.8; O2SAT 98
[2022-02-21] MEDS: Lactated Ringers 1,000 ML 80 ML IV (06:44)
--- NOTE | 2022-02-21 07:17 | PDOC.DSDIS_ITS ---
Date of service: 02/21/22 Time of Service: 07:20 Discharge Plan Disposition Patient Disposition: HOME Condition: Good Discharge Details Reason For Visit: Left carpal tunnel syndrome Attending Provider: Jan Hussein Primary Care Provider: Yulia Cortez Home Meds and New Rx's Prescriptions: New hydrocodone-acetaminophen 5-325 mg tablet 1 tab PO Q6H PRN (Reason: severe pain) Qty: 4 0RF Rx Instructions: Take one tablet up to every 6 hours as needed for severe postoperative pain Continued sucralfate [Carafate] 1 gram tablet 1 g PO QAC Qty: 60 12RF Rx Instructions: and prn as needed for heartburn/indigestion sertraline 100 mg tablet 100 mg PO DAILY multivitamin Tablet 1 tab PO DAILY cholecalciferol (vitamin D3) 50 mcg (2,000 unit) capsule 50 mcg PO DAILY amlodipine 10 mg tablet 10 mg PO DAILY metformin 500 mg tablet extended release 24 hr 2,000 mg PO DAILY Jardiance 25 mg tablet 25 mg PO DAILY insulin lispro [Humalog KwikPen Insulin] 100 unit/mL insulin pen See Rx Instructions subcut USEASDIRECTD Rx Instructions: Directed subcut use as directed; rosuvastatin [Crestor] 40 MG tablet 40 mg PO HS atenolol 100 mg Tablet 100 mg PO DAILY chlorthalidone 50 mg Tablet 50 mg PO DAILY losartan 100 mg Tablet 100 mg PO DAILY pantoprazole [Protonix] 40 mg tablet,delayed release (DR/EC) 40 mg PO DAILY Qty: 90 4RF ferrous sulfate 220 mg (44 mg iron)/5 mL solution 110 mg PO DAILY Qty: 473 6RF Rx Instructions: -will cause constipation -will turn stools black testosterone 1 % (50 mg/5 gram) gel in packet 1 packet DAILY Toujeo Max U-300 SoloStar 300 unit/mL (3 mL) insulin pen 80 device SUBCUT BID Label Comments: INJECT 100 TO 200 UNITS SUBCUTANEOUSLY ONCE A DAY acetaminophen 500 mg tablet 1,000 mg PO TID Qty: 90 0RF ibuprofen 600 mg tablet 600 mg PO TID PRN (Reason: pain) Qty: 90 0RF Discontinued hydrocodone-acetaminophen 5-325 mg tablet 1 tab PO Q6H PRN (Reason: pain) Qty: 4 0RF Discharge Instructions Stand Alone Forms: Keenan Hunt Tunnel Release Referrals: Jan Hussein MD [ [facility] STAFF PHYSICIAN] - Activity:: Elevate Remove Dressings/Wound Care:: 48 hours Shower/Bathe:: 48 hours Activity:: Activity as Tolerated Diet:: As Tolerated DS: Diagnosis Discharge Diagnosis (1) Bilateral carpal tunnel syndrome: Status: Acute
[2022-02-21] MEDS: ceFAZolin 2 GM/50 ML BAG IVPB (07:29)
[2022-02-21] MEDS: Lidocaine 1% Pres-Free W/EPI 1/200,000 10 ML VIAL (07:36)
[2022-02-21 07:45] VITALS: BP 124/78; PULSE 84; RESP 16; TEMP 36.8; O2SAT 94
[2022-02-21 08:20] VITALS: BP 102/75; PULSE 80; RESP 16; TEMP 36.8; O2SAT 94
[2022-02-21 08:33] VITALS: BMI 36.5
--- NOTE | 2022-02-21 08:33 | W.ANESPOSTOP ---
Postoperative Evaluation Date, Time and Location Date Performed: 02/21/22 Time Performed: 08:34 Patient Location: Day Surgery Unit Vital Signs Most Recent Imported Vital Signs: Most Recent Vital Signs Temp Pulse Resp BP Pulse Ox 36.8 C 84 16 124/78 94 02/21/22 07:45 02/21/22 07:45 02/21/22 07:45 02/21/22 07:45 02/21/22 07:45 Pain Score Most Recent Pain Score: Most Recent Pain Score Pain Level 0 02/21/22 07:45 Assessment Mental Status: Awake (Alert & Oriented to Patient Baseline) Airway and Respiratory Function: Patent airway with normal (patient baseline) respiratory exam Cardiovascular Function: Hemodynamically Stable Hydration Status: Adequately Hydrated Nausea & Vomiting: No Nausea or Vomiting Pain: Pt. Denies Any Pain Peripheral Nerve Block: Patient did not receive a nerve block
--- NOTE | 2022-02-21 11:50 | W.PM.OP ---
Date of service: 02/21/22 Time of Service: 07:40 Operative Note Operative Note DATE OF PROCEDURE: 02/21/22 PRE-OP DIAGNOSIS: Left Carpal Tunnel Syndrome POST-OP DIAGNOSIS: same PROCEDURE: Left Endoscopic Carpal Tunnel Release SURGEON: Jan Hussein ANESTHESIA TYPE: General:No Airway Refer to Anesthesia Record ESTIMATED BLOOD LOSS: 0 PATHOLOGY: none sent TOURNIQUET TIME: 5 COMPLICATIONS: None Patient was transported to: same day Patient's condition: stable Indications: I have seen Alfredo in clinic for symptoms of carpal tunnel syndrome. The numbness, tingling, and pain limited function. Clinical exam findings with nerve conduction tests confirmed the diagnosis of carpal tunnel syndrome. Nonoperative measures such as bracing, time, activity modifications had been tried but disability and pain persisted. I discussed carpal tunnel release with the patient. I reviewed the risks of the procedure to include, but not limited to, bleeding, infection, pain, stiffness, incomplete release, damage to nerves or vessels, persistent numbness, recurrence. Despite these risks, the patient elected to proceed. Findings: There was tightened carpal tunnel. This was dilated and released successfully with the endoscopic with increased space within the tunnel. The antebrachial fascia was released proximally freeing the median nerve at the wrist. Procedure Description: Alfredo was greeted in the preoperative holding area where the correct side was identified and marked. The consent was reviewed with the patient and signed. The history and physical was updated. All questions were answered. He was taken back to the operating room. The patient was placed into the supine position on the operating room table with the left arm on an arm board. A nonsterile tourniquet was placed high onto the arm. All bony prominences were well padded. Prophylactic antibiotics in the form of Cefazolin were administered. The left arm was then prepped with Chloraprep and draped in a standard fashion with stockinette and extremity drape. A timeout to confirm correct identity, side and site, procedure, allergies, anesthesia, and medical concerns was performed. The surgical site was marked in the volar wrist creases in line with the radial border of the fourth ray. This area was anesthetized with approximately 6cc of 1% Lidocaine. The limb was then exsanguinated with an Esmarch. The skin was incised with a 15 blade, approximately 1cm. The skin only was cut and the deeper tissue was dissected bluntly with a tenotomy scissor, avoiding passing nerve and venous structures. The fascia was penetrated and opened bluntly. A two-prong skin hook was placed under this proximal fascial edge. A series of hamate finders were used to identify and dilate the carpal tunnel. Synovial elevator was used to free synovial attachments to the underside of the transverse carpal ligament. My thumb was kept in the palm to christian the distal extent of the carpal tunnel and correctly position the hand. The Microaire endoscope was inserted without difficulty and without resistance. Excellent visualization showed horizontally running fibers of the transverse carpal ligament (TCL). The distal extent of the TCL was visualized and the end of the scope palpated with the thumb. The blade was elevated and withdrawn from distal to proximal. The TCL was split into two flaps. The endoscope was reinserted to confirm complete release and any remnant ligament was incised. The scope was withdrawn and the proximal aspect of the carpal tunnel was grossly inspected and appeared release with the median nerve visible. The antebrachial fascia at the level of the wrist was then freed from the overlying skin and then the underlying median nerve with blunt dissection. This was transected longitudinally for about 3cm proximal to the wrist incision. The wound was then irrigated with easy flow of irrigant distally and proximally. The incision was closed with a single 4-0 Nylon suture. The wound was dressed with Xeroform, Gauze, Kerlix and Mak. The tourniquet was deflated with the initial dressing and held with some pressure. Blood flow returned easily to all digits with capillary refill less than 2 seconds. The suture was removed from the left wrist. The patient tolerated the procedure well and was returned to the Same Day Surgery area in a stable condition suffering no known complication.
== END 2022-02-21 08:45 | disposition home or self-care (01) ==
PROVIDERS: PCP Family Medicine; Visit Provider Student in an Organized Health Care Education/Training Program
PROC: 01N54ZZ Release Median Nerve, Percutaneous Endoscopic Approach (ICD-10-PCS; CPT 29848; principal; 2022-02-21 07:30)
DX: G56.02 Carpal tunnel syndrome, left upper limb (principal); E11.9 Type 2 diabetes mellitus without complications; I10 Essential (primary) hypertension
CPT/HCPCS: 29848; J0690; J1885; J2405

== ENCOUNTER 2022-04-07 15:02 | Outpatient (REF) | payer BC, SELFPAY ==
[2022-04-07 15:52] LABS: HCT 54.6 % (40.0-50.0); HGB 17.1 g/dL (13.5-17.5); MCH 24.2 pg (27.0-33.0); MCHC 31.3 % (32.0-36.0); MCV 77 fL (80-95); MPV 10.3 fL (8.0-11.0); Platelet Count 327 10^3/uL (130-400); RBC 7.07 10^6/uL (4.36-5.78); RDW-SD 38.7 fL; WBC 10.08 10^3/uL (4.4-10.8)
[2022-04-07 16:07] LABS: Anion Gap 10.4 mmol/L (3-11); BUN 20 mg/dL (7-18); CO2 27.6 mmol/L (21.0-32.0); CREATININE 0.9 mg/dL (0.70-1.30); Chloride 99 mmol/L (98-107); Estimated GFR 101.49 (mL/min/1.73m2); Ferritin 56 ng/mL (26-388); Glucose 105 mg/dL (74-106); Potassium 3.7 mmol/L (3.5-5.1); Sodium 137 mmol/L (136-145)
[2022-04-07 16:50] LABS: Hemoglobin A1C 9.3 % (<5.7)
[2022-04-15 15:47] LABS: Testosterone, Free 15.8 ng/dL (4.06-15.6); Testosterone, Total 362 ng/dL (240-950)
== END 2022-04-07 15:03 | disposition home or self-care (01) ==
LOC: NCHCN 15:02
PROVIDERS: PCP Family Medicine; Visit Provider Family Medicine
DX: R20.2 Paresthesia of skin (principal); E29.1 Testicular hypofunction; E11.65 Type 2 diabetes mellitus with hyperglycemia; D50.9 Iron deficiency anemia, unspecified
CPT/HCPCS: 80048; 84402; 84403; 85027; 82728; 83036

== ENCOUNTER 2022-04-21 18:00 | Outpatient (REF) | payer BC, SELFPAY ==
[2022-04-21 19:33] LABS: COMMENT (LAB VIEW ONLY) 111.24 mg/dL
[2022-04-21 19:35] LABS: Microalb ug/mg Crea 130.4 ug/mg Cr
== END 2022-04-21 18:01 | disposition home or self-care (01) ==
LOC: NCHCN 18:00
PROVIDERS: PCP Family Medicine; Visit Provider Family Medicine
DX: E11.65 Type 2 diabetes mellitus with hyperglycemia (principal); R80.9 Proteinuria, unspecified
CPT/HCPCS: 82043; 82570

== ENCOUNTER 2023-02-09 16:10 | Outpatient (REF) | payer BC, SELFPAY ==
[2023-02-09 20:27] LABS: COMMENT (LAB VIEW ONLY) 76.78 mg/dL
[2023-02-09 20:28] LABS: Microalb ug/mg Crea 365.5 ug/mg Cr
== END 2023-02-09 16:11 | disposition home or self-care (01) ==
LOC: NCHCN 16:10
PROVIDERS: PCP Family Medicine; Visit Provider Family Medicine
DX: E11.65 Type 2 diabetes mellitus with hyperglycemia (principal)
CPT/HCPCS: 82043; 82570

== ENCOUNTER 2023-02-27 08:57 | Emergency (ER) | payer BC, SELFPAY ==
[2023-02-27 09:03] VITALS: BP 168/92; PULSE 75; RESP 18; TEMP 37.1; O2SAT 93
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
[2023-02-27 09:08] VITALS: BP 168/92; PULSE 75; RESP 18; TEMP 37.1; O2SAT 93
[2023-02-27] MEDS: Ondansetron 4 MG/2 ML VIAL IVP (09:45)
[2023-02-27] MEDS: Normal Saline 1,000 ML 1000 ML IV (09:45)
[2023-02-27 09:47] LABS: Abs Immature Grans 0.02 10^3/uL (0.0-0.06); Absolute Basophil Count 0.02 10^3/uL (0.0-0.2); Absolute Eosinophil Count 0.11 10^3/uL (0.0-0.7); Absolute Lymphocyte Count 1.61 10^3/uL (1.2-3.4); Absolute Monocyte Count 0.43 10^3/uL (0.1-0.8); Absolute Neutrophil Count 4.82 10^3/uL (1.2-6.7); Basophils % 0.3; Eosinophils % 1.6; HCT 43.7 % (40.0-50.0); HGB 14.3 g/dL (13.5-17.5); Immature Grans % 0.3; MCH 25.7 pg (27.0-33.0); MCHC 32.7 % (32.0-36.0); MCV 79 fL (80-95); MPV 9.3 fL (8.0-11.0); Monocytes % 6.1; Neutrophils % 68.7; Platelet Count 209 10^3/uL (130-400); RBC 5.57 10^6/uL (4.36-5.78); RDW 13.8 % (11.8-14.1); RDW-SD 39.3 fL; WBC 7.01 10^3/uL (4.4-10.8)
[2023-02-27 09:52] LABS: Bilirubin Negative (Negative); Blood Trace-intact (Negative); Clarity Clear (Clear); Glucose >=1000 mg/dL (Negative); Ketones Trace mg/dL (Negative); Leukocyte Esterase Negative (Negative); Nitrite Negative (Negative); Specific Gravity 1.015 (1.005-1.025); Urobilinogen 0.2 mg/dL (Up to 0.2)
--- NOTE | 2023-02-27 09:55 | DI.CT_ITS ---
Exam(s) CT ABDOMEN PELVIS WO EXAM: CT ABDOMEN PELVIS WO CLINICAL HISTORY: LLQ and mid epigastric pain. TECHNIQUE: Imaging Protocol: Axial computed tomography images with coronal and sagittal reformatted images were created and reviewed CONTRAST MATERIAL: Intravenous: none Oral: None COMPARISON: CT CT ABDOMEN PELVIS W from 08/06/[address] CHEST PE CTA from 09/03/2018 FINDINGS: VISUALIZED LUNG BASES: No nodules nor pleural effusions evident. ABDOMEN: There is no ascites. LIVER: Liver is again noted to be hypodense implying steatosis. There are no discrete focal hepatic lesions. Liver size is again noted be slightly prominent. There are no obvious dilated intrahepatic ducts. GALLBLADDER/BILIARY: No obvious gallbladder pathology. CBD is not dilated. PANCREAS: No evidence of pancreatic mass nor dilatation of the pancreatic duct. SPLEEN: Spleen is not enlarged. No obvious intrasplenic lesions. ADRENALS: There are no significant adrenal masses. KIDNEYS:In lateral cortex of the right kidney there is an area of hypodensity measuring 1.3 x 1.2 cm, difficult to assess accurately without IV contrast. There is no obvious cyst at this location on pr ior study of 2019. No calculi nor hydronephrosis of the right kidney although there is some mild allegra nephric streaking evident, more so than previous. The left kidney appears unremarkable. There are n o radiopaque calculi evident in either kidney. No hydronephrosis. No hydroureter. No calculi at th e UVJ junctions nor within the nondistended urinary bladder.. ABDOMINAL AORTA: Abdominal aorta is not enlarged. LYMPH NODES: There is no retroperitoneal nor paraaortic adenopathy. ABDOMINAL WALL: Fat only containing left inguinal hernia appears unchanged from 2019. GI: There is no evidence of bowel obstruction, free air, nor abscess. There is a density in a right lower quadrant bowel loop which is probably an undigested pill in an I ileal loop. PELVIS: LYMPH NODES: There is no intrapelvic nor inguinal adenopathy. GI: No evidence of appendicitis.Redundant sigmoid but without evidence of diverticulitis. URINARY BLADDER: No obvious abnormality. REPRODUCTIVE: Seminal vesicles and prostate unremarkable. Prostate not enlarged nor calcified. OSSEOUS: Benign-appearing synovial pit in the left hip is unchanged from 2019. No significant osseou s lesions. No fractures. Multilevel chronic degenerative disc disease lower lumbar spine noted. De generative changes in the hips noted bilaterally, slightly more so on the left side. IMPRESSION: 1. No evidence of appendicitis nor sigmoid diverticulitis.. No obstructing renal calculi. 2. Fat only containing left inguinal hernia which is unchanged from prior CT scan 2019 3. Density in the right lower quadrant small bowel loop is probably an undigested pill. 4. There is a 13 x 12 mm hypodense area in the lateral cortex of the right kidney which was not pres ent in 2019. May represent a new cyst but difficult to assess without IV contrast. Recommend follow -up nonemergent ultrasound. Called to ER. RADIATION DOSE DELIVERED: Total DLP DATA REPOSITORY: All CT scans at this facility are submitted to the National Radiology Data Registry (NRDR) Dose Index Registry (DIR) with the [employer] (ACR). RADIATION OPTIMIZATION: All CT scans at this facility use at least one of these dose optimization te chniques: automated exposure control; mA and/or kV adjustment per patient size (includes targeted exa ms where dose is matched to clinical indication); or iterative reconstruction.
[2023-02-27 10:01] LABS: Bacteria Negative HPF (Negative); C & S Indicated? No; Casts Negative LPF (Negative); Crystals Negative HPF (Negative); Epithelial Cells Rare HPF (Negative); Mucus Negative (Negative); RBC 0-2 HPF (0-2); WBC 0-2 HPF (0-5)
[2023-02-27 10:04] LABS: ALT 39 U/L (16-63); AST 24 U/L (15-37); Albumin 3.4 g/dL (3.4-5.0); Alkaline Phosphatase 178 U/L (46-116); Anion Gap 12.4 mmol/L (3-11); BUN 20 mg/dL (7-18); Bilirubin, Total 0.4 mg/dL (0.2-1.0); CO2 25.6 mmol/L (21.0-32.0); CREATININE 0.9 mg/dL (0.70-1.30); Calcium 8.9 mg/dL (8.5-10.1); Chloride 100 mmol/L (98-107); Estimated GFR 100.86 (mL/min/1.73m2); Glucose 278 mg/dL (74-106); Lipase 54 U/L (16-77); Potassium 3.7 mmol/L (3.5-5.1); Sodium 138 mmol/L (136-145); Total Protein 7.3 g/dL (6.4-8.2)
== END 2023-02-27 11:59 | disposition home or self-care (01) ==
PROVIDERS: Emergency Provider Emergency Medicine Emergency Medical Services; PCP Family Medicine
DX: R10.84 Generalized abdominal pain (principal); K29.20 Alcoholic gastritis without bleeding; E11.65 Type 2 diabetes mellitus with hyperglycemia; Z79.4 Long term (current) use of insulin; Z79.899 Other long term (current) drug therapy; Z79.84 Long term (current) use of oral hypoglycemic drugs; Z88.1 Allergy status to other antibiotic agents; Z88.5 Allergy status to narcotic agent; Z88.8 Allergy status to other drugs, medicaments and biological substances; I10 Essential (primary) hypertension; E78.5 Hyperlipidemia, unspecified; Z72.0 Tobacco use
CPT/HCPCS: 36415; 80053; 83690; 96374; 99285; 74176; 81003; 81015; 85025; 99284; J2405

== ENCOUNTER 2023-03-16 16:17 | Outpatient (REF) | payer BC, SELFPAY ==
[2023-03-21 05:29] LABS: EDDP-by GC-MS Negative ng/mL (Cutoff: 100); Methadone Interpretation Negative.; Methadone-by GC-MS Negative ng/mL (Cutoff: 100)
== END 2023-03-16 16:18 | disposition home or self-care (01) ==
LOC: NCHCN 16:17
PROVIDERS: PCP Family Medicine; Visit Provider Family Medicine
DX: F10.939 Alcohol use, unspecified with withdrawal, unspecified (principal)
CPT/HCPCS: 80358

== ENCOUNTER 2023-03-27 07:46 | Emergency (ER) | payer BC, SELFPAY ==
[2023-03-27 07:53] VITALS: BP 190/120; PULSE 90; RESP 18; TEMP 36.4; O2SAT 98
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
[2023-03-27 10:07] VITALS: BP 168/121; PULSE 89; RESP 20; O2SAT 97
== END 2023-03-27 10:21 | disposition home or self-care (01) ==
PROVIDERS: Emergency Provider Emergency Medicine; PCP Family Medicine
DX: F10.239 Alcohol dependence with withdrawal, unspecified (principal); I10 Essential (primary) hypertension
CPT/HCPCS: 99283

== ENCOUNTER 2023-05-18 09:05 | Outpatient (REF) | payer BC, SELFPAY ==
[2023-05-18 16:25] LABS: Hemoglobin A1C 11.9 % (<5.7)
== END 2023-05-18 09:06 | disposition home or self-care (01) ==
LOC: NCHCN 09:05
PROVIDERS: PCP Family Medicine; Visit Provider Family Medicine
DX: E11.65 Type 2 diabetes mellitus with hyperglycemia (principal)
CPT/HCPCS: 83036

== ENCOUNTER 2023-06-25 16:54 | Outpatient (REF) | payer BC, SELFPAY ==
[2023-07-03 13:25] LABS: EDDP-by GC-MS 570 ng/mL (Cutoff: 100); Methadone-by GC-MS 710 ng/mL (Cutoff: 100)
== END 2023-06-25 16:55 | disposition home or self-care (01) ==
LOC: NCHCN 16:54
PROVIDERS: PCP Family Medicine; Visit Provider Family Medicine
DX: F11.20 Opioid dependence, uncomplicated (principal); Z79.899 Other long term (current) drug therapy
CPT/HCPCS: 80358

== ENCOUNTER 2023-08-04 10:30 | Emergency (ER) | payer BC, SELFPAY ==
[2023-08-04 10:31] VITALS: BP 99/57; PULSE 65; RESP 16; TEMP 36.9; O2SAT 95
--- NOTE | 2023-08-04 10:45 | DI.RAD_ITS ---
Exam(s) XR PORTABLE CHEST AP EXAM: XR PORTABLE CHEST AP CLINICAL HISTORY: ams TECHNIQUE: 2D digital imaging was performed. COMPARISON: CT CT CHEST WO from 02/13/2023 FINDINGS: Limited exam due to under penetration and poor pulmonary inflation. LUNGS: Clear. No pleural abnormality seen. HEART: Normal size. AORTA: Normal diameter. BONES: Unremarkable for age. Soft tissues: Unremarkable. IMPRESSION: No acute findings. DATA REPOSITORY: RADIATION DOSE DELIVERED:
--- NOTE | 2023-08-04 10:45 | DI.CT_ITS ---
Exam(s) CT HEAD CERVICAL SPINE WO EXAM: CT HEAD CERVICAL SPINE WO CLINICAL HISTORY: ams, neck pain. TECHNIQUE: Imaging Protocol: Axial computed tomography images with coronal and sagittal reformatted images were created and reviewed COMPARISON: No exams were available for comparison FINDINGS: Head CT Ventricles and Extra axial spaces: Normal in size and morphology for the patient's age. Hemorrhage: None. Cerebral parenchyma: No evidence of mass or acute infarct. Mild atrophy. Midline shift: None. Brainstem/Cerebellum: Normal. Calvarium: Normal. Visualized Paranasal sinuses/Mastoids: Clear. Soft tissues: Unremarkable. Cervical Spine CT BONES: Vertebral body heights are maintained. Reversal of the normal cervical lordosis, in part secon samuel to patient positioning. There is no evidence of acute fracture. Degenerative disc changes and facet degenerative changes are seen. No significant central canal sten osis. SOFT TISSUES: No paraspinal hematoma. The airway appears intact. No pneumothorax is seen at the lung apices. IMPRESSION: Head CT: No acute abnormality. C-spine CT: Degenerative changes, no acute abnormality. RADIATION DOSE DELIVERED: Total DLP DATA REPOSITORY: All CT scans at this facility are submitted to the National Radiology Data Registry (NRDR) Dose Index Registry (DIR) with the [employer] (ACR). RADIATION OPTIMIZATION: All CT scans at this facility use at least one of these dose optimization te chniques: automated exposure control; mA and/or kV adjustment per patient size (includes targeted exa ms where dose is matched to clinical indication); or iterative reconstruction.
--- NOTE | 2023-08-04 10:45 | RT.EKG_ITS ---
APPROVED REPORT Exam: Resting ECG Reason for Exam: weakness Patient Location: E HR:64 bpm ECG Measurements Heart Rate 64 AXIS WA 191 P 39 QRSd 120 QRS 21 QT 485 T 17 QTc 501 Conclusion Sinus rhythm...normal P axis, V-rate 60- 99 Nonspecific intraventricular conduction delay...QRSd >115mS, not LBBB/RBBB
[2023-08-04 11:02] LABS: BE (Venous) 4 mmol/L (-2-3); HCO3 (Venous) 29 mmol/L (23-28); O2 Sat (Venous) 89 %; TCO2 (Venous) 26 mmol/L (24-29); pCO2 (Venous) 49 mmHg (41-51); pH (Venous) 7.37 (7.31-7.41); pO2 (Venous) 59 mmHg
[2023-08-04 11:04] LABS: Abs Immature Grans 0.04 10^3/uL (0.0-0.06); Absolute Basophil Count 0.02 10^3/uL (0.0-0.2); Absolute Eosinophil Count 0.17 10^3/uL (0.0-0.7); Absolute Monocyte Count 0.45 10^3/uL (0.1-0.8); Absolute Neutrophil Count 3.13 10^3/uL (1.2-6.7); Basophils % 0.3 %; Eosinophils % 2.8 %; HCT 38.9 % (40.0-50.0); HGB 12.6 g/dL (13.5-17.5); Immature Grans % 0.7 %; Lymphocytes % 37.6 %; MCH 26.6 pg (27.0-33.0); MCHC 32.4 % (32.0-36.0); MCV 82 fL (80-95); Monocytes % 7.4 %; Neutrophils % 51.2 %; Platelet Count 257 10^3/uL (130-400); RBC 4.73 10^6/uL (4.36-5.78); RDW 13.6 % (11.8-14.1); RDW-SD 40.6 fL; WBC 6.11 10^3/uL (4.4-10.8)
[2023-08-04] MEDS: Lactated Ringers 1,000 ML 1000 ML IV (11:08)
--- NOTE | 2023-08-04 11:14 | DI.VRAD_ITS ---
PROCEDURE INFORMATION: Exam: XR Chest Exam date and time: 08/04/2023 11:05 AM Age: 57 years old Clinical indication: Other: AMS TECHNIQUE: Imaging protocol: Radiologic exam of the chest. Views: 1 view. COMPARISON: No relevant prior studies are available for comparison. FINDINGS: Lungs: Mild pulmonary vascular congestion. Pleural spaces: No large pleural effusion seen. Heart/Mediastinum: Enlarged cardiac silhouette. Bones/joints: Grossly unremarkable. IMPRESSION: Mild pulmonary vascular congestion and enlarged cardiac silhouette. Correlate clinically for possible heart failure. Dictated and Authenticated by: Anna Candelario MD. Ordering:BRADLY Ennis MD
[2023-08-04 11:15] LABS: Ammonia 23 umol/L (11-32)
--- NOTE | 2023-08-04 11:21 | DI.CT_ITS ---
Exam(s) CT CHEST/ABD/PEL W CT THORACIC LUMBAR SPINE REC EXAM: CT CHEST/ABD/PEL W CLINICAL HISTORY: back pain, abd pain. TECHNIQUE: Imaging Protocol: Axial computed tomography images with coronal and sagittal reformatted images were created and reviewed. Additional axial, coronal and sagittal images of the thoracic and lumbar spine were reconstructed in bone algorithm. CONTRAST MATERIAL: Intravenous: Omnipaque 350 Contrast volume:100 ml Oral: no COMPARISON: CT CT CHEST WO from 02/13/2023 CR,XR XR PORTABLE CHEST AP from 08/04/[address] THORACIC LUMBAR SPINE REC from 08/04/2023 FINDINGS: CHEST: Exam is limited by motion and arm positioning. Tracheobronchial tree: Secretions in esophagus. Evaluation of distal bronchi limited due to respirat ory motion. Pulmonary parenchyma: Evaluation is significantly limited due to respiratory motion. Patchy, ground- glass infiltrates noted in the left upper lobe. Pleura: No effusion or pneumothorax. Lymph nodes: Within normal limits. Aorta: Thoracic portion non-dilated. Heart: No pericardial effusion. Heart mildly enlarged. Coronary artery calcifications. Bones: Mild scoliosis. Mild degenerative changes. No lytic or blastic lesions.No compression fractu res. Soft tissues: Unremarkable. Small hiatal hernia. ABDOMEN and PELVIS: Liver: Enlarged. Mild to moderate steatosis. No measurable mass. Gallbladder and biliary tract: No evidence of stones or wall thickening. No biliary dilatation. Pancreas: Normal density, no abnormal calcifications or inflammatory process. Spleen: Normal. Kidneys: Normal size, contour and axis. No radiodense stones. No obstructive uropathy. No suspicious masses seen. Adrenal glands: No masses seen. Aorta: Abdominal portion non-dilated. Atherosclerotic changes. Lymph nodes: Within normal limits. Soft tissues: Unremarkable. Bladder: Unremarkable. Bowel: No obstruction or bowel wall thickening. Peritoneal cavity: No ascites. No focal collection. No mesenteric inflammatory response. Bones: sacralization of L5. Degenerative disc changes from L2-3 through L4-5. Reproductive organs: Within normal limits. IMPRESSION: Limited evaluation of the lungs due to significant respiratory motion. Ground-glass infiltrate in th e left upper lobe. Clinical correlation recommended. No acute abnormality in the abdomen or pelvis. No acute abnormality in the thoracic or lumbar spine. RADIATION DOSE DELIVERED: Total DLP DATA REPOSITORY: All CT scans at this facility are submitted to the National Radiology Data Registry (NRDR) Dose Index Registry (DIR) with the [employer] (ACR). RADIATION OPTIMIZATION: All CT scans at this facility use at least one of these dose optimization te chniques: automated exposure control; mA and/or kV adjustment per patient size (includes targeted exa ms where dose is matched to clinical indication); or iterative reconstruction.
[2023-08-04] MEDS: Normal Saline - Diluent 50 ML VIAL IJ (11:29)
[2023-08-04] MEDS: Omnipaque 350 MG/ML 100 ML BTL IJ (11:31)
[2023-08-04 11:43] LABS: ALT 34 U/L (16-63); AST 32 U/L (15-37); Albumin 2.9 g/dL (3.4-5.0); Alkaline Phosphatase 108 U/L (46-116); Anion Gap 10.6 mmol/L (3-11); BUN 14 mg/dL (7-18); Bilirubin, Total 0.2 mg/dL (0.2-1.0); CO2 29.4 mmol/L (21.0-32.0); CREATININE 0.9 mg/dL (0.70-1.30); Calcium 8.7 mg/dL (8.5-10.1); Chloride 100 mmol/L (98-107); Creatine Kinase 243 U/L (39-308); ETHANOL BLOOD 121.9 mg/dL (<10); Estimated GFR 100.86 (mL/min/1.73m2); Glucose 269 mg/dL (74-106); Lipase 33 U/L (16-77); Sodium 140 mmol/L (136-145); Total Protein 6.7 g/dL (6.4-8.2); Troponin I < 50 ng/L (< or =60)
[2023-08-04 11:44] LABS: Potassium 2.7 mmol/L (3.5-5.1)
[2023-08-04 11:54] LABS: Bilirubin Negative (Negative); Blood Negative (Negative); Clarity Clear (Clear); Glucose 100 mg/dL (Negative); Ketones Negative (Negative); Leukocyte Esterase Negative (Negative); Nitrite Negative (Negative); Urobilinogen 0.2 mg/dL (Up to 0.2)
[2023-08-04 12:12] LABS: *AMPHETAMINES SCREEN URINE Negative (Negative); *BARBITURATES SCREEN URINE Negative (Negative); *BENZODIAZEPINES SCREEN URINE Positive (Negative); Cannabinoids THC Negative (Negative); Cocaine Screen,Urine Negative (Negative); METHADONE URINE SCREEN Negative (Negative); OPIATES URINE SCREEN Negative (Negative); Tricyclic Antidepressants Negative (Negative)
--- NOTE | 2023-08-04 12:14 | DI.VRAD_ITS ---
PROCEDURE INFORMATION: Exam: CT Head Without Contrast Exam date and time: 08/04/2023 11:44 AM Age: 57 years old Clinical indication: Pain; Other: AMS; Patient HX: Patient unable to answer questions TECHNIQUE: Imaging protocol: Computed tomography of the head without contrast. COMPARISON: No relevant prior studies available. FINDINGS: Brain: Normal. No hemorrhage. Unremarkable white matter. No mass effect. Cerebral ventricles: No ventriculomegaly. Pituitary gland and sella: Partially empty sella. Paranasal sinuses: Visualized sinuses are unremarkable. No fluid levels. Mastoid air cells: Visualized mastoid air cells are well aerated. Bones: Unremarkable. No acute fracture. Soft tissues: Unremarkable. IMPRESSION: No large territorial infarct or intracranial bleed. PROCEDURE INFORMATION: Exam: CT Cervical Spine Without Contrast Exam date and time: 08/04/2023 11:44 AM Age: 57 years old Clinical indication: Pain; Other: AMS; Patient HX: Patient unable to answer questions TECHNIQUE: Imaging protocol: Computed tomography of the cervical spine without contrast. COMPARISON: CT CHEST WO 02/13/2023 8:08 AM FINDINGS: Bones: There is reversal of the cervical lordosis. Mild degenerative the anterior C1-C2 articulation. Mild anterolisthesis of C4 over C5. No compression deformity of the vertebral bodies. There is a posterior C5-C6 osteophyte disc complex causing minimal thecal sac compression. Lungs: Lung apices are normal. Vasculature: Bilateral carotid calcifications. Soft tissues: Unremarkable. IMPRESSION: No acute findings. Dictated and Authenticated by: Weston Green MD. Ordering:BRADLY Ennis MD
[2023-08-04] MEDS: POTASSIUM CHLORIDE 20 MEQ/100 ML BAG 50 MEQ IVINF (12:19)
[2023-08-04 12:29] VITALS: BP 99/57; PULSE 65; RESP 15; RESP 16; TEMP 36.9; O2SAT 95
--- NOTE | 2023-08-04 12:35 | DI.VRAD_ITS ---
PROCEDURE INFORMATION: Exam: CT Chest With Contrast; Diagnostic Exam date and time: 08/04/2023 11:53 AM Age: 57 years old Clinical indication: Abdominal pain; Other: Back; Patient HX: Patient poor historian TECHNIQUE: Imaging protocol: Diagnostic computed tomography of the chest with contrast. Contrast material: OMNIPAQUE 350; Contrast volume: 100 ml; Contrast route: INTRAVENOUS (IV); COMPARISON: No relevant prior studies are available for comparison. FINDINGS: Limitations: Images degraded due to artifact caused by patient motion and arm positioning. Trachea: Secretions in the trachea. Lungs: Patchy ground-glass opacities in the left upper lobe. Subcentimeter ground-glass opacities in the right middle lobe and lingula. Subcentimeter right lower lobe nodule. Follow-up per institutional protocol if prior studies do not adequately document stability. Pleural spaces: No pleural effusion. Heart: No pericardial effusion. Coronary arteries: Coronary artery calcifications. Lymph nodes: Nonspecific mediastinal lymph nodes. Vasculature: No thoracic aortic aneurysm. Diaphragm: Small hiatal hernia. Intraperitoneal space: CT scan of the abdomen and pelvis dictated separately. Bones/joints: No acute pertinent abnormality appreciated. Soft tissues: No acute pertinent abnormality appreciated. IMPRESSION: 1. Patchy ground-glass opacities in the left upper lobe. Consider edema, infection. Follow-up as clinically warranted. 2. Additional findings as above. 3. Additional studies dictated separately. PROCEDURE INFORMATION: Exam: CT Abdomen And Pelvis With Contrast Exam date and time: 08/04/2023 11:53 AM Age: 57 years old Clinical indication: Abdominal pain; Other: Back; Patient HX: Patient poor historian TECHNIQUE: Imaging protocol: Computed tomography of the abdomen and pelvis with contrast. Contrast material: OMNIPAQUE 350; Contrast volume: 100 ml; Contrast route: INTRAVENOUS (IV); COMPARISON: CT ABDOMEN PELVIS WO 02/27/2023 9:50 AM FINDINGS: Limitations: Images degraded due to artifact caused by patient motion and arm positioning. Liver: Hepatomegaly. Hepatic steatosis. Gallbladder and bile ducts: No radiodense gallbladder calculi seen. Pancreas: No CT evidence for acute pancreatitis. Spleen: Splenomegaly. Adrenal glands: No mass. Kidneys and ureters: Right renal cyst. No hydronephrosis. Stomach and bowel: Apparent gastric thickening commensurate with underdistention. No intestinal obstruction is evident. Fluid in nondilated small bowel, nonspecific. Retained fecal material in the colon. Correlate clinically for history of constipation. Questionable focal thickening in the ascending colon. Appendix: No evidence of appendicitis. Intraperitoneal space: No free air. Vasculature: No abdominal aortic aneurysm. Lymph nodes: Nonspecific mesenteric lymph nodes. Urinary bladder: Distended urinary bladder. Reproductive: No acute findings. Bones/joints: No pertinent acute abnormality seen. Soft tissues: No pertinent acute abnormality seen. IMPRESSION: 1. Questionable focal thickening in the ascending colon, most likely transient/related to underdistention. Cannot exclude an underlying lesion. Consider follow-up if clinically warranted. 2. Additional findings as above. 3. Additional studies dictated separately. Dictated and Authenticated by: Anna Candelario MD. Ordering:BRADLY Ennis MD
--- NOTE | 2023-08-04 13:03 | DI.VRAD_ITS ---
PROCEDURE INFORMATION: Exam: CT Thoracic Spine Without Contrast Exam date and time: 08/04/2023 11:53 AM Age: 57 years old Clinical indication: Low back pain; Pain in thoracic spine TECHNIQUE: Imaging protocol: Computed tomography of the thoracic spine without contrast. COMPARISON: CT CHEST/ABD/PEL W 08/04/2023 11:53 AM FINDINGS: Bones/joints: No compression deformity of the vertebral bodies. No spondylolisthesis. Posterior osteophyte disc complexes at T7-T8 and T8-T9 causing mild thecal sac compression and mild neural foraminal narrowing. No acute fracture or dislocation. Soft tissues: Unremarkable. Vasculature: Vascular calcifications. Pocket of air in the left internal jugular vein, related to injection. Coronary arteries: Moderate coronary artery calcifications. IMPRESSION: 1. No acute fracture or dislocation. 2. No severe thecal sac compression or neural foraminal narrowing. PROCEDURE INFORMATION: Exam: CT Lumbar Spine Without Contrast Exam date and time: 08/04/2023 11:53 AM Age: 57 years old Clinical indication: Low back pain; Pain in thoracic spine TECHNIQUE: Imaging protocol: Computed tomography of the lumbar spine without contrast. COMPARISON: CT CHEST/ABD/PEL W 08/04/2023 11:53 AM FINDINGS: Bones/joints: Mild degenerative disease of bilateral sacroiliac joints and bilateral hip joints. Minimal curvature of the upper lumbar spine convex to the right. No compression deformity of the vertebral bodies. No spondylolisthesis. There is sacralization of L5. At L2-L3, there is narrowing of the disc space with posterior osteophyte disc complex and bilateral facet joint arthropathy causing facb-vs-ryxieuok thecal sac compression and moderate narrowing of both neural foramina. At L3-L4, there is a posterior osteophyte disc complex with bilateral facet joint arthropathy and ligamentum flavum hypertrophy causing moderate thecal sac compression and moderate narrowing of both neural foramina, more on the right. At L4-L5, there is a posterior osteophyte disc complex causing mild thecal sac compression. Bilateral facet joint arthropathy. Constellation findings are causing moderate to severe narrowing of both neural foramina, more on the right. Urinary bladder: Over distended bladder. Vasculature: Aortoiliac calcifications. Soft tissues: Unremarkable. IMPRESSION: 1. Moderate degenerative disease of the lumbar spine. 2. No acute fracture. Dictated and Authenticated by: Weston Green MD. Ordering:BRADLY Ennis MD
[2023-08-04 13:51] VITALS: BP 125/71; PULSE 64; RESP 12; O2SAT 94
[2023-08-04 14:01] LABS: Magnesium 1.6 mg/dL (1.8-2.4)
[2023-08-04] MEDS: Potassium Chloride 20 MEQ TABCR 40 MEQ PO (14:16)
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
--- NOTE | 2023-08-04 14:23 | NUR.NOTE ---
Pt O2 dipping into the mid 80's 2L O2 applied to pt via NC. Stats now in mid 90's. Nursing Note:
[2023-08-04] MEDS: Magnesium Oxide 400 MG TAB 800 MG PO (14:34)
[2023-08-04 15:41] VITALS: BP 125/71; PULSE 64; RESP 12; TEMP 36.6; O2SAT 94
== END 2023-08-04 16:02 | disposition home or self-care (01) ==
PROVIDERS: Emergency Provider Physician Assistant; PCP Family Medicine
DX: F10.129 Alcohol abuse with intoxication, unspecified (principal); E87.6 Hypokalemia; E83.42 Hypomagnesemia; F17.210 Nicotine dependence, cigarettes, uncomplicated; Y90.6 Blood alcohol level of 120-199 mg/100 ml; I10 Essential (primary) hypertension; E78.5 Hyperlipidemia, unspecified; E11.9 Type 2 diabetes mellitus without complications; Z79.4 Long term (current) use of insulin; Z79.84 Long term (current) use of oral hypoglycemic drugs
CPT/HCPCS: 74177; 80053; 80307; 82550; 82805; 82962; 83690; 93005; 96361; 96365; 96366; 99285; 70450; 71045; 71260; 72125; 80320; 81003; 82140; 83735; 84443; 84484; 85025; 93010; 99284; J3480; J3490

== ENCOUNTER 2024-02-04 08:31 | Emergency (ER) | payer BC, SELFPAY ==
[2024-02-04] VITALS (9 sets, daily range): BP systolic 177–215; BP diastolic 93–121; PULSE 78–82; RESP 14–30; TEMP 36.6–36.9; O2SAT 92–97
--- NOTE | 2024-02-04 09:00 | DI.RAD_ITS ---
Exam(s) XR ELBOW LT COMPLETE EXAM: XR ELBOW LT COMPLETE CLINICAL HISTORY: redness, pain. TECHNIQUE: 2D digital imaging was performed of the left elbow. Three images were obtained. AP, lat eral and oblique views were obtained. COMPARISON: CR LEFT ELBOW COMPLETE from 02/07/2017 FINDINGS: BONES: No acute fracture is present. No bony destructive lesion is seen. JOINTS: The elbow is normally aligned. No joint effusion is seen. SOFT TISSUE: Compared to the prior examination, there is swelling over the olecranon seen on the late ral view. No soft tissue gas is appreciated. IMPRESSION: 1. No acute fracture or joint effusion. 2. Soft tissue swelling over the olecranon. No soft tissue gas. DATA REPOSITORY: RADIATION DOSE DELIVERED:
[2024-02-04 09:33] LABS: Abs Immature Grans 0.04 10^3/uL (0.0-0.06); Absolute Basophil Count 0.02 10^3/uL (0.0-0.2); Absolute Eosinophil Count 0.03 10^3/uL (0.0-0.7); Absolute Lymphocyte Count 1.19 10^3/uL (1.2-3.4); Absolute Monocyte Count 0.56 10^3/uL (0.1-0.8); Absolute Neutrophil Count 4.76 10^3/uL (1.2-6.7); Basophils % 0.3 %; Eosinophils % 0.5 %; HCT 43.4 % (40.0-50.0); HGB 14.3 g/dL (13.5-17.5); Immature Grans % 0.6 %; MCH 26.4 pg (27.0-33.0); MCHC 32.9 % (32.0-36.0); MCV 80 fL (80-95); MPV 9.4 fL (8.0-11.0); Monocytes % 8.5 %; Neutrophils % 72.1 %; Platelet Count 217 10^3/uL (130-400); RBC 5.42 10^6/uL (4.36-5.78); RDW 14.1 % (11.8-14.1); RDW-SD 41.3 fL
[2024-02-04 09:35] LABS: ESR 73 mm/hr (0-20)
[2024-02-04] MEDS: Ondansetron 4 MG/2 ML VIAL IVP (09:55)
[2024-02-04] MEDS: diazePAM 10 MG/2 ML SYR 5 MG IVP (09:55)
[2024-02-04 09:56] LABS: ALT 42 U/L (16-63); AST 36 U/L (15-37); Albumin 3.1 g/dL (3.4-5.0); Alkaline Phosphatase 187 U/L (46-116); Anion Gap 18.1 mmol/L (3-11); BUN 12 mg/dL (7-18); Bilirubin, Total 0.32 mg/dL (0.2-1.0); CO2 23.9 mmol/L (21.0-32.0); CREATININE 0.7 mg/dL (0.70-1.30); Calcium 10.2 mg/dL (8.5-10.1); Chloride 99 mmol/L (98-107); Estimated GFR 108.14 (mL/min/1.73m2); Glucose 349 mg/dL (74-106); Magnesium 1.9 mg/dL (1.8-2.4); Potassium 3.6 mmol/L (3.5-5.1); Sodium 141 mmol/L (136-145); Total Protein 7.7 g/dL (6.4-8.2)
[2024-02-04 10:12] LABS: C-Reactive Protein 2.03 mg/dL (<or=0.5); Uric Acid 4.2 mg/dL (3.5-7.2)
[2024-02-04 10:32] LABS: BE (Venous) -1 mmol/L (-2-3); HCO3 (Venous) 24 mmol/L (23-28); O2 Sat (Venous) 99 %; TCO2 (Venous) 21 mmol/L (24-29); pCO2 (Venous) 41 mmHg (41-51); pH (Venous) 7.37 (7.31-7.41); pO2 (Venous) 98 mmHg
[2024-02-04] MEDS: Cefuroxime 500 MG TAB PO (10:43)
[2024-02-04] MEDS: Doxycycline Hyclate 100 MG CAP PO (10:43)
--- NOTE | 2024-02-04 10:55 | NUR.NOTE ---
Nursing Note: Called Dr. Cortez office and spoke w/Care Management Nati. Nati was updated on findings today in the ER and his declining admission. 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 PCP office updating on patients diagnosis and risk for deterioration and needing admission. Requesting respite care resources to be worked on for . PCP office to reach out and look for resources.
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
== END 2024-02-04 10:58 | disposition home or self-care (01) ==
PROVIDERS: Emergency Provider Physician Assistant; PCP Family Medicine
DX: M71.122 Other infective bursitis, left elbow (principal); F10.20 Alcohol dependence, uncomplicated; E11.65 Type 2 diabetes mellitus with hyperglycemia; I10 Essential (primary) hypertension; Z79.84 Long term (current) use of oral hypoglycemic drugs; Z79.4 Long term (current) use of insulin
CPT/HCPCS: 20605; 36415; 80053; 82805; 85652; 87077; 96374; 96375; 99284; 73080; 83735; 84550; 85025; 86140; 87070; 87186; 87205; J2405; J3360

== ENCOUNTER 2024-02-19 10:01 | Emergency (ER) | payer BC, SELFPAY ==
[2024-02-19] VITALS (59 sets, daily range): BP systolic 123–196; BP diastolic 68–123; PULSE 62–169; RESP 11–32; TEMP 36.8; O2SAT 80–97
--- NOTE | 2024-02-19 | DI.CT_ITS ---
Exam(s) CT THORACIC LUMBAR SPINE REC EXAM: CT THORACIC LUMBAR SPINE REC [place] [facility] [place] COMPARISON: CR XR THORACIC SPINE COMPLETE from 02/19/2024 CR XR LUMBAR SPINE COMPLETE from 02/19/[address] CHEST/ABD/PEL W from 02/19/2024 FINDINGS: THORACIC SPINAL COLUMN: There are no thoracic vertebral fractures nor listhesis. No canal compromise in the thoracic spinal column. LUMBOSACRAL SPINAL COLUMN: There is a superior endplate compression fracture on the anterior left judit e of the L2 vertebral body. Fracture does not extend into the pedicles and does not involve the post erior cortex and there is no retropulsion. No compromise of the lumbosacral spinal canal at this lev el. Otherwise there is multilevel degenerative disc disease. There is significant central spinal canal s tenosis at L3-4 and L4-5 levels. Also element of canal stenosis at L5-S1. Vacuum phenomena M seen w ithin multiple disc spaces throughout the lumbosacral spine. IMPRESSION: Compression fracture of the anterior-left side of L2 vertebral body. No canal compromise at this lev el. Multilevel chronic degenerative disc disease and multilevel spinal canal stenosis in the lumbar spine as described above Thoracic vertebrae appear unremarkable
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
[2024-02-19 10:23] LABS: Abs Immature Grans 0.03 10^3/uL (0.0-0.06); Absolute Basophil Count 0.04 10^3/uL (0.0-0.2); Absolute Lymphocyte Count 1.89 10^3/uL (1.2-3.4); Absolute Monocyte Count 0.41 10^3/uL (0.1-0.8); Absolute Neutrophil Count 3.04 10^3/uL (1.2-6.7); Basophils % 0.7 %; Eosinophils % 1.8 %; HCT 42.5 % (40.0-50.0); HGB 13.7 g/dL (13.5-17.5); Immature Grans % 0.5 %; Lymphocytes % 34.3 %; MCH 26.8 pg (27.0-33.0); MCHC 32.2 % (32.0-36.0); MCV 83 fL (80-95); MPV 9.2 fL (8.0-11.0); Monocytes % 7.4 %; Neutrophils % 55.3 %; Platelet Count 222 10^3/uL (130-400); RBC 5.11 10^6/uL (4.36-5.78); RDW 15.5 % (11.8-14.1); RDW-SD 46.4 fL; WBC 5.51 10^3/uL (4.4-10.8)
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
[2024-02-19 10:38] LABS: INR 0.9 (0.9-1.1); PTT Activated 35.6 sec (23.6-32.8); Prothrombin Time 9.2 sec (9.1-11.1)
--- NOTE | 2024-02-19 10:39 | NUR.NOTE ---
Vandana Perez, (Mom) [phone] Conrad (Son) [phone] Nursing Note:
[2024-02-19 10:49] LABS: ETHANOL BLOOD 277.4 mg/dL (<10)
[2024-02-19 10:55] LABS: ALT 50 U/L (16-63); AST 70 U/L (15-37); Albumin 3.4 g/dL (3.4-5.0); Alkaline Phosphatase 211 U/L (46-116); Anion Gap 12.8 mmol/L (3-11); BUN 15 mg/dL (7-18); Bilirubin, Total 0.23 mg/dL (0.2-1.0); CO2 26.2 mmol/L (21.0-32.0); CREATININE 0.7 mg/dL (0.70-1.30); Calcium 8.7 mg/dL (8.5-10.1); Chloride 101 mmol/L (98-107); Estimated GFR 108.14 (mL/min/1.73m2); Glucose 363 mg/dL (74-106); Magnesium 1.7 mg/dL (1.8-2.4); Potassium 3.4 mmol/L (3.5-5.1); Sodium 140 mmol/L (136-145); Total Protein 7.8 g/dL (6.4-8.2)
[2024-02-19] MEDS: Normal Saline - Diluent 50 ML VIAL IJ (10:59)
[2024-02-19] MEDS: Omnipaque 350 MG/ML 500 ML BTL-Imaging package IJ (11:06)
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
[2024-02-19 12:22] LABS: Troponin I 11 ng/L (<or=76)
[2024-02-19] MEDS: ACETAMINOPHEN 1,000 MG/100 ML BAG 400 MG IVPB (12:31)
--- NOTE | 2024-02-19 13:30 | DI.RAD_ITS ---
Exam(s) XR THORACIC SPINE COMPLETE EXAM: XR THORACIC SPINE COMPLETE CLINICAL HISTORY: upright for further assessemtn for fx. TECHNIQUE: 2D digital imaging was performed. Three views. COMPARISON: CT CT CHEST/ABD/PEL W from 02/19/2024 FINDINGS: BONES: There is no fracture or destructive lesion. ALIGNMENT: Within normal limits. DISKS: Interverebral disc spaces are maintained. Small to moderate-sized endplate osteophytes, grea ter on the right in the mid to lower thigh thoracic levels. SOFT TISSUE: Visualized lungs are clear. Heart size is normal. IMPRESSION: Degenerative changes. No acute abnormality. DATA REPOSITORY: RADIATION DOSE DELIVERED:
--- NOTE | 2024-02-19 13:30 | DI.RAD_ITS ---
Exam(s) XR LUMBAR SPINE COMPLETE EXAM: XR LUMBAR SPINE COMPLETE CLINICAL HISTORY: upright for further assessemtn for fx. TECHNIQUE: 2D digital imaging was performed. Five views. COMPARISON: CT CT CHEST/ABD/PEL W from 02/19/2024 FINDINGS: BONES: Mild compression fracture of the left side of the superior endplate of L1, unchanged from rece nt CT. No additional fractures are identified. Vertebral body heights are maintained. No facet h ypertrophy identified . DISKS: Multilevel disc space narrowing and endplate osteophytes. ALIGNMENT: Mild degenerative scoliosis. SOFT TISSUE: The aorta is calcified and normal in diameter. Residual contrast material in the renal collecting systems and bladder. No hydronephrosis. Bladder is intact. Bowel gas pattern is unremar kable. IMPRESSION: Mild compression fracture of the left side of the superior anterior endplate of L1. DATA REPOSITORY: RADIATION DOSE DELIVERED:
[2024-02-19] MEDS: Lidocaine 5% Patch 1 PATCH TP (14:41)
[2024-02-19] MEDS: diazePAM 10 MG/2 ML SYR 5 MG IVP ×2 (15:32→15:33)
[2024-02-19 15:44] LABS: Troponin I 13 ng/L (<or=76)
[2024-02-19] MEDS: LORazepam 2 MG/ML VIAL IVP (16:08)
--- NOTE | 2024-02-19 20:50 | DI.VRAD_ITS ---
PROCEDURE INFORMATION: Exam: CT Thoracic Spine Without Contrast Exam date and time: 02/19/2024 10:57 AM Age: 58 years old Clinical indication: Injury or trauma; Blunt trauma (contusions or hematomas); Injury date: 02/19/24; Injury details: Spine recons requested per [facility] TECHNIQUE: Imaging protocol: Computed tomography of the thoracic spine without contrast. Radiation optimization: All CT scans at this facility use at least one of these dose optimization techniques: automated exposure control; mA and/or kV adjustment per patient size (includes targeted exams where dose is matched to clinical indication); or iterative reconstruction. COMPARISON: CT THORACIC LUMBAR SPINE REC 08/04/2023 11:53 AM FINDINGS: Bones/joints: No acute fracture. Normal alignment. No significant disc bulge or herniation. No severe spinal canal stenosis. No significant neural foraminal narrowing. Soft tissues: Unremarkable. IMPRESSION: No acute fracture in the thoracic spine. PROCEDURE INFORMATION: Exam: CT Lumbar Spine Without Contrast Exam date and time: 02/19/2024 10:57 AM Age: 58 years old Clinical indication: Injury or trauma; Blunt trauma (contusions or hematomas); Injury date: 02/19/24; Injury details: Spine recons requested per [facility] TECHNIQUE: Imaging protocol: Computed tomography of the lumbar spine without contrast. Radiation optimization: All CT scans at this facility use at least one of these dose optimization techniques: automated exposure control; mA and/or kV adjustment per patient size (includes targeted exams where dose is matched to clinical indication); or iterative reconstruction. COMPARISON: CT THORACIC LUMBAR SPINE REC 08/04/2023 11:53 AM FINDINGS: Bones/joints: A superior endplate compression fracture is seen at the anterior and left aspect of the L2 vertebral body. This fracture may be acute, however possible remodeling noted which may indicate a subacute timeline. There is multilevel degenerative disc disease and bilateral facet arthropathy causing moderate to severe neural foraminal narrowing at the L3-S1 levels. Moderate to severe spinal canal stenosis noted at L3-L4 and L4-L5. Soft tissues: No significant subcutaneous soft tissue abnormality. IMPRESSION: 1. Compression fracture involving the L2 vertebral body which may be acute or subacute. Clinical correlation recommended. 2. Multilevel degenerative changes causing moderate to severe spinal canal stenosis and neural foraminal narrowing. Dictated and Authenticated by: Neelam Kimball MD. Ordering:[facility] [place] [facility] [place]
== END 2024-02-19 16:36 | disposition home or self-care (01) ==
PROVIDERS: Emergency Provider Physician Assistant; PCP Family Medicine
DX: F10.230 Alcohol dependence with withdrawal, uncomplicated (principal); F10.220 Alcohol dependence with intoxication, uncomplicated; S32.010A Wedge compression fracture of first lumbar vertebra, initial encounter for closed fracture; S32.020A Wedge compression fracture of second lumbar vertebra, initial encounter for closed fracture; S22.22XA Fracture of body of sternum, initial encounter for closed fracture; I10 Essential (primary) hypertension; E78.5 Hyperlipidemia, unspecified; E11.9 Type 2 diabetes mellitus without complications; Z79.82 Long term (current) use of aspirin; Z79.4 Long term (current) use of insulin; Z79.84 Long term (current) use of oral hypoglycemic drugs; Z79.85 Long-term (current) use of injectable non-insulin antidiabetic drugs; Y90.8 Blood alcohol level of 240 mg/100 ml or more; V47.5XXA Car driver injured in collision with fixed or stationary object in traffic accident, initial encounter
CPT/HCPCS: 00123; 36415; 74177; 76604; 76705; 76857; 80053; 82962; 93005; 96374; 96375; 99285; 70450; 71260; 72072; 72110; 72125; 80320; 83735; 84484; 85025; 85610; 85730; 93010; J0131; J2060; J3360

== ENCOUNTER 2024-03-06 16:13 | Inpatient (IN) | payer BC, SELFPAY ==
[2024-03-06] VITALS (88 sets, daily range): BP systolic 111–217; BP diastolic 57–111; PULSE 88–108; RESP 22–47; TEMP 36–37.4; O2SAT 90–100
--- NOTE | 2024-03-06 16:15 | DI.CT_ITS ---
Exam(s) CT HEAD WO EXAM: CT HEAD WO CLINICAL HISTORY: altered mental status, GCS 10. TECHNIQUE: Imaging Protocol: Axial computed tomography images with coronal and sagittal reformatted images were created and reviewed COMPARISON: CT CT HEAD WO from 02/19/2024 FINDINGS: Ventricles and Extra axial spaces: Normal in size and morphology for the patient's age. Hemorrhage: None. Cerebral parenchyma: No acute territorial infarct is seen. No mass effect is present. Midline shift: None. Brainstem/Cerebellum: Normal. Calvarium: Normal. Visualized Paranasal sinuses/Mastoids: Clear. Soft Tissues: Unremarkable. IMPRESSION: No acute intracranial process. RADIATION DOSE DELIVERED: 883.71mGy.cm Total DLP DATA REPOSITORY: All CT scans at this facility are submitted to the National Radiology Data Registry (NRDR) Dose Index Registry (DIR) with the [employer] ([employer]). RADIATION OPTIMIZATION: All CT scans at this facility use at least one of these dose optimization te chniques: automated exposure control; mA and/or kV adjustment per patient size (includes targeted exa ms where dose is matched to clinical indication); or iterative reconstruction.
--- NOTE | 2024-03-06 16:15 | DI.CT_ITS ---
Exam(s) CT CHEST/ABD/PEL W EXAM: CT CHEST/ABD/PEL W CLINICAL HISTORY: AMS, GCS 10, abd echymosis diffuse TTP. TECHNIQUE: Imaging Protocol: Axial computed tomography images with coronal and sagittal reformatted images were created and reviewed. Computer aided detection (CAD) was utilized. CONTRAST MATERIAL: Intravenous: Omnipaque 350 Contrast volume:100 ml Oral: No COMPARISON: CT CT CHEST/ABD/PEL W from 02/19/2024 FINDINGS: CHEST: The exam is limited by respiratory motion and expiratory changes. Tracheobronchial tree: Patent. Pulmonary parenchyma: No consolidation or dominant measurable mass. Pleura: No effusion or pneumothorax. Mediastinum: Within normal limits. Aorta: Thoracic portion non-dilated. Pulmonary arteries: No visible emboli. Heart: No pericardial effusion. Bones: No lytic or blastic lesions.Sternal fracture again noted. Soft tissues: Unremarkable. ABDOMEN and PELVIS: The exam is limited by motion and streak artifact related to patient arm position. Liver: enlarged. Moderate to severe hepatic steatosis. Hepatic steatosis. No measurable mass. Gallbladder and biliary tract: No evidence of stones or wall thickening. No biliary dilatation. Pancreas: Inflammation surrounding the pancreas consistent with pancreatitis. No evidence of hemorrh age or pseudocyst. Spleen: Normal. Kidneys: Normal size, contour and axis. No radiodense stones. No obstructive uropathy. No suspicious masses seen. Adrenal glands: No masses seen. Aorta: Abdominal portion non-dilated. Atherosclerotic changes. Lymph nodes: Within normal limits. Soft tissues: Unremarkable. Bladder: Stout catheter. Bowel: No obstruction. Edema of the duodenum secondary to pancreatic inflammation. Peritoneal cavity: No ascites. No focal collection. No free air. Bones: Stable old L2 compression fracture. Reproductive organs: Within normal limits. IMPRESSION: No acute abnormality in the chest. Findings consistent with acute pancreatitis. Adjacent secondary inflammation of the duodenum. RADIATION DOSE DELIVERED: 1,220.41mGy.cm Total DLP DATA REPOSITORY: All CT scans at this facility are submitted to the National Radiology Data Registry (NRDR) Dose Index Registry (DIR) with the [employer] (A[employer]). RADIATION OPTIMIZATION: All CT scans at this facility use at least one of these dose optimization te chniques: automated exposure control; mA and/or kV adjustment per patient size (includes targeted exa ms where dose is matched to clinical indication); or iterative reconstruction.
--- NOTE | 2024-03-06 16:15 | RT.EKG_ITS ---
APPROVED REPORT Exam: Resting ECG Reason for Exam: [facility] Patient Location: E HR:100 bpm ECG Measurements Heart Rate 100 AXIS AZ 139 P 62 QRSd 107 QRS 47 QT 421 T 73 QTc 544 Conclusion Sinus tachycardia...rate> 99 Probable left atrial enlargement...P >50mS, <-0.10mV V1 Prolonged QT interval...QTc >500mS prolonged QT no ST segment or T wave abnormalities to suggest occlusive mI
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
[2024-03-06] MEDS: Normal Saline - Diluent 50 ML VIAL IJ (16:39)
[2024-03-06 16:40] LABS: BE (Venous) -24 mmol/L (-2-3); HCO3 (Venous) 6 mmol/L (23-28); O2 Sat (Venous) 80 %; TCO2 (Venous) 6 mmol/L (24-29); pCO2 (Venous) 22 mmHg (41-51); pO2 (Venous) 49 mmHg
[2024-03-06] MEDS: Normal Saline Flush 10 ML SYR IVP (16:40)
[2024-03-06 16:41] LABS: Abs Immature Grans 0.04 10^3/uL (0.0-0.06); HCT 53.8 % (40.0-50.0); MCH 27.1 pg (27.0-33.0); MCHC 31.6 % (32.0-36.0); MCV 86 fL (80-95); MPV 10.3 fL (8.0-11.0); Platelet Count 297 10^3/uL (130-400); RBC 6.27 10^6/uL (4.36-5.78); RDW 14.3 % (11.8-14.1); RDW-SD 44.8 fL; WBC 11.75 10^3/uL (4.4-10.8)
[2024-03-06] MEDS: Omnipaque 350 MG/ML 100 ML BTL IJ (16:41)
[2024-03-06 16:44] LABS: Lactate 3.9 mmol/L (0.6-1.4); pH (Venous) 7.06 (7.31-7.41)
[2024-03-06 16:51] LABS: INR 1.1 (0.9-1.1); Prothrombin Time 10.6 sec (9.1-11.1)
[2024-03-06 16:55] LABS: Absolute Eosinophil Count 0.24 10^3/uL (0.0-0.7); Absolute Lymphocyte Count 1.18 10^3/uL (1.2-3.4); Absolute Monocyte Count 0.59 10^3/uL (0.1-0.8); Absolute Neutrophil Count 9.52 10^3/uL (1.2-6.7); Bands % 17 %; Diff Comment Manual Differential; Metamyelocytes % 2; RBC Morphology Normal
[2024-03-06 17:01] LABS: Bilirubin Moderate (Negative); Blood Small (Negative); Clarity Clear (Clear); Glucose 500 mg/dL (Negative); Ketones 40 mg/dL (Negative); Leukocyte Esterase Negative (Negative); Nitrite Negative (Negative); Specific Gravity >= 1.030 (1.005-1.025); Urobilinogen 0.2 mg/dL (Up to 0.2)
[2024-03-06 17:09] LABS: WBC 0-2 HPF (0-5)
[2024-03-06 17:10] LABS: Bacteria Negative HPF (Negative); C & S Indicated? No; Casts 0-2 Hyaline LPF (Negative); Crystals Negative HPF (Negative); Epithelial Cells Negative HPF (Negative); Mucus Trace (Negative)
[2024-03-06 17:11] LABS: *AMPHETAMINES SCREEN URINE Negative (Negative); *BARBITURATES SCREEN URINE Negative (Negative); *BENZODIAZEPINES SCREEN URINE Positive (Negative); Cannabinoids THC Negative (Negative); Cocaine Screen,Urine Negative (Negative); METHADONE URINE SCREEN Negative (Negative); OPIATES URINE SCREEN Negative (Negative)
[2024-03-06 17:11] LABS: ALT 26 U/L (16-63); Albumin 3.4 g/dL (3.4-5.0); Alkaline Phosphatase 143 U/L (46-116); Anion Gap 38.4 mmol/L (3-11); BUN 23 mg/dL (7-18); Bilirubin, Total 0.87 mg/dL (0.2-1.0); CO2 6.6 mmol/L (21.0-32.0); Calcium 9.1 mg/dL (8.5-10.1); Chloride 89 mmol/L (98-107); Estimated GFR 38.45 (mL/min/1.73m2); Magnesium 2.3 mg/dL (1.8-2.4); Potassium 3.1 mmol/L (3.5-5.1); Sodium 134 mmol/L (136-145); TSH (W/Ref FT4) 0.66 uIU/mL (0.36-3.74); Total Protein 8.6 g/dL (6.4-8.2); Troponin I 6 ng/L (<or=76)
[2024-03-06 17:15] LABS: Procalcitonin 1.12 ng/mL
[2024-03-06 17:15] LABS: Tricyclic Antidepressants Negative (Negative)
[2024-03-06] MEDS: MAGNESIUM SULFATE 2 GM/50 ML BAG IV_INF (17:15)
[2024-03-06] MEDS: Normal Saline 1,000 ML 1000 ML IV ×2 (17:20→17:56)
[2024-03-06 17:29] LABS: Ammonia 21 umol/L (11-32)
[2024-03-06 17:35] LABS: ETHANOL BLOOD < 3.0 mg/dL (<10)
[2024-03-06 17:36] LABS: Glucose 560 mg/dL (74-106)
[2024-03-06 17:41] LABS: Salicylate 11.5 mg/dL (<2.8)
[2024-03-06 17:45] LABS: Acetaminophen < 2 ug/mL (10-30)
[2024-03-06 18:17] LABS: Troponin I 6 ng/L (<or=76)
[2024-03-06 18:22] LABS: AST 7 U/L (15-37)
[2024-03-06 18:34] LABS: CREATININE 1.8 mg/dL (0.70-1.30); Estimated GFR 43.63 (mL/min/1.73m2)
[2024-03-06 18:47] LABS: Anion Gap 38.4 mmol/L (3-11); BUN 24 mg/dL (7-18); CO2 7.6 mmol/L (21.0-32.0); Calcium 9.1 mg/dL (8.5-10.1); Chloride 89 mmol/L (98-107); Potassium 3.3 mmol/L (3.5-5.1); Sodium 135 mmol/L (136-145)
[2024-03-06 18:48] LABS: Glucose 572 mg/dL (74-106)
[2024-03-06] MEDS: POTASSIUM CHLORIDE/0.9% NACL 1,000 ML 500 MEQ IV ×2 (18:52→21:39)
[2024-03-06 19:02] LABS: BE (Venous) -23 mmol/L (-2-3); HCO3 (Venous) 8 mmol/L (23-28); O2 Sat (Venous) 71 %; TCO2 (Venous) 7 mmol/L (24-29); pCO2 (Venous) 25 mmHg (41-51); pO2 (Venous) 41 mmHg
[2024-03-06 19:04] LABS: pH (Venous) 7.08 (7.31-7.41)
[2024-03-06 19:18] LABS: BUN 23 mg/dL (7-18); CREATININE 2.1 mg/dL (0.70-1.30); Calcium 7.9 mg/dL (8.5-10.1); Chloride 95 mmol/L (98-107); Estimated GFR 36.26 (mL/min/1.73m2); Glucose 492 mg/dL (74-106); Sodium 137 mmol/L (136-145)
[2024-03-06 19:19] LABS: Potassium 2.9 mmol/L (3.5-5.1)
--- NOTE | 2024-03-06 19:19 | DI.VRAD_ITS ---
PROCEDURE INFORMATION: Exam: CT Head Without Contrast Exam date and time: 03/06/2024 6:26 PM Age: 58 years old Clinical indication: AMS, gcs 10, abd echymosis, diffuse TTP TECHNIQUE: Imaging protocol: Computed tomography of the head without contrast. COMPARISON: CT HEAD WO 02/19/2024 11:40 AM FINDINGS: Brain: No acute intracranial hemorrhage. Mild diffuse cerebral atrophy. No acute extra-axial fluid collection. Cerebral ventricles: Ventricular prominence in this patient with mild diffuse cerebral atrophy. Paranasal sinuses: No significant disease of the paranasal sinuses. Mastoid air cells: No mastoiditis. Bones: Unremarkable for patient age. Soft tissues: Unremarkable. IMPRESSION: No acute intracranial findings. Dictated and Authenticated by: Braeden Jordan MD. Ordering:SANTO Slaughter MD
[2024-03-06] MEDS: Lactated Ringers 1,000 ML 1000 ML IV ×2 (19:24→21:37)
--- NOTE | 2024-03-06 19:47 | DI.VRAD_ITS ---
PROCEDURE INFORMATION: Exam: CT Chest With Contrast; Diagnostic Exam date and time: 03/06/2024 6:35 PM Age: 58 years old Clinical indication: Other: AMS, gcs 10, abd echymosis diffuse ttp; Patient HX: Patient unable to answer questions TECHNIQUE: Imaging protocol: Diagnostic computed tomography of the chest with contrast. 3D rendering (Not supervised by radiologist): MIP and/or 3D reconstructed images were created by the technologist. Contrast material: OMNIPAQUE 350; Contrast volume: 100 ml; Contrast route: INTRAVENOUS (IV); COMPARISON: CT CHEST/ABD/PEL W 02/19/2024 10:57 AM FINDINGS: Lungs: Stable subcentimeter benign-appearing pulmonary nodules in the right upper lobe and lingula. Pleural spaces: Unremarkable. No pneumothorax. No pleural effusion. Heart: Unremarkable. No cardiomegaly. No pericardial effusion. Coronary arteries: Moderate diffuse coronary artery calcifications. Lymph nodes: Unremarkable. No enlarged lymph nodes. Vasculature: Unremarkable. No aortic aneurysm. Bones/joints: Mild multilevel degenerative changes of the thoracic spine. Nonacute ununited fracture of the upper body of the sternum with moderate surrounding callus formation. Soft tissues: Unremarkable IMPRESSION: Stable CT chest Subacute ununited upper sternal body fracture with moderate callus formation again noted. PROCEDURE INFORMATION: Exam: CT Abdomen And Pelvis With Contrast Exam date and time: 03/06/2024 6:35 PM Age: 58 years old Clinical indication: Other: AMS, gcs 10, abd echymosis diffuse ttp; Patient HX: Patient unable to answer questions TECHNIQUE: Imaging protocol: Computed tomography of the abdomen and pelvis with contrast. 3D rendering (Not supervised by radiologist): MIP and/or 3D reconstructed images were created by the technologist. Contrast material: OMNIPAQUE 350; Contrast volume: 100 ml; Contrast route: INTRAVENOUS (IV); COMPARISON: CT CHEST/ABD/PEL W 02/19/2024 10:57 AM FINDINGS: Liver: Liver is mildly enlarged and diffusely fatty in appearance. No focal hepatic abnormality. Gallbladder and biliary ducts: Normal. No calcified stones. No ductal dilation. Pancreas: There is significant diffuse peripancreatic fatty stranding as well as edema of the pancreatic head, compatible with acute pancreatitis. No loculated peripancreatic fluid collections. No significant pancreatic ductal dilation. Spleen: Normal. No splenomegaly. Adrenal glands: Normal. No mass. Kidneys and ureters: Simple 2 cm right renal cortical cyst. Otherwise unremarkable. No hydronephrosis. Stomach and bowel: Moderate diffuse wall thickening of the duodenum and hepatic flexure of the colon. Bowel loops are otherwise unremarkable. No evidence of bowel obstruction. Appendix: No evidence of appendicitis. Intraperitoneal space: No free air or significant free fluid. Vasculature: Moderate atherosclerotic calcification throughout the aorta and iliac arteries. No evidence of aneurysm or dissection. Lymph nodes: Unremarkable. No enlarged lymph nodes. Urinary bladder: Stout catheter is present in the urinary bladder. Reproductive: Unremarkable as visualized. Bones/joints: Moderate degenerative changes throughout the lumbar spine. Nonacute moderate depression of the superior endplate of L2. Soft tissues: Unremarkable. IMPRESSION: 1. Significant findings of acute pancreatitis including secondary edema/inflammation of the duodenum and hepatic flexure of the colon 2. Fatty liver Dictated and Authenticated by: Harris Villanueva MD. Ordering:SANTO Slaughter MD
[2024-03-06 20:17] LABS: Lactate 2.2 mmol/L (0.6-1.4)
[2024-03-06] MEDS: MORPHine 4 MG/ML SYR IVP ×3 (20:19→22:56)
[2024-03-06 20:31] LABS: Anion Gap 29.8 mmol/L (3-11); BUN 23 mg/dL (7-18); CO2 10.2 mmol/L (21.0-32.0); Chloride 100 mmol/L (98-107); Estimated GFR 38.45 (mL/min/1.73m2); Glucose 429 mg/dL (74-106); Potassium 3.3 mmol/L (3.5-5.1); Sodium 140 mmol/L (136-145)
[2024-03-06 20:39] LABS: Lipase > 375 U/L (<78)
[2024-03-06 20:43] LABS: Calcium 8.2 mg/dL (8.5-10.1)
[2024-03-06 21:14] LABS: Anion Gap 29.2 mmol/L (3-11); BUN 22 mg/dL (7-18); CO2 10.8 mmol/L (21.0-32.0); Calcium 8.2 mg/dL (8.5-10.1); Chloride 102 mmol/L (98-107); Estimated GFR 38.45 (mL/min/1.73m2); Glucose 399 mg/dL (74-106); Potassium 3.4 mmol/L (3.5-5.1); Sodium 142 mmol/L (136-145)
[2024-03-06 21:21] LABS: LDH 271 U/L (85-227)
[2024-03-06 22:01] LABS: COVID-19 PCR Negative (Negative); Influenza A PCR Negative (Negative); Influenza B PCR Negative (Negative); RSV PCR Negative (Negative); Source NASOPHARYNX
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
[2024-03-06 22:35] LABS: Anion Gap 26.8 mmol/L (3-11); BUN 20 mg/dL (7-18); CO2 11.2 mmol/L (21.0-32.0); CREATININE 1.8 mg/dL (0.70-1.30); Chloride 105 mmol/L (98-107); Estimated GFR 43.63 (mL/min/1.73m2); Glucose 360 mg/dL (74-106); Potassium 3.5 mmol/L (3.5-5.1); Sodium 143 mmol/L (136-145)
[2024-03-06] MEDS: INSULIN REGULAR IN 0.9 % NACL 100 UNIT/100 ML BAG IVINF (22:59)
[2024-03-06 23:16] LABS: BE (Venous) -21 mmol/L (-2-3); HCO3 (Venous) 9 mmol/L (23-28); O2 Sat (Venous) 71 %; TCO2 (Venous) 9 mmol/L (24-29); pCO2 (Venous) 28 mmHg (41-51); pO2 (Venous) 38 mmHg
[2024-03-06 23:18] LABS: pH (Venous) 7.11 (7.31-7.41)
[2024-03-06 23:18] LABS: Anion Gap 26.7 mmol/L (3-11); BUN 19 mg/dL (7-18); CO2 10.3 mmol/L (21.0-32.0); CREATININE 1.8 mg/dL (0.70-1.30); Calcium 8.1 mg/dL (8.5-10.1); Chloride 106 mmol/L (98-107); Estimated GFR 43.63 (mL/min/1.73m2); Glucose 333 mg/dL (74-106); Potassium 3.5 mmol/L (3.5-5.1); Sodium 143 mmol/L (136-145)
[2024-03-06 23:41] LABS: Triglyceride 2462 mg/dL (<150)
[2024-03-06 23:54] LABS: LDL CHOLESTEROL 50 mg/dL (<100)
[2024-03-07] VITALS (90 sets, daily range): BP systolic 116–154; BP diastolic 70–95; PULSE 86–118; RESP 25–41; TEMP 36.6–37.4; O2SAT 94–99
[2024-03-07] MEDS: POTASSIUM CHLORIDE/0.9% NACL 1,000 ML 250 MEQ IV ×2 (00:19→08:30)
[2024-03-07 00:25] LABS: BE (Venous) -22 mmol/L (-2-3); HCO3 (Venous) 7 mmol/L (23-28); O2 Sat (Venous) 96 %; TCO2 (Venous) 6 mmol/L (24-29); pO2 (Venous) 77 mmHg
[2024-03-07 00:26] LABS: pH (Venous) 7.16 (7.31-7.41)
[2024-03-07 00:27] LABS: pCO2 (Venous) 18 mmHg (41-51)
[2024-03-07 00:28] LABS: Anion Gap 29.3 mmol/L (3-11); BUN 18 mg/dL (7-18); CO2 7.7 mmol/L (21.0-32.0); CREATININE 1.5 mg/dL (0.70-1.30); Calcium 8.1 mg/dL (8.5-10.1); Chloride 108 mmol/L (98-107); Glucose 309 mg/dL (74-106); Potassium 3.8 mmol/L (3.5-5.1); Sodium 145 mmol/L (136-145)
[2024-03-07] MEDS: Heparin 5,000 UNITS/ML VIAL 5000 UNITS SC ×3 (00:58→16:32)
[2024-03-07] MEDS: Pantoprazole 40 MG VIAL IVP ×2 (00:59→20:14)
[2024-03-07] MEDS: Normal Saline Flush 10 ML SYR IVP (01:00)
[2024-03-07] MEDS: INSULIN REGULAR IN 0.9 % NACL 100 UNIT/100 ML BAG IVINF (01:14)
[2024-03-07 02:10] LABS: Anion Gap 25.6 mmol/L (3-11); BUN 17 mg/dL (7-18); CO2 8.4 mmol/L (21.0-32.0); CREATININE 1.4 mg/dL (0.70-1.30); Chloride 111 mmol/L (98-107); Estimated GFR 58.99 (mL/min/1.73m2); Glucose 270 mg/dL (74-106); Potassium 3.6 mmol/L (3.5-5.1); Sodium 145 mmol/L (136-145)
[2024-03-07 04:07] LABS: pO2 (Venous) 136 mmHg
[2024-03-07 04:11] LABS: pCO2 (Venous) < 15 mmHg (41-51); pH (Venous) 7.16 (7.31-7.41)
[2024-03-07 04:19] LABS: Anion Gap 27.5 mmol/L (3-11); BUN 16 mg/dL (7-18); CO2 6.5 mmol/L (21.0-32.0); CREATININE 1.4 mg/dL (0.70-1.30); Calcium 8.3 mg/dL (8.5-10.1); Chloride 111 mmol/L (98-107); Estimated GFR 58.99 (mL/min/1.73m2); Glucose 258 mg/dL (74-106); Potassium 3.7 mmol/L (3.5-5.1); Sodium 145 mmol/L (136-145)
[2024-03-07 06:43] LABS: HCT 47.4 % (40.0-50.0); MCHC 31.6 % (32.0-36.0); MCV 85 fL (80-95); MPV 10.8 fL (8.0-11.0); Platelet Count 214 10^3/uL (130-400); RBC 5.55 10^6/uL (4.36-5.78); RDW 14.8 % (11.8-14.1); RDW-SD 45.9 fL; WBC 8.62 10^3/uL (4.4-10.8)
[2024-03-07 06:51] LABS: INR 1.1 (0.9-1.1); Prothrombin Time 10.7 sec (9.1-11.1)
[2024-03-07 07:03] LABS: PHOSPHORUS < 2.0 mg/dL (2.6-4.7)
[2024-03-07 07:15] LABS: Anion Gap 27.7 mmol/L (3-11); BUN 15 mg/dL (7-18); CO2 6.3 mmol/L (21.0-32.0); CREATININE 1.4 mg/dL (0.70-1.30); Calcium 8.5 mg/dL (8.5-10.1); Chloride 113 mmol/L (98-107); Estimated GFR 58.99 (mL/min/1.73m2); Glucose 240 mg/dL (74-106); Potassium 3.4 mmol/L (3.5-5.1); Sodium 147 mmol/L (136-145)
[2024-03-07 08:07] LABS: BE (Venous) -22 mmol/L (-2-3); HCO3 (Venous) 7 mmol/L (23-28); O2 Sat (Venous) 96 %; TCO2 (Venous) 6 mmol/L (24-29); pO2 (Venous) 73 mmHg
[2024-03-07 08:10] LABS: pCO2 (Venous) 17 mmHg (41-51); pH (Venous) 7.19 (7.31-7.41)
[2024-03-07 08:21] LABS: Anion Gap 25.2 mmol/L (3-11); BUN 16 mg/dL (7-18); CO2 7.8 mmol/L (21.0-32.0); CREATININE 1.4 mg/dL (0.70-1.30); Calcium 8.7 mg/dL (8.5-10.1); Chloride 116 mmol/L (98-107); Estimated GFR 58.99 (mL/min/1.73m2); Glucose 215 mg/dL (74-106); Potassium 3.4 mmol/L (3.5-5.1); Sodium 149 mmol/L (136-145)
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
[2024-03-07 10:24] LABS: Anion Gap 23.2 mmol/L (3-11); BUN 14 mg/dL (7-18); CO2 10.8 mmol/L (21.0-32.0); CREATININE 1.4 mg/dL (0.70-1.30); Calcium 8.8 mg/dL (8.5-10.1); Chloride 118 mmol/L (98-107); Estimated GFR 58.99 (mL/min/1.73m2); Glucose 158 mg/dL (74-106); Potassium 3.4 mmol/L (3.5-5.1); Sodium 152 mmol/L (136-145)
[2024-03-07] MEDS: DEXTROSE 5%-0.45% SALINE 1,000 ML 125 ML IV (12:12)
[2024-03-07 12:24] LABS: BE (Venous) -19 mmol/L (-2-3); HCO3 (Venous) 9 mmol/L (23-28); O2 Sat (Venous) 82 %; TCO2 (Venous) 9 mmol/L (24-29); pCO2 (Venous) 24 mmHg (41-51); pO2 (Venous) 41 mmHg
[2024-03-07] MEDS: MORPHine 4 MG/ML SYR IVP ×2 (12:31→16:34)
[2024-03-07 12:38] LABS: Anion Gap 22.2 mmol/L (3-11); BUN 16 mg/dL (7-18); CO2 10.8 mmol/L (21.0-32.0); CREATININE 1.3 mg/dL (0.70-1.30); Calcium 8.7 mg/dL (8.5-10.1); Chloride 122 mmol/L (98-107); Estimated GFR 64.47 (mL/min/1.73m2); Glucose 140 mg/dL (74-106); Potassium 3.4 mmol/L (3.5-5.1); Sodium 155 mmol/L (136-145)
--- NOTE | 2024-03-07 14:23 | PHACLINREV_ITS ---
Pharmacy Admission Review Admission Clinical Review Admission Pharmacy Review: Pancreatitis (Acute) DKA (diabetic ketoacidosis) (Acute) Hypokalemia (Acute) ampicillin Allergy (Verified 02/19/24 10:16) Skin Rash lorazepam (From Ativan) Adverse Reaction (Severe, Verified 02/19/24 10:16) It makes me wacky zolpidem tartrate (From Ambien) Adverse Reaction (Intermediate, Verified 02/19/24 10:16) confusion lisinopril Adverse Reaction (Verified 02/19/24 10:16) cough Resuscitation Status Full Code Height 5 ft 8 in Weight 89.7 kg Pharmacy Admission Review Renal Dosing Renal Dosing: BUN 16 mg/dL (7-18) 03/07/24 12:16 Creatinine 1.3 mg/dL (0.70-1.30) 03/07/24 12:16 Medications needing adjustments: Reviewed (crcl = 69, no adjustments needed) Anticoagulation Anticoagulation: Hgb 15.0 g/dL (13.5-17.5) D 03/07/24 06:05 Hct 47.4 % (40.0-50.0) 03/07/24 06:05 Plt Count 214 10^3/uL (130-400) 03/07/24 06:05 INR 1.1 (0.9-1.1) 03/07/24 06:05 Creatinine 1.3 mg/dL (0.70-1.30) 03/07/24 12:16 DVT Prophylaxis: Reviewed Medications: Heparin (5000 units q8h) Therapeutic Anticoagulation: N/A Opiate Usage Evaluate Pain Scale/Pains Meds: Reviewed (morphine 2 mg IV q2h prn, has required 4 doses so far. on suboxone 8 mg/2 mg tab - 2 tabs daily (not given today - NPO)) Relevant Labs Relevant Labs: Sodium 155 mmol/L (136-145) H 03/07/24 12:16 Potassium 3.4 mmol/L (3.5-5.1) L 03/07/24 12:16 Chloride 122 mmol/L (98-107) H 03/07/24 12:16 Phosphorus < 2.0 mg/dL (2.6-4.7) L 03/07/24 06:05 Magnesium 2.0 mg/dL (1.8-2.4) 03/07/24 06:05 Electrolytes, C-Reactive P, ESR: Reviewed (repeat labs @1400: glucose = 148, K+ = 2.9, Na = 152, Co2 = 12 (previously on NS w/40 mEq K+ @ 250 mL/hr then D5/0.45% saline @ 125 mL/hr. new order entered @1530 for D5/0.45% saline w/40 mEq K+ @125 mL/hr). anion gap = 21 (from 38.4)) DM Control DM Control: Reviewed Insulin Dosing, Diabetic Medication: insulin drip @ 5 units/hr, jardiance 25 mg daily. home metformin ER currently held (2000 mg daily). ?home insulin regimen - toujeo 80 units BID + insulin lispro (as directed?) on home med list, Rx fill h istory showing last fills september 2023 Cardiac Review Cardiac Review: Troponin I 6 ng/L (<or=76) 03/06/24 17:50 BP, HR, EF%: Reviewed (hypertensive in ED, BP WNL since ~midnight. atenolol, amlodipine, losartan ordered - not given this AM (NPO)) QTc Review QTc: Reviewed (*QTc = 544 03/06/24*) List meds needing interventions: has zofran 4 mg PO q6h prn ordered, has not received any yet IV to PO Switch IV Medications: Reviewed (continue IV for now, switch to subQ insulin and regular PO meds when anion gap closes & pt is awake and alert) Home Meds Home Med List reviewed: Reviewed Relevent Home Meds Not ordered & why?: subq insulin + metformin - on insulin drip Medication adherence barriers identified?: appears to be noncompliant w/ diabetes regimen. insulins & trulicity last fills in september 2023, unclear what the barrier to adherence is Current Meds Current Medication Order Review: Reviewed Pharmacy Antibiotic Review Relevant Labs: Relevant Labs 03/06/24 03/06/24 20:10 16:30 Lactate Dehydrogenase 271 H Procalcitonin 1.12
[2024-03-07 14:38] LABS: BUN 13 mg/dL (7-18); CREATININE 1.3 mg/dL (0.70-1.30); Chloride 119 mmol/L (98-107); Estimated GFR 64.47 (mL/min/1.73m2); Glucose 148 mg/dL (74-106); Sodium 152 mmol/L (136-145)
[2024-03-07 14:41] LABS: Potassium 2.9 mmol/L (3.5-5.1)
[2024-03-07] MEDS: POTASSIUM CHLORIDE/D5-0.45NACL 1,000 ML 125 MEQ IV (14:45)
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
[2024-03-07 16:48] LABS: Anion Gap 18.4 mmol/L (3-11); BUN 13 mg/dL (7-18); CO2 13.6 mmol/L (21.0-32.0); CREATININE 1.3 mg/dL (0.70-1.30); Calcium 8.9 mg/dL (8.5-10.1); Chloride 121 mmol/L (98-107); Estimated GFR 64.47 (mL/min/1.73m2); Glucose 144 mg/dL (74-106); Sodium 153 mmol/L (136-145)
[2024-03-07 18:18] LABS: Anion Gap 18.2 mmol/L (3-11); BUN 12 mg/dL (7-18); CO2 13.8 mmol/L (21.0-32.0); CREATININE 1.3 mg/dL (0.70-1.30); Calcium 9.2 mg/dL (8.5-10.1); Chloride 120 mmol/L (98-107); Estimated GFR 64.47 (mL/min/1.73m2); Glucose 143 mg/dL (74-106); Sodium 152 mmol/L (136-145)
[2024-03-07 18:20] LABS: Potassium 2.9 mmol/L (3.5-5.1)
[2024-03-07] MEDS: POTASSIUM CHLORIDE 20 MEQ/100 ML BAG 50 MEQ IV_INF (20:11)
[2024-03-07 20:20] LABS: BE (Venous) -14 mmol/L (-2-3); HCO3 (Venous) 13 mmol/L (23-28); O2 Sat (Venous) 87 %; TCO2 (Venous) 12 mmol/L (24-29); pCO2 (Venous) 29 mmHg (41-51); pH (Venous) 7.27 (7.31-7.41); pO2 (Venous) 44 mmHg
[2024-03-07 20:33] LABS: Anion Gap 17.4 mmol/L (3-11); BUN 13 mg/dL (7-18); CO2 13.6 mmol/L (21.0-32.0); CREATININE 1.3 mg/dL (0.70-1.30); Calcium 9.1 mg/dL (8.5-10.1); Chloride 121 mmol/L (98-107); Estimated GFR 64.47 (mL/min/1.73m2); Glucose 177 mg/dL (74-106); Sodium 152 mmol/L (136-145)
[2024-03-07 20:35] LABS: Potassium 2.8 mmol/L (3.5-5.1)
[2024-03-07] MEDS: INSULIN REGULAR IN 0.9 % NACL 100 UNIT/100 ML BAG 6 UNIT IVINF (20:43)
[2024-03-07] MEDS: POTASSIUM CHLORIDE/D5-0.45NACL 1,000 ML 250 MEQ IV (21:35)
[2024-03-07 22:35] LABS: Anion Gap 16.3 mmol/L (3-11); BUN 12 mg/dL (7-18); CO2 15.7 mmol/L (21.0-32.0); CREATININE 1.2 mg/dL (0.70-1.30); Calcium 8.9 mg/dL (8.5-10.1); Chloride 121 mmol/L (98-107); Estimated GFR 70.98 (mL/min/1.73m2); Glucose 174 mg/dL (74-106); Sodium 153 mmol/L (136-145)
[2024-03-08] VITALS (35 sets, daily range): BP systolic 128–182; BP diastolic 75–99; PULSE 72–90; RESP 14–31; TEMP 37.2–37.8; O2SAT 93–100
[2024-03-08 00:15] LABS: BE (Venous) -12 mmol/L (-2-3); HCO3 (Venous) 16 mmol/L (23-28); O2 Sat (Venous) 74 %; TCO2 (Venous) 15 mmol/L (24-29); pCO2 (Venous) 37 mmHg (41-51); pH (Venous) 7.24 (7.31-7.41); pO2 (Venous) 35 mmHg
[2024-03-08 00:27] LABS: Anion Gap 13.9 mmol/L (3-11); BUN 12 mg/dL (7-18); CO2 17.1 mmol/L (21.0-32.0); CREATININE 1.3 mg/dL (0.70-1.30); Calcium 9.3 mg/dL (8.5-10.1); Chloride 120 mmol/L (98-107); Estimated GFR 64.47 (mL/min/1.73m2); Glucose 146 mg/dL (74-106); Sodium 151 mmol/L (136-145)
[2024-03-08 00:30] LABS: Potassium 2.9 mmol/L (3.5-5.1)
[2024-03-08] MEDS: Heparin 5,000 UNITS/ML VIAL 5000 UNITS SC ×3 (01:33→16:52)
[2024-03-08] MEDS: POTASSIUM CHLORIDE 20 MEQ/100 ML BAG 50 MEQ IV_INF ×6 (01:33→20:08)
[2024-03-08] MEDS: POTASSIUM CHLORIDE/D5-0.45NACL 1,000 ML 250 MEQ IV (02:11)
[2024-03-08 02:38] LABS: Anion Gap 14.2 mmol/L (3-11); BUN 12 mg/dL (7-18); CO2 16.8 mmol/L (21.0-32.0); CREATININE 1.1 mg/dL (0.70-1.30); Calcium 8.9 mg/dL (8.5-10.1); Chloride 122 mmol/L (98-107); Estimated GFR 78.79 (mL/min/1.73m2); Glucose 141 mg/dL (74-106); Sodium 153 mmol/L (136-145)
[2024-03-08 02:41] LABS: Potassium 2.8 mmol/L (3.5-5.1)
[2024-03-08 04:21] LABS: BE (Venous) -11 mmol/L (-2-3); HCO3 (Venous) 16 mmol/L (23-28); O2 Sat (Venous) 76 %; TCO2 (Venous) 15 mmol/L (24-29); pCO2 (Venous) 32 mmHg (41-51); pO2 (Venous) 34 mmHg
[2024-03-08 04:35] LABS: Ammonia < 10 umol/L (11-32)
[2024-03-08 04:37] LABS: Anion Gap 14.5 mmol/L (3-11); BUN 10 mg/dL (7-18); CO2 17.5 mmol/L (21.0-32.0); Calcium 8.8 mg/dL (8.5-10.1); Chloride 122 mmol/L (98-107); Estimated GFR 88.33 (mL/min/1.73m2); Glucose 114 mg/dL (74-106); Sodium 154 mmol/L (136-145)
[2024-03-08 04:38] LABS: Potassium 2.9 mmol/L (3.5-5.1)
[2024-03-08] MEDS: MORPHine 4 MG/ML SYR IVP ×4 (05:43→16:52)
[2024-03-08] MEDS: Normal Saline Flush 10 ML SYR IVP ×3 (05:44→20:08)
[2024-03-08 06:27] LABS: HCT 39.8 % (40.0-50.0); HGB 13.3 g/dL (13.5-17.5); MCH 26.7 pg (27.0-33.0); MCHC 33.4 % (32.0-36.0); MCV 80 fL (80-95); MPV 10.5 fL (8.0-11.0); Platelet Count 191 10^3/uL (130-400); RBC 4.99 10^6/uL (4.36-5.78); RDW-SD 43.4 fL; WBC 6.31 10^3/uL (4.4-10.8)
[2024-03-08 06:39] LABS: Anion Gap 13.4 mmol/L (3-11); BUN 10 mg/dL (7-18); CO2 17.6 mmol/L (21.0-32.0); Chloride 122 mmol/L (98-107); Estimated GFR 88.33 (mL/min/1.73m2); Glucose 124 mg/dL (74-106); Potassium 3.1 mmol/L (3.5-5.1); Sodium 153 mmol/L (136-145)
[2024-03-08 08:11] LABS: BE (Venous) -10 mmol/L (-2-3); HCO3 (Venous) 16 mmol/L (23-28); O2 Sat (Venous) 96 %; TCO2 (Venous) 15 mmol/L (24-29); pCO2 (Venous) 31 mmHg (41-51); pH (Venous) 7.33 (7.31-7.41); pO2 (Venous) 66 mmHg
[2024-03-08 08:28] LABS: Anion Gap 13.9 mmol/L (3-11); BUN 10 mg/dL (7-18); CO2 18.1 mmol/L (21.0-32.0); Calcium 8.9 mg/dL (8.5-10.1); Chloride 121 mmol/L (98-107); Estimated GFR 88.33 (mL/min/1.73m2); Glucose 133 mg/dL (74-106); Potassium 3.6 mmol/L (3.5-5.1); Sodium 153 mmol/L (136-145)
[2024-03-08 09:02] LABS: Lab Add On Test DONE
[2024-03-08] MEDS: POTASSIUM CHLORIDE/D5-0.45NACL 1,000 ML 150 MEQ IV (09:08)
[2024-03-08 09:11] LABS: Magnesium 1.8 mg/dL (1.8-2.4)
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
[2024-03-08 10:18] LABS: Anion Gap 13.2 mmol/L (3-11); BUN 11 mg/dL (7-18); CO2 18.8 mmol/L (21.0-32.0); Chloride 121 mmol/L (98-107); Estimated GFR 88.33 (mL/min/1.73m2); Glucose 143 mg/dL (74-106); Sodium 153 mmol/L (136-145)
[2024-03-08 12:27] LABS: Anion Gap 12.3 mmol/L (3-11); BUN 10 mg/dL (7-18); CO2 17.7 mmol/L (21.0-32.0); CREATININE 0.9 mg/dL (0.70-1.30); Chloride 121 mmol/L (98-107); Estimated GFR 100.24 (mL/min/1.73m2); Glucose 104 mg/dL (74-106); Potassium 3.1 mmol/L (3.5-5.1); Sodium 151 mmol/L (136-145)
[2024-03-08 14:17] LABS: Anion Gap 15.7 mmol/L (3-11); BUN 11 mg/dL (7-18); CO2 17.3 mmol/L (21.0-32.0); CREATININE 0.9 mg/dL (0.70-1.30); Chloride 119 mmol/L (98-107); Estimated GFR 100.24 (mL/min/1.73m2); Glucose 143 mg/dL (74-106); Potassium 3.3 mmol/L (3.5-5.1); Sodium 152 mmol/L (136-145)
[2024-03-08 16:14] LABS: Anion Gap 12.6 mmol/L (3-11); BUN 11 mg/dL (7-18); CO2 18.4 mmol/L (21.0-32.0); CREATININE 0.9 mg/dL (0.70-1.30); Calcium 8.8 mg/dL (8.5-10.1); Chloride 120 mmol/L (98-107); Estimated GFR 100.24 (mL/min/1.73m2); Glucose 143 mg/dL (74-106); Potassium 3.1 mmol/L (3.5-5.1); Sodium 151 mmol/L (136-145)
[2024-03-08] MEDS: POTASSIUM CHLORIDE/D5-0.45NACL 1,000 ML 75 MEQ IV (16:53)
[2024-03-08] MEDS: INSULIN REGULAR IN 0.9 % NACL 100 UNIT/100 ML BAG IVINF (16:59)
[2024-03-08 18:50] LABS: Anion Gap 12.8 mmol/L (3-11); BUN 10 mg/dL (7-18); CO2 20.2 mmol/L (21.0-32.0); CREATININE 0.8 mg/dL (0.70-1.30); Calcium 9.1 mg/dL (8.5-10.1); Chloride 120 mmol/L (98-107); Estimated GFR 103.87 (mL/min/1.73m2); Glucose 90 mg/dL (74-106); Sodium 153 mmol/L (136-145)
[2024-03-08] MEDS: Pantoprazole 40 MG VIAL IVP (20:08)
[2024-03-08 20:10] LABS: BE (Venous) -9 mmol/L (-2-3); HCO3 (Venous) 16 mmol/L (23-28); O2 Sat (Venous) 94 %; TCO2 (Venous) 15 mmol/L (24-29); pCO2 (Venous) 30 mmHg (41-51); pH (Venous) 7.35 (7.31-7.41); pO2 (Venous) 55 mmHg
[2024-03-08 20:22] LABS: Anion Gap 11.7 mmol/L (3-11); BUN 11 mg/dL (7-18); CO2 18.3 mmol/L (21.0-32.0); CREATININE 0.7 mg/dL (0.70-1.30); Calcium 9.1 mg/dL (8.5-10.1); Chloride 119 mmol/L (98-107); Estimated GFR 108.14 (mL/min/1.73m2); Glucose 125 mg/dL (74-106); Potassium 3.2 mmol/L (3.5-5.1); Sodium 149 mmol/L (136-145)
[2024-03-08] MEDS: Mirtazapine 15 MG TAB 30 MG PO (20:44)
[2024-03-08] MEDS: Rosuvastatin 20 MG TAB 40 MG PO (20:44)
[2024-03-08] MEDS: Dicyclomine 10 MG CAP PO (20:44)
[2024-03-08] MEDS: buPROPion-CR 100 MG TABCR PO (20:44)
[2024-03-08] MEDS: Pregabalin 100 MG CAP PO (20:44)
[2024-03-09] VITALS (21 sets, daily range): BP systolic 95–150; BP diastolic 63–123; PULSE 61–88; RESP 0–30; TEMP 36.8–36.9; O2SAT 90–98
[2024-03-09 00:29] LABS: BE (Venous) -8 mmol/L (-2-3); HCO3 (Venous) 19 mmol/L (23-28); O2 Sat (Venous) 71 %; TCO2 (Venous) 17 mmol/L (24-29); pCO2 (Venous) 38 mmHg (41-51); pH (Venous) 7.31 (7.31-7.41); pO2 (Venous) 33 mmHg
[2024-03-09 00:40] LABS: Anion Gap 11.5 mmol/L (3-11); BUN 12 mg/dL (7-18); CO2 21.5 mmol/L (21.0-32.0); CREATININE 0.8 mg/dL (0.70-1.30); Calcium 9.2 mg/dL (8.5-10.1); Chloride 115 mmol/L (98-107); Estimated GFR 103.87 (mL/min/1.73m2); Glucose 134 mg/dL (74-106); Magnesium 1.6 mg/dL (1.8-2.4); Potassium 3.1 mmol/L (3.5-5.1); Sodium 148 mmol/L (136-145)
[2024-03-09] MEDS: Heparin 5,000 UNITS/ML VIAL 5000 UNITS SC ×3 (01:07→17:51)
[2024-03-09] MEDS: MAGNESIUM SULFATE 2 GM/50 ML BAG IV_INF (01:33)
[2024-03-09] MEDS: POTASSIUM CHLORIDE 20 MEQ/100 ML BAG 50 MEQ IV_INF ×2 (02:24→04:18)
[2024-03-09] MEDS: MORPHine 4 MG/ML SYR IVP (03:56)
[2024-03-09 04:19] LABS: BE (Venous) -6 mmol/L (-2-3); HCO3 (Venous) 21 mmol/L (23-28); O2 Sat (Venous) 61 %; TCO2 (Venous) 19 mmol/L (24-29); pCO2 (Venous) 41 mmHg (41-51); pH (Venous) 7.31 (7.31-7.41); pO2 (Venous) 28 mmHg
[2024-03-09 04:20] LABS: HCT 39.5 % (40.0-50.0); HGB 13.3 g/dL (13.5-17.5); MCH 26.6 pg (27.0-33.0); MCHC 33.7 % (32.0-36.0); MCV 79 fL (80-95); MPV 10.5 fL (8.0-11.0); Platelet Count 221 10^3/uL (130-400); RDW 15.3 % (11.8-14.1); RDW-SD 43.8 fL; WBC 7.42 10^3/uL (4.4-10.8)
[2024-03-09 04:31] LABS: Anion Gap 12.5 mmol/L (3-11); BUN 11 mg/dL (7-18); CO2 22.5 mmol/L (21.0-32.0); CREATININE 0.8 mg/dL (0.70-1.30); Calcium 9.2 mg/dL (8.5-10.1); Chloride 115 mmol/L (98-107); Estimated GFR 103.87 (mL/min/1.73m2); Glucose 121 mg/dL (74-106); Potassium 3.2 mmol/L (3.5-5.1); Sodium 150 mmol/L (136-145)
[2024-03-09] MEDS: POTASSIUM CHLORIDE/D5-0.45NACL 1,000 ML 75 MEQ IV (06:28)
[2024-03-09 08:27] LABS: BE (Venous) -5 mmol/L (-2-3); HCO3 (Venous) 21 mmol/L (23-28); O2 Sat (Venous) 65 %; TCO2 (Venous) 19 mmol/L (24-29); pCO2 (Venous) 36 mmHg (41-51); pH (Venous) 7.37 (7.31-7.41); pO2 (Venous) 29 mmHg
[2024-03-09 08:40] LABS: Anion Gap 11.5 mmol/L (3-11); BUN 11 mg/dL (7-18); CO2 22.5 mmol/L (21.0-32.0); CREATININE 0.7 mg/dL (0.70-1.30); Calcium 8.9 mg/dL (8.5-10.1); Chloride 113 mmol/L (98-107); Estimated GFR 108.14 (mL/min/1.73m2); Glucose 132 mg/dL (74-106); Magnesium 1.9 mg/dL (1.8-2.4); Potassium 3.3 mmol/L (3.5-5.1); Sodium 147 mmol/L (136-145)
[2024-03-09] MEDS: Losartan 50 MG TAB 100 MG PO (09:13)
[2024-03-09] MEDS: Atenolol 50 MG TAB 100 MG PO (09:13)
[2024-03-09] MEDS: amLODIPine 5 MG TAB PO (09:14)
[2024-03-09] MEDS: Sertraline 50 MG TAB 100 MG PO (09:14)
[2024-03-09] MEDS: Multivitamin TAB 1 TAB PO (09:14)
[2024-03-09] MEDS: buPROPion-CR 100 MG TABCR PO ×2 (09:14→20:47)
[2024-03-09] MEDS: Cholecalciferol (Vitamin D3) 1,000 UNIT TAB 2000 UNITS PO (09:14)
[2024-03-09] MEDS: Pregabalin 100 MG CAP PO ×2 (09:15→20:47)
[2024-03-09] MEDS: Empaglifozin 25 MG TAB PO (09:15)
[2024-03-09] MEDS: Dicyclomine 10 MG CAP PO ×2 (09:15→20:47)
[2024-03-09] MEDS: Buprenorphine/Naloxone 8 mg/2 mg FILM 2 EACH SL (09:16)
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
[2024-03-09] MEDS: Insulin Glargine 300 UNITS/3 ML PEN 64 UNITS SC ×2 (10:15→20:46)
[2024-03-09] MEDS: Pantoprazole 40 MG TABCR PO (10:15)
[2024-03-09] MEDS: metFORMIN C.R. 500 MG TABCR 2000 MG PO (17:39)
[2024-03-09] MEDS: Rosuvastatin 20 MG TAB 40 MG PO (20:48)
[2024-03-09] MEDS: Mirtazapine 15 MG TAB 30 MG PO (20:48)
[2024-03-09] MEDS: Normal Saline Flush 10 ML SYR IVP (20:48)
[2024-03-10] VITALS (14 sets, daily range): BP systolic 126–168; BP diastolic 64–104; PULSE 71–95; RESP 14–24; TEMP 36.1–38.3; O2SAT 93–98
[2024-03-10] MEDS: Heparin 5,000 UNITS/ML VIAL 5000 UNITS SC ×2 (00:16→09:21)
[2024-03-10] MEDS: Normal Saline Flush 10 ML SYR IVP ×2 (00:18→06:47)
[2024-03-10 06:01] LABS: HCT 42.5 % (40.0-50.0); HGB 14.3 g/dL (13.5-17.5); MCH 26.9 pg (27.0-33.0); MCHC 33.6 % (32.0-36.0); MCV 80 fL (80-95); MPV 9.9 fL (8.0-11.0); Platelet Count 245 10^3/uL (130-400); RBC 5.32 10^6/uL (4.36-5.78); RDW 16.1 % (11.8-14.1); RDW-SD 46.2 fL
[2024-03-10 06:12] LABS: Anion Gap 10.2 mmol/L (3-11); BUN 12 mg/dL (7-18); CO2 24.8 mmol/L (21.0-32.0); CREATININE 0.7 mg/dL (0.70-1.30); Calcium 9.2 mg/dL (8.5-10.1); Chloride 111 mmol/L (98-107); Estimated GFR 108.14 (mL/min/1.73m2); Glucose 65 mg/dL (74-106); Sodium 146 mmol/L (136-145)
[2024-03-10 06:16] LABS: Potassium 2.8 mmol/L (3.5-5.1)
[2024-03-10] MEDS: POTASSIUM CHLORIDE 10 MEQ/100 ML BAG 100 MEQ IV_INF ×2 (06:46→09:22)
[2024-03-10] MEDS: Potassium Chloride 10 MEQ CAPCR 40 MEQ PO (06:46)
[2024-03-10] MEDS: MORPHine 4 MG/ML SYR IVP (07:05)
--- NOTE | 2024-03-10 08:39 | PDOC.CMPRO ---
Date of service: 03/10/24 Time of Service: 08:39 Care Management Progress Note Progress Note Text Progress Note Text: Alfredo was dozing when CM went to meet with him today. He was easily roused and engaged in conversation easily. Alfredo stated feeling very grateful that he is alive. He has a brand new start, and he is planning to take advantage of it. He does not know why this happened, but feels he needs to take his diabetes more seriously. He stated that he was not drinking at the time of the occurrence, but is happy to be sober. These days in the ICU have detoxed him and a weight is lifted off of his shoulders. Alfredo's is currently residing at the [facility] for respite care, and she will be there through the new year. Alfredo is planning to have himself in great shape by the time she comes home. Discharge Potential Discharge Needs: PCP F/U Appt Anticipated Barriers to Discharge: None Identified Patient/Family Education Needs: Review discharge instructions, discuss Ask Me Three Transportation: Private vehicle Plan: Anticipate that Alfredo will be discharged home in the next day or so, with no new services. Alfredo will require a work note for his absence, which CM will provide. Alfredo will f/u with his PCP and continue per his prescribed plan of care. CM will continue to follow. 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
[2024-03-10] MEDS: buPROPion-CR 100 MG TABCR PO (09:18)
[2024-03-10] MEDS: Sertraline 50 MG TAB 100 MG PO (09:18)
[2024-03-10] MEDS: Losartan 50 MG TAB 100 MG PO (09:18)
[2024-03-10] MEDS: Atenolol 50 MG TAB 100 MG PO (09:18)
[2024-03-10] MEDS: Cholecalciferol (Vitamin D3) 1,000 UNIT TAB 2000 UNITS PO (09:19)
[2024-03-10] MEDS: Pantoprazole 40 MG TABCR PO (09:19)
[2024-03-10] MEDS: Multivitamin TAB 1 TAB PO (09:19)
[2024-03-10] MEDS: Pregabalin 100 MG CAP PO (09:20)
[2024-03-10] MEDS: Empaglifozin 25 MG TAB PO (09:20)
[2024-03-10] MEDS: amLODIPine 5 MG TAB PO (09:22)
[2024-03-10] MEDS: Insulin Glargine 300 UNITS/3 ML PEN 64 UNITS SC (09:23)
[2024-03-10 10:01] LABS: Fentanyl Scr w/Rfx Confirm Negative ng/mL (<1)
[2024-03-10] MEDS: Acetaminophen 325 MG TAB PO (10:04)
[2024-03-10] MEDS: oxyCODONE 10 MG TAB PO (10:10)
[2024-03-10] MEDS: Buprenorphine/Naloxone 8 mg/2 mg FILM 2 EACH SL (10:17)
[2024-03-10 11:07] LABS: Bilirubin Negative (Negative); Blood Large (Negative); Clarity Sl Cloudy (Clear); Glucose 500 mg/dL (Negative); Ketones 15 mg/dL (Negative); Leukocyte Esterase Negative (Negative); Nitrite Negative (Negative); Specific Gravity 1.015 (1.005-1.025); Urobilinogen 0.2 mg/dL (Up to 0.2); pH 5.5 (5-8)
[2024-03-10 11:19] LABS: Epithelial Cells Rare HPF (Negative); WBC 0-2 HPF (0-5)
[2024-03-10 11:20] LABS: Bacteria Few HPF (Negative); C & S Indicated? No; Crystals Negative HPF (Negative); Mucus Moderate (Negative)
--- NOTE | 2024-03-10 12:20 | TELEFU_ITS ---
Date of service: 03/10/24 Time of Service: 12:15 Nutrition Note NOTE: Alfredo admitted with DKA, pancreatitis, hypokalemia, episodic alcohol abuse, polysub dependence, HTN, hx of PTSD. Pt asleep on first visit but was sitting in chair and conversative at second attempt - but distracted in the beginning as he is being discharged today and could not fine his phone or wallet (both located before I left his room). States he hadn't been taking his insulin at home. He had heard low glucose was a big problem but states he never had experienced DKA before. Dx of DM ~10 years ago per pt - his mother also manages diabetes. Prescribed empagliflozin, dulaglutide, glargine and Lispro at home with TDD insulin prescribed >1u/kg. Feels he hasn't been eating right/getting good nutrition. He uses CGM at home but hasn't had one on recently I offered cabrera in-room education towards total carb goal recommendation of 180- 200g per day and reviewed this is same as ~12 servings per day per the handout outline. I suggested we get together in outpatient setting to review his CGM ambulatory glucose profile and make strides towards better glucose mgt with lifestyle and medication recommendations to provider. He took my card and expressed desire to do so and will call once settled back home. estimated energy needs: 2212kcals (1800 recommended for weight reduction), 107g protein, and 2212cc fluid. Nutrition dx: Inadequate bioactive substance intake (NI--4.1) in the scope of inadequate insulin administration, related to diabetes distress and other related factors as evidenced by DKA on admission and pt interview. anticipate discharge shortly and pt instructed to call when ready for collaborating in the outpt setting to improve glucose mgt and nutrition intake. Time Spent in Nutritional Counseling and Treatment: 20 minutes
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
--- NOTE | 2024-03-10 13:41 | CMDISCH_ITS ---
Date of service: 03/10/24 Time of Service: 13:41 LACE Index Scoring Tool Questions: Length of Stay (in days): 4 - 6 Was the patient admitted via the E.D.?: Yes Comorbidities: Diabetes w/o Complication and Mild Liver/Renal Disease E.D. Visits: 3 Answers: Total Score: 13 Risk of Readmission: High Risk Care Management Discharge Plan Reason for Hospitalization: DKA Discharge Plan: Alfredo is discharged home today with no new services. He has been given a work note to return to work on 03/17. Alfredo has a f/u appointment with his PCP on 03/17. Alfredo will transport home in a private vehicle with his mother and continue per his plan of care. Patient/Family Education Needs: Review of discharge instructions, activity, limitations, f/u plan and discuss Ask me 3. SDOH Health Related Social Needs: Health related social needs transportation insecurity( Z59.82) Health related social needs: transportation insecurity(Z59.82)
[2024-03-10 13:55] LABS: Xylazine, Confirmation Urine Negative ng/mL (<50)
== END 2024-03-10 14:00 | disposition home or self-care (01) | DRG 637 ==
LOC: ER 23:13 → ICU 23:28
PROVIDERS: Family Medicine; Admitting Provider Family Medicine; Emergency Provider Student in an Organized Health Care Education/Training Program; PCP Family Medicine; Visit Provider Family Medicine
DX: E11.11 Type 2 diabetes mellitus with ketoacidosis with coma (principal); K85.20 Alcohol induced acute pancreatitis without necrosis or infection; F19.20 Other psychoactive substance dependence, uncomplicated; E87.6 Hypokalemia; F43.10 Post-traumatic stress disorder, unspecified; I10 Essential (primary) hypertension; M54.50 Low back pain, unspecified; K21.9 Gastro-esophageal reflux disease without esophagitis; F17.210 Nicotine dependence, cigarettes, uncomplicated; D50.9 Iron deficiency anemia, unspecified; K75.81 Nonalcoholic steatohepatitis (NASH); K74.69 Other cirrhosis of liver; E78.5 Hyperlipidemia, unspecified; F11.91 Opioid use, unspecified, in remission; F41.9 Anxiety disorder, unspecified; G47.00 Insomnia, unspecified; F32.A Depression, unspecified; F10.10 Alcohol abuse, uncomplicated; Z79.84 Long term (current) use of oral hypoglycemic drugs; Z79.4 Long term (current) use of insulin
CPT/HCPCS: 00123; 36415; 36416; 51702; 74177; 80048; 80053; 80307; 80375; 82805; 82962; 83690; 83721; 84145; 85027; 87040; 87637; 93005; 96361; 96365; 96366; 96375; 96376; 99291; 70450; 71260; 80320; 80329; 81003; 81015; 82140; 83605; 83615; 83735; 84100; 84443; 84478; 84484; 85025; 85610; 93010; 99223; 99233; 99239; J1644; J1815; J2270; J2470; J3475; J3480; J3490

== ENCOUNTER 2024-03-17 18:19 | Outpatient (REF) | payer BC, SELFPAY ==
[2024-03-17 20:48] LABS: ALT 16 U/L (16-63); AST 24 U/L (15-37); Albumin 2.5 g/dL (3.4-5.0); Alkaline Phosphatase 132 U/L (46-116); Anion Gap 7.4 mmol/L (3-11); BUN 12 mg/dL (7-18); CO2 30.6 mmol/L (21.0-32.0); CREATININE 0.8 mg/dL (0.70-1.30); Calcium 9.4 mg/dL (8.5-10.1); Calculated LDL 28 mg/dL (<100); Chloride 106 mmol/L (98-107); Cholesterol 124 mg/dL (<200); Estimated GFR 103.87 (mL/min/1.73m2); Glucose 55 mg/dL (74-106); HDL Cholesterol 40 mg/dL (40-60); Potassium 3.4 mmol/L (3.5-5.1); Sodium 144 mmol/L (136-145); Total Protein 6.8 g/dL (6.4-8.2); Triglyceride 284 mg/dL (<150)
== END 2024-03-17 18:20 | disposition home or self-care (01) ==
LOC: NCHCN 18:19
PROVIDERS: PCP Family Medicine; Visit Provider Family Medicine
DX: E11.65 Type 2 diabetes mellitus with hyperglycemia (principal); E78.5 Hyperlipidemia, unspecified
CPT/HCPCS: 80053; 80061

== ENCOUNTER 2024-03-31 18:38 | Outpatient (REF) | payer BC, SELFPAY ==
[2024-04-04 04:12] LABS: EDDP-by GC-MS 278 ng/mL; Methadone Interpretation Positive.; Methadone-by GC-MS 923 ng/mL
== END 2024-03-31 18:39 | disposition home or self-care (01) ==
LOC: NCHCN 18:38
PROVIDERS: PCP Family Medicine; Visit Provider Family Medicine
DX: F11.20 Opioid dependence, uncomplicated (principal)
CPT/HCPCS: 80358

== ENCOUNTER 2024-04-14 18:10 | Outpatient (REF) | payer BC, SELFPAY ==
[2024-04-14 19:10] LABS: COMMENT (LAB VIEW ONLY) 68.75 mg/dL
== END 2024-04-14 18:11 | disposition home or self-care (01) ==
LOC: NCHCN 18:10
PROVIDERS: PCP Family Medicine; Visit Provider Family Medicine
DX: R80.9 Proteinuria, unspecified (principal)
CPT/HCPCS: 82043; 82570

== ENCOUNTER 2024-06-04 16:55 | Outpatient (REF) | payer BC, SELFPAY ==
[2024-06-04 19:37] LABS: ALT 26 U/L (16-63); AST 20 U/L (15-37); Albumin 3.8 g/dL (3.4-5.0); Alkaline Phosphatase 116 U/L (46-116); Bilirubin, Direct 0.1 mg/dL (0.0-0.2); Bilirubin, Total 0.23 mg/dL (0.2-1.0); Total Protein 7.1 g/dL (6.4-8.2)
[2024-06-09 11:39] LABS: Fentanyl Scr w/Rfx Confirm Negative ng/mL (<1)
== END 2024-06-04 16:56 | disposition home or self-care (01) ==
LOC: NCHCN 16:55
PROVIDERS: PCP Family Medicine; Visit Provider Family Medicine
DX: F11.20 Opioid dependence, uncomplicated (principal); F11.21 Opioid dependence, in remission; Z79.891 Long term (current) use of opiate analgesic
CPT/HCPCS: 80076; 80307

== ENCOUNTER 2024-07-17 11:08 | Outpatient (REF) | payer BC, SELFPAY ==
[2024-07-17 19:53] LABS: ALT 36 U/L (16-63); AST 43 U/L (15-37); Albumin 3.5 g/dL (3.4-5.0); Alkaline Phosphatase 139 U/L (46-116); Bilirubin, Direct 0.1 mg/dL (0.0-0.2); Bilirubin, Total 0.3 mg/dL (0.2-1.0); Total Protein 7.9 g/dL (6.4-8.2)
== END 2024-07-17 11:09 | disposition home or self-care (01) ==
LOC: NCHCN 11:08
PROVIDERS: PCP Family Medicine; Visit Provider Family Medicine
DX: F11.21 Opioid dependence, in remission (principal)
CPT/HCPCS: 80076

== ENCOUNTER 2024-07-21 12:36 | Inpatient (IN) | payer BC, SELFPAY ==
[2024-07-21] VITALS (79 sets, daily range): BP systolic 117–187; BP diastolic 71–115; PULSE 57–86; RESP 9–27; TEMP 36.6–36.7; O2SAT 88–97
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
[2024-07-21 13:18] LABS: Abs Immature Grans 0.05 10^3/uL (0.0-0.06); Absolute Basophil Count 0.03 10^3/uL (0.0-0.2); Absolute Eosinophil Count 0.16 10^3/uL (0.0-0.7); Absolute Lymphocyte Count 2.61 10^3/uL (1.2-3.4); Absolute Monocyte Count 0.48 10^3/uL (0.1-0.8); Absolute Neutrophil Count 4.88 10^3/uL (1.2-6.7); Basophils % 0.4 %; Eosinophils % 1.9 %; HCT 44.8 % (40.0-50.0); HGB 14.2 g/dL (13.5-17.5); Immature Grans % 0.6 %; Lymphocytes % 31.8 %; MCH 25.7 pg (27.0-33.0); MCHC 31.7 % (32.0-36.0); MCV 81 fL (80-95); MPV 8.8 fL (8.0-11.0); Monocytes % 5.8 %; Neutrophils % 59.5 %; Platelet Count 368 10^3/uL (130-400); RBC 5.53 10^6/uL (4.36-5.78); RDW 14.6 % (11.8-14.1); RDW-SD 42.5 fL; WBC 8.21 10^3/uL (4.4-10.8)
[2024-07-21 13:46] LABS: ALT 28 U/L (16-63); AST 22 U/L (15-37); Albumin 3.4 g/dL (3.4-5.0); Alkaline Phosphatase 163 U/L (46-116); Anion Gap 8.4 mmol/L (3-11); BUN 13 mg/dL (7-18); Bilirubin, Total 0.3 mg/dL (0.2-1.0); CO2 29.6 mmol/L (21.0-32.0); CREATININE 0.8 mg/dL (0.70-1.30); Chloride 101 mmol/L (98-107); ETHANOL BLOOD 149.6 mg/dL (<10); Estimated GFR 103.87 (mL/min/1.73m2); Glucose 276 mg/dL (74-106); Potassium 3.8 mmol/L (3.5-5.1); Sodium 139 mmol/L (136-145); TSH (W/Ref FT4) 2.72 uIU/mL (0.36-3.74); Total Protein 7.9 g/dL (6.4-8.2)
[2024-07-21] MEDS: diazePAM 10 MG/2 ML SYR 5 MG IVP (14:05)
[2024-07-21] MEDS: Normal Saline 500 ML 1000 ML IV (14:05)
[2024-07-21 14:23] LABS: *AMPHETAMINES SCREEN URINE Negative (Negative); *BARBITURATES SCREEN URINE Negative (Negative); *BENZODIAZEPINES SCREEN URINE Negative (Negative); Cannabinoids THC Negative (Negative); Cocaine Screen,Urine Negative (Negative); METHADONE URINE SCREEN Positive (Negative); OPIATES URINE SCREEN Negative (Negative)
[2024-07-21 14:25] LABS: Tricyclic Antidepressants Negative (Negative)
[2024-07-21] MEDS: LORazepam 2 MG/ML VIAL IVP (15:28)
[2024-07-21] MEDS: MULTIVITAMIN 10 ML, THIAMINE 100 MG, FOLIC ACID 1 MG in DEXTROSE 5%-0.45% SALINE 1,000 ML 42 ML IV (16:07)
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
[2024-07-21] MEDS: Enoxaparin 40 MG/0.4 ML SYR SC (19:47)
[2024-07-21] MEDS: Pregabalin 100 MG CAP PO (19:47)
[2024-07-21] MEDS: buPROPion-CR 100 MG TABCR PO (19:47)
[2024-07-21] MEDS: Normal Saline Flush 10 ML SYR IVP ×3 (19:49→23:38)
[2024-07-21] MEDS: PHENobarbital 130 MG/ML VIAL IVP (20:59)
[2024-07-21] MEDS: DEXTROSE 5%-0.45% SALINE 1,000 ML 30 ML IV (22:42)
[2024-07-22] VITALS (39 sets, daily range): BP systolic 107–178; BP diastolic 68–140; PULSE 52–80; RESP 6–24; TEMP 35.6–36.8; O2SAT 86–98
[2024-07-22] MEDS: PHENobarbital 130 MG/ML VIAL IVP ×6 (06:29→18:24)
[2024-07-22 06:51] LABS: Abs Immature Grans 0.05 10^3/uL (0.0-0.06); Absolute Basophil Count 0.04 10^3/uL (0.0-0.2); Absolute Eosinophil Count 0.22 10^3/uL (0.0-0.7); Absolute Lymphocyte Count 2.55 10^3/uL (1.2-3.4); Absolute Monocyte Count 0.44 10^3/uL (0.1-0.8); Basophils % 0.5 %; Eosinophils % 2.9 %; HCT 43.8 % (40.0-50.0); HGB 13.9 g/dL (13.5-17.5); Immature Grans % 0.7 %; MCH 25.9 pg (27.0-33.0); MCHC 31.7 % (32.0-36.0); MCV 82 fL (80-95); MPV 9.3 fL (8.0-11.0); Monocytes % 5.9 %; Platelet Count 304 10^3/uL (130-400); RBC 5.36 10^6/uL (4.36-5.78); RDW 15.1 % (11.8-14.1); RDW-SD 44.2 fL
[2024-07-22 07:23] LABS: ALT 21 U/L (16-63); AST 17 U/L (15-37); Albumin 2.8 g/dL (3.4-5.0); Alkaline Phosphatase 123 U/L (46-116); Anion Gap 5.5 mmol/L (3-11); BUN 16 mg/dL (7-18); Bilirubin, Direct 0.1 mg/dL (0.0-0.2); Bilirubin, Total 0.4 mg/dL (0.2-1.0); CO2 31.5 mmol/L (21.0-32.0); CREATININE 0.7 mg/dL (0.70-1.30); Calcium 9.3 mg/dL (8.5-10.1); Chloride 104 mmol/L (98-107); Estimated GFR 108.14 (mL/min/1.73m2); Glucose 118 mg/dL (74-106); PHOSPHORUS 3.8 mg/dL (2.6-4.7); Potassium 3.1 mmol/L (3.5-5.1); Sodium 141 mmol/L (136-145); Total Protein 6.8 g/dL (6.4-8.2)
[2024-07-22] MEDS: Sertraline 100 MG TAB PO (08:24)
[2024-07-22] MEDS: Empaglifozin 25 MG TAB PO (08:24)
[2024-07-22] MEDS: buPROPion-CR 100 MG TABCR PO ×2 (08:24→20:44)
[2024-07-22] MEDS: Cholecalciferol (Vitamin D3) 1,000 UNIT TAB 2000 UNITS PO (08:24)
[2024-07-22] MEDS: Pregabalin 100 MG CAP PO ×3 (08:24→20:45)
[2024-07-22] MEDS: Losartan 50 MG TAB 100 MG PO (08:25)
[2024-07-22] MEDS: Multivitamin TAB 1 TAB PO (08:25)
[2024-07-22] MEDS: amLODIPine 5 MG TAB PO (08:25)
[2024-07-22] MEDS: Atenolol 25 MG TAB 100 MG PO (08:25)
[2024-07-22] MEDS: Normal Saline Flush 10 ML SYR IVP ×2 (08:26→20:49)
[2024-07-22 08:42] LABS: Lab Add On Test DONE
[2024-07-22] MEDS: Nicotine 21 MG/24 HR PATCH TD (08:45)
[2024-07-22] MEDS: Potassium Chloride 20 MEQ TABCR 40 MEQ PO ×2 (08:45→20:44)
[2024-07-22 08:51] LABS: Magnesium 1.8 mg/dL (1.8-2.4)
[2024-07-22] MEDS: Folic Acid 1 MG TAB PO (09:21)
[2024-07-22] MEDS: Insulin Glargine 300 UNITS/3 ML PEN 50 UNITS SC ×2 (10:29→20:54)
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
--- NOTE | 2024-07-22 16:21 | CHAPLAIN ---
Alfredo was in bed when I visited. I explained my role and offered support. He thanked me for visiting. Alfredo said his mom be in to visit him tomorrow.
--- NOTE | 2024-07-22 17:11 | CHAPLAIN ---
Alfredo requested a visit this evening. He wanted to talk his grief around his debilitating stroke. 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 She is paralyzed on one side. We talked about his grief for the loss of his , Luda, as a healthy partner and his grief for the loss of the future that they anticipated together. They have been together since high school. Her brother was Alfredo's best friend as a kid. Alfredo is connected to a sponsor through and is aware of all the resources. He also has a morning meditation/reading practice that helps bring him peace and comfort. He and Luda like being outside in the [facility] they have been unable to do that because it is difficult to get her out. They use a hoya lift now to get her out of bed. (She's at the [facility] for respite currently.) He identified being outside around their home in [facility] as something that brings them both rashida. Alfredo is very aware that he's dealing with grief along with the challenges of caregiving. We talked about the importance of him taking care of himself first, so that he can care for Luda. [employer] provides funds to hire people to care for Luda but Alfredo said he has trouble finding good people to hire. Alfredo has looked online for support groups for caregivers and said he will do that again when he has time.
--- NOTE | 2024-07-22 17:48 | W.PM.PROGNOT ---
Date of Service Date of service: 07/22/24 Time of Service: 16:48 Assessment and Plan Assessment and plan (1) Alcohol withdrawal: Status: Acute Assessment and plan: Patient has been placed on a phenobarbital protocol, now past soft stop, approaching hard. Will continue to monitor in ICU. He has a h/o withdrawal seizures and may need precedex for anxiety after maxing phenobarbital. Get level in the AM continue high-dose thiamine at least in the short-term (2) Benign essential hypertension: Assessment and plan: Continue with current meds (3) Opioid use disorder, mild, in early remission, abuse: Assessment and plan: Patient is on a monthly buprenorphine injection (subcloccade) and then just had an injection 2 days prior to admission, has been stable in remission from use. (4) Diabetes mellitus: Status: Acute Assessment and plan: Hold his metformin, ISS. (5) Alcohol abuse, episodic: Assessment and plan: Discussed treatment, has AA sponsor, has taking acamprosate before. (6) DVT prophylaxis: Status: Acute Assessment and plan: enoxaparin Subjective Subjective Patient reports: voiding w/o difficulty; denies vomiting, shortness of breath or fever Interval history since last seen: Events: On phenobarbitol protocol overnight. Scoring 19, 20, 17, 2, 12 during course of day He still feels quite anxious. He initially stated he felt rotten after phenobarbital, but then states he thinks he is just tolerant to all medication and might need more. He has had some mild nausea. Eating little. He is not in pain. Exam Narrative Exam Narrative: GEN: Alert and oriented, NAD HEENT: MMM, no icterus, EOMI, no nystagmus Cardiovascular: Regular rate and rhythm no murmur rubs or gallops Lungs: Clear to auscultation bilaterally with good air exchange Abdomen: Soft nontender nondistended bowel sounds active x 4 quadrants no hepatosplenomegaly noted Extremities: No sinus clubbing or edema neurologic: CN intact, nl movement 4 extremities, no tremor now. Objective Last Vital Signs Temp 35.6 C L 07/22/24 03:31 Pulse 59 L 07/22/24 12:02 Resp 14 07/22/24 12:02 BP 134/78 07/22/24 12:02 Pulse Ox 98 07/22/24 12:02 Laboratory Results - last 24 hr 07/22/24 06:11 WBC 7.50 RBC 5.36 Hgb 13.9 Hct 43.8 MCV 82 MCH 25.9 L MCHC 31.7 L RDW 15.1 H Plt Count 304 MPV 9.3 Immature Gran % 0.7 Neutrophils % 56.0 Lymphocytes % 34.0 Monocytes % 5.9 Eosinophils % 2.9 Basophils % 0.5 Nucleated RBC % 0.0 Absolute Neutrophils 4.20 Absolute Lymphocytes 2.55 Absolute Monocytes 0.44 Absolute Eosinophils 0.22 Absolute Basophils 0.04 Sodium 141 Potassium 3.1 L Chloride 104 Carbon Dioxide 31.5 Anion Gap 5.5 BUN 16 Creatinine 0.7 Est GFR (CKD-EPI 2020) 108.14 Glucose 118 H Calcium 9.3 Phosphorus 3.8 Magnesium 1.8 Total Bilirubin 0.4 Conjugated Bilirubin 0.1 AST 17 ALT 21 Alkaline Phosphatase 123 H Total Protein 6.8 Albumin 2.8 L Add-On Test Request DONE PAWSS Pt Consumed Any Amount of Alcohol Within the Last 30 days OR had positive MARINO Upon Admission: Yes Have you Been Recently Intoxicated or Drunk Within the Last 30 days?: Yes Have you Ever Experienced Previous Episodes of Alcohol Withdrawal?: Yes Have you ever Experienced Withdrawal Seizures?: Yes Have you ever Experienced Delirium Tremens(DT)s?: Yes Have you ever undergone Alcohol Rehabilitation Treatment (i.e, inpt ot outpatient treatment programs)?: Yes Have you ever Experienced Blackouts?: Yes Have you ever Combined Alcohol with other Downers within the last 90 days?: Yes Have you ever Combined Alcohol with any other Substance of Abuse during the last 90 days?: Yes Positive Blood Alcohol level on Presentation? [PCS.BAL]: Yes Evidence of Increased Autonomic Activity (i.e. HR>120, tremor, sweating, agitation, nausea)?: Yes Result: 10 Time Spent with Patient Time Spent with Patient: >50 minutes Time was spent: preparing to see the patient(eg.review tests), obtaining and/or reviewing separately otained hiistory, ordering medications,tests, procedures, referring, communicating with other health neonatal intensive care unit nurse, indepentently interpreting results, counseling the patient and care coordination
[2024-07-22] MEDS: Ibuprofen 600 MG TAB PO (20:45)
[2024-07-22] MEDS: Enoxaparin 40 MG/0.4 ML SYR SC (20:46)
[2024-07-22] MEDS: dexmedeTOMidine IN 0.9 % NACL 400 MCG/100 ML BTL IV (20:49)
[2024-07-23] VITALS (18 sets, daily range): BP systolic 83–167; BP diastolic 57–102; PULSE 53–66; RESP 10–19; TEMP 36.4; O2SAT 92–98
[2024-07-23] MEDS: Lactated Ringers 1,000 ML 500 ML IV (03:46)
[2024-07-23 06:41] LABS: Anion Gap 10.1 mmol/L (3-11); BUN 25 mg/dL (7-18); CO2 28.9 mmol/L (21.0-32.0); CREATININE 0.9 mg/dL (0.70-1.30); Calcium 9.6 mg/dL (8.5-10.1); Chloride 104 mmol/L (98-107); Estimated GFR 100.24 (mL/min/1.73m2); Glucose 64 mg/dL (74-106); Potassium 3.4 mmol/L (3.5-5.1); Sodium 143 mmol/L (136-145)
[2024-07-23] MEDS: Normal Saline Flush 10 ML SYR IVP ×2 (07:18→09:18)
[2024-07-23] MEDS: Nicotine 21 MG/24 HR PATCH TD (08:49)
[2024-07-23] MEDS: Atenolol 25 MG TAB 100 MG PO (08:49)
[2024-07-23] MEDS: Cholecalciferol (Vitamin D3) 1,000 UNIT TAB 2000 UNITS PO (08:50)
[2024-07-23] MEDS: Folic Acid 1 MG TAB PO (08:50)
[2024-07-23] MEDS: amLODIPine 5 MG TAB PO (08:50)
[2024-07-23] MEDS: Potassium Chloride 20 MEQ TABCR 40 MEQ PO (08:50)
[2024-07-23] MEDS: Losartan 50 MG TAB 100 MG PO (08:50)
[2024-07-23] MEDS: Pregabalin 100 MG CAP PO (08:50)
[2024-07-23] MEDS: Insulin Glargine 300 UNITS/3 ML PEN 50 UNITS SC (08:51)
[2024-07-23] MEDS: Sertraline 100 MG TAB PO (08:51)
[2024-07-23] MEDS: Multivitamin TAB 1 TAB PO (08:51)
[2024-07-23] MEDS: Empaglifozin 25 MG TAB PO (08:51)
--- NOTE | 2024-07-23 08:58 | PDOC.CMPRO ---
Date of service: 07/23/24 Time of Service: 08:58 Care Management Progress Note Discharge Potential Discharge Needs: PCP F/U Appt Anticipated Barriers to Discharge: None Identified Patient/Family Education Needs: Review discharge instructions, discuss Ask Me Three Transportation: Private vehicle Plan: Anticipate that Alfredo will be discharged home once he is medical stable. CM does not anticipate any HH needs at this time, but will continue to review. Alfredo will require a PCP f/u and should continue with AA meetings and the support of his sponsor. CM will continue to follow. Social Determinants of Health Screening Social Determinants of health last assessed in clinic: 07/22/24 Will the Patient Participate in the Screening?: Yes Do you worry about having a steady place to live?: no Problems where you live: no known problems In the past 12 months, have you had to go without electric, gas, oil or water in your home?: no Has lack of transportation kept you from medical appointments or from doing things needed for daily living?: no Has anyone in your life made you feel unsafe or unsupported?: no How hard is it for you to pay for the very basics like food, housing, medical care, and heating? Would you say it is:: Very hard Do you want help finding or keeping work or a job?: Yes, help keeping work If for any reason you need help with day-to-day activities such as bathing, preparing meals, shopping, managing finances, etc., do you get the help you need?: I could use a little more help How often do you feel lonely or isolated from those around you?: Sometimes Do you speak a language other than Korean at home?: No Health Related Social Needs Health related social needs: problems related to housing/economic circumstances (Z59.89), problems finding work (Z56.9), problems with daily activities (Z73.9) and feeling lonely/isolated (Z60.8) Health related social needs details: Pt reports he would like help keeping his current job at [employer].
[2024-07-23] MEDS: buPROPion-CR 100 MG TABCR PO (09:16)
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
--- NOTE | 2024-07-23 12:26 | PDOC.CMDIS ---
Date of service: 07/23/24 Time of Service: 12:26 LACE Index Scoring Tool Questions: Length of Stay (in days): 2 Was the patient admitted via the E.D.?: Yes Comorbidities: Diabetes w/o Complication and Liver or Renal Disease E.D. Visits: 4 Answers: Total Score: 14 Risk of Readmission: High Risk Care Management Discharge Plan Reason for Hospitalization: ETOH withdrawal Discharge Plan: Alfredo is discharged today with no new services. He has connected with [facility], and plans to attend an AA meeting there at 5:30 this afternoon. He has also connected with his AA sponsor, who has always been a good support. Alfredo is determined to try to get his life together. Alfredo will f/u with his PCP and continue per his plan of care. He will transport in a private vehicle. Alfredo was given a Return to Work letter, he may return on Sunday with no restrictions. Patient/Family Education Needs: Review of discharge instructions, activity, limitations, and discuss ask me 3. SDOH Health Related Social Needs: Health related social needs food insecurity (Z59.41), problems related to housing/economic circumstances (Z59.89), problems finding work (Z56.9), problems with daily activities (Z73.9), feeling lonely/isolated (Z60.8) Health related social needs details Pt reports he would like help keeping his current job at [email or web address]. Health related social needs details: Pt reports he would like help keeping his current job at [email or web address].
--- NOTE | 2024-07-23 17:17 | CHAPLAIN ---
I visited with Alfredo this morning prior to his discharge, and gave him a prayer shawl for his , who is currently at the [facility]. Alfredo said he spoke to his sponsor this morning. He said he's feeling good and knows what steps he needs to take to continue with his sobriety. 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 He said he's struggling with his grief over the loss of the life he and his anticipated they had ahead of them. Yesterday we talked about the daily rituals he uses to keep himself centered. And we talked about the importance of him taking care of himself as well.
== END 2024-07-23 13:15 | disposition home or self-care (01) | DRG 897 ==
LOC: ER 15:14 → ICU 18:06
PROVIDERS: Admitting Provider Hospitalist; Emergency Provider Registered Nurse Emergency; PCP Family Medicine; Responsible Provider Family Medicine; Visit Provider Hospitalist
DX: I10 Essential (primary) hypertension; E78.5 Hyperlipidemia, unspecified; E11.9 Type 2 diabetes mellitus without complications; F11.11 Opioid abuse, in remission; F10.139 Alcohol abuse with withdrawal, unspecified; E87.6 Hypokalemia; F17.210 Nicotine dependence, cigarettes, uncomplicated; K30 Functional dyspepsia; D50.9 Iron deficiency anemia, unspecified; F43.12 Post-traumatic stress disorder, chronic; K21.9 Gastro-esophageal reflux disease without esophagitis; G25.81 Restless legs syndrome; F41.9 Anxiety disorder, unspecified; F32.A Depression, unspecified; F19.11 Other psychoactive substance abuse, in remission; Z79.4 Long term (current) use of insulin; Z59.89 Other problems related to housing and economic circumstances; Z56.9 Unspecified problems related to employment; Z73.9 Problem related to life management difficulty, unspecified; Z79.899 Other long term (current) drug therapy; Z60.8 Other problems related to social environment
CPT/HCPCS: 00123; 36415; 80048; 80053; 80076; 80307; 96365; 96375; 99285; J1650; 80320; 83735; 84100; 84443; 85025; 94660; 94760; 99222; 99233; 99239; J1815; J2060; J2560; J3360; J3411

== ENCOUNTER 2024-08-23 13:27 | Inpatient (IN) | payer BC, SELFPAY ==
[2024-08-23] VITALS (64 sets, daily range): BP systolic 125–183; BP diastolic 75–128; PULSE 65–94; RESP 2–22; TEMP 36.6–37.2; O2SAT 86–98
[2024-08-23 14:31] LABS: Abs Immature Grans 0.04 10^3/uL (0.0-0.06); Absolute Basophil Count 0.03 10^3/uL (0.0-0.2); Absolute Eosinophil Count 0.12 10^3/uL (0.0-0.7); Absolute Lymphocyte Count 2.62 10^3/uL (1.2-3.4); Absolute Monocyte Count 0.41 10^3/uL (0.1-0.8); Absolute Neutrophil Count 3.38 10^3/uL (1.2-6.7); Basophils % 0.5 %; Eosinophils % 1.8 %; HCT 44.4 % (40.0-50.0); HGB 14.4 g/dL (13.5-17.5); Immature Grans % 0.6 %; Lymphocytes % 39.7 %; MCH 25.8 pg (27.0-33.0); MCHC 32.4 % (32.0-36.0); MCV 79 fL (80-95); MPV 9.1 fL (8.0-11.0); Monocytes % 6.2 %; Neutrophils % 51.2 %; Platelet Count 236 10^3/uL (130-400); RBC 5.59 10^6/uL (4.36-5.78); RDW 15.9 % (11.8-14.1); RDW-SD 45.1 fL
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
[2024-08-23 14:51] LABS: ALT 23 U/L (16-63); AST 33 U/L (15-37); Albumin 3.5 g/dL (3.4-5.0); Alkaline Phosphatase 139 U/L (46-116); Anion Gap 8.4 mmol/L (3-11); BUN 9 mg/dL (7-18); Bilirubin, Total 0.2 mg/dL (0.2-1.0); CO2 31.6 mmol/L (21.0-32.0); CREATININE 0.6 mg/dL (0.70-1.30); Calcium 9.4 mg/dL (8.5-10.1); Chloride 101 mmol/L (98-107); Estimated GFR 113.29 (mL/min/1.73m2); Glucose 104 mg/dL (74-106); Magnesium 1.6 mg/dL (1.8-2.4); Sodium 141 mmol/L (136-145)
[2024-08-23 15:02] LABS: Potassium 2.8 mmol/L (3.5-5.1)
[2024-08-23] MEDS: MULTIVITAMIN 10 ML, THIAMINE 100 MG, FOLIC ACID 1 MG in DEXTROSE 5%-0.45% SALINE 1,000 ML 168.533 ML IV (15:11)
[2024-08-23] MEDS: Potassium Chloride 20 MEQ TABCR PO (15:35)
[2024-08-23] MEDS: MAGNESIUM SULFATE 1 GM/100 ML BAG IV_INF (15:36)
[2024-08-23] MEDS: POTASSIUM CHLORIDE 20 MEQ/100 ML BAG 50 MEQ IV_INF (15:38)
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
[2024-08-23] MEDS: LORazepam 20 MG/10 ML VIAL IVP (16:11)
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
[2024-08-23 17:21] LABS: *AMPHETAMINES SCREEN URINE Negative (Negative); *BARBITURATES SCREEN URINE Positive (Negative); *BENZODIAZEPINES SCREEN URINE Negative (Negative); Cannabinoids THC Negative (Negative); Cocaine Screen,Urine Negative (Negative); METHADONE URINE SCREEN Positive (Negative); OPIATES URINE SCREEN Negative (Negative)
[2024-08-23 17:30] LABS: Tricyclic Antidepressants Negative (Negative)
[2024-08-23] MEDS: Sucralfate 1 GM TAB PO (18:16)
[2024-08-23] MEDS: Rosuvastatin 10 MG TAB 40 MG PO (20:17)
[2024-08-23] MEDS: Pregabalin 100 MG CAP PO (20:17)
[2024-08-23] MEDS: Dicyclomine 10 MG CAP PO (20:19)
[2024-08-23] MEDS: Normal Saline Flush 10 ML SYR IVP (20:21)
[2024-08-24] VITALS (82 sets, daily range): BP systolic 101–176; BP diastolic 47–102; PULSE 50–79; RESP 10–30; TEMP 36.4–36.8; O2SAT 88–100
[2024-08-24] MEDS: Normal Saline Flush 10 ML SYR IVP ×5 (01:00→19:33)
[2024-08-24] MEDS: PHENobarbital 130 MG/ML VIAL IVP ×4 (01:01→16:48)
[2024-08-24] MEDS: Acetaminophen 325 MG TAB PO ×2 (01:01→16:48)
[2024-08-24 06:16] LABS: HCT 42.1 % (40.0-50.0); HGB 13.6 g/dL (13.5-17.5); MCH 25.8 pg (27.0-33.0); MCHC 32.3 % (32.0-36.0); MCV 80 fL (80-95); RBC 5.27 10^6/uL (4.36-5.78); RDW 16.1 % (11.8-14.1); RDW-SD 46.6 fL; WBC 6.68 10^3/uL (4.4-10.8)
[2024-08-24 06:37] LABS: ALT 25 U/L (16-63); AST 45 U/L (15-37); Albumin 2.9 g/dL (3.4-5.0); Alkaline Phosphatase 120 U/L (46-116); Anion Gap 5.9 mmol/L (3-11); BUN 11 mg/dL (7-18); Bilirubin, Total 0.3 mg/dL (0.2-1.0); CO2 32.1 mmol/L (21.0-32.0); CREATININE 0.6 mg/dL (0.70-1.30); Calcium 8.6 mg/dL (8.5-10.1); Chloride 103 mmol/L (98-107); Estimated GFR 113.29 (mL/min/1.73m2); Glucose 62 mg/dL (74-106); Potassium 3.1 mmol/L (3.5-5.1); Sodium 141 mmol/L (136-145); Total Protein 6.7 g/dL (6.4-8.2)
[2024-08-24] MEDS: Dicyclomine 10 MG CAP PO ×2 (08:12→19:32)
[2024-08-24] MEDS: Sucralfate 1 GM TAB PO ×2 (08:12→16:48)
[2024-08-24] MEDS: amLODIPine 5 MG TAB PO (08:13)
[2024-08-24] MEDS: Pregabalin 100 MG CAP PO ×3 (08:13→19:32)
[2024-08-24] MEDS: Pantoprazole 40 MG TABCR PO (08:13)
[2024-08-24] MEDS: Thiamine 100 MG TAB PO (08:13)
[2024-08-24] MEDS: Folic Acid 1 MG TAB PO (08:13)
[2024-08-24] MEDS: Losartan 50 MG TAB 100 MG PO (08:13)
[2024-08-24] MEDS: Enoxaparin 40 MG/0.4 ML SYR SC (08:14)
[2024-08-24] MEDS: Sertraline 100 MG TAB PO (08:14)
[2024-08-24] MEDS: Atenolol 25 MG TAB 100 MG PO (08:20)
--- NOTE | 2024-08-24 09:05 | PGE_ITS ---
Date of Service Date of service: 08/24/24 Time of Service: 09:05 Assessment and Plan Assessment and plan (1) Alcohol withdrawal: Status: Acute Assessment and plan: - Multiple episodes of alcohol withdrawal treated with phenobarbital as well as Precedex during last hospitalization - Started on phenobarbital protocol in the emergency department - Given recent evidence-based recommendations, will also allow for as needed IV Ativan in addition to phenobarbital -patient hit hard-stop for phenobarb AM 08/24 - Continued monitoring CIWA scores and giving him as needed ativan - Will contact oil recovery operator when possible (2) Hypokalemia: Status: Acute Assessment and plan: -K 2.8, replaced in ED -K 3.1 AM 08/24, replacement ordered -f/u AM CMP (3) Hypomagnesemia: Status: Acute Assessment and plan: -Mg 1.6, placed in ED (4) Diabetes mellitus, type II: Assessment and plan: -continue home long acting insulin -SSI, CCD Subjective Subjective Interval history since last seen: Patient states that he is experiencing some intermittent anxiety but is overall feeling much better as compared to admission. Exam Narrative Exam Narrative: Mildly anxious but well-appearing older gentleman laying in bed in no acute distress, awake, alert, oriented to person and place, heart regular rhythm, lung s clear to auscultation bilaterally, abdomen soft, nontender, nondistended Objective Last Vital Signs Temp 98.1 F 08/24/24 01:01 Pulse 63 08/24/24 04:02 Resp 18 08/24/24 04:30 BP 147/83 H 08/24/24 04:02 Pulse Ox 94 08/24/24 07:52 Laboratory Results - last 24 hr 08/23/24 08/23/24 08/24/24 14:02 16:22 05:53 WBC 6.60 6.68 RBC 5.59 5.27 Hgb 14.4 13.6 Hct 44.4 42.1 MCV 79 L 80 MCH 25.8 L 25.8 L MCHC 32.4 32.3 RDW 15.9 H 16.1 H Plt Count 236 MPV 9.1 Immature Gran % 0.6 Neutrophils % 51.2 Lymphocytes % 39.7 Monocytes % 6.2 Eosinophils % 1.8 Basophils % 0.5 Nucleated RBC % 0.0 Absolute Neutrophils 3.38 Absolute Lymphocytes 2.62 Absolute Monocytes 0.41 Absolute Eosinophils 0.12 Absolute Basophils 0.03 Sodium 141 141 Potassium 2.8 L* 3.1 L Chloride 101 103 Carbon Dioxide 31.6 32.1 H Anion Gap 8.4 5.9 BUN 9 11 Creatinine 0.6 L 0.6 L Est GFR (CKD-EPI 2020) 113.29 113.29 Glucose 104 62 L Calcium 9.4 8.6 Magnesium 1.6 L Total Bilirubin 0.2 0.3 AST 33 45 H ALT 23 25 Alkaline Phosphatase 139 H 120 H Total Protein 8.0 6.7 Albumin 3.5 2.9 L Urine Opiates Screen Negative Urine Methadone Screen Positive A Ur Barbiturates Screen Positive A Ur Tricyclics Screen Negative Ur Amphetamines Screen Negative U Benzodiazepines Scrn Negative Urine Cocaine Screen Negative Ur THC Screen Negative Ethyl Alcohol 244.0 H PAWSS Have you Been Recently Intoxicated or Drunk Within the Last 30 days?: Yes Have you Ever Experienced Previous Episodes of Alcohol Withdrawal?: Yes Have you ever Experienced Withdrawal Seizures?: Yes Have you ever Experienced Delirium Tremens(DT)s?: Yes Have you ever undergone Alcohol Rehabilitation Treatment (i.e, inpt ot outpatient treatment programs)?: Yes Have you ever Experienced Blackouts?: Yes Have you ever Combined Alcohol with other Downers within the last 90 days?: No Have you ever Combined Alcohol with any other Substance of Abuse during the last 90 days?: Yes Positive Blood Alcohol level on Presentation? [PCS.BAL]: Yes Evidence of Increased Autonomic Activity (i.e. HR>120, tremor, sweating, agitation, nausea)?: Yes Result: 10 Time Spent with Patient Time Spent with Patient: >50 minutes Time was spent: preparing to see the patient(eg.review tests), obtaining and/or reviewing separately otained hiistory, ordering medications,tests, procedures, referring, communicating with other health health care facilities inspector, indepentently interpreting results, counseling the patient and care coordination
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
[2024-08-24] MEDS: LORazepam 20 MG/10 ML VIAL IVP ×2 (10:16→19:05)
[2024-08-24] MEDS: Rosuvastatin 10 MG TAB 40 MG PO (19:32)
[2024-08-24] MEDS: Insulin Glargine 300 UNITS/3 ML PEN 80 UNITS SC (22:09)
[2024-08-25] VITALS (20 sets, daily range): BP systolic 118–196; BP diastolic 54–110; PULSE 52–79; RESP 10–25; TEMP 36.8–36.9; O2SAT 90–97
[2024-08-25 05:03] LABS: HCT 40.5 % (40.0-50.0); HGB 13.3 g/dL (13.5-17.5); MCH 26.5 pg (27.0-33.0); MCHC 32.8 % (32.0-36.0); MCV 81 fL (80-95); MPV 9.7 fL (8.0-11.0); Platelet Count 186 10^3/uL (130-400); RBC 5.02 10^6/uL (4.36-5.78); RDW 16.4 % (11.8-14.1); RDW-SD 47.3 fL; WBC 5.12 10^3/uL (4.4-10.8)
[2024-08-25 05:28] LABS: Anion Gap 5.3 mmol/L (3-11); BUN 11 mg/dL (7-18); CO2 30.7 mmol/L (21.0-32.0); CREATININE 0.6 mg/dL (0.70-1.30); Calcium 8.9 mg/dL (8.5-10.1); Chloride 104 mmol/L (98-107); Estimated GFR 113.29 (mL/min/1.73m2); Glucose 142 mg/dL (74-106); Sodium 140 mmol/L (136-145)
[2024-08-25 05:34] LABS: Potassium 2.8 mmol/L (3.5-5.1)
[2024-08-25] MEDS: Acetaminophen 325 MG TAB PO (05:58)
[2024-08-25 08:52] LABS: Magnesium 1.5 mg/dL (1.8-2.4)
[2024-08-25] MEDS: Atenolol 25 MG TAB 100 MG PO (09:24)
[2024-08-25] MEDS: Potassium Chloride 20 MEQ TABCR 40 MEQ PO ×2 (09:24→14:47)
[2024-08-25] MEDS: Pregabalin 100 MG CAP PO ×2 (09:25→14:47)
[2024-08-25] MEDS: Thiamine 100 MG TAB PO (09:25)
[2024-08-25] MEDS: Sertraline 100 MG TAB PO (09:25)
[2024-08-25] MEDS: Losartan 50 MG TAB 100 MG PO (09:25)
[2024-08-25] MEDS: Pantoprazole 40 MG TABCR PO (09:25)
[2024-08-25] MEDS: amLODIPine 5 MG TAB PO (09:25)
[2024-08-25] MEDS: Normal Saline Flush 10 ML SYR IVP (09:26)
[2024-08-25] MEDS: Enoxaparin 40 MG/0.4 ML SYR SC (09:26)
[2024-08-25] MEDS: Sucralfate 1 GM TAB PO ×2 (09:26→10:54)
[2024-08-25] MEDS: Folic Acid 1 MG TAB PO (09:26)
[2024-08-25] MEDS: Dicyclomine 10 MG CAP PO (09:26)
[2024-08-25] MEDS: POTASSIUM CHLORIDE 20 MEQ/100 ML BAG 50 MEQ IV_INF ×2 (09:30→11:42)
[2024-08-25] MEDS: Normal Saline 500 ML 30 ML IV (09:31)
[2024-08-25 09:36] LABS: Lab Add On Test DONE
[2024-08-25] MEDS: Insulin Glargine 300 UNITS/3 ML PEN 80 UNITS SC (10:54)
[2024-08-25] MEDS: MAGNESIUM SULFATE 4 GM/100 ML BAG IV_INF (12:38)
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
== END 2024-08-25 15:00 | disposition home or self-care (01) | DRG 897 ==
LOC: ER 15:40 → ICU 16:33
PROVIDERS: Admitting Provider Family Medicine; Emergency Provider Student in an Organized Health Care Education/Training Program; PCP Family Medicine; Responsible Provider Family Medicine; Visit Provider Family Medicine
DX: E87.6 Hypokalemia; E83.42 Hypomagnesemia; E11.9 Type 2 diabetes mellitus without complications; Z79.4 Long term (current) use of insulin; F43.10 Post-traumatic stress disorder, unspecified; F10.139 Alcohol abuse with withdrawal, unspecified; E78.5 Hyperlipidemia, unspecified; I10 Essential (primary) hypertension; F10.129 Alcohol abuse with intoxication, unspecified; Y90.8 Blood alcohol level of 240 mg/100 ml or more
CPT/HCPCS: 00123; 36415; 80048; 80053; 80307; 85027; 96365; 96367; 96368; 96375; 99291; J1650; 80320; 83735; 84132; 85025; 94760; 99223; 99233; 99239; J1815; J2060; J2560; J3360; J3411; J3475; J3480

== ENCOUNTER 2024-08-29 15:08 | Outpatient (REF) | payer BC, SELFPAY ==
[2024-08-29 16:13] LABS: COMMENT (LAB VIEW ONLY) < 13.00 mg/dL
== END 2024-08-29 15:09 | disposition home or self-care (01) ==
LOC: NCHCN 15:08
PROVIDERS: PCP Family Medicine; Visit Provider Family Medicine
DX: E11.65 Type 2 diabetes mellitus with hyperglycemia (principal)
CPT/HCPCS: 82043; 82570

== ENCOUNTER 2024-10-30 09:08 | Emergency (ER) | payer BC, SELFPAY ==
[2024-10-30] VITALS (64 sets, daily range): BP systolic 106–172; BP diastolic 58–99; PULSE 60–86; RESP 8–21; TEMP 36.7; O2SAT 91–100
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
[2024-10-30 09:25] LABS: BE (Venous) 0 mmol/L (-2-3); HCO3 (Venous) 26 mmol/L (23-28); O2 Sat (Venous) 70 %; TCO2 (Venous) 24 mmol/L (24-29); pCO2 (Venous) 49 mmHg (41-51); pO2 (Venous) 38 mmHg
[2024-10-30 09:27] LABS: Abs Immature Grans 0.03 10^3/uL (0.0-0.06); HCT 38.2 % (40.0-50.0); HGB 12.6 g/dL (13.5-17.5); Immature Grans % 0.6 %; MCH 26.6 pg (27.0-33.0); MCHC 33.0 % (32.0-36.0); MCV 81 fL (80-95); MPV 10.1 fL (8.0-11.0); Platelet Count 234 10^3/uL (130-400); RBC 4.73 10^6/uL (4.36-5.78); RDW 14.3 % (11.8-14.1); RDW-SD 41.5 fL; WBC 5.44 10^3/uL (4.4-10.8)
[2024-10-30] MEDS: Normal Saline - Diluent 50 ML VIAL IJ (09:38)
[2024-10-30 09:44] LABS: INR 0.9 (0.9-1.1); PTT Activated 24.7 sec (20.6-30.2); Prothrombin Time 9.3 sec (9.1-11.1)
[2024-10-30 09:44] LABS: Ammonia 20 umol/L (11-32)
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
[2024-10-30] MEDS: Omnipaque 350 MG/ML 500 ML BTL-Imaging package 100 ML IJ (09:56)
[2024-10-30 10:08] LABS: Albumin 3.2 g/dL (3.4-5.0); Alkaline Phosphatase 162 U/L (46-116); Anion Gap 13.8 mmol/L (3-11); BUN 18 mg/dL (7-18); Bilirubin, Total 0.3 mg/dL (0.2-1.0); CO2 27.2 mmol/L (21.0-32.0); Calcium 9.0 mg/dL (8.5-10.1); Chloride 96 mmol/L (98-107); Estimated GFR 99.62 (mL/min/1.73m2); Glucose 442 mg/dL (74-106); Magnesium 1.9 mg/dL (1.8-2.4); Potassium 3.0 mmol/L (3.5-5.1); Sodium 137 mmol/L (136-145); TSH (W/Ref FT4) 1.19 uIU/mL (0.36-3.74); Total Protein 7.2 g/dL (6.4-8.2); Troponin I 42 ng/L (<or=76)
[2024-10-30 10:27] LABS: Lipase 20 U/L (<78)
[2024-10-30 10:28] LABS: ALT 16 U/L (16-63); AST 17 U/L (15-37)
[2024-10-30 10:40] LABS: Glucose 500 mg/dL (Negative)
[2024-10-30 10:51] LABS: Troponin I 45 ng/L (<or=76)
[2024-10-30 10:53] LABS: Cannabinoids THC Positive (Negative); METHADONE URINE SCREEN Negative (Negative)
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
[2024-10-30] MEDS: Potassium Chloride 20 MEQ TABCR 40 MEQ PO (15:57)
== END 2024-10-30 16:03 | disposition home or self-care (01) ==
PROVIDERS: Emergency Provider Physician Assistant; PCP Family Medicine
DX: F10.90 Alcohol use, unspecified, uncomplicated (principal); E87.6 Hypokalemia; I10 Essential (primary) hypertension; E78.5 Hyperlipidemia, unspecified; E11.9 Type 2 diabetes mellitus without complications; Z79.4 Long term (current) use of insulin; Z79.84 Long term (current) use of oral hypoglycemic drugs; V48.5XXA Car driver injured in noncollision transport accident in traffic accident, initial encounter
CPT/HCPCS: 73552; 74177; 76604; 76705; 76857; 80053; 80307; 82805; 82962; 83690; 86850; 86900; 86901; 93005; 99285; 70450; 71260; 72125; 80320; 81003; 82140; 83605; 83735; 84443; 84484; 85025; 85610; 85730; 93010; 99284

== ENCOUNTER 2024-11-04 15:04 | Inpatient (IN) | payer BC, SELFPAY ==
[2024-11-04] VITALS (69 sets, daily range): BP systolic 107–191; BP diastolic 63–112; PULSE 71–102; RESP 12–33; TEMP 36.8–37; O2SAT 88–99
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
[2024-11-04 15:54] LABS: Abs Immature Grans 0.03 10^3/uL (0.0-0.06); HCT 40.2 % (40.0-50.0); HGB 13.0 g/dL (13.5-17.5); Immature Grans % 0.5 %; MCH 26.3 pg (27.0-33.0); MCHC 32.3 % (32.0-36.0); MCV 81 fL (80-95); MPV 9.8 fL (8.0-11.0); Platelet Count 194 10^3/uL (130-400); RBC 4.95 10^6/uL (4.36-5.78); RDW 15.3 % (11.8-14.1); RDW-SD 44.9 fL; WBC 6.56 10^3/uL (4.4-10.8)
[2024-11-04] MEDS: Normal Saline 1,000 ML 1000 ML IV (15:54)
[2024-11-04 16:46] LABS: Salicylate 4.8 mg/dL (<2.8)
[2024-11-04 16:48] LABS: ALT 32 U/L (16-63); AST 32 U/L (15-37); Albumin 3.6 g/dL (3.4-5.0); Alkaline Phosphatase 128 U/L (46-116); Anion Gap 17.1 mmol/L (3-11); BUN 10 mg/dL (7-18); Bilirubin, Total 0.3 mg/dL (0.2-1.0); CO2 24.9 mmol/L (21.0-32.0); Calcium 9.2 mg/dL (8.5-10.1); Chloride 98 mmol/L (98-107); Estimated GFR 107.47 (mL/min/1.73m2); Glucose 126 mg/dL (74-106); Sodium 140 mmol/L (136-145); Total Protein 7.5 g/dL (6.4-8.2)
[2024-11-04 16:53] LABS: Acetaminophen < 2 ug/mL (10-30)
[2024-11-04 16:54] LABS: Potassium 2.8 mmol/L (3.5-5.1)
--- NOTE | 2024-11-04 17:15 | RT.EKG_ITS ---
APPROVED REPORT Exam: Resting ECG Reason for Exam: hypo K Patient Location: E HR:78 bpm ECG Measurements Heart Rate 78 AXIS WY 167 P 48 QRSd 114 QRS 19 QT 433 T 21 QTc 494 Conclusion Incomplete analysis due to missing data in precordial lead(s) Sinus rhythm...normal P axis, V-rate 60- 99 sinus rhythm, normal axis, normal intevals, non ischemic
[2024-11-04] MEDS: POTASSIUM CHLORIDE 20 MEQ/100 ML BAG 50 MEQ IV_INF (18:33)
[2024-11-04] MEDS: diazePAM 5 MG TAB PO (20:39)
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
[2024-11-04 22:42] LABS: Magnesium 1.7 mg/dL (1.8-2.4)
[2024-11-04 23:28] LABS: COVID-19 PCR Negative (Negative); RSV PCR Negative (Negative)
[2024-11-04 23:46] LABS: Anion Gap 10.3 mmol/L (3-11); BUN 9 mg/dL (7-18); CO2 27.7 mmol/L (21.0-32.0); Calcium 8.8 mg/dL (8.5-10.1); Chloride 104 mmol/L (98-107); Estimated GFR 118.97 (mL/min/1.73m2); Glucose 78 mg/dL (74-106); INR 1.0 (0.9-1.1); Prothrombin Time 10.4 sec (9.1-11.1); Sodium 142 mmol/L (136-145)
[2024-11-04 23:49] LABS: Potassium 2.9 mmol/L (3.5-5.1)
[2024-11-05] VITALS (35 sets, daily range): BP systolic 99–146; BP diastolic 62–94; PULSE 52–78; RESP 6–14; TEMP 36.4–36.5; O2SAT 88–98
[2024-11-05] MEDS: Pantoprazole 40 MG VIAL IVP ×2 (00:01→09:19)
[2024-11-05] MEDS: Normal Saline 1,000 ML 150 ML IV ×3 (00:39→17:18)
[2024-11-05] MEDS: POTASSIUM CHLORIDE 20 MEQ/100 ML BAG 50 MEQ IV_INF (02:00)
--- NOTE | 2024-11-05 02:30 | RT.EKG_ITS ---
APPROVED REPORT Exam: Resting ECG Reason for Exam: Conversion from normal sinus rhythm to A. Fib Patient Location: I HR:73 bpm ECG Measurements Heart Rate 73 AXIS HI 161 P 49 QRSd 109 QRS 20 QT 441 T 31 QTc 486 Conclusion Sinus rhythm...normal P axis, V-rate 50- 99 Normal Electrocardiogram
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
[2024-11-05] MEDS: MAGNESIUM SULFATE 2 GM/50 ML BAG IV_INF (03:58)
[2024-11-05 04:06] LABS: HCT 37.9 % (40.0-50.0); HGB 12.3 g/dL (13.5-17.5); MCH 26.6 pg (27.0-33.0); MCHC 32.5 % (32.0-36.0); MCV 82 fL (80-95); MPV 10.3 fL (8.0-11.0); Platelet Count 173 10^3/uL (130-400); RBC 4.63 10^6/uL (4.36-5.78); RDW 15.4 % (11.8-14.1); RDW-SD 45.4 fL; WBC 5.40 10^3/uL (4.4-10.8)
[2024-11-05 04:22] LABS: Anion Gap 8.4 mmol/L (3-11); BUN 9 mg/dL (7-18); CO2 29.6 mmol/L (21.0-32.0); Calcium 8.3 mg/dL (8.5-10.1); Chloride 105 mmol/L (98-107); Estimated GFR 118.97 (mL/min/1.73m2); Potassium 3.4 mmol/L (3.5-5.1); Sodium 143 mmol/L (136-145)
[2024-11-05 04:26] LABS: Glucose 43 mg/dL (74-106)
[2024-11-05 06:37] LABS: ALT 27 U/L (16-63); AST 30 U/L (15-37); Albumin 2.8 g/dL (3.4-5.0); Alkaline Phosphatase 104 U/L (46-116); Bilirubin, Direct 0.1 mg/dL (0.0-0.2); Bilirubin, Total 0.4 mg/dL (0.2-1.0); Magnesium 2.0 mg/dL (1.8-2.4); Total Protein 6.0 g/dL (6.4-8.2)
[2024-11-05 08:25] LABS: Anion Gap 6.6 mmol/L (3-11); BUN 9 mg/dL (7-18); CO2 29.4 mmol/L (21.0-32.0); Calcium 8.2 mg/dL (8.5-10.1); Chloride 105 mmol/L (98-107); Estimated GFR 118.97 (mL/min/1.73m2); Glucose 102 mg/dL (74-106); Potassium 3.2 mmol/L (3.5-5.1); Sodium 141 mmol/L (136-145)
[2024-11-05] MEDS: MULTIVITAMIN 10 ML, THIAMINE 100 MG, FOLIC ACID 1 MG in DEXTROSE 5%-0.45% SALINE 1,000 ML 42 ML IV (08:26)
--- NOTE | 2024-11-05 09:08 | W.DIABETESNO ---
Date of service: 11/05/24 Time of Service: 09:08 Diabetes Note Reason for Visit: new admission - hx of diabetes with high A1C NOTE: Pt admitted to ICU for etoh w/drawl. assigned clear liq diet currently. Labs: many pending at time of this note. Albumin and total protein labs low, etoh at 183.5 yesterday, potassium 3.2 today and given IV repletion. FPG 102 today and 107 at bkt meal. A1c 11.11 may 2023 - home med list includes insulin therapy, SGLT2-i, metformin. Appropriate nutrition measures in place for repletion - banana bag ordered. IV Mag given early this morning. Glucose checks at meals and HS with correction insulin ss. did not visit with pt due to etoh detoxing and feel more appropriate to visit once diet advances and pt more alert/appropriate for more detailed nutrition assessment. Will monitor nutrition related labs, weight, po intake, diet advancement and plan to offer education/outpatient nutrition services before discharge. Would recommned current A1C lab Time Spent in Nutritional Counseling and Treatment: 0
[2024-11-05] MEDS: Enoxaparin 40 MG/0.4 ML SYR SC (09:19)
[2024-11-05] MEDS: Normal Saline Flush 10 ML SYR IVP ×4 (09:19→19:38)
[2024-11-05] MEDS: Losartan 50 MG TAB 100 MG PO (09:20)
[2024-11-05] MEDS: Potassium Chloride 10 MEQ TABCR PO (09:20)
[2024-11-05] MEDS: Multivitamin TAB 1 TAB PO (09:20)
[2024-11-05] MEDS: buPROPion-CR 100 MG TABCR PO (09:21)
[2024-11-05] MEDS: Sertraline 100 MG TAB 150 MG PO (09:21)
[2024-11-05] MEDS: Atenolol 50 MG TAB 100 MG PO (09:22)
[2024-11-05] MEDS: amLODIPine 5 MG TAB PO (09:23)
[2024-11-05] MEDS: Empaglifozin 25 MG TAB PO (09:23)
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
[2024-11-05 12:42] LABS: Anion Gap 10.1 mmol/L (3-11); BUN 9 mg/dL (7-18); CO2 26.9 mmol/L (21.0-32.0); Calcium 8.0 mg/dL (8.5-10.1); Chloride 105 mmol/L (98-107); Estimated GFR 118.97 (mL/min/1.73m2); Glucose 94 mg/dL (74-106); Potassium 3.2 mmol/L (3.5-5.1); Sodium 142 mmol/L (136-145)
[2024-11-05 13:29] LABS: Glucose >=1000 mg/dL (Negative)
[2024-11-05] MEDS: Nicotine 21 MG/24 HR PATCH TD (13:33)
[2024-11-05 13:43] LABS: Cannabinoids THC Positive (Negative); METHADONE URINE SCREEN Positive (Negative)
[2024-11-05 13:48] LABS: RBC Negative HPF (0-2); WBC 0-2 HPF (0-5)
[2024-11-05 13:49] LABS: C & S Indicated? No
[2024-11-05] MEDS: PHENobarbital 130 MG/ML VIAL IVP ×3 (15:51→18:10)
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
[2024-11-06] VITALS (26 sets, daily range): BP systolic 84–159; BP diastolic 57–103; PULSE 47–98; RESP 2–29; TEMP 36.4–36.6; O2SAT 88–98
[2024-11-06] MEDS: Normal Saline 1,000 ML 150 ML IV ×2 (01:06→07:46)
[2024-11-06 07:02] LABS: Anion Gap 12.2 mmol/L (3-11); BUN 5 mg/dL (7-18); CO2 24.8 mmol/L (21.0-32.0); Calcium 7.9 mg/dL (8.5-10.1); Chloride 104 mmol/L (98-107); Estimated GFR 118.97 (mL/min/1.73m2); Glucose 105 mg/dL (74-106); Sodium 141 mmol/L (136-145)
[2024-11-06] MEDS: Nicotine 4 MG GUM CH ×3 (07:02→22:10)
[2024-11-06 07:17] LABS: ALT 25 U/L (16-63); AST 32 U/L (15-37); Albumin 2.6 g/dL (3.4-5.0); Alkaline Phosphatase 110 U/L (46-116); Bilirubin, Direct 0.1 mg/dL (0.0-0.2); Bilirubin, Total 0.5 mg/dL (0.2-1.0); Magnesium 1.6 mg/dL (1.8-2.4); Total Protein 5.7 g/dL (6.4-8.2)
[2024-11-06 07:19] LABS: Potassium 2.9 mmol/L (3.5-5.1)
[2024-11-06] MEDS: Normal Saline Flush 10 ML SYR IVP ×2 (08:05→19:59)
[2024-11-06] MEDS: Sertraline 100 MG TAB 150 MG PO (09:54)
[2024-11-06] MEDS: Atenolol 50 MG TAB 100 MG PO (09:54)
[2024-11-06] MEDS: buPROPion-CR 100 MG TABCR PO ×2 (09:54→19:58)
[2024-11-06] MEDS: Multivitamin TAB 1 TAB PO (09:55)
[2024-11-06] MEDS: Potassium Chloride 10 MEQ TABCR PO (09:55)
[2024-11-06] MEDS: Enoxaparin 40 MG/0.4 ML SYR SC (09:55)
[2024-11-06] MEDS: amLODIPine 5 MG TAB PO (09:55)
[2024-11-06] MEDS: Losartan 50 MG TAB 100 MG PO (09:55)
[2024-11-06] MEDS: Pantoprazole 40 MG VIAL IVP (09:59)
--- NOTE | 2024-11-06 10:53 | PHA.REVIEW2 ---
Pharmacy Admission Review Admission Clinical Review Admission Pharmacy Review: DVT prophylaxis (Acute) Alcohol withdrawal (Acute) Hypokalemia (Acute) ampicillin Allergy (Verified 11/04/24 15:15) Skin Rash lorazepam (From Ativan) Adverse Reaction (Severe, Verified 11/04/24 15:15) It makes me wacky zolpidem tartrate (From Ambien) Adverse Reaction (Intermediate, Verified 11/04/24 15:15) confusion lisinopril Adverse Reaction (Verified 11/04/24 15:15) cough Resuscitation Status Full Code Height 5 ft 8 in Weight 83.915 kg Pharmacy Admission Review Renal Dosing Renal Dosing: BUN 5 mg/dL (7-18) L 11/06/24 05:46 Creatinine 0.5 mg/dL (0.70-1.30) L 11/06/24 05:46 Medications needing adjustments: Reviewed (CrCl 177.2 mL/min) List of meds needing interventions: Current medications are okay Anticoagulation Anticoagulation: Hgb 12.3 g/dL (13.5-17.5) L 11/05/24 04:00 Hct 37.9 % (40.0-50.0) L 11/05/24 04:00 Plt Count 173 10^3/uL (130-400) 11/05/24 04:00 INR 1.0 (0.9-1.1) 11/04/24 23:30 Creatinine 0.5 mg/dL (0.70-1.30) L 11/06/24 05:46 DVT Prophylaxis: Reviewed Medications: Enoxaparin (40mg daily) Relevant Labs Relevant Labs: Sodium 141 mmol/L (136-145) 11/06/24 05:46 Potassium 2.9 mmol/L (3.5-5.1) L* 11/06/24 05:46 Chloride 104 mmol/L (98-107) 11/06/24 05:46 Phosphorus 4.0 mg/dL (2.6-4.7) 11/05/24 05:40 Magnesium 1.6 mg/dL (1.8-2.4) L 11/06/24 05:46 Electrolytes, C-Reactive P, ESR: Intervened (reached out to provider regarding Mg and K levels - no replacement ordered yet - waiting to hear back) DM Control DM Control: Glucose 105 mg/dL (74-106) 11/06/24 05:46 Finger Stick Blood Glucose 132 0923 Finger Stick Blood Glucose 132 0759 Finger Stick Blood Glucose 132 0759 DM Control: Reviewed Insulin Dosing, Diabetic Medication: Has orders for SS insulin and Jardiance 25mg daily (currently on hold) Cardiac Review BP, HR, EF%: Reviewed (BP 140/98, HR WNL) List meds needing interventions: Has orders for amlodipine 5mg daily, atenolol 100mg daily and losartan 100mg daily QTc Review QTc: Reviewed (486 from 11/05/24) IV to PO Switch IV Medications: Reviewed (phenobarbital and pantoprazole) Home Meds Home Med List reviewed: Intervened Relevent Home Meds Not ordered & why?: Sublocade (monthly injection), vitamin D3, ibuprofen (PRN), glargine (has order for SS insulin), metformin (on hold per H+P), ondansetron (PRN) and pregabalin (on hold per H+P) Recently filled for tamsulosin and chlorthalidone - called nurse to see if patient takes these at home. Per nurse patient does take chlorthalidone but not tamsulosin. Added to home med list and informed provider. Has atenolol on home med list but per fill history hasn't filled since May of this year. Asked nurse to confirm that patient does take this, per patient they are still taking at home. Current Meds Current Medication Order Review: Reviewed Comments: Phenobarbital for alcohol withdrawal Soft stop: 1020mg Hard stop: 1360mg CIWA = 4 @0835 Total so far: 940mg (last dosed 11/05@1810) Unclear how loading dose was calculated - if using 6mg/kg dose should have been total of 408mg, if using 10mg/kg should have been total of 680mg. Patient was given loading dose of 550mg.
[2024-11-06] MEDS: MAGNESIUM SULFATE 2 GM/50 ML BAG IV_INF (11:53)
[2024-11-06] MEDS: PHENobarbital 130 MG/ML VIAL IVP (11:54)
[2024-11-06] MEDS: Potassium Chloride 20 MEQ TABCR 40 MEQ PO (11:54)
[2024-11-06] MEDS: cloNIDine 0.1 MG TAB PO (11:54)
[2024-11-06] MEDS: Insulin Aspart 300 UNITS/3 ML PEN SC ×3 (12:22→22:10)
[2024-11-06] MEDS: Potassium Chloride 10 MEQ TABCR 20 MEQ PO ×2 (15:08→19:59)
--- NOTE | 2024-11-06 15:46 | PDOC.CMPRO ---
Date of service: 11/06/24 Time of Service: 16:04 Care Management Progress Note Progress Note Text Progress Note Text: Alfredo was sleeping in bed when CM attempted to meet with him. Per Provider, he may discharge today. Per RN, Alfredo expressed a desire to be discharged home, but subsequently changed his mind multiple times during the course of the day. Alfredo will likely require a work note prior to discharge. CM will continue to follow. Discharge Potential Discharge Needs: PCP F/U Appt Anticipated Barriers to Discharge: None Identified Patient/Family Education Needs: Review discharge instructions, discuss Ask Me Three Transportation: Private vehicle (family) Plan: Anticipate Alfredo will return home once medically cleared. He will transport via private vehicle by family. He will reach out to his AA sponsor for support with sobriety. He will follow up with his PCP and discharge plan of care. CM will continue to follow. Social Determinants of Health Screening Will the Patient Participate in the Screening?: Declined to provide Do you worry about having a steady place to live?: choose not to answer
--- NOTE | 2024-11-06 17:44 | PGE_ITS ---
Date of Service Date of service: 11/06/24 Time of Service: 17:44 Assessment and Plan Assessment and plan (1) Alcohol withdrawal: Start date: 11/04/24 Status: Acute Assessment and plan: H/o recurrent hospitalizations for alcohol withdrawal and complications of his diabetes. Continue alcohol withdrawal protocol using phenobarbital. Would not add benzos at this point. Okay for floor. (2) Hypokalemia: Start date: 11/04/24 Status: Acute Assessment and plan: continue to replace orally, also magnesium, follow. (3) Alcohol use disorder: Status: Chronic Assessment and plan: Will strongly encourage inpatient treatment when medically stable. Historically he has poor insight with PTSD and depression. He is still resistant today. (4) Diabetes mellitus, type II: Assessment and plan: Holding outpatient medical therapy, including Jardiance given risk of DKA, but can resume in AM. (5) Opioid use disorder, mild, in early remission, abuse: Assessment and plan: Pt on Suboxone monthly, but methadone in urine demonstrates some relapse. I don't not opioid withdrawal. (6) PTSD (post-traumatic stress disorder): Status: Chronic Assessment and plan: This contributes to his self treatment with alcohol and illicit drugs. Continue sertraline, continue psychiatric care on follow up. (7) GERD (gastroesophageal reflux disease): Status: Chronic Assessment and plan: Switched oral to IV Protonix on admission, back to oral (8) Tobacco dependence: Status: Chronic Assessment and plan: Continue patch and gum as needed. (9) DVT prophylaxis: Status: Acute Assessment and plan: enoxaparin Subjective Subjective Patient reports: tolerating a regular diet; denies diarrhea, nausea, vomiting, shortness of breath or fever Interval history since last seen: Still room on phenobarbital protocol. He was feeling more anxious this morning asking for valium, but better now. Exam Narrative Exam Narrative: General: more sedate, though wakes up and oriented, NAD Lungs: Fair aeration and clear without focalizing rales or rhonchi. No expiratory wheeze. Heart: Regular rate and rhythm and no murmurs or gallops appreciated. Abdomen: Soft, NT/ND Extremities: Without clubbing, cyanosis or grossly pitting edema. Good capillary refill. Psych: Flattened affect with depressed mood, slightly anxious. no hallucinations. Objective Last Vital Signs Temp 36.4 C L 11/06/24 15:29 Pulse 66 11/06/24 15:29 Resp 15 11/06/24 15:29 BP 109/76 11/06/24 15:29 Pulse Ox 96 11/06/24 15:29 Laboratory Results - last 24 hr 11/06/24 05:46 Sodium 141 Potassium 2.9 L* Chloride 104 Carbon Dioxide 24.8 Anion Gap 12.2 H BUN 5 L Creatinine 0.5 L Est GFR (CKD-EPI 2020) 118.97 Glucose 105 Calcium 7.9 L Magnesium 1.6 L Total Bilirubin 0.5 Conjugated Bilirubin 0.1 AST 32 ALT 25 Alkaline Phosphatase 110 Total Protein 5.7 L Albumin 2.6 L PAWSS Have you Been Recently Intoxicated or Drunk Within the Last 30 days?: Yes Have you Ever Experienced Previous Episodes of Alcohol Withdrawal?: Yes Have you ever Experienced Withdrawal Seizures?: Yes Have you ever Experienced Delirium Tremens(DT)s?: Yes Have you ever undergone Alcohol Rehabilitation Treatment (i.e, inpt ot out patient treatment programs)?: Yes Have you ever Experienced Blackouts?: Yes Have you ever Combined Alcohol with other Downers within the last 90 days?: Yes Have you ever Combined Alcohol with any other Substance of Abuse during the last 90 days?: Yes Positive Blood Alcohol level on Presentation? [PCS.BAL]: Yes Evidence of Increased Autonomic Activity (i.e. HR>120, tremor, sweating, agitation, nausea)?: Yes Result: 10 Time Spent with Patient Time Spent with Patient: 35-49 minutes Time was spent: preparing to see the patient(eg.review tests), obtaining and/or reviewing separately otained hiistory, ordering medications,tests, procedures, referring, communicating with other health care transitions manager, indepentently interpreting results, counseling the patient and care coordination
[2024-11-06] MEDS: Pantoprazole 40 MG TABCR PO (19:58)
[2024-11-06] MEDS: Rosuvastatin 20 MG TAB 40 MG PO (19:58)
[2024-11-06] MEDS: Pregabalin 100 MG CAP 200 MG PO (19:59)
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
[2024-11-07 03:20] VITALS: BP 113/67; PULSE 60; RESP 15; TEMP 36.8; O2SAT 94
[2024-11-07 06:48] LABS: Magnesium 1.7 mg/dL (1.8-2.4)
[2024-11-07 06:51] LABS: Anion Gap 17.4 mmol/L (3-11); BUN 4 mg/dL (7-18); CO2 20.6 mmol/L (21.0-32.0); Calcium 8.4 mg/dL (8.5-10.1); Chloride 103 mmol/L (98-107); Estimated GFR 107.47 (mL/min/1.73m2); Glucose 124 mg/dL (74-106); Potassium 3.2 mmol/L (3.5-5.1); Sodium 141 mmol/L (136-145)
[2024-11-07 07:21] VITALS: BP 109/67; PULSE 61; RESP 12; TEMP 36; O2SAT 94
[2024-11-07] MEDS: Enoxaparin 40 MG/0.4 ML SYR SC (09:07)
[2024-11-07] MEDS: Normal Saline Flush 10 ML SYR IVP (09:07)
[2024-11-07] MEDS: Losartan 50 MG TAB 100 MG PO (09:08)
[2024-11-07] MEDS: Chlorthalidone 25 MG TAB 50 MG PO (09:08)
[2024-11-07] MEDS: Thiamine 100 MG TAB PO (09:08)
[2024-11-07] MEDS: buPROPion-CR 100 MG TABCR PO (09:09)
[2024-11-07] MEDS: Pregabalin 100 MG CAP 200 MG PO ×2 (09:09→15:05)
[2024-11-07] MEDS: Sertraline 100 MG TAB 150 MG PO (09:09)
[2024-11-07] MEDS: amLODIPine 5 MG TAB PO (09:09)
[2024-11-07] MEDS: Pantoprazole 40 MG TABCR PO (09:09)
[2024-11-07] MEDS: Atenolol 50 MG TAB 100 MG PO (09:09)
[2024-11-07] MEDS: Empaglifozin 25 MG TAB PO (09:09)
[2024-11-07] MEDS: Multivitamin TAB 1 TAB PO (09:10)
[2024-11-07] MEDS: Potassium Chloride 10 MEQ TABCR 20 MEQ PO ×2 (09:10→15:05)
[2024-11-07] MEDS: Folic Acid 1 MG TAB PO (09:10)
[2024-11-07] MEDS: Nicotine 4 MG GUM CH (09:47)
--- NOTE | 2024-11-07 10:49 | CMDISCH_ITS ---
Date of service: 11/07/24 Time of Service: 16:20 LACE Index Scoring Tool Questions: Length of Stay (in days): 3 Was the patient admitted via the E.D.?: Yes E.D. Visits: 4 Answers: Total Score: 10 Risk of Readmission: High Risk Care Management Discharge Plan Reason for Hospitalization: Acute ETOH withdrawal, Hypokalemia Discharge Plan: Alfredo will be discharged home today with new HH PT and [facility]; Pt is agreeable to these services. It is recommend he follow up with his community providers, and discharge plan of care. He will be transported via private vehicle by friend. Patient/Family Education Needs: Review discharge instructions, activity, limitation, and plan of care. Discuss ask me three. SDOH Health Related Social Needs: Health related social needs food insecurity house/econ circumstance finding work daily activities lonely/isolated Health related social needs details Pt reports he woul d like help keeping his current job at [employer].
[2024-11-07 10:59] VITALS: BP 130/87; PULSE 68; RESP 18; TEMP 36.2; O2SAT 96
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
[2024-11-07] MEDS: Potassium Chloride 20 MEQ TABCR 40 MEQ PO (12:23)
[2024-11-07] MEDS: Insulin Aspart 300 UNITS/3 ML PEN SC (12:23)
[2024-11-07] MEDS: MAGNESIUM SULFATE 2 GM/50 ML BAG IV_INF (12:24)
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
[2024-11-07 15:21] VITALS: BP 124/76; PULSE 67; RESP 16; TEMP 37.1; O2SAT 95
--- NOTE | 2024-11-07 16:17 | PDOC.HHF2F ---
Home Health Referral Home Health Orders Clinical synopsis of why skilled professionals are needed: 59-year-old male patient with diabetes, PTSD, opioid use disorder on buprenorphine, and severe alcohol use disorder with multiple admissions for complicated alcohol withdrawal who presented with friend to be evaluated for alcohol intoxication. He was started on phenobarbital protocol and admitted to the ICU. His symptoms improved and his last phenobarbital dose was 8/7. Of note his urine drug screen was positive for methadone on admission. He admits buying methadone from a friend at work at taking in for his low back pain even though he is on IM buprenorphine. He denies regular use. Options for treatment of his alcohol use disorder were reviewed. He is engaged in [employer] and has a sponsor. He also has a therapist at his primary care. He declined inpatient rehab. He was given acamprosate in the past but never took it. He is not a naltrexone candidate but he would like to try disulfuram. He states his friend Paresh who lives with him and doesn't drink can give him the dose every morning. Cautions were discussed, and it was clarified he does not have cirrhosis. Risk of dehydration and high/low sugars discussed. It was felt the benefits>risks. 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 I reviewed many images including CTs and u/s images of the abdomen which indicate steatosis (presumably alcoholic) but no cirrhosis. His labs from 10/30/24 even with acute alcohol use give a fibrosis-4 score of 1.05, effectively ruling out advanced fibrosis. He does no have cirrhosis. His cardiac and diabetic medcations were continued. His blood sugars were well controlled other than a low the first night he was here. His magnesium and potassium were low and were replaced. He may consider cutting the chlorthalidone to 25mg, as the higher dose will cause more hypokalemia without a big impact on blood pressure. His blood pressure lability is certainly related to ongoign drinking. He had a mild stable anemia. 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 Smoking cessation discussed. He was still a little unsteady on his feet and was evaluated by PT prior to discharge. PT recommended home health PT Medical diagnosis necessitation home health referral: ataxia secondary to alcohol/phenobarbital treatment, low back pain Physical Therapist: Check all that apply Increase strength & endurance for safe mobility at home: Ordered To design/establish home maintenance program: Ordered Home safety evaluation and teaching/gait training including stair management (if applicable): Ordered Site Supervisor: Assist with community resources: Ordered Other: recovery, transportation Home Bound Status Requires the aid of supportive device (check all that apply): Cane and Walker Describe why leaving home would require a considerable and taxing effort: Side effects from pain medication (sedation/drowsiness) (withdrawl medication phenobarbital) Encounter Date and Reason: I certify that a FTF encounter for this patient was performed on November 07, 2024 and that such encounter was related to the primary reason the patient requires home health services. The encounter was conducted in the following manner: By me as the certifying physician, SENIOR COMPLIANCE ANALYST, PA or By an inpatient physician, SENIOR COMPLIANCE ANALYST or PA during an inpatient stay who communicated findings to me, Certification And Authentication I certify that I composed the above information based on my clinical judgment relating to this patient's medical condition and, if applicable, clinical findings communicated to me by the NPP or inpatient physician who performed the FTF encounter. Name of Provider that will be monitoring home health services: Yulia Cortez
== END 2024-11-07 16:45 | disposition home health service (06) | DRG 897 ==
LOC: ER 23:12 → ICU 23:14 → MS 11-06 20:52
PROVIDERS: Admitting Provider Family Medicine; Emergency Provider Emergency Medicine; PCP Family Medicine; Responsible Provider Family Medicine; Visit Provider Family Medicine
DX: F10.231 Alcohol dependence with withdrawal delirium (principal); F19.20 Other psychoactive substance dependence, uncomplicated; K75.81 Nonalcoholic steatohepatitis (NASH); D50.9 Iron deficiency anemia, unspecified; F10.229 Alcohol dependence with intoxication, unspecified; F11.10 Opioid abuse, uncomplicated; I10 Essential (primary) hypertension; Z79.85 Long-term (current) use of injectable non-insulin antidiabetic drugs; K21.9 Gastro-esophageal reflux disease without esophagitis; E87.6 Hypokalemia; Z79.4 Long term (current) use of insulin; Y90.6 Blood alcohol level of 120-199 mg/100 ml; F17.210 Nicotine dependence, cigarettes, uncomplicated; Z79.899 Other long term (current) drug therapy; F43.12 Post-traumatic stress disorder, chronic; Z59.41 Food insecurity; Z59.89 Other problems related to housing and economic circumstances; Z73.89 Other problems related to life management difficulty
CPT/HCPCS: 00123; 36415; 80048; 80053; 80076; 80307; 85027; 87637; 93005; 96360; 97162; 99291; J1650; 80320; 80329; 81003; 81015; 83735; 84100; 85025; 85610; 93010; 99222; 99223; 99232; 99239; J1815; J2470; J2560; J3411; J3475; J3480

== ENCOUNTER 2024-11-08 02:19 | Inpatient (IN) | payer BC, SELFPAY ==
[2024-11-08] VITALS (45 sets, daily range): BP systolic 106–162; BP diastolic 59–88; PULSE 42–69; RESP 2–24; TEMP 36–36.6; O2SAT 90–98
--- NOTE | 2024-11-08 02:30 | DI.CT_ITS ---
Exam(s) CT HEAD CERVICAL SPINE WO EXAM: CT HEAD CERVICAL SPINE WO CLINICAL HISTORY: Fall, hit posterior head, laceration. TECHNIQUE: Imaging Protocol: Axial computed tomography images with coronal and sagittal reformatted images were created and reviewed COMPARISON: CT CT CERVICAL SPINE WO from 02/19/2024 FINDINGS: The examination is limited due to patient motion artifact. CT Head: Ventricles and Extra axial spaces: Normal in size and morphology for the patient's age. Hemorrhage: None. Cerebral parenchyma: There is no evidence of an acute territorial infarct or acute mass effect. Midline shift: None. Brainstem/Cerebellum: Normal. Calvarium: Normal. Visualized Paranasal sinuses/Mastoids: There is mild mucosal thickening in the right maxillary sinus. The remaining visualized paranasal sinuses are clear. Soft Tissues: Unremarkable. CT Cervical Spine: Bones: No acute fracture or subluxation. Age-appropriate degenerative changes are seen in the cervical spine. There is unchanged reversal of the normal cervical lordosis. Soft Tissues: Unremarkable. Lung Apices: Clear. IMPRESSION: 1. No acute intracranial process. 2. No acute fracture or subluxation in the cervical spine. 3. The preliminary [facility] report was reviewed. RADIATION DOSE DELIVERED: 1,269.82mGy.cm Total DLP DATA REPOSITORY: All CT scans at this facility are submitted to the National Radiology Data Registry (NRDR) Dose Index Registry (DIR) with the [employer] ([employer]). RADIATION OPTIMIZATION: All CT scans at this facility use at least one of these dose optimization techniques: automated exposure control; mA and/or kV adjustment per patient size (includes targeted exams where dose is matched to clinical indication); or iterative reconstruction.
[2024-11-08 03:16] LABS: Abs Immature Grans 0.06 10^3/uL (0.0-0.06); HCT 40.2 % (40.0-50.0); HGB 13.0 g/dL (13.5-17.5); Immature Grans % 1.0 %; MCH 27.0 pg (27.0-33.0); MCHC 32.3 % (32.0-36.0); MCV 83 fL (80-95); MPV 10.2 fL (8.0-11.0); Platelet Count 209 10^3/uL (130-400); RBC 4.82 10^6/uL (4.36-5.78); RDW 15.3 % (11.8-14.1); RDW-SD 46.3 fL; WBC 5.86 10^3/uL (4.4-10.8)
[2024-11-08 03:42] LABS: ALT 25 U/L (16-63); AST 20 U/L (15-37); Albumin 3.1 g/dL (3.4-5.0); Alkaline Phosphatase 145 U/L (46-116); Anion Gap 14.5 mmol/L (3-11); BUN 10 mg/dL (7-18); Bilirubin, Total 0.4 mg/dL (0.2-1.0); CO2 24.5 mmol/L (21.0-32.0); Calcium 9.3 mg/dL (8.5-10.1); Chloride 100 mmol/L (98-107); Estimated GFR 87.78 (mL/min/1.73m2); Glucose 300 mg/dL (74-106); Potassium 3.6 mmol/L (3.5-5.1); Sodium 139 mmol/L (136-145); TSH (W/Ref FT4) 1.37 uIU/mL (0.36-3.74); Total Protein 7.1 g/dL (6.4-8.2)
[2024-11-08] MEDS: Normal Saline - Diluent 50 ML VIAL IJ (03:44)
[2024-11-08] MEDS: Omnipaque 350 MG/ML 100 ML BTL IJ (03:44)
--- NOTE | 2024-11-08 03:46 | DI.CT_ITS ---
Exam(s) CT CHEST/ABD/PEL W CT THORACIC LUMBAR SPINE REC EXAM: CT CHEST/ABD/PEL W and CT thoracic and lumbar spine recons CLINICAL HISTORY: Fall, low back pain, extremely weak legs TECHNIQUE: Imaging Protocol: Axial computed tomography images with coronal and sagittal reformatted images were created and reviewed. Lung Computer Aided Detection (CAD) was utilized. CONTRAST MATERIAL: Intravenous: Omnipaque 350 contrast volume:100 mL Oral: No COMPARISON: CT CT THORACIC LUMBAR SPINE REC from 02/19/[address] THORACIC LUMBAR SPINE REC from 10/30/[address] CHEST/ABD/PEL W from 10/30/[address] THORACIC LUMBAR SPINE REC from 11/08/2024 FINDINGS: CHEST: Tracheobronchial tree: Patent where visualized. No evidence of bronchiectasis. Pulmonary parenchyma: There is a new infiltrate seen in the left upper lobe. Dependent atelectatic changes are seen in the lung bases. There is a stable 6-7 mm nodule associated with the right minor fissure. No new nodules are present. No architectural distortion. Visualized thyroid gland: Unremarkable. Mediastinum and [place]: No dominant adenopathy or fluid collection. The esophagus is unremarkable. Pleura: No effusion or pneumothorax. Heart: The heart is not dilated. Moderately severe 3 vessel coronary artery calcification is present. No pericardial effusion. Pulmonary arteries: Due to the timing of the bolus, there is suboptimal opacification of the pulmonary artery for evaluation of pulmonary emboli. Aorta: The ascending thoracic aorta measures 4.1 x 4 cm. Atherosclerotic calcification is present. Lymph nodes: Within normal limits. Soft tissues: Unremarkable. Bones:Within normal limits for the patient's age. CT thoracic spine recons: Age-appropriate degenerative changes are present. No acute fractures or subluxations are present. Lumbar spine recons: There is a stable compression deformity of L2. No acute fracture or subluxation is seen. Age-appropriate degenerative changes are present. There is a mild right convex lumbar scoliosis. ABDOMEN: Liver: Normal density. There is a small cyst in the posterior aspect of the right lobe of the liver. No suspicious hepatic masses are seen. Portal, Superior Mesenteric, and Splenic Veins: Unremarkable. Gallbladder and Biliary Tract: No radiodense calculus or dilation. Pancreas: Normal density, no abnormal calcifications or inflammatory process. Spleen: Normal. Adrenals: No masses seen. Kidneys: Normal size, contour and axis. No radiodense stones or obstructive uropathy. No masses seen. Abdominal Aorta: Abdominal portion non-dilated. Atherosclerotic calcification is present. Bowel: No obstruction or bowel wall thickening. Appendix is unremarkable. Peritoneal Cavity: No ascites, collection or mesenteric inflammatory response. No free air. Lymph Nodes: Within normal limits. Bones: Within normal limits for the patient's age. Soft Tissues: Unremarkable. PELVIS: Bladder: Symmetric distention, no gross wall thickening. Reproductive Organs: Unremarkable as visualized. Lymph Nodes: Within normal limits. Bones: Within normal limits. IMPRESSION: 1. There is an infiltrate seen in the left upper lobe. This may represent atelectasis, pneumonia or contusion. 2. No acute fractures or subluxations are seen in the thoracic or lumbar spine. 3. There is no acute abdominal or pelvic organ injury. 4. 4.1 x 4.0 cm ascending thoracic aorta. 5. Stable right perifissural pulmonary nodule. 6. The preliminary [facility] report was reviewed. RADIATION DOSE DELIVERED: 1,492.23mGy.cm Total DLP DATA REPOSITORY: All CT scans at this facility are submitted to the National Radiology Data Registry (NRDR) Dose Index Registry (DIR) with the [employer] ([employer]). RADIATION OPTIMIZATION: All CT scans at this facility use at least one of these dose optimization techniques: automated exposure control; mA and/or kV adjustment per patient size (includes targeted exams where dose is matched to clinical indication); or iterative reconstruction.
[2024-11-08 04:00] LABS: INR 1.0 (0.9-1.1); PTT Activated 28.4 sec (20.6-30.2); Prothrombin Time 10.1 sec (9.1-11.1)
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
[2024-11-08] MEDS: ACETAMINOPHEN 1,000 MG/100 ML BAG 400 MG IVPB (04:17)
--- NOTE | 2024-11-08 04:59 | DI.VRAD_ITS ---
PROCEDURE INFORMATION: Exam: CT Head Without Contrast Exam date and time: 11/08/2024 3:14 AM Age: 59 years old Clinical indication: Injury or trauma; Blunt trauma (contusions or hematomas); Consciousness not specified; Injury date: 11/08/24; Fall, hit posterior head, laceration TECHNIQUE: Imaging protocol: Computed tomography of the head without contrast. Radiation optimization: All CT scans at this facility use at least one of these dose optimization techniques: automated exposure control; mA and/or kV adjustment per patient size (includes targeted exams where dose is matched to clinical indication); or iterative reconstruction. COMPARISON: CT HEAD CERVICAL SPINE WO 10/30/2024 9:28 AM FINDINGS: Brain: No intracranial hemorrhage appreciated. No significant focal mass effect or significant midline shift. Generalized parenchymal volume loss. Chronic ischemic changes are noted. Cerebral ventricles: No disproportionate ventriculomegaly. Paranasal sinuses: No air-fluid levels seen. Mastoid air cells: No mastoid effusion. Bones: No acute cranial vault fracture seen. Soft tissues: No acute findings. Vasculature: Arterial calcifications. IMPRESSION: 1. No intracranial sequelae of trauma appreciated. 2. Additional studies dictated separately. PROCEDURE INFORMATION: Exam: CT Cervical Spine Without Contrast Exam date and time: 11/08/2024 3:14 AM Age: 59 years old Clinical indication: Injury or trauma; Blunt trauma (contusions or hematomas); Consciousness not specified; Injury date: 11/08/24; Fall, hit posterior head, laceration TECHNIQUE: Imaging protocol: Computed tomography of the cervical spine without contrast. Radiation optimization: All CT scans at this facility use at least one of these dose optimization techniques: automated exposure control; mA and/or kV adjustment per patient size (includes targeted exams where dose is matched to clinical indication); or iterative reconstruction. COMPARISON: CT HEAD CERVICAL SPINE WO 10/30/2024 9:28 AM FINDINGS: Limitations: Mild motion artifact. Artifact from metallic dental hardware obscures surrounding tissues. Bones: No acute cervical spine fracture seen. Multilevel degenerative changes. Reversal of the normal cervical lordosis may reflect positioning or muscle spasm; correlate clinically. Anterolisthesis of C4 on C5, unchanged. Lungs: Interstitial and airspace opacities in the visualized lungs. Vasculature: Arterial calcifications. Soft tissues: See Bones finding. IMPRESSION: 1. No acute cervical spine fracture seen. 2. Additional studies dictated separately. Dictated and Authenticated by: Anna Candelario MD. Orderin Luis Beck MD
--- NOTE | 2024-11-08 05:12 | DI.VRAD_ITS ---
PROCEDURE INFORMATION: Exam: CT Chest With Contrast; Diagnostic Exam date and time: 11/08/2024 3:16 AM Age: 59 years old Clinical indication: Injury or trauma; Generalized; Blunt trauma (contusions or hematomas); Injury date: 11/08/24; Fall, low back pain, extremely weak legs TECHNIQUE: Imaging protocol: Diagnostic computed tomography of the chest with contrast. Radiation optimization: All CT scans at this facility use at least one of these dose optimization techniques: automated exposure control; mA and/or kV adjustment per patient size (includes targeted exams where dose is matched to clinical indication); or iterative reconstruction. Contrast material: [id number]; Contrast volume: 100 ml; Contrast route: INTRAVENOUS (IV); COMPARISON: CT CHEST/ABD/PEL W 10/30/2024 9:34 AM FINDINGS: Limitations: Images are degraded due to artifact caused by patient motion and arm positioning. Lungs: Multifocal interstitial and airspace opacities in both lungs. Right upper lobe nodule again identified. Pleural spaces: No pneumothorax. No hemothorax. Heart: No pericardial effusion. Coronary arteries: Coronary artery calcification. Lymph nodes: Multiple mediastinal lymph nodes. Vasculature: Atherosclerotic changes in the aorta and its branches. Intraperitoneal space: CT scan of the abdomen and pelvis dictated separately. Bones/joints: Mild sternal deformity, unchanged. Soft tissues: No acute pertinent abnormality appreciated. Other findings: CT scan of the thoracic spine dictated separately. IMPRESSION: 1. Airspace and interstitial opacities in both lungs, suspicious for infection and/or edema. Follow-up as clinically warranted. 2. Additional studies dictated separately. PROCEDURE INFORMATION: Exam: CT Abdomen And Pelvis With Contrast Exam date and time: 11/08/2024 3:16 AM Age: 59 years old Clinical indication: Injury or trauma; Generalized; Blunt trauma (contusions or hematomas); Injury date: 11/08/24; Fall, low back pain, extremely weak legs TECHNIQUE: Imaging protocol: Computed tomography of the abdomen and pelvis with contrast. Radiation optimization: All CT scans at this facility use at least one of these dose optimization techniques: automated exposure control; mA and/or kV adjustment per patient size (includes targeted exams where dose is matched to clinical indication); or iterative reconstruction. Contrast material: [id number]; Contrast volume: 100 ml; Contrast route: INTRAVENOUS (IV); COMPARISON: CT CHEST/ABD/PEL W 10/30/2024 9:34 AM FINDINGS: Limitations: Images are degraded due to artifact caused by patient motion and arm positioning. Lungs: CT scan of the chest dictated separately. Liver: Hepatic steatosis. Hepatomegaly. Gallbladder and biliary ducts: No radiodense gallbladder calculi seen. Pancreas: No CT evidence for acute pancreatitis. Spleen: Mild splenomegaly. Adrenal glands: No mass. Kidneys and ureters: Right renal cyst. Stomach and bowel: No intestinal obstruction is evident. Fluid in nondilated small bowel, nonspecific. Areas of apparent mural thickening in the colon commensurate with underdistention. Appendix: No evidence of appendicitis. Intraperitoneal space: No free air. Vasculature: Atherosclerotic changes in the aorta and its branches. Lymph nodes: Nonspecific mesenteric lymph nodes. Urinary bladder: Distended urinary bladder. Reproductive: No acute findings. Bones/joints: Nonacute compression deformity of L2. Soft tissues: No pertinent acute abnormality seen. Other findings: CT scan of the lumbar spine dictated separately. IMPRESSION: 1. No acute internal injury appreciated in the abdomen or pelvis. 2. Findings as above. 3. Additional studies dictated separately. Dictated and Authenticated by: Anna Candelario MD. Orderin Luis Beck MD
--- NOTE | 2024-11-08 05:12 | DI.VRAD_ITS ---
PROCEDURE INFORMATION: Exam: CT Thoracic Spine Without Contrast Exam date and time: 11/08/2024 3:16 AM Age: 59 years old Clinical indication: Injury or trauma; Blunt trauma (contusions or hematomas); Injury date: 11/08/24; Fall, low back pain, extremely weak legs TECHNIQUE: Imaging protocol: Computed tomography of the thoracic spine without contrast. Radiation optimization: All CT scans at this facility use at least one of these dose optimization techniques: automated exposure control; mA and/or kV adjustment per patient size (includes targeted exams where dose is matched to clinical indication); or iterative reconstruction. COMPARISON: CT THORACIC LUMBAR SPINE REC 10/30/2024 9:34 AM FINDINGS: Limitations: Images are degraded due to artifact caused by patient motion and arm positioning. Bones/joints: No acute thoracic spine fracture seen. Soft tissues: Unremarkable. Other findings: CT scan of the chest dictated separately. IMPRESSION: 1. No acute thoracic spine fracture seen. 2. Additional studies dictated separately. PROCEDURE INFORMATION: Exam: CT Lumbar Spine Without Contrast Exam date and time: 11/08/2024 3:16 AM Age: 59 years old Clinical indication: Injury or trauma; Blunt trauma (contusions or hematomas); Injury date: 11/08/24; Fall, low back pain, extremely weak legs TECHNIQUE: Imaging protocol: Computed tomography of the lumbar spine without contrast. Radiation optimization: All CT scans at this facility use at least one of these dose optimization techniques: automated exposure control; mA and/or kV adjustment per patient size (includes targeted exams where dose is matched to clinical indication); or iterative reconstruction. COMPARISON: CT THORACIC LUMBAR SPINE REC 10/30/2024 9:34 AM FINDINGS: Limitations: Images are degraded due to artifact caused by patient motion and arm positioning. Bones/joints: No acute lumbar spine fracture identified. Nonacute compression deformity of L2. Advanced degenerative changes including degenerative disc disease and facet and ligamentous hypertrophy. Rudimentary ribs noted at L1. At L1-L2 there is mild foraminal narrowing. At L2-L3 there is mild bilateral foraminal narrowing. At L3-L4 there is moderate right foraminal narrowing and mild canal narrowing. At L4-L5 there is marked right foraminal narrowing and moderate canal narrowing. At L5-S1 there is marked bilateral foraminal narrowing and marked canal narrowing. Mild convex right curvature. Vasculature: Arterial calcifications. Soft tissues: Unremarkable. IMPRESSION: 1. No acute lumbar spine fracture seen. 2. Findings as above. 3. Additional studies dictated separately. Dictated and Authenticated by: Anna Candelario MD. Orderin Luis Beck MD
[2024-11-08 07:10] LABS: BE (Venous) -5 mmol/L (-2-3); HCO3 (Venous) 21 mmol/L (23-28); O2 Sat (Venous) 91 %; TCO2 (Venous) 20 mmol/L (24-29); pCO2 (Venous) 41 mmHg (41-51); pO2 (Venous) 58 mmHg
[2024-11-08] MEDS: Diph,Pertuss(Acell),Tet Vac/Pf 0.5 ML SYR IM (07:34)
--- NOTE | 2024-11-08 09:54 | PT.INNT ---
PT Notes Visit Reasons: Jose Pt was seen in the ER by Physical Therapy. Upon arrival, pt was sleeping. Pt was only able to open his eyes for a brief moment even with continual cueing and tactile stimulus to the shoulder and chest. Pt was to briefly move one foot with cueing but following this was no longer responsive to cues. Unable to perform PT assessment at this time. Pt was evaluated yesterday by PT prior to d/c home. At that time, he required a front wheeled rolling walker and CGA of 2 or min A of 1.
[2024-11-08 10:47] LABS: Cannabinoids THC Positive (Negative); METHADONE URINE SCREEN Negative (Negative)
--- NOTE | 2024-11-08 10:48 | ED.PROG_ITS ---
Date of service: 11/08/24 Time of Service: 10:49 Medical Decision Making Patient signed out to me pending PT evaluation. Patient was unable to get out of the bed due to lethargy. Patient is sleeping and awakens to voice but not able to even lift his head up off the bed due to feeling weak. He denies any illicit drug use. He is moving all extremities equally. There is no drift. Given his altered mental status we will plan to admit. Quality:SDOH Health Related Social Needs: Health related social needs food insecurity house/econ circumstance finding work daily activities lonely/isolated Health related social needs details Pt reports he woul d like help keeping his current job at [employer] [place]. Discharge Plan Discharge Details Chief Complaint: GenMedical Clinical Impression: Laceration of scalp, Leg weakness, bilateral, Fatigue, Generalized weakness Primary Care Provider: Yulia Cortez ED Provider: Bogdan Garcia Home Meds and New Rx's Prescriptions: No Action multivitamin Tablet 1 tab PO DAILY Patient Comments: once in a while cholecalciferol (vitamin D3) 50 mcg (2,000 unit) capsule 50 mcg PO DAILY metformin 500 mg tablet extended release 24 hr 2,000 mg PO DAILY Jardiance 25 mg tablet 25 mg PO DAILY insulin lispro [Humalog KwikPen Insulin] 100 unit/mL insulin pen See Rx Instructions subcut USEASDIRECTD Patient Comments: only when needed, depending on sugar Rx Instructions: Directed subcut use as directed; pantoprazole 40 mg tablet,delayed release (DR/EC) See Rx Instructions .ROUTE .COMPLEX Qty: 90 7RF Dose Instruction: TAKE 1 TABLET BY MOUTH DAILY Rx Instructions: TAKE 1 TABLET BY MOUTH DAILY rosuvastatin [Crestor] 40 MG tablet 40 mg PO HS atenolol 100 mg Tablet 100 mg PO DAILY losartan 100 mg Tablet 100 mg PO DAILY sertraline 100 mg tablet 150 mg PO DAILY Qty: 135 0RF pregabalin 200 mg capsule 200 mg PO TID Patient Comments: TAKE ONE CAPSULE BY MOUTH THREE TIMES A DAY MAX OF 3 DAILY chlorthalidone 50 mg tablet 50 mg PO DAILY Patient Comments: TAKE ONE TABLET BY MOUTH EVERY DAY nicotine 21 mg/24 hr Patch 24 Hour 21 mg transdermal DAILY PRN PRNQty: 30 0RF folic acid 1 mg Tablet 1 mg PO QAM Qty: 30 0RF nicotine (polacrilex) 4 mg Gum 4 mg CH Q2H PRN PRNQty: 48 0RF thiamine mononitrate (vit B1) [Vitamin B-1 (mononitrate)] 100 mg Tablet 100 mg PO DAILY Qty: 0 0RF disulfiram 500 mg tablet 500 mg PO DAILY Qty: 60 2RF Rx Instructions: may decrease to 1/2 tablet po daily after 2 weeks insulin glargine U-300 conc [Toujeo Max U-300 SoloStar] 300 unit/mL (3 mL) insulin pen 80 device SUBCUT BID Patient Comments: INJECT 100 TO 200 UNITS SUBCUTANEOUSLY ONCE A DAY ibuprofen 600 mg tablet 600 mg PO TID PRN (Reason: pain) Qty: 90 0RF Patient Comments: once in a while bupropion HCl 100 mg tablet sustained-release 12 hr 100 mg PO BID Patient Comments: TAKE ONE TABLET BY MOUTH TWICE A DAY ondansetron 4 mg tablet,disintegrating 4 mg PO Q6H PRN PRN (Reason: nausea and vomiting) Qty: 30 0RF Patient Comments: last taken weeks ago amlodipine 5 mg tablet 5 mg PO DAILY Patient Comments: TAKE ONE TABLET BY MOUTH EVERY DAY Sublocade 100 mg/0.5 mL solution, extended rel syringe 100 mg subcut QMONTH Qty: 0.5 0RF Patient Comments: 2-3 weeks ago on sunday potassium chloride [Klor-Con M10] 10 mEq tablet,ER particles/crystals 10 meq PO BID 10 Days Qty: 20 0RF
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
--- NOTE | 2024-11-08 15:45 | RT.EKG_ITS ---
APPROVED REPORT Exam: Resting ECG Reason for Exam: weakness Patient Location: I HR:50 bpm ECG Measurements Heart Rate 50 AXIS [place] 176 P 40 QRSd 112 QRS 29 QT 479 T 30 QTc 437 Conclusion Sinus rhythm...normal P axis, V-rate 50- 99 Normal Electrocardiogram
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
[2024-11-08] MEDS: Lactated Ringers 1,000 ML 1000 ML IV (16:05)
[2024-11-08 16:28] LABS: Anion Gap 15.8 mmol/L (3-11); BUN 8 mg/dL (7-18); CO2 24.2 mmol/L (21.0-32.0); Calcium 9.3 mg/dL (8.5-10.1); Chloride 102 mmol/L (98-107); Estimated GFR 107.47 (mL/min/1.73m2); Glucose 160 mg/dL (74-106); Potassium 3.4 mmol/L (3.5-5.1); Sodium 142 mmol/L (136-145); Troponin I 8 ng/L (<or=76)
[2024-11-08 16:35] LABS: Procalcitonin < 0.10 ng/mL
[2024-11-08 17:57] LABS: Glucose 500 mg/dL (Negative)
[2024-11-08] MEDS: Insulin Glargine 300 UNITS/3 ML PEN 32 UNITS SC (20:17)
[2024-11-08] MEDS: Normal Saline Flush 10 ML SYR IVP (20:19)
[2024-11-08] MEDS: Rosuvastatin 20 MG TAB 40 MG PO (20:20)
[2024-11-08] MEDS: buPROPion-CR 100 MG TABCR PO (20:20)
[2024-11-08] MEDS: Potassium Chloride 10 MEQ TABCR PO (20:20)
[2024-11-09 07:01] LABS: Anion Gap 12.6 mmol/L (3-11); BUN 10 mg/dL (7-18); CO2 25.4 mmol/L (21.0-32.0); Calcium 9.1 mg/dL (8.5-10.1); Chloride 102 mmol/L (98-107); Estimated GFR 107.47 (mL/min/1.73m2); Glucose 93 mg/dL (74-106); Magnesium 1.5 mg/dL (1.8-2.4); Potassium 3.1 mmol/L (3.5-5.1); Sodium 140 mmol/L (136-145)
[2024-11-09 07:33] VITALS: BP 152/79; PULSE 60; RESP 18; TEMP 36.7; O2SAT 96
[2024-11-09] MEDS: Chlorthalidone 25 MG TAB PO (08:37)
[2024-11-09] MEDS: Multivitamin TAB 1 TAB PO (08:37)
[2024-11-09] MEDS: Losartan 50 MG TAB 100 MG PO (08:37)
[2024-11-09] MEDS: Sertraline 50 MG TAB 150 MG PO (08:37)
[2024-11-09] MEDS: amLODIPine 5 MG TAB PO (08:38)
[2024-11-09] MEDS: Potassium Chloride 10 MEQ TABCR PO (08:38)
[2024-11-09] MEDS: Pantoprazole 40 MG TABCR PO (08:38)
[2024-11-09] MEDS: Cholecalciferol (Vitamin D3) 1,000 UNIT TAB 2000 UNITS PO (08:38)
[2024-11-09] MEDS: buPROPion-CR 100 MG TABCR PO ×2 (08:39→20:25)
[2024-11-09] MEDS: Folic Acid 1 MG TAB PO (08:39)
[2024-11-09] MEDS: Enoxaparin 40 MG/0.4 ML SYR SC (08:39)
[2024-11-09] MEDS: Thiamine 100 MG TAB PO (08:39)
[2024-11-09] MEDS: Insulin Glargine 300 UNITS/3 ML PEN 32 UNITS SC (08:40)
[2024-11-09] MEDS: Normal Saline Flush 10 ML SYR IVP ×5 (08:40→20:29)
[2024-11-09] MEDS: Insulin Aspart 300 UNITS/3 ML PEN SC ×3 (08:42→17:32)
[2024-11-09] MEDS: THIAMINE 500 MG in Normal Saline 100 ML 200 MG IVPB ×2 (09:28→17:33)
--- NOTE | 2024-11-09 10:21 | W.PM.PROGNOT ---
Date of Service Date of service: 11/09/24 Time of Service: 10:21 Assessment and Plan Assessment and plan (1) Generalized weakness: Status: Acute Assessment and plan: Odd presentation. He was unsteady on his feet prior to discharge 11/07, which was interpreted as residual effects of phenobarbital. Given this, PT evaluation done and recommended home health PT. It does not make sense he would get worse with time at home, however. 11/09 he states he feels better but more ataxia/coordination deficit with poor insight. No nystagmus, but concern for Wernickes, started high dose thiamine (he was treated with IV, then oral thiamine on previous admission) He does have stroke risk factors and had head trauma. CT on admission reassuring, but I would like MRI when available. At risk for subdural so should consider repeat CT. Will ask for teleneuro consult. Has drug use history including opioids, benzodiazepines (was asking for valium while he was here), alcohol. He denies using when he got home. Alcohol level negative this admisison. UDS shows benzos and barbituates, attributable to previous admission. Methadone no longer in system, indicating he did not take more of this. He does not appear opoid toxic, fentanyl level pending. Weakness and poor balance possibly c/w gabanergic medication. Full benzo panel pending, but toxicity At risk for heart disease, EKG/troponin and tele reassuring Get orthostatic VS once he is able. He is bradycardic, holding beta ronal No clear signs of infection on CT Head/Chest/Abd/Pelvis, except infiltrate in lung but no fever/cough so hold off on abx. Procal reassuring. Follow with PT (2) Alcohol use disorder: Status: Chronic Assessment and plan: EtOH negative. Discuss plan before discharge. previous plan was disulfuram along with AA/therapy but he never took this. (3) Hypertension: Status: Chronic Assessment and plan: BP normal. Get orthostatics as above. Bradycardic, so holding atenolol, may stop this as it's not a great BP med (4) Diabetes mellitus, type II: Assessment and plan: No acidosis, blood sugar good, though ketones in urine. Monitor FS, continue home basal/bolus insulin. hold metformin with contrast studies. Holding SGLT2i as this carries risk for normoglycemic DKA. (5) DVT prophylaxis: Status: Acute Assessment and plan: enoxaparin (6) Pulmonary infiltrate: Status: Acute Assessment and plan: on CT as above, no symptoms so monitor without abx for now. Subjective Subjective Patient reports: tolerating a regular diet and voiding w/o difficulty; denies diarrhea, vomiting, shortness of breath or fever Interval history since last seen: No events. Per nursing he is loosing train of thought, doesn't realize he is having trouble with coordination. Alfredo states he feels better. He slept well. Ate breakfast. Denies significant headache, dizziness, vision changes, numbness, or weakness. He wants to walk. Exam Narrative Exam Narrative: GEN: Sleepy, but arousable and oriented x 4, pleasant and cooperative, remembers events well. Does not appear toxic. HEENT: sutures on back of head intact. No facial bruising/deformity LUNGS: normal effort, CTAB CV: RRR with no murmurs, gallops, or rubs. ABD: active bowel sounds, soft, nontender and nondistended. No masses. EXT: no cyanosis, clubbing, or edema NEURO: CN 2-12 intact, no nystagmus. Visual menendez intact on confrontation. Worse on FNF, slower with left hand, has to be coached to reach to right side. He moves legs in bicycle movement with legs when coached to do heal to david. Symmetric strength and normal sensation in 4 extremities. Symmetric DTRs. Normal speech. Normal tone. No tremor PSYCH: Slightly depressed mood and affect, no hallucinations, but he seems to lack insight into his poor coordination. Objective Last Vital Signs Temp 36.7 C 11/09/24 07:33 Pulse 60 11/09/24 07:33 Resp 18 11/09/24 07:33 BP 152/79 H 11/09/24 07:33 Pulse Ox 96 11/09/24 07:33 Laboratory Results - last 24 hr 11/08/24 11/08/24 11/08/24 10:21 15:55 17:45 VBG Lactate 0.8 Sodium 142 Potassium 3.4 L Chloride 102 Carbon Dioxide 24.2 Anion Gap 15.8 H BUN 8 Creatinine 0.7 Est GFR (CKD-EPI 2020) 107.47 Glucose 160 H Calcium 9.3 Magnesium Troponin I 8 Procalcitonin < 0.10 Urine Color Yellow Urine Clarity Clear Urine pH 5.5 Ur Specific Vassar 1.020 Urine Protein Negative Urine Ketones 80 H Urine Blood Negative Urine Nitrite Negative Urine Bilirubin Moderate H Urine Urobilinogen 0.2 Ur Leukocyte Esterase Negative Urine Glucose 500 H Urine Opiates Screen Negative Urine Methadone Screen Negative Ur Barbiturates Screen Positive A Ur Tricyclics Screen Negative Ur Amphetamines Screen Negative U Benzodiazepines Scrn Positive A Urine Cocaine Screen Negative Ur THC Screen Positive A 11/09/24 06:10 VBG Lactate Sodium 140 Potassium 3.1 L Chloride 102 Carbon Dioxide 25.4 Anion Gap 12.6 H BUN 10 Creatinine 0.7 Est GFR (CKD-EPI 2020) 107.47 Glucose 93 Calcium 9.1 Magnesium 1.5 L Troponin I Procalcitonin Urine Color Urine Clarity Urine pH Ur Specific Vassar Urine Protein Urine Ketones Urine Blood Urine Nitrite Urine Bilirubin Urine Urobilinogen Ur Leukocyte Esterase Urine Glucose Urine Opiates Screen Urine Methadone Screen Ur Barbiturates Screen Ur Tricyclics Screen Ur Amphetamines Screen U Benzodiazepines Scrn Urine Cocaine Screen Ur THC Screen PAWSS Have you Been Recently Intoxicated or Drunk Within the Last 30 days?: Yes Have you Ever Experienced Previous Episodes of Alcohol Withdrawal?: Yes Have you ever Experienced Withdrawal Seizures?: No Have you ever Experienced Delirium Tremens(DT)s?: No Have you ever undergone Alcohol Rehabilitation Treatment (i.e, inpt ot outpatient treatment programs)?: No Have you ever Experienced Blackouts?: Yes Have you ever Combined Alcohol with other Downers within the last 90 days?: No Have you ever Combined Alcohol with any other Substance of Abuse during the last 90 days?: No Positive Blood Alcohol level on Presentation? [PCS.BAL]: No Evidence of Increased Autonomic Activity (i.e. HR>120, tremor, sweating, agitation, nausea)?: No Result: 3 Time Spent with Patient Time Spent with Patient: 35-49 minutes Time was spent: preparing to see the patient(eg.review tests), obtaining and/or reviewing separately otained hiistory, ordering medications,tests, procedures, referring, communicating with other health childcare center administrator, indepentently interpreting results, counseling the patient and care coordination
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
[2024-11-09 11:29] VITALS: BP 136/97; PULSE 65; RESP 18; TEMP 36.6; O2SAT 94
[2024-11-09] MEDS: Nicotine 4 MG GUM CH (11:32)
[2024-11-09] MEDS: MAGNESIUM SULFATE 4 GM/100 ML BAG IV_INF (11:33)
[2024-11-09] MEDS: Potassium Chloride 20 MEQ TABCR 40 MEQ PO (13:06)
[2024-11-09 15:18] VITALS: BP 140/100; PULSE 85; RESP 18; TEMP 36.5; O2SAT 94
[2024-11-09 19:13] VITALS: BP 144/89; PULSE 72; RESP 15; TEMP 36.5; O2SAT 97
[2024-11-09] MEDS: Potassium Chloride 10 MEQ TABCR 20 MEQ PO (20:24)
[2024-11-09] MEDS: Rosuvastatin 20 MG TAB 40 MG PO (20:25)
[2024-11-09] MEDS: Insulin Glargine 300 UNITS/3 ML PEN 45 UNITS SC (20:35)
[2024-11-09 22:59] VITALS: BP 132/87; PULSE 70; RESP 16; TEMP 36.4; O2SAT 96
[2024-11-10] MEDS: THIAMINE 500 MG in Normal Saline 100 ML 200 MG IVPB ×2 (01:24→10:30)
--- NOTE | 2024-11-10 06:00 | DI.MRI_ITS ---
Exam(s) MR BRAIN WO EXAM: MR BRAIN WO CLINICAL HISTORY: ataxia TECHNIQUE: Multiplanar multisequence MRI of the brain was performed. COMPARISON: CT CT HEAD CERVICAL SPINE WO from 11/08/2024 FINDINGS: VENTRICLES AND EXTRA AXIAL SPACES: Normal in size and morphology for the patient's age. MIDLINE SHIFT: None. CEREBRAL PARENCHYMA: No focus of restricted diffusion to suggest acute infarct. No space-occupying lesion identified. Mild atrophy consistent with the patient's age. Minimal scattered foci of high signal in the white matter consistent with sequela of chronic microvascular disease. BRAINSTEM/CEREBELLUM: Normal. VISUALIZED PARANASAL SINUSES: Clear mild mucosal thickening of the right maxillary sinus. MASTOIDS:Clear. Vasculature: Normal flow void. PITUITARY GLAND: Unremarkable. ORBITS: Unremarkable. IMPRESSION: No acute abnormality. DATA REPOSITORY:
[2024-11-10] MEDS: Pantoprazole 40 MG TABCR PO (06:48)
[2024-11-10 06:57] LABS: Ammonia 12 umol/L (11-32)
[2024-11-10 06:58] LABS: Vitamin B12 724 pg/mL (193-986)
[2024-11-10 07:33] VITALS: BP 118/59; PULSE 54; RESP 18; TEMP 36.6; O2SAT 98
[2024-11-10] MEDS: Insulin Glargine 300 UNITS/3 ML PEN 45 UNITS SC (08:56)
[2024-11-10] MEDS: Enoxaparin 40 MG/0.4 ML SYR SC (08:56)
[2024-11-10] MEDS: Losartan 50 MG TAB 100 MG PO (08:57)
[2024-11-10] MEDS: buPROPion-CR 100 MG TABCR PO (08:57)
[2024-11-10] MEDS: Potassium Chloride 10 MEQ TABCR 20 MEQ PO (08:57)
[2024-11-10] MEDS: Cholecalciferol (Vitamin D3) 1,000 UNIT TAB 2000 UNITS PO (08:57)
[2024-11-10] MEDS: amLODIPine 5 MG TAB PO (08:57)
[2024-11-10] MEDS: Multivitamin TAB 1 TAB PO (08:57)
[2024-11-10] MEDS: Chlorthalidone 25 MG TAB PO (08:57)
[2024-11-10] MEDS: Folic Acid 1 MG TAB PO (08:57)
[2024-11-10] MEDS: Normal Saline Flush 10 ML SYR IVP (08:58)
[2024-11-10] MEDS: Sertraline 50 MG TAB 150 MG PO (08:58)
--- NOTE | 2024-11-10 10:25 | PT.INTREAT ---
PT Notes Visit Reasons: Encephalopathy Inpatient Physical Therapy Treatment Note [facility] Date: 11/10/2024 PRECAUTIONS: Fall risk standard SUBJECTIVE: Patient states he needs to get home he feels he is ready and safe. OBJECTIVE: Patient presented seated at edge of bed appears anxious and eager to go home? PAIN: Denied VITALS: ?Monitored via telemetry throughout BED MOBILITY/TRANSFERS? Rolling L/R: Independent Supine-sit: Independent? Sit-supine: Independent? Sit-stand: Independent ? Stand-sit: Independent? Bed-Chair: Independent with and without FWW? Chair-bed: Independent with and without FWW Neuromuscular Re-education ([id number] 1): Activities that facilitate re-education of movement balance, posture, coordination, and proprioception or kinesthetic sense, requiring skilled tactile and verbal cues ? Exercises/techniques: ?Standing forward step with contralateral arm swing R/L x 10 reps with intermittent upper extremity support Lateral stepping without external support R/L x 10 feet Ambulation including directional changes 90 degrees 180 360 degree without loss of balance with and without shoes 300 feet x 3. Frequent directional changes made to facilitate balance reactions and strategies through ankle. Patient performed initial 2 trials of 300 feet without shoes on noted reduced step length wider base of support no loss of balance. Last trial with shoes on patient demonstrated increased julio cesar improved foot clearance narrower base of support and no loss of balance. During trials of ambulation patient walked over objects including canes and stairs with and without upper extremity support. . ASSESSMENT:?Patient demonstrates improved stability during functional mobility without assistive device and with use of shoes. Patient demonstrated no loss of balance on level surfaces including directional changes. Patient would benefit from use of railing for stairs. He has ramp to enter his home and 1 step into kitchen which was simulated with patient utilizing door frame to ascend and descend 1 step. Patient demonstrates improvement motor coordination bilateral lower extremity including rapid alternating movements alternating toe tapping [id number]. Patient needed to verbalize all steps to perform with reduced speed to improve his accuracy. Patient demonstrated motor apraxia with donning robe at start of session. Once task was initiated for him he was able to carryover donning robe. Patient would benefit from outpatient PT however declines as he states he has to return to work. 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 PLAN: [] TREATMENT CODE/TIME: 36630/0943?1023 DISCHARGE RECOMMENDATION: Home with outpatient PT however patient declines
[2024-11-10 11:21] VITALS: BP 135/99; PULSE 80; RESP 18; TEMP 36.8; O2SAT 95
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
[2024-11-10 12:14] LABS: Fentanyl Scr w/Rfx Confirm Negative ng/mL (<1)
--- NOTE | 2024-11-10 14:08 | CMDISCH_ITS ---
Date of service: 11/10/24 Time of Service: 14:08 LACE Index Scoring Tool Questions: Length of Stay (in days): 1 Was the patient admitted via the E.D.?: Yes Comorbidities: Diabetes w/o Complication E.D. Visits: 5 Answers: Total Score: 9 Risk of Readmission: Low Risk Care Management Discharge Plan Reason for Hospitalization: encephalopathy Discharge Plan: Alfredo is discharged home today with no new services. He does not want HH, as he will be going back to work. He will f/u with his PCP and continue per his plan of care. Alfredo will transport home in a private vehicle. Patient/Family Education Needs: Review of discharge instructions, activity, limitations, and discuss Ask me 3. SDOH Health Related Social Needs: Health related social needs house/econ circumstance Health related social needs details sometimes money i s tight Health related social needs details: sometimes money is tight
--- NOTE | 2024-11-11 08:30 | NUR.NOTE ---
Nursing Note: Attempted to contact patient regarding his gold wedding band that was left in the room after he was discharged. I called the 3 numbers on file, and left a message on his voicemail.
[2024-11-13 12:31] LABS: 2-OH-Ethyl-Flurazepam Negative ng/mL (Cutoff: 10); 7-NH-Clonazepam Negative ng/mL (Cutoff: 10); 7-NH-Flunitrazepam Negative ng/mL (Cutoff: 10); Alpha OH-Alprazolam Negative ng/mL (Cutoff: 10); Alpha-OH Midazolam Negative ng/mL (Cutoff: 10); Benzodiazepines Interpretation Positive.; Prazepam Negative ng/mL (Cutoff: 10); Zolpidem Carboxylic acid Negative ng/mL (Cutoff: 10)
== END 2024-11-10 14:35 | disposition home or self-care (01) | DRG 92 ==
LOC: ER 07:48 → MS 13:29
PROVIDERS: Student in an Organized Health Care Education/Training Program; Admitting Provider Family Medicine; Emergency Provider Emergency Medicine; PCP Family Medicine; Responsible Provider Family Medicine; Visit Provider Family Medicine
DX: R26.81 Unsteadiness on feet (principal); F11.20 Opioid dependence, uncomplicated; F19.20 Other psychoactive substance dependence, uncomplicated; R53.1 Weakness; I10 Essential (primary) hypertension; E11.40 Type 2 diabetes mellitus with diabetic neuropathy, unspecified; F32.A Depression, unspecified; F10.20 Alcohol dependence, uncomplicated; D50.9 Iron deficiency anemia, unspecified; G25.81 Restless legs syndrome; K21.9 Gastro-esophageal reflux disease without esophagitis; E78.5 Hyperlipidemia, unspecified; Z79.85 Long-term (current) use of injectable non-insulin antidiabetic drugs; Z79.84 Long term (current) use of oral hypoglycemic drugs; S01.02XA Laceration with foreign body of scalp, initial encounter; R00.1 Bradycardia, unspecified; R91.8 Other nonspecific abnormal finding of lung field; Z79.4 Long term (current) use of insulin; F43.10 Post-traumatic stress disorder, unspecified; E87.6 Hypokalemia; M54.50 Low back pain, unspecified; G89.29 Other chronic pain; G47.00 Insomnia, unspecified; F41.9 Anxiety disorder, unspecified; Z96.651 Presence of right artificial knee joint; F17.210 Nicotine dependence, cigarettes, uncomplicated; Z59.89 Other problems related to housing and economic circumstances; W01.198A Fall on same level from slipping, tripping and stumbling with subsequent striking against other object, initial encounter
CPT/HCPCS: 00123; 36415; 36416; 74177; 80048; 80053; 80307; 82805; 82962; 84145; 90471; 90715; 96361; 96374; 97112; 97162; 99285; J1650; 70450; 70551; 71260; 72125; 80320; 80346; 81003; 82140; 82607; 83605; 83735; 84443; 84484; 85025; 85610; 85730; 93005; 93010; 99222; 99232; 99238; J0131; J1815; J3411; J3475; J3490

== ENCOUNTER 2025-02-18 12:26 | Inpatient (IN) | payer OTHER, SELFPAY ==
[2025-02-18] VITALS (103 sets, daily range): BP systolic 95–203; BP diastolic 55–103; PULSE 60–105; RESP 11–22; TEMP 36–36.5; O2SAT 92–100
--- NOTE | 2025-02-18 12:30 | DI.RAD_ITS ---
Exam(s) XR PORTABLE CHEST AP EXAM: XR PORTABLE CHEST AP CLINICAL HISTORY: post intubation. TECHNIQUE: 2D digital imaging was performed. COMPARISON: CR,XR XR PORTABLE CHEST AP from 08/04/2023 FINDINGS: Single AP portable view. Patient is intubated and distal tip of the endotracheal tube is 4.5 cm above the mayra. There is also an NG tube in stomach. Heart size mildly prominent. Mediastinum is widened but unchanged from previous and this is a portable AP supine study which can exaggerate mediastinal with.. There is some infiltrate in both lung bases. No obvious pleural effusions. No obvious pulmonary edema. No obvious pneumothorax. IMPRESSION: Bilateral lower lobe infiltrates. ET tube in satisfactory position. NG tube is below the hemidiaphragm within the stomach although its distal tip is not included in the field of view of this portable study. DATA REPOSITORY: RADIATION DOSE DELIVERED:
[2025-02-18] MEDS: Etomidate 20 MG/10 ML VIAL (12:48)
[2025-02-18] MEDS: Rocuronium 50 MG/5 ML SYR (12:48)
[2025-02-18 12:49] LABS: Abs Immature Grans 0.01 10^3/uL (0.0-0.06); BE (Venous) 5 mmol/L (-2-3); HCO3 (Venous) 30 mmol/L (23-28); HCT 40.8 % (40.0-50.0); HGB 13.1 g/dL (13.5-17.5); Immature Grans % 0.2 %; MCH 25.7 pg (27.0-33.0); MCHC 32.1 % (32.0-36.0); MCV 80 fL (80-95); MPV 9.3 fL (8.0-11.0); O2 Sat (Venous) 60 %; Platelet Count 193 10^3/uL (130-400); RBC 5.09 10^6/uL (4.36-5.78); RDW 14.5 % (11.8-14.1); RDW-SD 41.9 fL; TCO2 (Venous) 28 mmol/L (24-29); WBC 4.91 10^3/uL (4.4-10.8); pCO2 (Venous) 54 mmHg (41-51); pO2 (Venous) 32 mmHg
[2025-02-18] MEDS: PROPOFOL 1,000 MG/100 ML BTL 8.1 MG (12:50)
[2025-02-18 13:20] LABS: TSH (W/Ref FT4) 0.82 uIU/mL (0.55-4.78)
[2025-02-18 13:22] LABS: ALT 16 U/L (10-49); AST 26 U/L (<34); Albumin 4.3 g/dL (3.4-5.0); Alkaline Phosphatase 117 U/L (46-116); Anion Gap 9.5 mmol/L (3-11); BUN 9 mg/dL (9-23); Bilirubin, Total 0.50 mg/dL (0.2-1.2); CO2 29.5 mmol/L (20.0-31.0); Calcium 9.1 mg/dL (8.3-10.6); Chloride 102 mmol/L (98-107); Glucose 278 mg/dL (74-106); Potassium 3.6 mmol/L (3.5-5.1); Sodium 141 mmol/L (136-145); Total Protein 7.0 g/dL (5.7-8.2)
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
[2025-02-18 13:42] LABS: Glucose 500 mg/dL (Negative)
[2025-02-18] MEDS: Normal Saline 1,000 ML 1000 ML IV (13:42)
[2025-02-18 13:51] LABS: C & S Indicated? No; WBC 0-2 HPF (0-5)
[2025-02-18] MEDS: PROPOFOL 1,000 MG/100 ML BTL 18.9 MG IV_INF (14:00)
--- NOTE | 2025-02-18 14:00 | RT.EKG_ITS ---
APPROVED REPORT Exam: Resting ECG Reason for Exam: overdose Patient Location: E HR:66 bpm ECG Measurements Heart Rate 66 AXIS [place] 176 P 52 QRSd 104 QRS 48 QT 461 T 37 QTc 484 Conclusion Sinus rhythm...normal P axis, V-rate 60- 99 Physician: No STEMI
[2025-02-18 14:12] LABS: Cannabinoids THC Positive (Negative)
--- NOTE | 2025-02-18 14:58 | W.PULMCC ---
General Date of Service Date of service: 02/18/25 Time of Service: 14:00 Admit Date Admit Date: 02/18/25 Reason for Admission to ICU: Respiratory failure Assessment and Plan Assessment and plan (1) Acute respiratory failure: Status: Acute (2) Benzodiazepine overdose: Status: Acute (3) Tobacco dependence: Status: Chronic (4) Alcohol use disorder: Status: Chronic (5) Alcohol intoxication: Status: Acute Recommendations Pulmonary: Assessment: 1. Acute respiratory failure - due to encephalopathy from benzodiazaine overdose and alcohol consumption. Intubated for encephalopathya and airway protection. On 25% Fio2 2. Benzodiazapine overdose. EKG showed normal QTc. No reports that he consumed medications other than librium 3. Alcohol intoxication / abuse - has hx of alcohol withdrawal 4. Hx depression Recommendations: - ventilator settings are appropriate. Check VBG in the AM - start thiamine replacement - continue propofol for sedation with goal RASS 0 to -1 - plan for daily AM breathing trials to assess candidacy for extubation. Given the large dose of librium he consumed, may take a few days - do not see any clear evidence of an active pneumonia at this time. No clear indication for antibiotics Discussed with Dr. Wilkinson I&O: Intake & Output 02/15/25 02/16/25 02/17/25 02/18/25 23:59 23:59 23:59 23:59 Output Total 375 / 375 Balance -375 / -375 Weight 90.1 kg Subjective Critical and life-threatening events over the past 24 hours: Patient is a 59 yo with a history of depression, alcohol abuse, and tobacco abuse who was brought to the ED by EMS after he consumed ~450 mg of librium and an unknown amount of alcohol. He was intubated in the ED due to encephalopathy. Due to clinical status, history was obtained from the chart and ED staff He has a long history of alcohol abuse. Has had recurrent admissions for withdrawal, most recently in 10/2024. He is currently sedated with propofol. Currently on FiO2 25% Family history : non contributory. Social history: active smoker 25 years ROS: unable to obtain due to clinic status Exam Narrative Exam Narrative: General: intubated, sedated Head: normocephalic, ET tube in place ENT: no stridor, trachea midline CV: normal rate, regular rhythm Respiratory: no wheezing, no crackles, no rhonchi, no prolonged expiration GI: abd soft, non-distended Skin: no rashes Extremities: no edema, no digital clubbing Neuro: sedated Most Recent VS/Results Last Vital Signs Temp 36.2 C L 02/18/25 14:23 Pulse 67 02/18/25 14:31 Resp 15 02/18/25 14:31 BP 114/66 02/18/25 14:31 Pulse Ox 97 02/18/25 14:31 Laboratory Results - last 24 hr 02/18/25 02/18/25 12:40 13:20 WBC 4.91 RBC 5.09 Hgb 13.1 L Hct 40.8 MCV 80 MCH 25.7 L MCHC 32.1 RDW 14.5 H Plt Count 193 MPV 9.3 Immature Gran % 0.2 Neutrophils % 50.8 Lymphocytes % 39.9 Monocytes % 6.9 Eosinophils % 1.8 Basophils % 0.4 Nucleated RBC % 0.0 Absolute Neutrophils 2.49 Absolute Lymphocytes 1.96 Absolute Monocytes 0.34 Absolute Eosinophils 0.09 Absolute Basophils 0.02 VBG pH 7.35 VBG pCO2 54 H VBG pO2 32 VBG HCO3 30 H VBG Total CO2 28 VBG O2 Saturation 60 VBG Base Excess 5 H Sodium 141 Potassium 3.6 Chloride 102 Carbon Dioxide 29.5 Anion Gap 9.5 BUN 9 Creatinine 0.6 L Est GFR (CKD-EPI 2020) 147.12 Glucose 278 H Calcium 9.1 Total Bilirubin 0.50 AST 26 ALT 16 Alkaline Phosphatase 117 H Total Protein 7.0 Albumin 4.3 TSH 0.82 Urine Color Yellow Urine Clarity Sl Cloudy Urine pH 6.0 Ur Specific [place] <= 1.005 Urine Protein 30 H Urine Ketones Negative Urine Blood Trace-intact H Urine Nitrite Negative Urine Bilirubin Negative Urine Urobilinogen 0.2 Ur Leukocyte Esterase Negative Urine RBC 3-5 H Urine WBC 0-2 Ur Epithelial Cells Rare Urine Crystals Negative Urine Bacteria Moderate Urine Casts Negative Urine Mucus Trace Ur Culture Indicated? No Urine Glucose 500 H Urine Opiates Screen Negative Urine Methadone Screen Negative Ur Barbiturates Screen Negative Ur Tricyclics Screen Negative Ur Amphetamines Screen Negative U Benzodiazepines Scrn Positive A Urine Cocaine Screen Negative U Cannabinoids Screen Positive A Ethyl Alcohol 150.1 H Time spent with patient Time spent in Critical Care: 35 Time spent in Critical care included: Performing procedures not included in c.c time, Coordination of care, Chart review, Documenting critically ill care, Time at immediate bedside and Discussing critically ill care with other medical staff
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
[2025-02-18] MEDS: Pantoprazole 40 MG VIAL IVP (16:55)
[2025-02-18 18:00] LABS: Fentanyl Scr w/Rflx to Conf, U Negative (Negative)
[2025-02-18] MEDS: MULTIVITAMIN 10 ML, THIAMINE 100 MG, FOLIC ACID 1 MG in DEXTROSE 5%-0.45% SALINE 1,000 ML 120 ML IV (18:21)
[2025-02-18] MEDS: Insulin Aspart 300 UNITS/3 ML PEN SC (18:30)
[2025-02-18] MEDS: THIAMINE 500 MG in Normal Saline 100 ML 200 MG IVPB (19:13)
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
[2025-02-18] MEDS: Insulin Glargine 300 UNITS/3 ML PEN 40 UNITS SC (21:46)
[2025-02-18] MEDS: Rosuvastatin 20 MG TAB 40 MG NG (21:46)
[2025-02-18] MEDS: PROPOFOL 1,000 MG/100 ML BTL 24.327 MG IV_INF (23:28)
[2025-02-19] VITALS (123 sets, daily range): BP systolic 99–167; BP diastolic 68–115; PULSE 58–82; RESP 12–18; TEMP 36.8–36.9; O2SAT 72–99
[2025-02-19] MEDS: THIAMINE 500 MG in Normal Saline 100 ML 200 MG IVPB ×3 (01:35→18:09)
[2025-02-19] MEDS: PROPOFOL 1,000 MG/100 ML BTL 27.03 MG IV_INF ×6 (02:50→22:32)
[2025-02-19 05:33] LABS: BE (Venous) 5 mmol/L (-2-3); HCO3 (Venous) 30 mmol/L (23-28); O2 Sat (Venous) 99 %; TCO2 (Venous) 27 mmol/L (24-29); pCO2 (Venous) 47 mmHg (41-51); pO2 (Venous) 92 mmHg
[2025-02-19 05:52] LABS: Abs Immature Grans 0.02 10^3/uL (0.0-0.06); HCT 36.1 % (40.0-50.0); HGB 11.7 g/dL (13.5-17.5); Immature Grans % 0.3 %; MCH 26.3 pg (27.0-33.0); MCHC 32.4 % (32.0-36.0); MCV 81 fL (80-95); MPV 9.7 fL (8.0-11.0); Platelet Count 176 10^3/uL (130-400); RBC 4.45 10^6/uL (4.36-5.78); RDW 14.9 % (11.8-14.1); RDW-SD 43.6 fL; WBC 6.35 10^3/uL (4.4-10.8)
[2025-02-19 05:54] LABS: Anion Gap 5.5 mmol/L (3-11); BUN 10 mg/dL (9-23); CO2 28.5 mmol/L (20.0-31.0); Calcium 8.3 mg/dL (8.3-10.6); Chloride 108 mmol/L (98-107); Glucose 194 mg/dL (74-106); Potassium 3.1 mmol/L (3.5-5.1); Sodium 142 mmol/L (136-145)
--- NOTE | 2025-02-19 06:11 | PUCC_ITS ---
General Date of Service Date of service: 02/19/25 Time of Service: 06:45 Admit Date Admit Date: 02/18/25 Reason for Admission to ICU: Respiratory failure Assessment and Plan Assessment and plan (1) Acute respiratory failure: Status: Acute (2) Tobacco dependence: Status: Chronic (3) Alcohol use disorder: Status: Chronic (4) Polysubstance (excluding opioids) dependence, daily use: Status: Chronic Recommendations Pulmonary: Assessment: 1. Acute respiratory failure - due to encephalopathy from benzodiazaine overdose and alcohol consumption. Intubated for encephalopathya and airway protection. On 25% Fio2 2. Benzodiazapine overdose. EKG showed normal QTc. No reports that he consu med medications other than librium 3. Alcohol intoxication / abuse - has hx of alcohol withdrawal - on CIWA 4. Hx depression 5. Hypokalemia Recommendations: - replace potassium - check Mg level and replace if low - hold propofol to assess mental status. If able to follow commands, can complete a breathing trial. I suspect it may take a few days for the consumed medications to wear off - plan for daily breathing trials if not extubated today - plan to initiate tube feedings if remains ventilated today Discussed with Dr. Tinoco I&O: Intake & Output 02/16/25 02/17/25 02/18/25 02/19/25 23:59 23:59 23:59 23:59 Intake Total 1237.463 / 1237.463 88.883 / 88.883 Output Total 675 / 950 675 / 675 Balance 562.463 / 287.463 -586.117 / -586.117 Weight 88.1 kg 88.5 kg Code Status: Resuscitation Status Full Code Subjective Critical and life-threatening events over the past 24 hours: Patient is a 59 yo with a history of depression, alcohol abuse, and tobacco abuse who was brought to the ED by EMS after he consumed ~450 mg of librium and an unknown amount of alcohol. He was intubated in the ED due to encephalopathy. Due to clinical status, history was obtained from the chart and staff He has a long history of alcohol abuse. Has had recurrent admissions for withdrawal, most recently in 10/2024. Was restless overnight, so propofol dose was increased to 50 mcg. Currently on 25% FiO2. No significant secretions reported. Family history : non contributory. Social history: active smoker 25 years ROS: unable to obtain due to clinic status Exam Narrative Exam Narrative: General: intubated, sedated Head: normocephalic, ET tube in place ENT: no stridor, trachea midline CV: normal rate, regular rhythm Respiratory: no wheezing, no crackles, no rhonchi, no prolonged expiration GI: abd soft, non-distended Skin: no rashes Extremities: no edema, no digital clubbing Neuro: sedated Most Recent VS/Results Last Vital Signs Temp 36.8 C 02/19/25 00:00 Pulse 78 02/19/25 00:40 Resp 14 02/19/25 04:45 BP 141/85 H 02/19/25 00:01 Pulse Ox 97 02/19/25 04:45 Laboratory Results - last 24 hr 02/18/25 02/18/25 02/19/25 12:40 13:20 05:25 WBC 4.91 6.35 RBC 5.09 4.45 Hgb 13.1 L 11.7 L Hct 40.8 36.1 L MCV 80 81 MCH 25.7 L 26.3 L MCHC 32.1 32.4 RDW 14.5 H 14.9 H Plt Count 193 176 MPV 9.3 9.7 Immature Gran % 0.2 0.3 Neutrophils % 50.8 60.2 Lymphocytes % 39.9 31.8 Monocytes % 6.9 5.4 Eosinophils % 1.8 2.0 Basophils % 0.4 0.3 Nucleated RBC % 0.0 0.0 Absolute Neutrophils 2.49 3.82 Absolute Lymphocytes 1.96 2.02 Absolute Monocytes 0.34 0.34 Absolute Eosinophils 0.09 0.13 Absolute Basophils 0.02 0.02 VBG pH 7.35 7.42 H VBG pCO2 54 H 47 VBG pO2 32 92 VBG HCO3 30 H 30 H VBG Total CO2 28 27 VBG O2 Saturation 60 99 VBG Base Excess 5 H 5 H Sodium 141 142 Potassium 3.6 3.1 L Chloride 102 108 H Carbon Dioxide 29.5 28.5 Anion Gap 9.5 5.5 BUN 9 10 Creatinine 0.6 L 0.5 L Est GFR (CKD-EPI 2020) 147.12 163.56 Glucose 278 H 194 H Calcium 9.1 8.3 Total Bilirubin 0.50 AST 26 ALT 16 Alkaline Phosphatase 117 H Total Protein 7.0 Albumin 4.3 TSH 0.82 Urine Color Yellow Urine Clarity Sl Cloudy Urine pH 6.0 Ur Specific [place] <= 1.005 Urine Protein 30 H Urine Ketones Negative Urine Blood Trace-intact H Urine Nitrite Negative Urine Bilirubin Negative Urine Urobilinogen 0.2 Ur Leukocyte Esterase Negative Urine RBC 3-5 H Urine WBC 0-2 Ur Epithelial Cells Rare Urine Crystals Negative Urine Bacteria Moderate Urine Casts Negative Urine Mucus Trace Ur Culture Indicated? No Urine Glucose 500 H Urine Opiates Screen Negative Urine Methadone Screen Negative Urine Fentanyl Screen Negative Ur Barbiturates Screen Negative Ur Tricyclics Screen Negative Ur Amphetamines Screen Negative U Benzodiazepines Scrn Positive A Urine Cocaine Screen Negative U Cannabinoids Screen Positive A Ethyl Alcohol 150.1 H Time spent with patient Time spent in Critical Care: 35 Time spent in Critical care included: Performing procedures not included in c.c time, Coordination of care, Chart review, Documenting critically ill care, Time at immediate bedside and Discussing critically ill care with other medical staff
--- NOTE | 2025-02-19 07:54 | W.PM.PROGNOT ---
Date of Service Date of service: 02/19/25 Time of Service: 07:30 Assessment and Plan Assessment and plan (1) Benzodiazepine overdose: Status: Acute Assessment and plan: -Pt presented with altered mental status/GCS 8 after benzodiazepine overdose with PO chlorodiazepoxide, complicated by concurrent ETOH ingestion and depo buprenorphine. -UDS and fentanyl screen negative -currently intubated with propofol for sedation, plan to withdraw sedation to assess appropriateness for extubation -continue to monitor for signs of ETOH withdrawal -Dr Carolina consulted this AM (2) Acute respiratory failure: Status: Acute Assessment and plan: -currently intubated (TV 440, RR 14, FiO2 21%, 5 PEEP), tolerating well with sedation -VBGs reassuring (today pH 7.42, CO2 47, O2 92, HCO2 30), hypercarbia resolved (yesterday 54) -SBT performed by RT this morning x 30 min, concern for persistent effects of long acting benzos (24-48 hour half life, taken yesterday) with high risk of recurrent respiratory failure; plan to trial SBT again tomorrow after metabolized (3) Tobacco dependence: Status: Chronic Assessment and plan: -nicotine replacement therapy as needed once awake (4) Alcohol use disorder: Status: Chronic Assessment and plan: -thiamine replacement ordered -Review treatment options when extubated/awake. -plan for [facility] consult; pt has had inpatient alcohol rehab in the past (5) Polysubstance (excluding opioids) dependence, daily use: Status: Chronic Assessment and plan: -pt missed most recent dose of monthly injection of sublocade on 02/18/25 (6) Alcohol intoxication: Status: Acute Assessment and plan: -Pt with history of severe withdrawal, with DTs in the past -CIWA monitoring ordered, pt did overdose on chlorodiazapoxide, so will be a while before this metabolizes -sedation to be held in morning for SBT, midazolam PRN ordered as needed -seizure precautions in place (7) GERD (gastroesophageal reflux disease): Status: Chronic Assessment and plan: -Pt usually on PO pantoprazole daily, IV pantoprazole ordered. (8) Hypertension: Status: Chronic Assessment and plan: -BPs well controlled since admission -Continue outpatient antihypertensives via NG (losartan, chlorthalidone, amlodipine, atenolol) (9) Pulmonary infiltrate: Status: Resolved Assessment and plan: -CXR notable for bilateral infiltrates vs atelectasis vs scarring., reviewed with furnace liner Dr Carolina. No antibiotics indicated at this time as no clear evidence of PNA; will continue monitoring for fever Subjective Subjective Interval history since last seen: No acute events reported overnight. Alfredo remains intubated with propofol infusion for sedation (currently at 50 mcg/kg/min). Exam Const General: no acute distress and patient mechanically ventilated Nutritional Appearance: average body habitus [facility] Head: normal to inspection, atraumatic and no acral cyanosis Resp Effort & Inspection: other (mechanically ventilated) Auscultation: clear to auscultation bilaterally Cardio Rate: regular rate Rhythm: regular rhythm Pulses: radial pulses present and dorsalis pedis present GI Inspection: normal to inspection and non-distended Palpation: soft Skin General skin exam: no rashes or lesions noted Extrem General: capillary refill normal and no pedal edema Objective Last Vital Signs Temp 98.4 F 02/19/25 02:00 Pulse 65 02/19/25 06:30 Resp 14 02/19/25 06:30 BP 111/68 02/19/25 06:11 Pulse Ox 97 02/19/25 06:30 Laboratory Results - last 24 hr 02/18/25 02/18/25 02/19/25 12:40 13:20 05:25 WBC 4.91 6.35 RBC 5.09 4.45 Hgb 13.1 L 11.7 L Hct 40.8 36.1 L MCV 80 81 MCH 25.7 L 26.3 L MCHC 32.1 32.4 RDW 14.5 H 14.9 H Plt Count 193 176 MPV 9.3 9.7 Immature Gran % 0.2 0.3 Neutrophils % 50.8 60.2 Lymphocytes % 39.9 31.8 Monocytes % 6.9 5.4 Eosinophils % 1.8 2.0 Basophils % 0.4 0.3 Nucleated RBC % 0.0 0.0 Absolute Neutrophils 2.49 3.82 Absolute Lymphocytes 1.96 2.02 Absolute Monocytes 0.34 0.34 Absolute Eosinophils 0.09 0.13 Absolute Basophils 0.02 0.02 VBG pH 7.35 7.42 H VBG pCO2 54 H 47 VBG pO2 32 92 VBG HCO3 30 H 30 H VBG Total CO2 28 27 VBG O2 Saturation 60 99 VBG Base Excess 5 H 5 H Sodium 141 142 Potassium 3.6 3.1 L Chloride 102 108 H Carbon Dioxide 29.5 28.5 Anion Gap 9.5 5.5 BUN 9 10 Creatinine 0.6 L 0.5 L Est GFR (CKD-EPI 2020) 147.12 163.56 Glucose 278 H 194 H Calcium 9.1 8.3 Total Bilirubin 0.50 AST 26 ALT 16 Alkaline Phosphatase 117 H Total Protein 7.0 Albumin 4.3 TSH 0.82 Urine Color Yellow Urine Clarity Sl Cloudy Urine pH 6.0 Ur Specific [place] <= 1.005 Urine Protein 30 H Urine Ketones Negative Urine Blood Trace-intact H Urine Nitrite Negative Urine Bilirubin Negative Urine Urobilinogen 0.2 Ur Leukocyte Esterase Negative Urine RBC 3-5 H Urine WBC 0-2 Ur Epithelial Cells Rare Urine Crystals Negative Urine Bacteria Moderate Urine Casts Negative Urine Mucus Trace Ur Culture Indicated? No Urine Glucose 500 H Urine Opiates Screen Negative Urine Methadone Screen Negative Urine Fentanyl Screen Negative Ur Barbiturates Screen Negative Ur Tricyclics Screen Negative Ur Amphetamines Screen Negative U Benzodiazepines Scrn Positive A Urine Cocaine Screen Negative U Cannabinoids Screen Positive A Ethyl Alcohol 150.1 H PAWSS Have you Been Recently Intoxicated or Drunk Within the Last 30 days?: Yes Have you Ever Experienced Previous Episodes of Alcohol Withdrawal?: Yes Have you ever Experienced Withdrawal Seizures?: Unable to Obtain Have you ever Experienced Delirium Tremens(DT)s?: Unable to Obtain Have you ever undergone Alcohol Rehabilitation Treatment (i.e, inpt ot outpatient treatment programs)?: Unable to Obtain Have you ever Experienced Blackouts?: Unable to Obtain Have you ever Combined Alcohol with other Downers within the last 90 days?: Unable to Obtain Have you ever Combined Alcohol with any other Substance of Abuse during the last 90 days?: Unable to Obtain Positive Blood Alcohol level on Presentation? [PCS.BAL]: Unable to Obtain Evidence of Increased Autonomic Activity (i.e. HR>120, tremor, sweating, agitation, nausea)?: Unable to Obtain Result: 2 Time Spent with Patient Time Spent with Patient: >50 minutes Time was spent: preparing to see the patient(eg.review tests), obtaining and/or reviewing separately otained hiistory, ordering medications,tests, procedures, referring, communicating with other health health care coordinator, indepentently interpreting results, counseling the patient and care coordination
[2025-02-19] MEDS: Insulin Aspart 300 UNITS/3 ML PEN SC ×2 (08:29→12:06)
[2025-02-19] MEDS: Atenolol 50 MG TAB 100 MG NG (08:30)
[2025-02-19] MEDS: Enoxaparin 40 MG/0.4 ML SYR SC (08:30)
[2025-02-19] MEDS: Chlorthalidone 25 MG TAB 50 MG NG (08:30)
[2025-02-19] MEDS: amLODIPine 5 MG TAB NG (08:31)
[2025-02-19] MEDS: Losartan 50 MG TAB 100 MG NG (08:31)
[2025-02-19] MEDS: Aspirin 81 MG CHEW NG (08:32)
[2025-02-19] MEDS: Normal Saline Flush 10 ML SYR IVP ×2 (08:33→18:10)
[2025-02-19] MEDS: Sertraline 100 MG TAB NG (08:34)
[2025-02-19 08:41] LABS: Lab Add On Test DONE
[2025-02-19 09:04] LABS: Magnesium 1.6 mg/dL (1.6-2.6)
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
--- NOTE | 2025-02-19 13:39 | PHA.REVIEW2 ---
Pharmacy Admission Review Admission Clinical Review Admission Pharmacy Review: Benzodiazepine overdose (Acute) Acute respiratory failure (Acute) Alcohol intoxication (Acute) ampicillin Allergy (Verified 02/18/25 13:06) Skin Rash lorazepam (From Ativan) Adverse Reaction (Severe, Verified 02/18/25 13:06) It makes me wacky zolpidem tartrate (From Ambien) Adverse Reaction (Intermediate, Verified 02/18/25 13:06) confusion lisinopril Adverse Reaction (Verified 02/18/25 13:06) cough Resuscitation Status Full Code Weight 88.5 kg Comments Comments/Follow Ups: monitor propofol. If on for >72 hours check triglycerides Pharmacy Admission Review Renal Dosing Renal Dosing: BUN 10 mg/dL (9-23) 02/19/25 05:25 Creatinine 0.5 mg/dL (0.73-1.18) L 02/19/25 05:25 Medications needing adjustments: Reviewed (scr=0.5; crcl >100ml/min-no adjustments needed) Anticoagulation Anticoagulation: Hgb 11.7 g/dL (13.5-17.5) L 02/19/25 05:25 Hct 36.1 % (40.0-50.0) L 02/19/25 05:25 Plt Count 176 10^3/uL (130-400) 02/19/25 05:25 Creatinine 0.5 mg/dL (0.73-1.18) L 02/19/25 05:25 DVT Prophylaxis: Reviewed Medications: Enoxaparin Opiate Usage Evaluate Pain Scale/Pains Meds: N/A Relevant Labs Relevant Labs: Sodium 142 mmol/L (136-145) 02/19/25 05:25 Potassium 3.1 mmol/L (3.5-5.1) L 02/19/25 05:25 Chloride 108 mmol/L (98-107) H 02/19/25 05:25 Magnesium 1.6 mg/dL (1.6-2.6) 02/19/25 05:25 Electrolytes, C-Reactive P, ESR: Reviewed (recommend to replete K+ and Mg+ and order IV fluids s/p banana bag. Received thiamine 500mg IV q8h x 3 doses. ) DM Control DM Control: Reviewed (history of DM; on insulin aspart + glargine. FS 144-194. ) Cardiac Review BP, HR, EF%: Reviewed (QP=128/70; HR=66; on home atenolol 100mg daily and chlorthalidone 50mg daily, and norvasc 5mg daily ) QTc Review QTc: Reviewed ([id number]; monitor if add any QT-prolonging meds) IV to PO Switch IV Medications: Reviewed (all meds po that can be changed) Home Meds Home Med List reviewed: Reviewed Relevent Home Meds Not ordered & why?: chlordiazepoxide held secondary to overdose; Trulicity held secondary to non-formulary; metformin; mirtazapine, pregabalin all secondary to overdose and depressed mental status Current Meds Current Medication Order Review: Reviewed Pharmacy Antibiotic Review Comments: no antibiotics at this time Comments Comments/Follow Ups: monitor propofol. If on for >72 hours check triglycerides
[2025-02-19] MEDS: POTASSIUM CHLORIDE 20 MEQ/100 ML BAG 50 MEQ IV_INF (14:38)
[2025-02-19] MEDS: MAGNESIUM SULFATE 2 GM/50 ML BAG IV_INF (14:39)
[2025-02-19] MEDS: Normal Saline 500 ML 30 ML IV (14:48)
[2025-02-19] MEDS: Pantoprazole 40 MG VIAL IVP (18:07)
[2025-02-19] MEDS: Normal Saline 1,000 ML 75 ML IV (20:07)
[2025-02-19] MEDS: Acetaminophen 650 MG SUPP PR (20:08)
[2025-02-19] MEDS: Chlorhexidine Gluconate 0.12% Mouthwash 15 ML BTL MM (20:08)
[2025-02-19] MEDS: Rosuvastatin 20 MG TAB 40 MG NG (20:08)
[2025-02-19] MEDS: Nicotine 21 MG/24 HR PATCH TD (20:08)
[2025-02-20] VITALS (58 sets, daily range): BP systolic 106–176; BP diastolic 68–107; PULSE 48–85; RESP 1–30; TEMP 36.7–36.9; O2SAT 90–98
[2025-02-20] MEDS: Normal Saline Flush 10 ML SYR IVP ×3 (00:26→16:25)
[2025-02-20] MEDS: PROPOFOL 1,000 MG/100 ML BTL 32.436 MG IV_INF ×2 (01:40→04:52)
[2025-02-20] MEDS: THIAMINE 500 MG in Normal Saline 100 ML 200 MG IVPB ×3 (02:25→19:01)
[2025-02-20 07:13] LABS: Abs Immature Grans 0.04 10^3/uL (0.0-0.06); HCT 37.9 % (40.0-50.0); HGB 12.0 g/dL (13.5-17.5); Immature Grans % 0.6 %; MCH 25.6 pg (27.0-33.0); MCHC 31.7 % (32.0-36.0); MCV 81 fL (80-95); MPV 10.0 fL (8.0-11.0); Platelet Count 168 10^3/uL (130-400); RBC 4.68 10^6/uL (4.36-5.78); RDW 15.1 % (11.8-14.1); RDW-SD 43.8 fL; WBC 6.96 10^3/uL (4.4-10.8)
[2025-02-20 07:40] LABS: ALT 13 U/L (10-49); AST 20 U/L (<34); Albumin 3.5 g/dL (3.4-5.0); Alkaline Phosphatase 111 U/L (46-116); Anion Gap 4.8 mmol/L (3-11); BUN 7 mg/dL (9-23); Bilirubin, Total 0.40 mg/dL (0.2-1.2); CO2 27.2 mmol/L (20.0-31.0); Calcium 8.1 mg/dL (8.3-10.6); Chloride 108 mmol/L (98-107); Glucose 151 mg/dL (74-106); Potassium 2.8 mmol/L (3.5-5.1); Sodium 140 mmol/L (136-145); Total Protein 5.9 g/dL (5.7-8.2)
[2025-02-20] MEDS: Chlorhexidine Gluconate 0.12% Mouthwash 15 ML BTL MM (07:51)
[2025-02-20] MEDS: Insulin Aspart 300 UNITS/3 ML PEN SC ×3 (07:52→19:11)
[2025-02-20] MEDS: Sertraline 100 MG TAB NG (07:53)
[2025-02-20] MEDS: POTASSIUM CHLORIDE 20 MEQ/100 ML BAG 50 MEQ IV_INF ×2 (07:53→10:15)
[2025-02-20] MEDS: Enoxaparin 40 MG/0.4 ML SYR SC (07:53)
[2025-02-20] MEDS: Chlorthalidone 25 MG TAB 50 MG NG (07:53)
[2025-02-20] MEDS: amLODIPine 5 MG TAB NG (07:54)
[2025-02-20] MEDS: Atenolol 50 MG TAB 100 MG NG (07:54)
[2025-02-20] MEDS: Aspirin 81 MG CHEW NG (07:54)
--- NOTE | 2025-02-20 07:58 | PDOC.CMPRO ---
Date of service: 02/20/25 Time of Service: 07:58 Care Management Progress Note Progress Note Text Progress Note Text: Alfredo was extubated this morning. Per report from nursing Alfredo has been confused and combative, and CM was asked not to bother him. Nursing reported to CM that Alfredo is no longer working, he has been fired from his job. He lost his insurance when he lost the job, and is now on hospital financial assistance. Would like to refer him to [facility] when he is alert enough to speak with them. Alfredo should also be encouraged to speak with a Supervisor [employer] or to reach out to his own sponser once he is alert and able to do so. Discharge Potential Discharge Needs: PCP F/U Appt Anticipated Barriers to Discharge: None Identified Patient/Family Education Needs: Review discharge instructions, discuss Ask Me Three Plan: Anticipate that Alfredo will be discharged home once he is medical stable. CM does not anticipate any HH needs at this time, but will continue to review. Alfredo should consider inpatient treatment for his substance misuse. Alfredo will require a PCP f/u and should continue with AA meetings and the support of his sponsor. CM will continue to follow. Social Determinants of Health Screening Will the Patient Participate in the Screening?: Unable to obtain Do you worry about having a steady place to live?: choose not to answer Comments: Pt is sedated and intubated on a vent.
[2025-02-20] MEDS: Losartan 50 MG TAB 100 MG NG (08:00)
--- NOTE | 2025-02-20 08:03 | PGE_ITS ---
Date of Service Date of service: 02/20/25 Time of Service: 07:30 Assessment and Plan Assessment and plan (1) Benzodiazepine overdose: Status: Acute Assessment and plan: -Pt presented with altered mental status/GCS 8 after benzodiazepine overdose with PO chlorodiazepoxide, complicated by concurrent ETOH ingestion and depo buprenorphine. -UDS and fentanyl screen negative -currently extubated, is maintaining airway without difficulty but does appear confused and groggy as sedation wears off -continue to monitor for signs of ETOH withdrawal -Dr Carolina consulted 02/18 (2) Acute respiratory failure: Status: Acute Assessment and plan: -extubated, maintaining airway. VSS after successful SBT this AM -VBGs reassuring (02/18 pH 7.42, CO2 47, O2 92, HCO2 30), hypercarbia resolved -continue to monitor O2 sat with pulse ox (3) Hypokalemia: Status: Acute Assessment and plan: -K today 2.8 (decreased from 3.1 yesterday), repleted with 40 mEQ KCL IV -will continue to monitor and upplement as needed (4) Tobacco dependence: Status: Chronic Assessment and plan: -nicotine replacement therapy as needed once awake (5) Alcohol use disorder: Status: Chronic Assessment and plan: -thiamine replacement ordered -Review treatment options when awake and alert. -plan for [facility] consult w/disaster recovery coordinator; pt has had inpatient alcohol rehab in the past (6) Polysubstance (excluding opioids) dependence, daily use: Status: Chronic Assessment and plan: -pt missed most recent dose of monthly injection of sublocade on 02/18/25 (7) Alcohol intoxication: Status: Acute Assessment and plan: -Pt with history of severe withdrawal, with DTs in the past -CIWA monitoring ordered -seizure precautions in place (8) GERD (gastroesophageal reflux disease): Status: Chronic Assessment and plan: -Pt usually on PO pantoprazole daily, IV pantoprazole ordered. (9) Hypertension: Status: Chronic Assessment and plan: -BPs well controlled since admission -Continue outpatient antihypertensives via NG (losartan, chlorthalidone, amlodipine, atenolol) (10) Pulmonary infiltrate: Status: Resolved Assessment and plan: -CXR notable for bilateral infiltrates vs atelectasis vs scarring., reviewed with bone char kiln operator Dr Carolina. No antibiotics indicated at this time as no clear evidence of PNA; will continue monitoring for fever Subjective Subjective Interval history since last seen: No acute overnight events. This morning Alfredo was extubated after as successful spontaneous breathing trial. He is awake but confused, is oriented to person and place, but not time. He reports he is feeling overall unwell, reports headache and dizziness, but denies sore throat, chest pain, or abdominal pain. It is diff icult to interview patient, as he has been perseverating on having to pee despite having a jack in place that is actively draining, requires frequent redirection. Denies knowing why he is in the hospital, denies self harm attempt. Exam Const General: comfortable Nutritional Appearance: average body habitus Orientation: alert, oriented to person and oriented to place HENMT Head: normal to inspection and atraumatic Face and sinus: normal facial exam Mouth: oral mucosae normal Eyes Periorbital: periorbital findings normal Eyelids: eyelids normal Pupils: PERRL Resp Effort & Inspection: normal respiratory effort and able to speak in complete sentences Auscultation: clear to auscultation bilaterally Cardio Rate: regular rate Rhythm: regular rhythm Pulses: radial pulses present and dorsalis pedis present GI Inspection: normal to inspection Palpation: soft, not firm, no masses and nontender Skin General skin exam: no rashes or lesions noted Trauma: no lacerations or abrasions Neuro General: tone normal and moves all extremities Speech: speech normal Motor: muscle tone normal throughout and strength 5/5 throughout Objective Last Vital Signs Temp 98.1 F 02/20/25 03:01 Pulse 66 02/20/25 03:01 Resp 15 02/20/25 07:59 BP 123/76 02/20/25 07:59 Pulse Ox 95 02/20/25 07:59 Laboratory Results - last 24 hr 02/19/25 02/19/25 02/20/25 05:25 08:40 06:26 WBC 6.96 RBC 4.68 Hgb 12.0 L Hct 37.9 L MCV 81 MCH 25.6 L MCHC 31.7 L RDW 15.1 H Plt Count 168 MPV 10.0 Immature Gran % 0.6 Neutrophils % 70.2 Lymphocytes % 21.0 Monocytes % 6.2 Eosinophils % 1.9 Basophils % 0.1 Nucleated RBC % 0.0 Absolute Neutrophils 4.89 Absolute Lymphocytes 1.46 Absolute Monocytes 0.43 Absolute Eosinophils 0.13 Absolute Basophils 0.01 Sodium 140 Potassium 2.8 L* Chloride 108 H Carbon Dioxide 27.2 Anion Gap 4.8 BUN 7 L Creatinine 0.5 L Est GFR (CKD-EPI 2020) 183.79 Glucose 151 H Calcium 8.1 L Magnesium 1.6 Total Bilirubin 0.40 AST 20 ALT 13 Alkaline Phosphatase 111 Total Protein 5.9 Albumin 3.5 Add-On Test Request DONE PAWSS Have you Been Recently Intoxicated or Drunk Within the Last 30 days?: Yes Have you Ever Experienced Previous Episodes of Alcohol Withdrawal?: Yes Have you ever Experienced Withdrawal Seizures?: Unable to Obtain Have you ever Experienced Delirium Tremens(DT)s?: Unable to Obtain Have you ever undergone Alcohol Rehabilitation Treatment (i.e, inpt ot outpatient treatment programs)?: Unable to Obtain Have you ever Experienced Blackouts?: Unable to Obtain Have you ever Combined Alcohol with other Downers within the last 90 days?: Unable to Obtain Have you ever Combined Alcohol with any other Substance of Abuse during the last 90 days?: Unable to Obtain Positive Blood Alcohol level on Presentation? [PCS.BAL]: Unable to Obtain Evidence of Increased Autonomic Activity (i.e. HR>120, tremor, sweating, agitation, nausea)?: Unable to Obtain Result: 2 Time Spent with Patient Time Spent with Patient: >50 minutes Time was spent: preparing to see the patient(eg.review tests), obtaining and/or reviewing separately otained hiistory, ordering medications,tests, procedures, referring, communicating with other health respiratory care technician, indepentently interpreting results, counseling the patient and care coordination
[2025-02-20] MEDS: Normal Saline 1,000 ML 75 ML IV (09:48)
[2025-02-20] MEDS: Pantoprazole 40 MG VIAL IVP (16:25)
[2025-02-20] MEDS: Rosuvastatin 20 MG TAB 40 MG NG (21:48)
[2025-02-21] VITALS (22 sets, daily range): BP systolic 124–162; BP diastolic 71–115; PULSE 51–85; RESP 12–26; TEMP 36.3–36.7; O2SAT 90–96
[2025-02-21] MEDS: Insulin Aspart 300 UNITS/3 ML PEN SC ×3 (00:12→12:07)
[2025-02-21] MEDS: THIAMINE 500 MG in Normal Saline 100 ML 200 MG IVPB ×2 (01:54→10:23)
[2025-02-21] MEDS: Normal Saline 1,000 ML 75 ML IV (03:33)
[2025-02-21 06:10] LABS: Abs Immature Grans 0.05 10^3/uL (0.0-0.06); HCT 38.6 % (40.0-50.0); HGB 12.5 g/dL (13.5-17.5); Immature Grans % 0.6 %; MCH 25.7 pg (27.0-33.0); MCHC 32.4 % (32.0-36.0); MCV 79 fL (80-95); RBC 4.87 10^6/uL (4.36-5.78); RDW 14.5 % (11.8-14.1); RDW-SD 41.8 fL; WBC 9.01 10^3/uL (4.4-10.8)
[2025-02-21 06:28] LABS: ALT 13 U/L (10-49); AST 25 U/L (<34); Albumin 3.9 g/dL (3.4-5.0); Alkaline Phosphatase 135 U/L (46-116); Anion Gap 9.2 mmol/L (3-11); BUN 7 mg/dL (9-23); Bilirubin, Total 0.80 mg/dL (0.2-1.2); CO2 27.8 mmol/L (20.0-31.0); Calcium 8.7 mg/dL (8.3-10.6); Chloride 102 mmol/L (98-107); Glucose 164 mg/dL (74-106); Potassium 3.0 mmol/L (3.5-5.1); Sodium 139 mmol/L (136-145); Total Protein 6.5 g/dL (5.7-8.2)
[2025-02-21] MEDS: Potassium Chloride 20 MEQ TABCR 40 MEQ PO (06:42)
[2025-02-21] MEDS: Chlorthalidone 25 MG TAB 50 MG NG (07:57)
[2025-02-21] MEDS: Losartan 50 MG TAB 100 MG NG (07:57)
[2025-02-21] MEDS: Normal Saline Flush 10 ML SYR IVP (07:58)
[2025-02-21] MEDS: Enoxaparin 40 MG/0.4 ML SYR SC (07:58)
[2025-02-21] MEDS: Sertraline 100 MG TAB NG (07:58)
[2025-02-21] MEDS: Atenolol 50 MG TAB 100 MG NG (07:58)
[2025-02-21] MEDS: Aspirin 81 MG CHEW NG (07:58)
[2025-02-21] MEDS: amLODIPine 5 MG TAB NG (07:58)
--- NOTE | 2025-02-21 08:26 | W.PM.PROGNOT ---
Date of Service Date of service: 02/21/25 Time of Service: 08:26 Assessment and Plan Assessment and plan (1) Benzodiazepine overdose: Status: Acute Assessment and plan: -Pt presented with altered mental status/GCS 8 after benzodiazepine overdose with PO chlorodiazepoxide, complicated by concurrent ETOH ingestion and depo buprenorphine. -UDS and fentanyl screen negative -extubated AM 02/20, maintaining airway without difficulty (2) Toxic encephalopathy: Status: Acute Assessment and plan: - Patient remains confused and is not at baseline - This is likely secondary to recently being intubated, receiving propofol, as well as the alcohol and Librium that he took resulting in his intubation - But the status is improved as compared to 02/20/2025 - Will continue to monitor patient's mental status, and will discharge once he is back at baseline (3) Acute respiratory failure: Status: Acute Assessment and plan: -extubated, maintaining airway. VSS after successful SBT AM 02/20 -VBGs reassuring (02/18 pH 7.42, CO2 47, O2 92, HCO2 30), hypercarbia resolved -continue to monitor O2 sat with pulse ox (4) Hypokalemia: Status: Acute Assessment and plan: -K today 3.0, oral replacement ordered -will continue to monitor and upplement as needed (5) Tobacco dependence: Status: Chronic Assessment and plan: -nicotine replacement therapy as needed once awake (6) Alcohol use disorder: Status: Chronic Assessment and plan: -thiamine replacement ordered -Review treatment options when awake and alert. -plan for [facility] consult w/development coach; pt has had inpatient alcohol rehab in the past (7) Polysubstance (excluding opioids) dependence, daily use: Status: Chronic Assessment and plan: -pt missed most recent dose of monthly injection of sublocade on 02/18/25 (8) GERD (gastroesophageal reflux disease): Status: Chronic Assessment and plan: -Pt usually on PO pantoprazole daily, IV pantoprazole ordered. (9) Hypertension: Status: Chronic Assessment and plan: -BPs well controlled since admission -Continue outpatient antihypertensives via NG (losartan, chlorthalidone, amlodipine, atenolol) Subjective Subjective Interval history since last seen: Patient more awake and alert today, able to state that he is feeling better. He felt completely back to baseline, and appears to understand that waiting for him to improve morning for being discharged home. Exam Narrative Exam Narrative: Fatigued but otherwise well-appearing gentleman laying in bed in no acute distress, awake, alert, oriented to person and place, knows the month but had difficulty with the year which is not his baseline, heart regular rhythm, auscultation bilaterally, abdomen soft, nontender, nondistended Objective Last Vital Signs Temp 97.3 F L 02/21/25 05:00 Pulse 75 02/21/25 08:01 Resp 21 02/21/25 08:01 BP 137/77 02/21/25 08:01 Pulse Ox 90 L 02/21/25 08:01 Laboratory Results - last 24 hr 02/21/25 05:43 WBC 9.01 RBC 4.87 Hgb 12.5 L Hct 38.6 L MCV 79 L MCH 25.7 L MCHC 32.4 RDW 14.5 H Plt Count MPV Immature Gran % 0.6 Neutrophils % 69.9 Lymphocytes % 22.6 Monocytes % 5.3 Eosinophils % 1.4 Basophils % 0.2 Nucleated RBC % 0.0 Absolute Neutrophils 6.29 Absolute Lymphocytes 2.04 Absolute Monocytes 0.48 Absolute Eosinophils 0.13 Absolute Basophils 0.02 Sodium 139 Potassium 3.0 L Chloride 102 Carbon Dioxide 27.8 Anion Gap 9.2 BUN 7 L Creatinine 0.52 L Est GFR (CKD-EPI 2020) 163.55 Glucose 164 H Calcium 8.7 Total Bilirubin 0.80 AST 25 ALT 13 Alkaline Phosphatase 135 H Total Protein 6.5 Albumin 3.9 PAWSS Have you Been Recently Intoxicated or Drunk Within the Last 30 days?: Yes Have you Ever Experienced Previous Episodes of Alcohol Withdrawal?: Yes Have you ever Experienced Withdrawal Seizures?: Unable to Obtain Have you ever Experienced Delirium Tremens(DT)s?: Unable to Obtain Have you ever undergone Alcohol Rehabilitation Treatment (i.e, inpt ot outpatient treatment programs)?: Unable to Obtain Have you ever Experienced Blackouts?: Unable to Obtain Have you ever Combined Alcohol with other Downers within the last 90 days?: Unable to Obtain Have you ever Combined Alcohol with any other Substance of Abuse during the last 90 days?: Unable to Obtain Positive Blood Alcohol level on Presentation? [PCS.BAL]: Unable to Obtain Evidence of Increased Autonomic Activity (i.e. HR>120, tremor, sweating, agitation, nausea)?: Unable to Obtain Result: 2 Time Spent with Patient Time Spent with Patient: >50 minutes Time was spent: preparing to see the patient(eg.review tests), obtaining and/or reviewing separately otained hiistory, ordering medications,tests, procedures, referring, communicating with other health urgent care technician, indepentently interpreting results, counseling the patient and care coordination
--- NOTE | 2025-02-21 12:06 | IN_ITS ---
PT Notes Visit Reasons: Benzodiazepine Overdose Inpatient Physical Therapy Evaluation Date: 02/21/25 Referring Doctor: Dr. Tinoco PT Orders: PT CONSULT: safety consult for D/C Precautions: fall, standard Patient Profile/Admitting Diagnosis: Alfredo is a 59 year old male currently in ICU setting for management of Benzodiazepine overdose with acute repiratory failure, intubated 02/18/25 and extubated AM 02/20; toxic encephalopathy; Hypokalemia; Tobacco dependence; Alcohol use disorder; Polysubstance (excluding opioids) dependence, daily use;GERD (gastroesophageal reflux disease); and Hypertension. PT orders received today for consult for discharge planning. Social History/Home Situation: Patient resides in a private home with his , who is disabled. She is currently being cared for at the [facility] during Alfredo's hospitalization. They have a ramp to enter the home. Alfredo reports that he typically ambulates independently, but does have a walker at home. Equipment Owned/DME: FWW, ramp to enter home Subjective: Alfredo states that he wants to do the stairs so he can go home. States that his mother is coming today and that she will take care of him. Objective: General Observation: Sitting in chair, with BP cuff to RUE, pulse oximetry and telemetry in place. No additional lines. Mental Status: A&Ox3. Able to follow single step commands 75% of the time; unable to follow multi-step commands. Vital Signs: monitored by nursing Posture: In static standing, maintains subtle right cervical rotation. Requires UE support to FWW at all times, and maintains wide EDEL. Unable to follow comm ands to stand unsupported. ROM: Right Upper Extremity: Shoulder flexion 135*. Elbow and wrist motion WFL. Left Upper Extremity: houlder flexion 120*. Elbow and wrist motion WFL. Right Lower Extremity: WFL Left Lower Extremity: WFL Strength: Right Upper Extremity: Shoulder flexion 3-/5. Biceps 4/5, requiring multiple attempts due to difficulty following commands. Triceps 4/5. Left Upper Extremity: Shoulder flexion 3-/5. Biceps 4/5. Triceps 4/5. Right Lower Extremity: Hip flexion 3/5 or greater. Quads 5/5. Ankle DF 4/5. Left Lower Extremity: Hip flexion 3/5 or greater. Quads 5/5. Ankle DF 4/5. Bed Mobility/Transfers: sit-stand: CGA with poor safety awareness. Requires max cues for hand placement. Stands abruptly without walking in place, requiring max cues to remain sitting. stand-sit: CGA, max cues for technique and safety. Gait: Ambulates with FWW, min A initially, decreasing to CGA by end of session.He ambulates 150'x2. Demonstrates slow, shuffling gait, with minimal to no foot clearance despite cues. Poor equipment management, requiring cues and assistance to walker on multiple occasions during session. Demonstrates path deviation to the right, failing to avoid obstacles on right side consistently during treatment session. During transition to chair, patient attempts to leave walker behind and ambulate approx 6' to chair without support. Requires cues for safe management and turning. Stairs: Patient very motivated to perform stairs despite ramp access to home. He is able to demonstrate toe taps to 4 step with bilat UE support, CGA, max cues for alternating stepping x 3. Despite verbal and visual cues, patient attempts stair ascent multiple times during safety assessment for foot clearance and placement. Had him complete a single step with bilat UE support and CGA, although deferred further stair instruction due to limitations in safety awareness. Neuro: Coordination: impaired with rapid alternating movements of LEs (unable to perform alternating toe tap). Heel to david demonstrates poor accuracy bilat. Kinesthetic awareness: requires assistance for left hand placement to arm rest during transfers 50% of the time. Able to demonstrate visual tracking appropriately [place]omberg: unable to stand without UE support. Maintains wide EDEL throughout session. Balance: Static Sitting: good Dynamic Sitting: fair Static Standing: fair Dynamic Standing: poor Special Tests: Mobility Limitations Standardized Measure [facility] AM-PAC 6 clicks Basic Mobility Inpatient Short Form: Raw Score: 18 CMS Score: 51% impairment Informed Consent/Education: Patient instructed in purpose of PT consult and plan of care. TReatment: Initial evaluation (40231) Therapeutic activities (68702): Instructed in safe equipment management and transfer techniques, requiring continuous cues and reminders for safety throughout. Attempted instruction and stair management, although unable to complete due to limitations in safety awareness. Requires max cues for equipment management and safety throughout session. Assessment: Patient is a 59year old male referred to physical therapy services for discharge planning during hospitalization for management of acute medical issues related to benzodiazepine overdose. Patient presents with significant mobility impairments and limitations in safety awareness, placing him at high risk for falls. He is unable to walk unassisted at this time, and struggles with equipment management and avoidance of obstacles in his path. Anticipate he will be appropriate for discharge home, however will benefit from further PT intervention for gait and balance retraining prior to safe discharge as he is not able to demonstrate sufficient safety and independence at this time. He currently demonstrates the following impairment level findings: 1. Balance impairment 2. Coordination impairment 3. Decreased safety awareness 4. Gait impairments Impairments are contributing to the following functional limitations: 1. Unable to ambulate independently 2. High risk for falls 3. Decreased safety awareness 4. Unable to demonstrate safe, independent management of FWW Patient is assessed as Moderate 18721 complexity based on the following: History: As above Examination: functional limtations as noted above Presentation: unstable due to acute medical issues Decision Making: moderate complexity Goals: Goals X1 week 1. Supine-Sit : supervision 2. Sit-Supine : supervision 3. Sit-Stand : supervision 4. Stand-Sit : supervision 5. Bed-Chair : supervision with FWW 6. Chair-Bed : supervision with FWW 7. Gait : supervision with FWW x 50' Plan of Care/Treatment Plan: 1-2x/day, 7 days/week x 1 week. Plan of care has been reviewed with the PROJECT ACCOUNTANT providing the service under Physical Therapy direction. Initiate Physical Therapy intervention for strengthening, bed mobility, transfers, gait, stairs, balance training, use of assistive device. DISCHARGE RECOMMENDATIONS: Home with PT TREATMENT CODE/TIME: [id number] (40333, [id number]) Emely Smith, PT, DPT [facility]
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
--- NOTE | 2025-02-21 15:04 | CMDISCH_ITS ---
Date of service: 02/21/25 Time of Service: 15:04 LACE Index Scoring Tool Questions: Length of Stay (in days): 3 Was the patient admitted via the E.D.?: Yes Comorbidities: Diabetes w/o Complication E.D. Visits: 5 (Within the last 6 months) Answers: Total Score: 11 Risk of Readmission: High Risk Care Management Discharge Plan Reason for Hospitalization: Acute Respiratory Failure Discharge Plan: CM notified patient left AMA, mother provided his transportation. See discharge summary. SDOH Health Related Social Needs: Health related social needs house/econ circumstance Health related social needs details sometimes money i s tight
== END 2025-02-21 13:05 | disposition left against medical advice (07) | DRG 917 ==
LOC: ER 16:17 → ICU 17:07
PROVIDERS: Hospitalist; Internal Medicine Pulmonary Disease; Admitting Provider Family Medicine; Emergency Provider Student in an Organized Health Care Education/Training Program; PCP Family Medicine; Responsible Provider Family Medicine; Visit Provider Family Medicine
DX: T42.4X1A Poisoning by benzodiazepines, accidental (unintentional), initial encounter (principal); G92.8 Other toxic encephalopathy; J96.00 Acute respiratory failure, unspecified whether with hypoxia or hypercapnia; F19.20 Other psychoactive substance dependence, uncomplicated; F10.229 Alcohol dependence with intoxication, unspecified; Z79.84 Long term (current) use of oral hypoglycemic drugs; Z79.4 Long term (current) use of insulin; I10 Essential (primary) hypertension; F17.200 Nicotine dependence, unspecified, uncomplicated; K21.9 Gastro-esophageal reflux disease without esophagitis; E87.6 Hypokalemia; E11.9 Type 2 diabetes mellitus without complications; F43.10 Post-traumatic stress disorder, unspecified; E78.00 Pure hypercholesterolemia, unspecified; Y90.6 Blood alcohol level of 120-199 mg/100 ml; R91.8 Other nonspecific abnormal finding of lung field; R53.1 Weakness; M54.50 Low back pain, unspecified; D50.9 Iron deficiency anemia, unspecified; G47.00 Insomnia, unspecified; G25.81 Restless legs syndrome; F41.9 Anxiety disorder, unspecified; Z79.85 Long-term (current) use of injectable non-insulin antidiabetic drugs; Z59.9 Problem related to housing and economic circumstances, unspecified
CPT/HCPCS: 00123; 31500; 36415; 36416; 80048; 80053; 80307; 82805; 82962; 93005; 96365; 96366; 96375; 96376; 97162; 97530; 99291; J1650; 71045; 80320; 81003; 81015; 83735; 84443; 85025; 93010; 94002; 94760; 99223; 99233; 99239; J1815; J2470; J2704; J3411; J3475; J3480

== ENCOUNTER 2025-02-21 18:45 | Inpatient (IN) | payer OTHER, SELFPAY ==
[2025-02-21] VITALS (17 sets, daily range): BP systolic 146–151; BP diastolic 81–89; PULSE 62–73; RESP 18–22; TEMP 36.6–36.9; O2SAT 92–99
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
--- NOTE | 2025-02-21 18:58 | DI.CT_ITS ---
Exam(s) CT HEAD CERVICAL SPINE WO EXAM: CT HEAD CERVICAL SPINE WO CLINICAL HISTORY: unwitnessed fall, ? LOC. TECHNIQUE: Imaging Protocol: Axial computed tomography images with coronal and sagittal reformatted images were created and reviewed COMPARISON: CT CT HEAD CERVICAL SPINE WO from 11/08/2024 FINDINGS: Head CT Ventricles and Extra axial spaces: Normal in size and morphology for the patient's age. Hemorrhage: None. Cerebral parenchyma: No evidence of mass or acute infarct. Midline shift: None. Brainstem/Cerebellum: Normal. Calvarium: Normal. Visualized Paranasal sinuses/Mastoids: Clear. Soft tissues: Unremarkable. Cervical Spine CT BONES: Vertebral body heights are maintained. Neck is flexed. There is no evidence of acute fracture. Degenerative disc changes and facet degenerative changes are seen . SOFT TISSUES: No paraspinal hematoma. The airway appears intact. No pneumothorax is seen at the lung apices. IMPRESSION: Head CT: No acute abnormality. C-spine CT: Degenerative changes, no acute abnormality. The preliminary [facility] report was reviewed. RADIATION DOSE DELIVERED: Total DLP DATA REPOSITORY: All CT scans at this facility are submitted to the National Radiology Data Registry (NRDR) Dose Index Registry (DIR) with the [employer] [place] [employer] ([employer]). RADIATION OPTIMIZATION: All CT scans at this facility use at least one of these dose optimization techniques: automated exposure control; mA and/or kV adjustment per patient size (includes targeted exams where dose is matched to clinical indication); or iterative reconstruction.
--- NOTE | 2025-02-21 19:46 | DI.[facility]_ITS ---
PROCEDURE INFORMATION: Exam: CT Head Without Contrast Exam date and time: 02/21/2025 7:17 PM Age: 59 years old Clinical indication: Other: Unwitnessed fall, ? loc TECHNIQUE: Imaging protocol: Computed tomography of the head without contrast. COMPARISON: MR BRAIN WO 11/10/2024 8:14 AM FINDINGS: Brain: Cortical volume loss noted, greater than expected for age. No hemorrhage. Unremarkable white matter. No mass effect. Cerebral ventricles: No ventriculomegaly. Paranasal sinuses: Visualized sinuses are unremarkable. No fluid levels. Mastoid air cells: Visualized mastoid air cells are well aerated. Bones: Unremarkable. No acute fracture. Soft tissues: Unremarkable. IMPRESSION: No evidence for acute intracranial abnormality. PROCEDURE INFORMATION: Exam: CT Cervical Spine Without Contrast Exam date and time: 02/21/2025 7:17 PM Age: 59 years old Clinical indication: Other: Unwitnessed fall, ? loc TECHNIQUE: Imaging protocol: Computed tomography of the cervical spine without contrast. COMPARISON: CT HEAD CERVICAL SPINE WO 11/08/2024 3:14 AM FINDINGS: Bones: No acute fracture. Normal alignment. No significant disc bulge or herniation. No severe spinal canal stenosis. No significant neural foraminal narrowing. Lungs: Minimal hazy opacity right upper lobe. Soft tissues: Unremarkable. IMPRESSION: No evidence for acute posttraumatic cervical spine abnormality. Right upper lobe opacity could be consistent with lung contusion versus possible consolidation. Dictated and Authenticated by: Anita Curiel MD. Orderin Curtis Brito MD
--- NOTE | 2025-02-21 20:39 | DI.RAD_ITS ---
Exam(s) XR CHEST 2V PA LATERAL EXAM: XR CHEST 2V PA LATERAL CLINICAL HISTORY: ?lung contusion s/p fall TECHNIQUE: 2D digital imaging was performed. Two views. COMPARISON: CT CT CHEST/ABD/PEL W from 11/08/[address] THORACIC LUMBAR SPINE REC from 11/08/2024 CR XR PORTABLE CHEST AP from 02/18/2025 FINDINGS: Exam is limited by suboptimal inflation. HEART: Normal size. Aorta: Not dilated. PULMONARY VASCULATURE: Mildly prominent. MEDIASTINUM: Unremarkable. LUNGS: Increased interstitial markings which may be chronic. No focal area of consolidation. PLEURAL SPACE: No pleural effusion or pneumothorax. BONE:Unremarkable for age. SOFT TISSUES: Unremarkable. IMPRESSION: Somewhat limited exam. No acute abnormality. The preliminary [facility] report was reviewed. DATA REPOSITORY: RADIATION DOSE DELIVERED:
--- NOTE | 2025-02-21 20:48 | DI.[facility]_ITS ---
PROCEDURE INFORMATION: Exam: XR Chest Exam date and time: 02/21/2025 8:31 PM Age: 59 years old Clinical indication: Other: ? Lung contusion S/P fall TECHNIQUE: Imaging protocol: Radiologic exam of the chest. Views: 2 views. COMPARISON: CR XR PORTABLE CHEST AP 02/18/2025 12:55 PM FINDINGS: Lungs: There is some hazy left lower lung airspace opacity not definitely seen since prior study. Pulmonary vascularity noted at the upper limits of normal. Pleural spaces: Unremarkable. No pleural effusion. No pneumothorax. Heart/Mediastinum: Unremarkable. No cardiomegaly. Bones/joints: Unremarkable. IMPRESSION: Left lower lung opacity, contusion versus atelectasis or mild consolidation. Dictated and Authenticated by: Anita Curiel MD. Orderin Curtis Brito MD
[2025-02-21 21:03] LABS: Abs Immature Grans 0.04 10^3/uL (0.0-0.06); HCT 37.8 % (40.0-50.0); HGB 12.3 g/dL (13.5-17.5); Immature Grans % 0.4 %; MCH 25.9 pg (27.0-33.0); MCHC 32.5 % (32.0-36.0); MCV 80 fL (80-95); MPV 10.6 fL (8.0-11.0); Platelet Count 207 10^3/uL (130-400); RBC 4.74 10^6/uL (4.36-5.78); RDW 14.2 % (11.8-14.1); RDW-SD 41.1 fL; WBC 9.49 10^3/uL (4.4-10.8)
[2025-02-21 21:27] LABS: Magnesium 1.5 mg/dL (1.6-2.6)
[2025-02-21 21:38] LABS: ALT 14 U/L (10-49); AST 28 U/L (<34); Albumin 4.1 g/dL (3.4-5.0); Alkaline Phosphatase 132 U/L (46-116); Anion Gap 12 mmol/L (3-11); BUN 10 mg/dL (9-23); Bilirubin, Total 0.70 mg/dL (0.2-1.2); CO2 27.6 mmol/L (20.0-31.0); Calcium 9.1 mg/dL (8.3-10.6); Chloride 97 mmol/L (98-107); Glucose 253 mg/dL (74-106); Potassium 2.8 mmol/L (3.5-5.1); Sodium 137 mmol/L (136-145); Total Protein 6.9 g/dL (5.7-8.2)
[2025-02-21 22:10] LABS: ESR 42 mm/hr (0-20)
[2025-02-21 22:20] LABS: C-Reactive Protein 13.11 mg/dL (<=0.50)
[2025-02-21] MEDS: Potassium Bicarbonate/Cit AC 25 MEQ TABLET.EFF 50 MEQ PO (22:24)
[2025-02-21] MEDS: POTASSIUM CHLORIDE 20 MEQ/100 ML BAG 50 MEQ IV_INF (22:24)
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
[2025-02-21 22:42] LABS: Ammonia 11 umol/L (11-32)
[2025-02-21 22:52] LABS: Procalcitonin < 0.10 ng/mL
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
[2025-02-22] MEDS: Mirtazapine 15 MG TAB 30 MG PO (00:35)
[2025-02-22 00:54] LABS: Glucose 500 mg/dL (Negative)
[2025-02-22 00:59] LABS: C & S Indicated? No; RBC 0-2 HPF (0-2); WBC 0-2 HPF (0-5)
[2025-02-22 01:09] LABS: Cannabinoids THC Positive (Negative)
[2025-02-22] MEDS: Acetaminophen 500 MG TAB PO (01:18)
[2025-02-22 05:33] VITALS: BP 146/85; PULSE 64; RESP 18; TEMP 36.4
[2025-02-22 06:24] LABS: HCT 37.1 % (40.0-50.0); HGB 12.2 g/dL (13.5-17.5); MCH 25.8 pg (27.0-33.0); MCHC 32.9 % (32.0-36.0); MCV 78 fL (80-95); MPV 9.4 fL (8.0-11.0); Platelet Count 185 10^3/uL (130-400); RBC 4.73 10^6/uL (4.36-5.78); RDW 14.3 % (11.8-14.1); RDW-SD 41.0 fL; WBC 6.78 10^3/uL (4.4-10.8)
[2025-02-22 06:41] LABS: Magnesium 1.5 mg/dL (1.6-2.6)
[2025-02-22 06:50] LABS: Hemoglobin A1C 10.9 % (<5.7)
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
[2025-02-22] MEDS: Insulin Aspart 300 UNITS/3 ML PEN SC ×3 (08:32→17:50)
--- NOTE | 2025-02-22 09:27 | PGE_ITS ---
Date of Service Date of service: 02/22/25 Time of Service: 09:27 Assessment and Plan Assessment and plan (1) Encephalopathy: Status: Acute Assessment and plan: -Exact etiology is unknown. -likely some combination of librium remaining in his system from his intoxication (resulting in intubation a few days ago), substance use after having left the hospital, and possibly due to brain injury/Warnickes or even post-concussive syndrome from his fall -patient did not have elevated EtOH on readmission -will monitor mental status and consider brain MRI (2) Alcohol use disorder: Status: Chronic Assessment and plan: -long history of EtOH use -was aparently at the supermarket to get more EtOH when he fell -has been placed on CIWA with benzos given history of librium use and potential for concurrent benzo withdrawal -continue thiamine replacement (3) Tobacco dependence: Status: Chronic Assessment and plan: -continue nicotine replacement (4) Hypertension: Status: Chronic Assessment and plan: -continue home losartan (5) Diabetes mellitus: Status: Acute Assessment and plan: -continue home lantus 40U HS -SSI, CCD (6) Hypokalemia: Status: Acute Assessment and plan: -Continue with oral replacement (7) Hypomagnesemia: Status: Acute Assessment and plan: -c/w oral replacement Subjective Subjective Interval history since last seen: Patient has been sleeping throughout the day. When woken up he is able to state is name, knows where he is, and is able to state that he has no complaints or concerns. Exam Narrative Exam Narrative: well-appearing gentleman laying in bed in no acute distress, fatigued, oriented to person and place only though he was woken up from sleep, heart regular rhythm, auscultation bilaterally, abdomen soft, nontender, nondistended Objective Last Vital Signs Temp 97.5 F L 02/22/25 05:33 Pulse 64 02/22/25 05:33 Resp 18 02/22/25 05:33 BP 146/85 H 02/22/25 05:33 Pulse Ox 98 02/21/25 23:23 Laboratory Results - last 24 hr 02/21/25 02/21/25 02/21/25 19:00 21:47 22:19 WBC 9.49 RBC 4.74 Hgb 12.3 L Hct 37.8 L MCV 80 MCH 25.9 L MCHC 32.5 RDW 14.2 H Plt Count 207 MPV 10.6 Immature Gran % 0.4 Neutrophils % 85.5 Lymphocytes % 8.2 Monocytes % 5.7 Eosinophils % 0.1 Basophils % 0.1 Nucleated RBC % 0.0 Absolute Neutrophils 8.11 H Absolute Lymphocytes 0.78 L Absolute Monocytes 0.54 Absolute Eosinophils 0.01 Absolute Basophils 0.01 ESR 42 H Sodium 137 Potassium 2.8 L* Chloride 97 L Carbon Dioxide 27.6 Anion Gap 12 H BUN 10 Creatinine 0.63 L Est GFR (CKD-EPI 2020) 131.06 Glucose 253 H Hemoglobin A1c Calcium 9.1 Magnesium 1.5 L Total Bilirubin 0.70 AST 28 ALT 14 Alkaline Phosphatase 132 H Ammonia 11 C-Reactive Protein 13.11 H Total Protein 6.9 Albumin 4.1 Procalcitonin < 0.10 Urine Color Yellow Urine Clarity Clear Urine pH 5.5 Ur Specific [place] 1.025 Urine Protein 100 H Urine Ketones 80 H Urine Blood Negative Urine Nitrite Negative Urine Bilirubin Small H Urine Urobilinogen 0.2 Ur Leukocyte Esterase Negative Urine RBC 0-2 Urine WBC 0-2 Ur Epithelial Cells Rare Urine Crystals Negative Urine Bacteria Rare Urine Casts 3-5 Hyaline Urine Mucus Trace Ur Culture Indicated? No Urine Glucose 500 H Urine Opiates Screen Negative Urine Methadone Screen Negative Ur Barbiturates Screen Negative Ur Tricyclics Screen Negative Ur Amphetamines Screen Negative U Benzodiazepines Scrn Positive A Urine Cocaine Screen Negative U Cannabinoids Screen Positive A Ethyl Alcohol < 3.0 02/22/25 06:06 WBC 6.78 RBC 4.73 Hgb 12.2 L Hct 37.1 L MCV 78 L MCH 25.8 L MCHC 32.9 RDW 14.3 H Plt Count 185 MPV 9.4 Immature Gran % Neutrophils % Lymphocytes % Monocytes % Eosinophils % Basophils % Nucleated RBC % Absolute Neutrophils Absolute Lymphocytes Absolute Monocytes Absolute Eosinophils Absolute Basophils ESR Sodium Potassium Chloride Carbon Dioxide Anion Gap BUN Creatinine Est GFR (CKD-EPI 2020) Glucose Hemoglobin A1c 10.9 H Calcium Magnesium 1.5 L Total Bilirubin AST ALT Alkaline Phosphatase Ammonia C-Reactive Protein Total Protein Albumin Procalcitonin Urine Color Urine Clarity Urine pH Ur Specific [place] Urine Protein Urine Ketones Urine Blood Urine Nitrite Urine Bilirubin Urine Urobilinogen Ur Leukocyte Esterase Urine RBC Urine WBC Ur Epithelial Cells Urine Crystals Urine Bacteria Urine Casts Urine Mucus Ur Culture Indicated? Urine Glucose Urine Opiates Screen Urine Methadone Screen Ur Barbiturates Screen Ur Tricyclics Screen Ur Amphetamines Screen U Benzodiazepines Scrn Urine Cocaine Screen U Cannabinoids Screen Ethyl Alcohol PAWSS Have you Been Recently Intoxicated or Drunk Within the Last 30 days?: Unable to Obtain Have you Ever Experienced Previous Episodes of Alcohol Withdrawal?: Unable to Obtain Have you ever Experienced Withdrawal Seizures?: Unable to Obtain Have you ever Experienced Delirium Tremens(DT)s?: Unable to Obtain Have you ever undergone Alcohol Rehabilitation Treatment (i.e, inpt ot outpatient treatment programs)?: Unable to Obtain Have you ever Experienced Blackouts?: Unable to Obtain Have you ever Combined Alcohol with other Downers within the last 90 days?: Unable to Obtain Have you ever Combined Alcohol with any other Substance of Abuse during the last 90 days?: Unable to Obtain Positive Blood Alcohol level on Presentation? [PCS.BAL]: Unable to Obtain Evidence of Increased Autonomic Activity (i.e. HR>120, tremor, sweating, agitation, nausea)?: Unable to Obtain Time Spent with Patient Time Spent with Patient: >50 minutes Time was spent: preparing to see the patient(eg.review tests), obtaining and/or reviewing separately otained hiistory, ordering medications,tests, procedures, referring, communicating with other health acute care certified nursing assistant, indepentently interpreting results, counseling the patient and care coordination
--- NOTE | 2025-02-22 11:08 | PHA.REVIEW2 ---
Pharmacy Admission Review Admission Clinical Review Admission Pharmacy Review: Hypomagnesemia (Acute) Encephalopathy (Acute) Laceration of scalp (Acute) Hypokalemia (Acute) Diabetes mellitus (Acute) ampicillin Allergy (Verified 02/18/25 13:06) Skin Rash lorazepam (From Ativan) Adverse Reaction (Severe, Verified 02/18/25 13:06) It makes me wacky zolpidem tartrate (From Ambien) Adverse Reaction (Intermediate, Verified 02/18/25 13:06) confusion lisinopril Adverse Reaction (Verified 02/18/25 13:06) cough Resuscitation Status Full Code Height 5 ft 8 in Weight 86.183 kg Pharmacy Admission Review Renal Dosing Renal Dosing: BUN 10 mg/dL (9-23) 02/21/25 19:00 Creatinine 0.63 mg/dL (0.73-1.18) L 02/21/25 19:00 Medications needing adjustments: Reviewed (CrCl 138.17 mL/min) List of meds needing interventions: Current medications are okay Anticoagulation Anticoagulation: Hgb 12.2 g/dL (13.5-17.5) L 02/22/25 06:06 Hct 37.1 % (40.0-50.0) L 02/22/25 06:06 Plt Count 185 10^3/uL (130-400) 02/22/25 06:06 Creatinine 0.63 mg/dL (0.73-1.18) L 02/21/25 19:00 DVT Prophylaxis: Intervened (none at this time -reached out to provider who is looking into it) Relevant Labs Relevant Labs: ESR 42 mm/hr (0-20) H 02/21/25 19:00 Sodium 137 mmol/L (136-145) 02/21/25 19:00 Potassium 2.8 mmol/L (3.5-5.1) L* 02/21/25 19:00 Chloride 97 mmol/L (98-107) L 02/21/25 19:00 Magnesium 1.5 mg/dL (1.6-2.6) L 02/22/25 06:06 C-Reactive Protein 13.11 mg/dL (<=0.50) H 02/21/25 19:00 Electrolytes, C-Reactive P, ESR: Reviewed (has order for magnesium oxide 400mg BID and potassium PO 40mEq TID) DM Control DM Control: Glucose 253 mg/dL (74-106) H 02/21/25 19:00 Hemoglobin A1c 10.9 % (<5.7) H 02/22/25 06:06 Finger Stick Blood Glucose 226 Finger Stick Blood Glucose 226 Finger Stick Blood Glucose 226 DM Control: Intervened Insulin Dosing, Diabetic Medication: Has order for SS insulin and glargine 40 units at bedtime. Glargine initially put in as 80 units daily. Reached out to provider as patient left AMA yesterday (readmitted yesterday evening) and had been receiving 40 units at bedtime during previous admission. Provider changed order to match previous admission. Order was put in for Trulicity (non-form), reached out to provider who canceled (hold while inpatient). Cardiac Review BP, HR, EF%: Reviewed (BP 146/85, HR WNL) List meds needing interventions: Has orders for amlodipine 5mg daily, atenolol 100mg daily, chlorthalidone 50mg daily and losartan 100mg daily QTc Review QTc: Reviewed (484 from 02/18/25) IV to PO Switch IV Medications: Reviewed Home Meds Home Med List reviewed: Intervened Relevent Home Meds Not ordered & why?: Sublocade (monthly), Librium, chlorthalidone, disulfiram, ibuprofen (PRN), metformin (on hold per H+P), Lyrica Reached out to provider regarding chlorthalidone and Lyrica - provider added orders Current Meds Current Medication Order Review: Intervened Comments: Has order for oxazepam per CIWA protocol. Reached out to provider as there were no documented CIWA scores in patients chart as of this morning. Provider aware and looking into it. Pharmacy Antibiotic Review Relevant Labs: Relevant Labs 02/21/25 19:00 C-Reactive Protein 13.11 H Procalcitonin < 0.10
--- NOTE | 2025-02-22 14:35 | PDOC.CMPRO ---
Date of service: 02/22/25 Time of Service: 14:35 Care Management Progress Note Progress Note Text Progress Note Text: Alfredo appeared to be sleeping comfortably each time CM went to check in with him and was advised against waking him. Alfredo was admitted to the hospital on 02/18/25 but ended up leaving AMA with his mother on Wednesday 02/21 at 1504, only to return to the ER 3 hours later. The plan at this time is for further medical work up and close monitoring for Encephalopathy with unknown etiology. May need an MRI tomorrow. CM will continue to support discharge planning needs when goals of care are better known. follow. Discharge Potential Discharge Needs: PCP F/U Appt Anticipated Barriers to Discharge: None Identified Patient/Family Education Needs: Review discharge instructions, discuss Ask Me Three Transportation: Other (Dependent on dispo) Plan: Anticipate that Alfredo will be discharged home once he is medical stable. CM does not anticipate any HH needs at this time, but will continue to review. Alfredo should consider inpatient treatment for his substance misuse. Alfredo will require a PCP f/u and should continue with AA meetings and the support of his sponsor. CM will continue to follow. Social Determinants of Health Screening Will the Patient Participate in the Screening?: Declined to provide In the past 12 months, have you had to go without electric, gas, oil or water in your home?: choose not to answer Health Related Social Needs Health related social needs: material hardship(utilities) (Z59.12)
[2025-02-22 15:19] VITALS: BP 142/86; PULSE 62; RESP 14; TEMP 37.1; O2SAT 97
[2025-02-22 17:30] LABS: Anion Gap 11 mmol/L (3-11); BUN 8 mg/dL (9-23); CO2 29.2 mmol/L (20.0-31.0); Calcium 9.0 mg/dL (8.3-10.6); Chloride 100 mmol/L (98-107); Glucose 179 mg/dL (74-106); Potassium 3.0 mmol/L (3.5-5.1); Sodium 140 mmol/L (136-145)
[2025-02-22] MEDS: MAGNESIUM SULFATE 2 GM/50 ML BAG IV_INF (17:53)
[2025-02-22 19:34] VITALS: BP 133/79; PULSE 68; RESP 18; TEMP 36.8; O2SAT 93
[2025-02-22] MEDS: POTASSIUM CHLORIDE 20 MEQ/100 ML BAG 50 MEQ IV_INF ×2 (19:43→21:53)
[2025-02-22] MEDS: Insulin Glargine 300 UNITS/3 ML PEN 40 UNITS SC (20:10)
[2025-02-22 23:10] VITALS: BP 165/94; PULSE 77; RESP 18; TEMP 37; O2SAT 96
[2025-02-23 02:44] VITALS: BP 119/73; PULSE 71; RESP 16; TEMP 36; O2SAT 94
[2025-02-23 07:21] VITALS: BP 119/79; PULSE 86; RESP 16; TEMP 36.7; O2SAT 97
--- NOTE | 2025-02-23 07:26 | W.PM.PROGNOT ---
Date of Service Date of service: 02/23/25 Time of Service: 07:26 Assessment and Plan Assessment and plan (1) Encephalopathy: Status: Acute Assessment and plan: -Exact etiology is unknown. -likely some combination of librium remaining in his system from his intoxication (resulting in intubation a few days ago), substance use after having left the hospital, and possibly due to brain injury/Warnickes or even post-concussive syndrome from his fall -patient did not have elevated EtOH on readmission -will monitor mental status and consider brain MRI -apprecaite PT recs, will likely need DANIEL (2) Alcohol use disorder: Status: Chronic Assessment and plan: -long history of EtOH use -was aparently at the supermarket to get more EtOH when he fell -has been placed on CIWA with benzos given history of librium use and potential for concurrent benzo withdrawal -continue thiamine replacement (3) Tobacco dependence: Status: Chronic Assessment and plan: -continue nicotine replacement (4) Hypertension: Status: Chronic Assessment and plan: -continue home losartan (5) Diabetes mellitus: Status: Acute Assessment and plan: -continue home lantus 40U HS -SSI, CCD (6) Hypokalemia: Status: Acute Assessment and plan: -Continue with oral replacement (7) Hypomagnesemia: Status: Acute Assessment and plan: -c/w oral replacement Exam Narrative Exam Narrative: well-appearing gentleman laying in bed in no acute distress, fatigued, oriented to person and place only though he was woken up from sleep, heart regular rhythm, auscultation bilaterally, abdomen soft, nontender, nondistended Objective Last Vital Signs Temp 98.1 F 02/23/25 07:21 Pulse 86 02/23/25 07:21 Resp 16 02/23/25 07:21 BP 119/79 02/23/25 07:21 Pulse Ox 97 02/23/25 07:21 Laboratory Results - last 24 hr 02/22/25 16:57 Sodium 140 Potassium 3.0 L Chloride 100 Carbon Dioxide 29.2 Anion Gap 11 BUN 8 L Creatinine 0.50 L Est GFR (CKD-EPI 2020) 171.12 Glucose 179 H Calcium 9.0 PAWSS Have you Been Recently Intoxicated or Drunk Within the Last 30 days?: Unable to Obtain Have you Ever Experienced Previous Episodes of Alcohol Withdrawal?: Unable to Obtain Have you ever Experienced Withdrawal Seizures?: Unable to Obtain Have you ever Experienced Delirium Tremens(DT)s?: Unable to Obtain Have you ever undergone Alcohol Rehabilitation Treatment (i.e, inpt ot outpatient treatment programs)?: Unable to Obtain Have you ever Experienced Blackouts?: Unable to Obtain Have you ever Combined Alcohol with other Downers within the last 90 days?: Unable to Obtain Have you ever Combined Alcohol with any other Substance of Abuse during the last 90 days?: Unable to Obtain Positive Blood Alcohol level on Presentation? [PCS.BAL]: Unable to Obtain Evidence of Increased Autonomic Activity (i.e. HR>120, tremor, sweating, agitation, nausea)?: Unable to Obtain
[2025-02-23] MEDS: Potassium Chloride 10 MEQ CAPCR 40 MEQ PO (08:10)
[2025-02-23] MEDS: Multivitamin TAB 1 TAB PO (08:11)
[2025-02-23] MEDS: Pregabalin 100 MG CAP 200 MG PO (08:11)
[2025-02-23] MEDS: Aspirin E.C. 81 MG TABEC PO (08:11)
[2025-02-23] MEDS: amLODIPine 5 MG TAB PO (08:11)
[2025-02-23] MEDS: Losartan 50 MG TAB 100 MG PO (08:12)
[2025-02-23] MEDS: buPROPion-CR 100 MG TABCR PO (08:12)
[2025-02-23] MEDS: Chlorthalidone 25 MG TAB 50 MG PO (08:12)
[2025-02-23] MEDS: Atenolol 50 MG TAB 100 MG PO (08:13)
[2025-02-23] MEDS: Folic Acid 1 MG TAB PO (08:13)
[2025-02-23] MEDS: Sucralfate 1 GM TAB PO ×2 (08:13→12:56)
[2025-02-23] MEDS: Pantoprazole 40 MG TABCR PO (08:13)
[2025-02-23] MEDS: Mirtazapine 15 MG TAB PO (08:13)
[2025-02-23 08:14] LABS: Anion Gap 5.4 mmol/L (3-11); BUN 13 mg/dL (9-23); CO2 27.6 mmol/L (20.0-31.0); Calcium 9.4 mg/dL (8.3-10.6); Chloride 102 mmol/L (98-107); Glucose 105 mg/dL (74-106); Potassium 3.2 mmol/L (3.5-5.1); Sodium 135 mmol/L (136-145)
[2025-02-23] MEDS: Empaglifozin 25 MG TAB PO (08:14)
[2025-02-23] MEDS: Sertraline 100 MG TAB PO (08:14)
[2025-02-23] MEDS: Magnesium Oxide 400 MG TAB PO (08:14)
[2025-02-23] MEDS: Thiamine 100 MG TAB PO (08:14)
[2025-02-23] MEDS: Normal Saline Flush 10 ML SYR (08:18)
--- NOTE | 2025-02-23 08:42 | PDOC.CMPRO ---
Date of service: 02/23/25 Time of Service: 08:43 Social Determinants of Health Screening Will the Patient Participate in the Screening?: Declined to provide In the past 12 months, have you had to go without electric, gas, oil or water in your home?: choose not to answer Health Related Social Needs Health related social needs: material hardship(utilities) (Z59.12)
[2025-02-23 11:08] VITALS: BP 105/84; PULSE 69; RESP 16; TEMP 36.7; O2SAT 95
--- NOTE | 2025-02-23 11:19 | IN_ITS ---
Date of service: 02/23/25 PT Notes Visit Reasons: Fall Inpatient Physical Therapy Evaluation Date: 02/23/25 Referring Doctor: Dr. Tinoco PT Orders: PT CONSULT: safety consult for D/C Precautions: fall, standard Patient Profile/Admitting Diagnosis: Alfredo is a 59 year old male recently left hospital on 02/21/25 AMA then returned 3 hours later to ED. Pt's prior admission on 02/18/25 for management of Benzodiazepine overdose with acute respiratory failure, intubated 02/18/25 and extubated on AM 02/20/25;Pt at that time was diagnosed with the following: toxic encephalopathy; Hypokalemia; Tobacco dependence; Alcohol use disorder; Polysubstance (excluding opioids) dependence, daily use;GERD (gastroesophageal reflux disease); and Hypertension. PT orders received 02/23/25 for consult for discharge planning. Social History/Home Situation: Patient resides in a private home with his , who is disabled. She is currently being cared for at the [facility][1] during Alfredo's hospitalization. They have a ramp to enter the home. Alfredo reports that he typically ambulates independently, but does have a walker at home. Alfredo reports he is the primary caregiver for his . Equipment Owned/DME: FWW, ramp to enter home Subjective: Alfredo states he has to leave today because he needs to go to an AA meeting as well as deal with his unemployment paperwork. Objective: General Observation: Sitting in chair leaning to the right, telemetry including pulse oximetry in place. No additional lines. Mental Status: A&Ox3. Able to follow 2- step commands with slight delay in processing instructions Vital Signs: monitored by nursing Posture: In static standing, maintains subtle right cervical rotation. able to stand unsupported with wide EDEL unable to sustain stand with narrow EDEL ROM: Right Upper Extremity: Shoulder flexion 135*. Elbow and wrist motion WFL. Left Upper Extremity: Shoulder flexion 120*. Elbow and wrist motion WFL. Right Lower Extremity: WFL Left Lower Extremity: WFL Strength: Right Upper Extremity: Shoulder flexion 3-/5. Biceps 4/5, requiring multiple attempts due to difficulty following commands. Triceps 4/5. Left Upper Extremity: Shoulder flexion 3-/5. Biceps 4/5. Triceps 4/5. Right Lower Extremity: Hip flexion 3/5 or greater. Quads 5/5. Ankle DF 4/5. Left Lower Extremity: Hip flexion 3/5 or greater. Quads 5/5. Ankle DF 4/5. Bed Mobility/Transfers: sit-stand: SBA with poor safety awareness. stand-sit: SBA, max cues for safe approach . Gait: Ambulates with FWW, min A initially, decreasing to CGA by end of session.He ambulates 150'x1. Poor equipment management, requiring cues to avoid objects and noted path deviation to the right Stairs: 3 4 steps? and 2 6 steps with rails CGA with continuous cues to ensure his entire foot was on the step with ascending and cues to clear heel with descending ,step to pattern Neuro: Coordination: impaired with rapid alternating movements of LEs (unable to perform alternating toe tap). Heel to david demonstrates poor accuracy bilat. BUE ERYN clap slap pt with inability to sustain upright posture as well as decreased accuracy with RUE Kinesthetic awareness: required assistance for LUE hand placement on FWW and for reaching back Able to demonstrate visual tracking appropriately [place]: able to stand without UE support. Maintains wide EDEL throughout session. Balance: Static Sitting: good Dynamic Sitting: fair Static Standing: fair Dynamic Standing: poor + Special Tests: Mobility Limitations Standardized Measure [facility] AM-PAC 6 clicks Basic Mobility Inpatient Short Form: Raw Score: 20 CMS Score: 35.83% impairment Informed Consent/Education: Patient instructed in purpose of PT consult and plan of care. TReatment: Therapeutic activities (83461): Ambulation : facilitated ambulation 200 feet without AD SBA level surfaces including directional changes demonstrating wide EDEL impaired step length early heel off with foot flat at weight acceptance. Stairs 3 4 steps? and 2 6 steps with rails SBA with cues for getting foot completely on step ascending for initial step only then able to carry over for remaining steps Assessment: Patient is a 59year old male referred to physical therapy services for discharge planning during hospitalization for management of acute medical is sues related to benzodiazepine overdose. Patient presents with mobility impairments and limitations in safety awareness, placing him at high risk for falls. He currently demonstrates the following impairment level findings: 1. Balance impairment 2. Coordination impairment 3. Decreased safety awareness 4. Gait impairments 5. impaired righting reactions in sitting and stand Impairments are contributing to the following functional limitations: 1. Unable to ambulate independently 2. risk for falls 3. Decreased safety awareness, poor insight into unsafe situations 4. decline in transfer ability Despite deficits listed above , pt is discharging to his home. Pt demonstrates less impairments and risk for fall without AD as compared to with AD as he does not drift to the right and strike objects on right without device. Patient is assessed as Moderate 80925 complexity based on the following: History: As above Examination: as noted above Presentation: evolving Decision Making: moderate complexity Goals: NA d/c home with HHPT Plan of Care/Treatment Plan: NA d/c home with HHPT DISCHARGE RECOMMENDATIONS: Home with HH PT TREATMENT CODE/TIME:[id number], [id number], [id number] Melita Mcdowell, PT
[2025-02-23] MEDS: Insulin Aspart 300 UNITS/3 ML PEN SC (11:50)
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
--- NOTE | 2025-02-23 14:11 | PDOC.CMDIS ---
Date of service: 02/23/25 Time of Service: 14:11 LACE Index Scoring Tool Questions: Length of Stay (in days): 2 Was the patient admitted via the E.D.?: Yes Comorbidities: Diabetes w/o Complication E.D. Visits: 6 Answers: Total Score: 10 Risk of Readmission: High Risk Care Management Discharge Plan Reason for Hospitalization: encephalopathy Discharge Plan: Alfredo was discharged home today with no new home care services. He will f/u with his PCP and continue per his plan of care. Alfredo plans to contact his sponsor, and also to attend an AA meeting iza. [employer] was notified that Alfredo currently has no health insurance, and they will be reaching out to him. Irina was transported home by his mother. Patient/Family Education Needs: Review of discharge instructions, activity, limitations and discuss Ask me 3. SDOH Health Related Social Needs: Health related social needs house/econ circumstance Health related social needs details sometimes money is tight Care Management Referrals: HARRY
[2025-02-26 09:18] LABS: Thiamine (Vitamin B1), WB 382 nmol/L (70-180)
== END 2025-02-23 13:57 | disposition home or self-care (01) | DRG 71 ==
LOC: ER 23:04 → MS 23:07
PROVIDERS: Admitting Provider Hospitalist; Emergency Provider Nurse Practitioner Family; PCP Family Medicine; Responsible Provider Family Medicine; Visit Provider Hospitalist
DX: G93.40 Encephalopathy, unspecified (principal); Z59.12 Inadequate housing utilities; F10.10 Alcohol abuse, uncomplicated; I10 Essential (primary) hypertension; E11.9 Type 2 diabetes mellitus without complications; Z79.899 Other long term (current) drug therapy; E83.42 Hypomagnesemia; E87.6 Hypokalemia; K21.9 Gastro-esophageal reflux disease without esophagitis; S01.01XA Laceration without foreign body of scalp, initial encounter; W18.39XA Other fall on same level, initial encounter; M54.50 Low back pain, unspecified; G89.29 Other chronic pain; D64.9 Anemia, unspecified; G47.00 Insomnia, unspecified; F11.11 Opioid abuse, in remission; E78.5 Hyperlipidemia, unspecified; F32.A Depression, unspecified; Z86.19 Personal history of other infectious and parasitic diseases; Z79.4 Long term (current) use of insulin; Z79.84 Long term (current) use of oral hypoglycemic drugs
CPT/HCPCS: 00123; 12001; 36415; 36416; 80048; 80053; 80307; 82962; 84145; 85027; 85652; 87040; 97162; 97530; 99285; 70450; 71046; 72125; 80320; 81003; 81015; 82140; 83036; 83735; 84425; 85025; 86140; 99223; 99233; 99239; J1815; J3475; J3480

== ENCOUNTER 2025-03-19 12:45 | Inpatient (IN) | payer OTHER, SELFPAY ==
[2025-03-19] VITALS (91 sets, daily range): BP systolic 138–194; BP diastolic 84–112; PULSE 0–113; RESP 16–33; TEMP 36.6–37.4; O2SAT 94–100
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
--- NOTE | 2025-03-19 13:15 | RT.EKG_ITS ---
APPROVED REPORT Exam: Resting ECG Reason for Exam: Abdominal pain Patient Location: E HR:95 bpm ECG Measurements Heart Rate 95 AXIS MO 149 P 58 QRSd 114 QRS 35 QT 458 T 47 QTc 576 Conclusion Sinus rhythm...normal P axis, V-rate 60- 99 Probable left atrial enlargement...P >50mS, <-0.10mV V1 Prolonged QT interval...QTc >500mS No Occlusion [facility]
[2025-03-19 13:44] LABS: BE (Venous) -13 mmol/L (-2-3); HCO3 (Venous) 13 mmol/L (23-28); O2 Sat (Venous) 95 %; TCO2 (Venous) 12 mmol/L (24-29); pCO2 (Venous) 24 mmHg (41-51); pO2 (Venous) 68 mmHg
[2025-03-19] MEDS: Lactated Ringers 1,000 ML 1000 ML IV (13:44)
[2025-03-19 13:59] LABS: HCT 45.0 % (40.0-50.0); HGB 15.0 g/dL (13.5-17.5); RBC 5.76 10^6/uL (4.36-5.78); WBC 7.02 10^3/uL (4.4-10.8)
[2025-03-19 14:00] LABS: Immature Grans % 0.4 %; MCH 26.0 pg (27.0-33.0); MCHC 33.3 % (32.0-36.0); MCV 78 fL (80-95); MPV 10.3 fL (8.0-11.0); Platelet Count 255 10^3/uL (130-400); RDW 13.8 % (11.8-14.1); RDW-SD 38.9 fL
[2025-03-19 14:01] LABS: Abs Immature Grans 0.03 10^3/uL (0.0-0.06)
[2025-03-19 14:09] LABS: Troponin I 3 ng/L (<54)
[2025-03-19 14:10] LABS: TSH (W/Ref FT4) 2.77 uIU/mL (0.55-4.78)
[2025-03-19 14:52] LABS: COVID-19 PCR Negative (Negative); RSV PCR Negative (Negative)
[2025-03-19 15:03] LABS: Glucose 500 mg/dL (Negative)
[2025-03-19 15:08] LABS: Troponin I 4 ng/L (<54)
[2025-03-19 15:20] LABS: C & S Indicated? No; WBC Negative HPF (0-5)
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
[2025-03-19] MEDS: POTASSIUM CHLORIDE/0.9% NACL 1,000 ML 500 MEQ IV (15:33)
[2025-03-19 15:43] LABS: ALT 20 U/L (10-49); AST 16 U/L (<34); Albumin 4.3 g/dL (3.2-5.0); Alkaline Phosphatase 119 U/L (46-116); Anion Gap 24.9 mmol/L (3-11); BUN 25 mg/dL (9-23); Bilirubin, Total 0.2 mg/dL (0.2-1.2); CO2 12.9 mmol/L (20.0-31.0); Calcium 8.8 mg/dL (8.3-10.6); Chloride 92 mmol/L (98-107); Glucose 359 mg/dL (74-106); Potassium 2.5 mmol/L (3.5-5.1); Sodium 130 mmol/L (136-145); Total Protein 7.4 g/dL (5.7-8.2)
[2025-03-19 16:02] LABS: Beta Hydroxybutyrate > 4.50 mmol/L (0.02-0.27)
--- NOTE | 2025-03-19 16:15 | DI.RAD_ITS ---
Exam(s) XR PORTABLE CHEST AP EXAM: XR PORTABLE CHEST AP CLINICAL HISTORY: central line placement TECHNIQUE: 2D digital imaging was performed. COMPARISON: CT CT CHEST/ABD/PEL W from 11/08/2024 CR,XR XR CHEST 2V PA LATERAL from 02/21/2025 FINDINGS: A right internal jugular central venous line has been placed. The tip projects at the cavoatrial junction. LUNGS: Suboptimally inflated but clear. No pleural abnormality seen. HEART: Normal size. AORTA: Ectatic BONES: Unremarkable for age. Soft tissues: Unremarkable. IMPRESSION: Satisfactory placement of central venous catheter. No pneumothorax. DATA REPOSITORY: RADIATION DOSE DELIVERED:
--- NOTE | 2025-03-19 16:15 | RT.EKG_ITS ---
APPROVED REPORT Exam: Resting ECG Reason for Exam: DKA Patient Location: E HR:94 bpm ECG Measurements Heart Rate 94 AXIS MD 154 P 78 QRSd 108 QRS 55 QT 471 T 50 QTc 591 Conclusion Sinus rhythm...normal P axis, V-rate 60- 99 Prolonged QT interval...QTc >500mS No Occlusion OR
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
[2025-03-19 16:45] LABS: Troponin I 8 ng/L (<54)
[2025-03-19 17:03] LABS: Anion Gap 22.2 mmol/L (3-11); BUN 20 mg/dL (9-23); CO2 13.4 mmol/L (20.0-31.0); Calcium 8.1 mg/dL (8.3-10.6); Chloride 97 mmol/L (98-107); Glucose 309 mg/dL (74-106); Potassium 3.0 mmol/L (3.5-5.1); Sodium 133 mmol/L (136-145)
[2025-03-19 17:20] LABS: Magnesium 1.7 mg/dL (1.6-2.6)
[2025-03-19 17:43] LABS: BE (Venous) -13 mmol/L (-2-3); HCO3 (Venous) 14 mmol/L (23-28); O2 Sat (Venous) 86 %; TCO2 (Venous) 13 mmol/L (24-29); pCO2 (Venous) 29 mmHg (41-51); pO2 (Venous) 50 mmHg
[2025-03-19 17:56] LABS: Glucose 500 mg/dL (Negative)
[2025-03-19] MEDS: MAGNESIUM SULFATE 2 GM/50 ML BAG IV_INF (18:00)
[2025-03-19] MEDS: Normal Saline 1,000 ML 250 ML IV (18:01)
[2025-03-19] MEDS: POTASSIUM CHLORIDE 20 MEQ/100 ML BAG 50 MEQ IV INF ×2 (18:02→21:56)
[2025-03-19 18:03] LABS: C & S Indicated? No; RBC 0-2 HPF (0-2); WBC Negative HPF (0-5)
[2025-03-19 18:04] LABS: Magnesium 1.6 mg/dL (1.6-2.6)
[2025-03-19 18:08] LABS: Anion Gap 21.4 mmol/L (3-11); BUN 20 mg/dL (9-23); CO2 14.2 mmol/L (20.0-31.0); Calcium 7.9 mg/dL (8.3-10.6); Chloride 99 mmol/L (98-107); Glucose 295 mg/dL (74-106); Potassium 2.9 mmol/L (3.5-5.1); Sodium 135 mmol/L (136-145)
[2025-03-19] MEDS: INSULIN REGULAR IN 0.9 % NACL 100 UNIT/100 ML BAG IVINF (18:21)
[2025-03-19 18:34] LABS: BE (Venous) -13 mmol/L (-2-3); HCO3 (Venous) 14 mmol/L (23-28); O2 Sat (Venous) 95 %; TCO2 (Venous) 13 mmol/L (24-29); pCO2 (Venous) 29 mmHg (41-51); pO2 (Venous) 71 mmHg
[2025-03-19 19:01] LABS: Anion Gap 20.5 mmol/L (3-11); BUN 19 mg/dL (9-23); CO2 13.5 mmol/L (20.0-31.0); Calcium 7.7 mg/dL (8.3-10.6); Chloride 101 mmol/L (98-107); Glucose 282 mg/dL (74-106); Potassium 2.9 mmol/L (3.5-5.1); Sodium 135 mmol/L (136-145)
[2025-03-19 19:20] LABS: Cannabinoids THC Negative (Negative)
[2025-03-19 19:21] LABS: Magnesium 1.8 mg/dL (1.6-2.6)
[2025-03-19 20:34] LABS: Anion Gap 18.4 mmol/L (3-11); BUN 18 mg/dL (9-23); CO2 15.6 mmol/L (20.0-31.0); Calcium 7.8 mg/dL (8.3-10.6); Chloride 103 mmol/L (98-107); Glucose 231 mg/dL (74-106); Potassium 2.9 mmol/L (3.5-5.1); Sodium 137 mmol/L (136-145)
[2025-03-19] MEDS: POTASSIUM CHLORIDE/0.9% NACL 1,000 ML 250 MEQ IV (20:37)
[2025-03-19 21:30] LABS: Anion Gap 16.5 mmol/L (3-11); BUN 17 mg/dL (9-23); CO2 17.5 mmol/L (20.0-31.0); Calcium 7.7 mg/dL (8.3-10.6); Chloride 104 mmol/L (98-107); Glucose 206 mg/dL (74-106); Potassium 2.8 mmol/L (3.5-5.1); Sodium 138 mmol/L (136-145)
[2025-03-19] MEDS: Normal Saline Flush 10 ML SYR IVP (22:04)
[2025-03-19 22:26] LABS: Anion Gap 14.5 mmol/L (3-11); BUN 17 mg/dL (9-23); CO2 18.5 mmol/L (20.0-31.0); Calcium 7.6 mg/dL (8.3-10.6); Chloride 106 mmol/L (98-107); Glucose 181 mg/dL (74-106); Potassium 2.9 mmol/L (3.5-5.1); Sodium 139 mmol/L (136-145)
[2025-03-19] MEDS: POTASSIUM CHLORIDE/D5-0.45NACL 1,000 ML 150 MEQ IV (22:50)
[2025-03-19 23:04] LABS: BE (Venous) -7 mmol/L (-2-3); HCO3 (Venous) 19 mmol/L (23-28); O2 Sat (Venous) 90 %; TCO2 (Venous) 17 mmol/L (24-29); pCO2 (Venous) 34 mmHg (41-51); pO2 (Venous) 52 mmHg
[2025-03-19 23:20] LABS: Magnesium 1.9 mg/dL (1.6-2.6)
[2025-03-19 23:26] LABS: Anion Gap 14 mmol/L (3-11); BUN 17 mg/dL (9-23); CO2 19.0 mmol/L (20.0-31.0); Calcium 7.6 mg/dL (8.3-10.6); Chloride 107 mmol/L (98-107); Glucose 165 mg/dL (74-106); Potassium 3.1 mmol/L (3.5-5.1); Sodium 140 mmol/L (136-145)
[2025-03-20] VITALS (60 sets, daily range): BP systolic 118–149; BP diastolic 63–88; PULSE 57–94; RESP 10–24; TEMP 36.5–36.8; O2SAT 91–98
[2025-03-20 03:17] LABS: BE (Venous) -3 mmol/L (-2-3); HCO3 (Venous) 22 mmol/L (23-28); O2 Sat (Venous) 93 %; TCO2 (Venous) 20 mmol/L (24-29); pCO2 (Venous) 39 mmHg (41-51); pO2 (Venous) 58 mmHg
[2025-03-20 03:25] LABS: Abs Immature Grans 0.03 10^3/uL (0.0-0.06); HCT 36.2 % (40.0-50.0); HGB 12.2 g/dL (13.5-17.5); Immature Grans % 0.5 %; MCH 26.1 pg (27.0-33.0); MCHC 33.7 % (32.0-36.0); MCV 77 fL (80-95); MPV 10.0 fL (8.0-11.0); Platelet Count 228 10^3/uL (130-400); RBC 4.68 10^6/uL (4.36-5.78); RDW 13.9 % (11.8-14.1); RDW-SD 39.0 fL; WBC 6.35 10^3/uL (4.4-10.8)
[2025-03-20 03:35] LABS: Magnesium 1.8 mg/dL (1.6-2.6)
[2025-03-20 03:42] LABS: ALT 13 U/L (10-49); AST 12 U/L (<34); Albumin 3.4 g/dL (3.2-5.0); Alkaline Phosphatase 88 U/L (46-116); Anion Gap 10.8 mmol/L (3-11); BUN 15 mg/dL (9-23); Bilirubin, Total 0.2 mg/dL (0.2-1.2); CO2 22.2 mmol/L (20.0-31.0); Calcium 7.7 mg/dL (8.3-10.6); Chloride 108 mmol/L (98-107); Glucose 156 mg/dL (74-106); Potassium 2.9 mmol/L (3.5-5.1); Sodium 141 mmol/L (136-145); Total Protein 5.9 g/dL (5.7-8.2)
[2025-03-20 03:59] LABS: Beta Hydroxybutyrate 1.43 mmol/L (0.02-0.27)
[2025-03-20] MEDS: POTASSIUM CHLORIDE/D5-0.45NACL 1,000 ML 150 MEQ IV ×2 (05:10→12:07)
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
[2025-03-20 07:59] LABS: Anion Gap 10.6 mmol/L (3-11); BUN 13 mg/dL (9-23); CO2 24.4 mmol/L (20.0-31.0); Calcium 8.0 mg/dL (8.3-10.6); Chloride 108 mmol/L (98-107); Glucose 124 mg/dL (74-106); Potassium 2.9 mmol/L (3.5-5.1); Sodium 143 mmol/L (136-145)
[2025-03-20] MEDS: Enoxaparin 40 MG/0.4 ML SYR SC (09:10)
[2025-03-20] MEDS: POTASSIUM CHLORIDE 20 MEQ/100 ML BAG 50 MEQ IV INF (09:11)
[2025-03-20] MEDS: Normal Saline Flush 10 ML SYR IVP ×2 (09:12→19:53)
[2025-03-20] MEDS: POTASSIUM CHLORIDE 20 MEQ/100 ML BAG 100 MEQ IV INF (11:01)
[2025-03-20 13:16] LABS: Anion Gap 8.4 mmol/L (3-11); BUN 11 mg/dL (9-23); CO2 24.6 mmol/L (20.0-31.0); Calcium 7.9 mg/dL (8.3-10.6); Chloride 109 mmol/L (98-107); Glucose 136 mg/dL (74-106); Potassium 3.4 mmol/L (3.5-5.1); Sodium 142 mmol/L (136-145)
--- NOTE | 2025-03-20 16:24 | W.PM.PROGNOT ---
Date of Service Date of service: 03/20/25 Time of Service: 16:24 Assessment and Plan Assessment and plan (1) DKA (diabetic ketoacidosis): Status: Acute Assessment and plan: Insulin dependent type 2 DM but with history of DKA, triggered by recent viral illness, missed insulin Beta OH elevated and AG on admission, has since closed on DKA protocol He is ready to eat, give glargine (half of his full 100unit dose to start and start with clears Decrease fluids and remove glucose, start sliding scale before dinner conservative meal time bolus given I don't expect him to eat a lot and he is getting a diabetic diet here. Of note, with recurrent DKA we may want to stop his SGLT2i as this increases risk. (2) Alcohol use disorder: Status: Chronic Assessment and plan: BAL undetectable, hasn't had withdrawal here. Continue to support. (3) Opioid use disorder, severe, on maintenance therapy: Status: Acute Assessment and plan: March 11 depot injection of monthly buprenorphine Recommend non-narcotics for pain (4) Benign essential hypertension: Assessment and plan: Resume home regimen in AM except diuretic, follow. (5) Diabetes mellitus, type II: Assessment and plan: Last A1C 10.9 February 22 Patient's home regimen is basal 100u daily, bolus 30u QID Resuming insulin as above. I think adherence is a significant issue. Requested diabetic education (6) Hypokalemia: Status: Acute Assessment and plan: improving with supplement, continue with IV fluids overnight, oral in the AM. (7) GERD (gastroesophageal reflux disease): Status: Chronic Assessment and plan: continue PPI (8) Prolonged QT interval: Status: Acute Assessment and plan: improving with treating acidosis and low K+, monitor on tele Subjective Subjective Patient reports: no new complaints and voiding w/o difficulty; denies diarrhea, nausea, vomiting or fever Interval history since last seen: Events: On DKA protocol overnight, got additional potassium 4 runs 03/19 Feels exhausted. Denies pain. Hasn't felt up to eating until this evening. No chest pain/SOB. Exam Narrative Exam Narrative: General: This is a ill-appearing, disheveled man in no distress, sleepy but arouses. HEENT: Normocephalic, atraumatic. Mucous membranes moist. CV: RRR no m/g Resp: CTAB, nl effort Abd: soft, NTND MSK: voluntary motion x4 Neuro: awake, alert, no focal deficits Objective Last Vital Signs Temp 36.5 C 03/20/25 12:01 Pulse 69 03/20/25 12:01 Resp 15 03/20/25 12:01 BP 125/70 03/20/25 12:01 Pulse Ox 96 03/20/25 12:01 Laboratory Results - last 24 hr 03/19/25 03/19/25 03/19/25 13:40 14:34 15:15 WBC RBC Hgb Hct MCV MCH MCHC RDW Plt Count MPV Immature Gran % Neutrophils % Lymphocytes % Monocytes % Eosinophils % Basophils % Nucleated RBC % Absolute Neutrophils Absolute Lymphocytes Absolute Monocytes Absolute Eosinophils Absolute Basophils VBG pH VBG pCO2 VBG pO2 VBG HCO3 VBG Total CO2 VBG O2 Saturation VBG Base Excess Sodium Cancelled Potassium Cancelled Chloride Cancelled Carbon Dioxide Cancelled Anion Gap Cancelled BUN Cancelled Creatinine Cancelled Est GFR (CKD-EPI 2020) Cancelled Glucose Cancelled Calcium Cancelled Phosphorus Magnesium 1.8 Total Bilirubin AST ALT Alkaline Phosphatase Troponin I Total Protein Albumin Beta-Hydroxybutyrate Urine Color Yellow Urine Clarity Clear Urine pH 5.5 Ur Specific [place] 1.025 Urine Protein 30 H Urine Ketones >=160 H Urine Blood Trace-intact H Urine Nitrite Negative Urine Bilirubin Small H Urine Urobilinogen 0.2 Ur Leukocyte Esterase Negative Urine RBC 0-2 Urine WBC Negative Ur Epithelial Cells Rare Urine Crystals Negative Urine Bacteria Rare Urine Casts Negative Urine Mucus Negative Ur Culture Indicated? No Urine Glucose 500 H Urine Opiates Screen Negative Urine Methadone Screen Negative Ur Barbiturates Screen Negative Ur Tricyclics Screen Negative Ur Amphetamines Screen Negative U Benzodiazepines Scrn Negative Urine Cocaine Screen Negative U Cannabinoids Screen Negative Ethyl Alcohol < 3.0 B-Hydroxybutyrate 03/19/25 03/19/25 03/19/25 16:15 17:30 18:15 WBC RBC Hgb Hct MCV MCH MCHC RDW Plt Count MPV Immature Gran % Neutrophils % Lymphocytes % Monocytes % Eosinophils % Basophils % Nucleated RBC % Absolute Neutrophils Absolute Lymphocytes Absolute Monocytes Absolute Eosinophils Absolute Basophils VBG pH 7.30 L VBG pCO2 29 L VBG pO2 50 VBG HCO3 14 L VBG Total CO2 13 L VBG O2 Saturation 86 VBG Base Excess -13 L Sodium 133 L 135 L Cancelled Potassium 3.0 L 2.9 L Cancelled Chloride 97 L 99 Cancelled Carbon Dioxide 13.4 L 14.2 L Cancelled Anion Gap 22.2 H 21.4 H Cancelled BUN 20 20 Cancelled Creatinine 0.68 L 0.67 L Cancelled Est GFR (CKD-EPI 2020) 119.98 122.05 Cancelled Glucose 309 H 295 H Cancelled Calcium 8.1 L 7.9 L Cancelled Phosphorus 2.7 Magnesium 1.7 1.6 Total Bilirubin AST ALT Alkaline Phosphatase Troponin I 8 Total Protein Albumin Beta-Hydroxybutyrate Urine Color Urine Clarity Urine pH Ur Specific [place] Urine Protein Urine Ketones Urine Blood Urine Nitrite Urine Bilirubin Urine Urobilinogen Ur Leukocyte Esterase Urine RBC Urine WBC Ur Epithelial Cells Urine Crystals Urine Bacteria Urine Casts Urine Mucus Ur Culture Indicated? Urine Glucose Urine Opiates Screen Urine Methadone Screen Ur Barbiturates Screen Ur Tricyclics Screen Ur Amphetamines Screen U Benzodiazepines Scrn Urine Cocaine Screen U Cannabinoids Screen Ethyl Alcohol B-Hydroxybutyrate 03/19/25 03/19/25 03/19/25 18:25 18:45 19:15 WBC RBC Hgb Hct MCV MCH MCHC RDW Plt Count MPV Immature Gran % Neutrophils % Lymphocytes % Monocytes % Eosinophils % Basophils % Nucleated RBC % Absolute Neutrophils Absolute Lymphocytes Absolute Monocytes Absolute Eosinophils Absolute Basophils VBG pH 7.29 L VBG pCO2 29 L VBG pO2 71 VBG HCO3 14 L VBG Total CO2 13 L VBG O2 Saturation 95 VBG Base Excess -13 L Sodium 135 L Cancelled Potassium 2.9 L Cancelled Chloride 101 Cancelled Carbon Dioxide 13.5 L Cancelled Anion Gap 20.5 H Cancelled BUN 19 Cancelled Creatinine 0.67 L Cancelled Est GFR (CKD-EPI 2020) 122.05 Cancelled Glucose 282 H Cancelled Calcium 7.7 L Cancelled Phosphorus Magnesium Cancelled Total Bilirubin AST ALT Alkaline Phosphatase Troponin I Total Protein Albumin Beta-Hydroxybutyrate Urine Color Urine Clarity Urine pH Ur Specific [place] Urine Protein Urine Ketones Urine Blood Urine Nitrite Urine Bilirubin Urine Urobilinogen Ur Leukocyte Esterase Urine RBC Urine WBC Ur Epithelial Cells Urine Crystals Urine Bacteria Urine Casts Urine Mucus Ur Culture Indicated? Urine Glucose Urine Opiates Screen Urine Methadone Screen Ur Barbiturates Screen Ur Tricyclics Screen Ur Amphetamines Screen U Benzodiazepines Scrn Urine Cocaine Screen U Cannabinoids Screen Ethyl Alcohol B-Hydroxybutyrate 03/19/25 03/19/25 03/19/25 19:45 20:06 20:15 WBC RBC Hgb Hct MCV MCH MCHC RDW Plt Count MPV Immature Gran % Neutrophils % Lymphocytes % Monocytes % Eosinophils % Basophils % Nucleated RBC % Absolute Neutrophils Absolute Lymphocytes Absolute Monocytes Absolute Eosinophils Absolute Basophils VBG pH VBG pCO2 VBG pO2 VBG HCO3 VBG Total CO2 VBG O2 Saturation VBG Base Excess Sodium 137 Cancelled Potassium 2.9 L Cancelled Chloride 103 Cancelled Carbon Dioxide 15.6 L Cancelled Anion Gap 18.4 H Cancelled BUN 18 Cancelled Creatinine 0.66 L Cancelled Est GFR (CKD-EPI 2020) 124.18 Cancelled Glucose 231 H Cancelled Calcium 7.8 L Cancelled Phosphorus Magnesium Cancelled Total Bilirubin AST ALT Alkaline Phosphatase Troponin I Total Protein Albumin Beta-Hydroxybutyrate Urine Color Urine Clarity Urine pH Ur Specific [place] Urine Protein Urine Ketones Urine Blood Urine Nitrite Urine Bilirubin Urine Urobilinogen Ur Leukocyte Esterase Urine RBC Urine WBC Ur Epithelial Cells Urine Crystals Urine Bacteria Urine Casts Urine Mucus Ur Culture Indicated? Urine Glucose Urine Opiates Screen Urine Methadone Screen Ur Barbiturates Screen Ur Tricyclics Screen Ur Amphetamines Screen U Benzodiazepines Scrn Urine Cocaine Screen U Cannabinoids Screen Ethyl Alcohol B-Hydroxybutyrate 03/19/25 03/19/25 03/19/25 20:30 20:45 21:15 WBC RBC Hgb Hct MCV MCH MCHC RDW Plt Count MPV Immature Gran % Neutrophils % Lymphocytes % Monocytes % Eosinophils % Basophils % Nucleated RBC % Absolute Neutrophils Absolute Lymphocytes Absolute Monocytes Absolute Eosinophils Absolute Basophils VBG pH VBG pCO2 VBG pO2 VBG HCO3 VBG Total CO2 VBG O2 Saturation VBG Base Excess Sodium 138 Cancelled Potassium 2.8 L* Cancelled Chloride 104 Cancelled Carbon Dioxide 17.5 L Cancelled Anion Gap 16.5 H Cancelled BUN 17 Cancelled Creatinine 0.62 L Cancelled Est GFR (CKD-EPI 2020) 133.47 Cancelled Glucose 206 H Cancelled Calcium 7.7 L Cancelled Phosphorus Magnesium Cancelled Total Bilirubin AST ALT Alkaline Phosphatase Troponin I Total Protein Albumin Beta-Hydroxybutyrate Urine Color Urine Clarity Urine pH Ur Specific [place] Urine Protein Urine Ketones Urine Blood Urine Nitrite Urine Bilirubin Urine Urobilinogen Ur Leukocyte Esterase Urine RBC Urine WBC Ur Epithelial Cells Urine Crystals Urine Bacteria Urine Casts Urine Mucus Ur Culture Indicated? Urine Glucose Urine Opiates Screen Urine Methadone Screen Ur Barbiturates Screen Ur Tricyclics Screen Ur Amphetamines Screen U Benzodiazepines Scrn Urine Cocaine Screen U Cannabinoids Screen Ethyl Alcohol B-Hydroxybutyrate 03/19/25 03/19/25 03/19/25 21:45 22:00 22:15 WBC RBC Hgb Hct MCV MCH MCHC RDW Plt Count MPV Immature Gran % Neutrophils % Lymphocytes % Monocytes % Eosinophils % Basophils % Nucleated RBC % Absolute Neutrophils Absolute Lymphocytes Absolute Monocytes Absolute Eosinophils Absolute Basophils VBG pH VBG pCO2 VBG pO2 VBG HCO3 VBG Total CO2 VBG O2 Saturation VBG Base Excess Sodium 139 Cancelled Potassium 2.9 L Cancelled Chloride 106 Cancelled Carbon Dioxide 18.5 L Cancelled Anion Gap 14.5 H Cancelled BUN 17 Cancelled Creatinine 0.61 L Cancelled Est GFR (CKD-EPI 2020) 136.00 Cancelled Glucose 181 H Cancelled Calcium 7.6 L Cancelled Phosphorus Magnesium Cancelled Total Bilirubin AST ALT Alkaline Phosphatase Troponin I Total Protein Albumin Beta-Hydroxybutyrate Urine Color Urine Clarity Urine pH Ur Specific [place] Urine Protein Urine Ketones Urine Blood Urine Nitrite Urine Bilirubin Urine Urobilinogen Ur Leukocyte Esterase Urine RBC Urine WBC Ur Epithelial Cells Urine Crystals Urine Bacteria Urine Casts Urine Mucus Ur Culture Indicated? Urine Glucose Urine Opiates Screen Urine Methadone Screen Ur Barbiturates Screen Ur Tricyclics Screen Ur Amphetamines Screen U Benzodiazepines Scrn Urine Cocaine Screen U Cannabinoids Screen Ethyl Alcohol B-Hydroxybutyrate 03/19/25 03/19/25 03/19/25 22:45 22:58 23:15 WBC RBC Hgb Hct MCV MCH MCHC RDW Plt Count MPV Immature Gran % Neutrophils % Lymphocytes % Monocytes % Eosinophils % Basophils % Nucleated RBC % Absolute Neutrophils Absolute Lymphocytes Absolute Monocytes Absolute Eosinophils Absolute Basophils VBG pH 7.36 VBG pCO2 34 L VBG pO2 52 VBG HCO3 19 L VBG Total CO2 17 L VBG O2 Saturation 90 VBG Base Excess -7 L Sodium 140 Cancelled Potassium 3.1 L Cancelled Chloride 107 Cancelled Carbon Dioxide 19.0 L Cancelled Anion Gap 14 H Cancelled BUN 17 Cancelled Creatinine 0.59 L Cancelled Est GFR (CKD-EPI 2020) 141.34 Cancelled Glucose 165 H Cancelled Calcium 7.6 L Cancelled Phosphorus Magnesium Cancelled 1.9 Total Bilirubin AST ALT Alkaline Phosphatase Troponin I Total Protein Albumin Beta-Hydroxybutyrate Urine Color Urine Clarity Urine pH Ur Specific [place] Urine Protein Urine Ketones Urine Blood Urine Nitrite Urine Bilirubin Urine Urobilinogen Ur Leukocyte Esterase Urine RBC Urine WBC Ur Epithelial Cells Urine Crystals Urine Bacteria Urine Casts Urine Mucus Ur Culture Indicated? Urine Glucose Urine Opiates Screen Urine Methadone Screen Ur Barbiturates Screen Ur Tricyclics Screen Ur Amphetamines Screen U Benzodiazepines Scrn Urine Cocaine Screen U Cannabinoids Screen Ethyl Alcohol B-Hydroxybutyrate 03/19/25 03/20/25 03/20/25 23:45 03:00 07:00 WBC 6.35 RBC 4.68 Hgb 12.2 L D Hct 36.2 L MCV 77 L MCH 26.1 L MCHC 33.7 RDW 13.9 Plt Count 228 MPV 10.0 Immature Gran % 0.5 Neutrophils % 57.7 Lymphocytes % 32.8 Monocytes % 7.4 Eosinophils % 1.4 Basophils % 0.2 Nucleated RBC % 0.0 Absolute Neutrophils 3.67 Absolute Lymphocytes 2.08 Absolute Monocytes 0.47 Absolute Eosinophils 0.09 Absolute Basophils 0.01 VBG pH 7.37 VBG pCO2 39 L VBG pO2 58 VBG HCO3 22 L VBG Total CO2 20 L VBG O2 Saturation 93 VBG Base Excess -3 L Sodium 141 143 Potassium 2.9 L 2.9 L Chloride 108 H 108 H Carbon Dioxide 22.2 24.4 Anion Gap 10.8 10.6 BUN 15 13 Creatinine 0.54 L 0.50 L Est GFR (CKD-EPI 2020) 156.54 171.08 Glucose 156 H 124 H Calcium 7.7 L 8.0 L Phosphorus 1.4 L Magnesium Cancelled 1.8 Total Bilirubin 0.2 AST 12 ALT 13 Alkaline Phosphatase 88 Troponin I Total Protein 5.9 Albumin 3.4 Beta-Hydroxybutyrate 1.43 H Urine Color Urine Clarity Urine pH Ur Specific [place] Urine Protein Urine Ketones Urine Blood Urine Nitrite Urine Bilirubin Urine Urobilinogen Ur Leukocyte Esterase Urine RBC Urine WBC Ur Epithelial Cells Urine Crystals Urine Bacteria Urine Casts Urine Mucus Ur Culture Indicated? Urine Glucose Urine Opiates Screen Urine Methadone Screen Ur Barbiturates Screen Ur Tricyclics Screen Ur Amphetamines Screen U Benzodiazepines Scrn Urine Cocaine Screen U Cannabinoids Screen Ethyl Alcohol B-Hydroxybutyrate Cancelled 03/20/25 12:35 WBC RBC Hgb Hct MCV MCH MCHC RDW Plt Count MPV Immature Gran % Neutrophils % Lymphocytes % Monocytes % Eosinophils % Basophils % Nucleated RBC % Absolute Neutrophils Absolute Lymphocytes Absolute Monocytes Absolute Eosinophils Absolute Basophils VBG pH VBG pCO2 VBG pO2 VBG HCO3 VBG Total CO2 VBG O2 Saturation VBG Base Excess Sodium 142 Potassium 3.4 L Chloride 109 H Carbon Dioxide 24.6 Anion Gap 8.4 BUN 11 Creatinine 0.48 L Est GFR (CKD-EPI 2020) 179.33 Glucose 136 H Calcium 7.9 L Phosphorus Magnesium Total Bilirubin AST ALT Alkaline Phosphatase Troponin I Total Protein Albumin Beta-Hydroxybutyrate Urine Color Urine Clarity Urine pH Ur Specific [place] Urine Protein Urine Ketones Urine Blood Urine Nitrite Urine Bilirubin Urine Urobilinogen Ur Leukocyte Esterase Urine RBC Urine WBC Ur Epithelial Cells Urine Crystals Urine Bacteria Urine Casts Urine Mucus Ur Culture Indicated? Urine Glucose Urine Opiates Screen Urine Methadone Screen Ur Barbiturates Screen Ur Tricyclics Screen Ur Amphetamines Screen U Benzodiazepines Scrn Urine Cocaine Screen U Cannabinoids Screen Ethyl Alcohol B-Hydroxybutyrate VTE Prohylaxis Risk Level: Moderate/High Risk Contraindications: None Prophylaxis: Pharmacologic Time Spent with Patient Time Spent with Patient: >50 minutes Time was spent: preparing to see the patient(eg.review tests), obtaining and/or reviewing separately otained hiistory, ordering medications,tests, procedures, referring, communicating with other health long term care pharmacist, indepentently interpreting results, counseling the patient and care coordination
[2025-03-20] MEDS: Insulin Glargine 300 UNITS/3 ML PEN 50 UNITS SC (17:25)
[2025-03-20] MEDS: buPROPion-CR 100 MG TABCR PO (19:53)
[2025-03-20] MEDS: Mirtazapine 15 MG TAB PO (19:54)
[2025-03-20] MEDS: Pregabalin 100 MG CAP 200 MG PO (19:54)
[2025-03-20] MEDS: Rosuvastatin 20 MG TAB 40 MG PO (19:54)
[2025-03-21] VITALS (25 sets, daily range): BP systolic 112–158; BP diastolic 71–93; PULSE 54–92; RESP 8–20; TEMP 36.3–37.4; O2SAT 93–97
[2025-03-21 06:42] LABS: Abs Immature Grans 0.02 10^3/uL (0.0-0.06); HCT 36.5 % (40.0-50.0); HGB 12.2 g/dL (13.5-17.5); Immature Grans % 0.3 %; MCH 25.6 pg (27.0-33.0); MCHC 33.4 % (32.0-36.0); MCV 77 fL (80-95); MPV 10.0 fL (8.0-11.0); Platelet Count 216 10^3/uL (130-400); RBC 4.76 10^6/uL (4.36-5.78); RDW 14.3 % (11.8-14.1); RDW-SD 39.8 fL; WBC 6.55 10^3/uL (4.4-10.8)
[2025-03-21 07:01] LABS: ALT 11 U/L (10-49); AST 16 U/L (<34); Albumin 3.4 g/dL (3.2-5.0); Alkaline Phosphatase 84 U/L (46-116); Anion Gap 10.4 mmol/L (3-11); BUN 8 mg/dL (9-23); Bilirubin, Total 0.3 mg/dL (0.2-1.2); CO2 26.6 mmol/L (20.0-31.0); Calcium 8.3 mg/dL (8.3-10.6); Chloride 106 mmol/L (98-107); Glucose 97 mg/dL (74-106); Potassium 2.7 mmol/L (3.5-5.1); Sodium 143 mmol/L (136-145); Total Protein 5.9 g/dL (5.7-8.2)
[2025-03-21 07:55] LABS: Lab Add On Test DONE
[2025-03-21] MEDS: POTASSIUM CHLORIDE 20 MEQ/100 ML BAG 50 MEQ IV INF ×2 (08:00→10:01)
[2025-03-21] MEDS: Normal Saline Flush 10 ML SYR IVP ×2 (08:01→19:56)
[2025-03-21 08:08] LABS: Magnesium 1.8 mg/dL (1.6-2.6)
[2025-03-21] MEDS: amLODIPine 5 MG TAB PO (08:48)
[2025-03-21] MEDS: Mirtazapine 15 MG TAB PO ×2 (08:49→19:52)
[2025-03-21] MEDS: Magnesium Oxide 400 MG TAB PO (08:49)
[2025-03-21] MEDS: Thiamine 100 MG TAB PO (08:49)
[2025-03-21] MEDS: Pantoprazole 40 MG TABCR PO (08:49)
[2025-03-21] MEDS: Aspirin E.C. 81 MG TABEC PO (08:49)
[2025-03-21] MEDS: Multivitamin TAB 1 TAB PO (08:49)
[2025-03-21] MEDS: Sertraline 100 MG TAB PO (08:49)
[2025-03-21] MEDS: Potassium Chloride 20 MEQ TABCR 40 MEQ PO ×3 (08:49→19:53)
[2025-03-21] MEDS: Atenolol 50 MG TAB 100 MG PO (08:49)
[2025-03-21] MEDS: Insulin Glargine 300 UNITS/3 ML PEN 35 UNITS SC ×2 (08:50→19:54)
[2025-03-21] MEDS: buPROPion-CR 100 MG TABCR PO ×2 (08:50→19:53)
[2025-03-21] MEDS: Losartan 50 MG TAB 100 MG PO (08:50)
[2025-03-21] MEDS: Enoxaparin 40 MG/0.4 ML SYR SC (08:50)
[2025-03-21] MEDS: Nicotine 4 MG GUM CH ×4 (10:01→20:13)
[2025-03-21] MEDS: Insulin Aspart 300 UNITS/3 ML PEN SC ×2 (12:07→17:04)
[2025-03-21] MEDS: MAGNESIUM SULFATE 1 GM/100 ML BAG IV_INF (12:08)
--- NOTE | 2025-03-21 12:40 | PGE_ITS ---
Date of Service Date of service: 03/21/25 Time of Service: 12:40 Assessment and Plan Assessment and plan (1) DKA (diabetic ketoacidosis): Status: Acute Assessment and plan: Insulin dependent type 2 DM but with history of DKA, triggered by recent viral illness, missed insulin Beta OH elevated and AG on admission, has since closed on DKA protocol Has resolved, transitioned to basal/bolus insulin with reasonable control Of note, with recurrent DKA we may want to stop his SGLT2i as this increases risk. Also discussed continuing at least some basal insulin if gastroenteritis in the future to avoid DKA. (2) Alcohol use disorder: Status: Chronic Assessment and plan: BAL undetectable, hasn't had withdrawal here. Continue to support. Can d/c withdrawal protocol. (3) Opioid use disorder, severe, on maintenance therapy: Status: Acute Assessment and plan: March 11 depot injection of monthly buprenorphine Recommend non-narcotics for pain (4) Benign essential hypertension: Assessment and plan: Resume home regimen in AM except diuretic, follow. He is constantly low and has prolonged QTc. Will resume mixed diuretic rather than high dose CLD. Start with amiloride and add back lower dose chlorthalidone when K improved. (5) Diabetes mellitus, type II: Assessment and plan: Last A1C 10.9 February 22 Patient's home regimen is basal 100u daily, bolus 30u QID Resumed insulin at more conservative dosing, which is working well. I think adherence is a significant issue at home. Diabetic education (6) Hypokalemia: Status: Acute Assessment and plan: A/w low QTc. improving with supplement but still quite low, rebolus IV and PO, follow in PM. Continue tele. (7) Prolonged QT interval: Status: Acute Assessment and plan: improving with treating acidosis and low K+, monitor on tele. Also give Mg with goal 2 to stabilize heart. Discharge Planning Discharge Planning: To [facility] status 03/21, likely home 03/22 Subjective Subjective Patient reports: no new complaints, feels better and tolerating a regular diet; denies diarrhea, nausea, vomiting, shortness of breath or fever Interval history since last seen: Events: to subcutaneous insulin with dinner 03/20 Stout removed this morning Feeling better. Hungry. Not in pain now. He thinks this was triggered by GI bug. Exam Narrative Exam Narrative: General: Alert and oriented, NAD HEENT: Mucous membranes moist. CV: RRR no m/g Resp: CTAB, nl effort Abd: soft, NTND ext: no c/c/e Neuro: awake, alert, no focal deficits, no tremor Objective Last Vital Signs Temp 36.7 C 03/21/25 11:16 Pulse 92 H 03/21/25 09:02 Resp 13 03/21/25 09:02 BP 158/84 H 03/21/25 09:02 Pulse Ox 94 03/21/25 09:02 Laboratory Results - last 24 hr 03/20/25 03/21/25 12:35 05:10 WBC 6.55 RBC 4.76 Hgb 12.2 L Hct 36.5 L MCV 77 L MCH 25.6 L MCHC 33.4 RDW 14.3 H Plt Count 216 MPV 10.0 Immature Gran % 0.3 Neutrophils % 49.9 Lymphocytes % 38.0 Monocytes % 7.8 Eosinophils % 3.7 Basophils % 0.3 Nucleated RBC % 0.0 Absolute Neutrophils 3.27 Absolute Lymphocytes 2.49 Absolute Monocytes 0.51 Absolute Eosinophils 0.24 Absolute Basophils 0.02 Sodium 142 143 Potassium 3.4 L 2.7 L* Chloride 109 H 106 Carbon Dioxide 24.6 26.6 Anion Gap 8.4 10.4 BUN 11 8 L Creatinine 0.48 L 0.51 L Est GFR (CKD-EPI 2020) 179.33 167.21 Glucose 136 H 97 Calcium 7.9 L 8.3 Magnesium 1.8 Total Bilirubin 0.3 AST 16 ALT 11 Alkaline Phosphatase 84 Total Protein 5.9 Albumin 3.4 Add-On Test Request DONE VTE Prohylaxis Risk Level: Moderate/High Risk Contraindications: None Prophylaxis: Pharmacologic Time Spent with Patient Time Spent with Patient: 35-49 minutes Time was spent: preparing to see the patient(eg.review tests), obtaining and/or reviewing separately otained hiistory, ordering medications,tests, procedures, referring, communicating with other health animal daycare provider, indepentently interpreting results, counseling the patient and care coordination
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
[2025-03-21 14:21] LABS: Potassium 3.5 mmol/L (3.5-5.1)
[2025-03-21] MEDS: Pregabalin 100 MG CAP 200 MG PO ×2 (14:21→19:53)
[2025-03-21] MEDS: Rosuvastatin 20 MG TAB 40 MG PO (19:53)
[2025-03-22] VITALS (13 sets, daily range): BP systolic 96–170; BP diastolic 66–90; PULSE 48–81; RESP 10–20; TEMP 36.3–36.7; O2SAT 96–100
[2025-03-22 06:53] LABS: Anion Gap 7.9 mmol/L (3-11); BUN 10 mg/dL (9-23); CO2 29.1 mmol/L (20.0-31.0); Calcium 8.9 mg/dL (8.3-10.6); Chloride 107 mmol/L (98-107); Glucose 117 mg/dL (74-106); Magnesium 1.7 mg/dL (1.6-2.6); Potassium 3.0 mmol/L (3.5-5.1); Sodium 144 mmol/L (136-145)
[2025-03-22 07:28] LABS: Abs Immature Grans 0.05 10^3/uL (0.0-0.06); HCT 37.6 % (40.0-50.0); HGB 12.3 g/dL (13.5-17.5); Immature Grans % 0.7 %; MCH 25.9 pg (27.0-33.0); MCHC 32.7 % (32.0-36.0); MCV 79 fL (80-95); MPV 10.5 fL (8.0-11.0); Platelet Count 210 10^3/uL (130-400); RBC 4.75 10^6/uL (4.36-5.78); RDW 14.6 % (11.8-14.1); RDW-SD 42.1 fL; WBC 7.61 10^3/uL (4.4-10.8)
[2025-03-22] MEDS: Normal Saline Flush 10 ML SYR IVP (07:45)
[2025-03-22] MEDS: MAGNESIUM SULFATE 2 GM/50 ML BAG IV_INF (07:46)
[2025-03-22] MEDS: Insulin Glargine 300 UNITS/3 ML PEN 35 UNITS SC (07:47)
[2025-03-22] MEDS: POTASSIUM CHLORIDE 20 MEQ/100 ML BAG 50 MEQ IV INF (07:47)
[2025-03-22] MEDS: Insulin Aspart 300 UNITS/3 ML PEN SC ×2 (08:16→11:43)
[2025-03-22] MEDS: Enoxaparin 40 MG/0.4 ML SYR SC (08:16)
[2025-03-22] MEDS: buPROPion-CR 100 MG TABCR PO (08:17)
[2025-03-22] MEDS: Sertraline 100 MG TAB PO (08:17)
[2025-03-22] MEDS: Potassium Chloride 20 MEQ TABCR 40 MEQ PO (08:17)
[2025-03-22] MEDS: Pantoprazole 40 MG TABCR PO (08:17)
[2025-03-22] MEDS: Multivitamin TAB 1 TAB PO (08:17)
[2025-03-22] MEDS: Losartan 50 MG TAB 100 MG PO (08:17)
[2025-03-22] MEDS: Pregabalin 100 MG CAP 200 MG PO (08:17)
[2025-03-22] MEDS: amLODIPine 5 MG TAB PO (08:17)
[2025-03-22] MEDS: aMILoride HCL 5 MG TAB PO (08:17)
[2025-03-22] MEDS: Magnesium Oxide 400 MG TAB PO (08:17)
[2025-03-22] MEDS: Mirtazapine 15 MG TAB PO (08:18)
[2025-03-22] MEDS: Aspirin E.C. 81 MG TABEC PO (08:18)
[2025-03-22] MEDS: Thiamine 100 MG TAB PO (08:18)
[2025-03-22] MEDS: Nicotine 4 MG GUM CH ×2 (08:41→10:45)
--- NOTE | 2025-03-22 09:14 | PT.INTREAT ---
PT Notes Visit Reasons: DKA Inpatient Physical Therapy Treatment Note [facility] Date: 03/22/25 PRECAUTIONS:fall, standard SUBJECTIVE: Alfredo states that he walked the loop with nursing multiple times last night. He's feeling steadier and ready to go back home. He's hopeful he'll be discharged later today. OBJECTIVE: ? VITALS: monitored on telemetry throughout Therapeutic Activities ([id number]): Direct one-on-one instruction in dynamic activities to improve functional performance. ? BED MOBILITY/TRANSFERS? Sit-stand: independent? Stand-sit: independent ? Bed-Chair: supervision ? Chair-bed: supervision ? Therapeutic Exercises ([id number]): Direct one-on-one instruction in therapeutic exercises to develop strength, endurance, range of motion and flexibility. ? Exercises ? standing hip AB 10x each, bilat UE support to FWW, SBA HR 10x, bilat UE support to FWW, SBA sit-stand without UE support 10x tandem stance, UE support to attain position only, CGA, 30 seconds each feet together, eyes closed 30 seconds seated obliques, with alternating ankle taps seated shoulder flexion 10x each ASSESSMENT:? Improving balance and mobility. Has FWW and cane at home, and recommend use as needed to prevent falls. Goals: Goals X1 week 1. Supine-Sit : Supervision (MET per patient report) 2. Sit-Supine : Supervision (MET per patient report) 3. Sit-Stand : Supervision (MET) 4. Stand-Sit : Supervision(MET) 5. Bed-Chair : Supervision with FWW (MET) 6. Chair-Bed : Supervision with FWW (MET) 7. Gait : Supervision with FWW x 100' (MET) PLAN: D/C from PT services with anticipated return home later today. TREATMENT CODE/TIME: [id number] ([id number]) DISCHARGE RECOMMENDATION: home with no services
--- NOTE | 2025-03-22 12:38 | W.PM.DS.N ---
Date of service: 03/22/25 Time of Service: 12:38 DS: Diagnosis Discharge Diagnosis (1) DKA (diabetic ketoacidosis): Status: Acute (2) Alcohol use disorder: Status: Chronic (3) Opioid use disorder, severe, on maintenance therapy: Status: Acute (4) Benign essential hypertension: (5) Diabetes mellitus, type II: (6) Hypokalemia: Status: Acute (7) Prolonged QT interval: Status: Acute Discharge Plan Disposition Patient Disposition: Home Condition: Stable Discharge Details Reason For Visit: DKA Admit Date/Time: 03/19/25 15:20 Admit Provider: Paresh Sexton Attending Provider: Paresh Sexton Primary Care Provider: Yulia Cortez [facility] Hospital Course: 59 year old man with IDDM and history of DKA, smoking, severe alcohol use disorder, opioid use disorder on buprenorphine, who presented March 19 with 3 days of vomiting, diarrhea and abdominal pain in the setting of others with the same symptoms at his home. He was not eating so had stopped using his insulin. He was diagnosed with DKA with anion gap of 24.9, CO2 12.9, and [id number]-QP-[id number] of 4.5. He was started on DKA protocol with insulin drip. His vomiting resolved and he was transitioned off the drip the evening of 03/20 after his acidosis resolved and he was able to eat. He had severe hypokalemia with initial potassium of 2.5 despite his acidosis. He received IV and eventually oral supplementation. The acute depletion was related to his gastroenteritis, but his potassium is chronically low, likely related to his high dose chlorthalidone. He was started on 5mg amilioride (spironolactone avoided due to anti-androgen effects) and his chlorthalidone was cut to 25mg. Atenolol was also cut in half as his pulse was frequently in the 40s. With his history of recurrent DKA, SGLT2i medication is problematic (despite it's potential benefit) as it increases the DKA risk. Empaglifozin was held with plan to discuss with his PCP. He is on a high dose GLP-1, but could transition to a more potent semaglutide or terzepatide. Metformin was resumed. He met with Tej for diabetic education and plans to follow up. He did not have alcohol in his system on admission and did not withdraw this admission. He will resume his outpatient therapy and follow up for AUD, but cautioned to hold disulfuram with acute illness in the future. He states he was running out of pregabalin. I did confirm the dose was 150mg not 200mg in PCP record, which he told me. [employer] checked. I gave him a script for 1 mo. Recommendations for Follow Up Recommended tests to be ordered by follow up provider: BMP, Mg 3-4 days Home Meds and New Rx's Prescriptions: New amiloride 5 mg Tablet 5 mg PO DAILY Qty: 30 0RF pregabalin 150 mg capsule 150 mg PO TID Qty: 90 0RF Continued multivitamin Tablet 1 tab PO DAILY Patient Comments: once in a while metformin 500 mg tablet extended release 24 hr 2,000 mg PO DAILY insulin lispro [Humalog KwikPen Insulin] 100 unit/mL insulin pen 30 unit subcut QID Patient Comments: maximum daily dose 120 units pantoprazole 40 mg tablet,delayed release (DR/EC) See Rx Instructions .ROUTE .COMPLEX Qty: 90 7RF Dose Instruction: TAKE 1 TABLET BY MOUTH DAILY Rx Instructions: TAKE 1 TABLET BY MOUTH DAILY rosuvastatin [Crestor] 40 MG tablet 40 mg PO HS losartan 100 mg Tablet 100 mg PO DAILY nicotine 21 mg/24 hr Patch 24 Hour 21 mg transdermal DAILY PRN PRNQty: 30 0RF nicotine (polacrilex) 4 mg Gum 4 mg CH Q2H PRN PRNQty: 48 0RF thiamine mononitrate (vit B1) [Vitamin B-1 (mononitrate)] 100 mg Tablet 100 mg PO DAILY Qty: 0 0RF disulfiram 500 mg tablet 500 mg PO DAILY Qty: 60 2RF Rx Instructions: may decrease to 1/2 tablet po daily after 2 weeks insulin glargine U-300 conc [Toujeo Max U-300 SoloStar] 300 unit/mL (3 mL) insulin pen 100 unit SUBCUT DAILY ibuprofen 600 mg tablet 600 mg PO TID PRN (Reason: pain) Qty: 90 0RF Patient Comments: once in a while bupropion HCl 100 mg tablet sustained-release 12 hr 100 mg PO BID Patient Comments: TAKE ONE TABLET BY MOUTH TWICE A DAY amlodipine 5 mg tablet 5 mg PO DAILY Patient Comments: TAKE ONE TABLET BY MOUTH EVERY DAY Sublocade 100 mg/0.5 mL solution, extended rel syringe 100 mg subcut QMONTH Qty: 0.5 0RF Patient Comments: Missed his appointment for injection today 02/18/25 aspirin [Adult Low Dose Aspirin] 81 mg tablet,delayed release (DR/EC) 81 mg PO DAILY Trulicity 3 mg/0.5 mL pen injector 3 mg SUBCUT QWEEK Patient Comments: INJECT 3MG (1 PEN) SUBCUTANEOUSLY EVERY WEEK mirtazapine 15 mg tablet 15 mg PO DAILY Patient Comments: TAKE ONE TABLET BY MOUTH EVERY DAY mirtazapine 30 mg tablet 30 mg PO QHS magnesium oxide 400 mg magnesium capsule 400 mg PO DAILY potassium chloride 20 mEq tablet extended release 20 meq PO DAILY Patient Comments: TAKE ONE TABLET BY MOUTH EVERY DAY sertraline 100 mg tablet 100 mg PO DAILY Changed atenolol 100 mg Tablet 50 mg PO DAILY Qty: 0 0RF chlorthalidone 50 mg tablet 25 mg PO DAILY Qty: 0 0RF Patient Comments: TAKE ONE TABLET BY MOUTH EVERY DAY Discontinued Jardiance 25 mg tablet 25 mg PO DAILY pregabalin 200 mg capsule 200 mg PO TID Patient Comments: TAKE ONE CAPSULE BY MOUTH THREE TIMES A DAY MAX OF 3 DAILY chlordiazepoxide HCl 25 mg capsule See Rx Instructions .ROUTE .COMPLEX Patient Comments: TAKE TWO CAPSULES BY MOUTH EVERY 6 HOURS FOR 1 DAY THEN TWO EVERY 8 HOURS FOR 1 DAY THEN TWO TWO TIMES A DAY FOR 1 DAY THEN TWO DAILY FOR 3- prescribed 02/16/25 Rx Instructions: TAKE TWO CAPSULES BY MOUTH EVERY 6 HOURS FOR 1 DAY THEN TWO EVERY 8 HOURS FOR 1 DAY THEN TWO TWO TIMES A DAY FOR 1 DAY THEN TWO DAILY FOR 3; sucralfate 1 gram tablet 1 g PO TID Rx Instructions: And PRN for heartburn/ indigestion Discharge Instructions Instructions: Diabetic Ketoacidosis (DC) Additional Instructions: Stop the Jardiance for now. This can raise the risk of DKA. Cut the atenolol in half. This is causing your pulse to be too low. Cut the chlorthalidone in half to 25mg. This is a good blood pressure medication but lowers your potassium too much at the high dose. Start the amiloride 5mg for blood pressure. This will help your potassium go up. Stand Alone Forms: Portal Information Activity:: Activity as Tolerated Equipment/Supplies:: No Equipment Needed Diet:: Carb Counting Discharge Orders Discharge Orders: Discharge Order (Routine); Ordered 03/22/25 Ordered By: Trent Wilkinson DS: Summary Time Spent with Patient providing and/or coordinating discharge services: Greater than 30 minutes Status at Discharge Functional status at discharge: independent ambulation Overall status at discharge: patient is back to baseline Mental Status: mental status grossly normal Speech and Movement: speech and movement normal Mood: congruent mood Affect: normal affect Quality:SDOH Health Related Social Needs: Health related social needs house/econ circumstance Health related social needs details sometimes money is tight Exam Narrative Exam Narrative: General: Alert and oriented, NAD, sitting up in chair eating, comfortable appearing HEENT: Mucous membranes moist. CV: RRR no m/g Resp: CTAB, nl effort Abd: soft, NTND ext: no c/c/e Neuro: awake, alert, no focal deficits, no tremor, gait steady Psych Mental Status: mental status grossly normal Speech and Movement: speech and movement normal Mood: congruent mood Affect: normal affect DS: Data Vitals/I&O Vitals and I&O: Vital Signs Temperature 36.7 C 03/22/25 08:21 Temperature Source Temporal Artery Scan 03/21/25 15:51 Pulse 66 03/22/25 10:58 Pulse 66 03/22/25 10:58 Respiratory Rate 16 03/22/25 10:58 Respiratory Effort Incrsd Work of Breathing 03/19/25 17:00 Respiratory Depth Normal 03/19/25 17:00 Respiratory Pattern Tachypnea 03/19/25 17:00 Blood Pressure 101/75 03/22/25 10:58 Blood Pressure Mean 83 03/22/25 10:58 Blood Pressure Position Supine 03/19/25 17:00 Pulse Oximetry 99 03/22/25 10:58 Respiratory End-tidal CO2 26 03/19/25 16:51 Oxygen Delivery Method Room Air 03/21/25 15:51 Oxygen Flow Rate 0 03/21/25 15:51 Pain Level 0 03/20/25 19:40 Comment aches all over 03/19/25 12:47 Intake & Output 03/21/25 03/22/25 03/22/25 23:59 11:59 23:59 Intake Total 540 / 1260 400 / 400 Output Total 1150 / 1775 900 / 900 Balance -610 / -515 -500 / -500 Weight 80.6 kg Intake: IV 200 / 300 150 / 150 Oral 340 / 960 250 / 250 Output: Urine 1150 / 1775 900 / 900 Other: Urine Color Yellow Light Pretty Urine Appearance Clear Clear Urine Odor Normal Strong Data Completed and Pending Pending Labs at Discharge: 03/19/25 03/19/25 03/19/25 13:40 14:00 14:34 WBC 7.02 RBC 5.76 Hgb 15.0 Hct 45.0 MCV 78 L MCH 26.0 L MCHC 33.3 RDW 13.8 Plt Count 255 MPV 10.3 Immature Gran % 0.4 Neutrophils % 68.3 Lymphocytes % 22.8 Monocytes % 7.5 Eosinophils % 0.9 Basophils % 0.1 Nucleated RBC % 0.0 Absolute Neutrophils 4.79 Absolute Lymphocytes 1.60 Absolute Monocytes 0.53 Absolute Eosinophils 0.06 Absolute Basophils 0.01 VBG pH 7.34 VBG pCO2 24 L VBG pO2 68 VBG HCO3 13 L VBG Total CO2 12 L VBG O2 Saturation 95 VBG Base Excess -13 L VBG Lactate 2.3 H* Sodium 130 L Potassium 2.5 L* Chloride 92 L Carbon Dioxide 12.9 L Anion Gap 24.9 H BUN 25 H Creatinine 0.75 Est GFR (CKD-EPI 2020) 107.15 Glucose 359 H Calcium 8.8 Phosphorus Magnesium 1.8 Total Bilirubin 0.2 AST 16 ALT 20 Alkaline Phosphatase 119 H Troponin I 3 Total Protein 7.4 Albumin 4.3 Beta-Hydroxybutyrate > 4.50 H TSH 2.77 Urine Color Yellow Urine Clarity Urine pH Ur Specific [place] Urine Protein Urine Ketones Urine Blood Urine Nitrite Urine Bilirubin Urine Urobilinogen Ur Leukocyte Esterase Urine RBC Urine WBC Ur Epithelial Cells Urine Crystals Urine Bacteria Urine Casts Urine Mucus Ur Culture Indicated? Urine Glucose Urine Opiates Screen Urine Methadone Screen Ur Barbiturates Screen Ur Tricyclics Screen Ur Amphetamines Screen U Benzodiazepines Scrn Urine Cocaine Screen U Cannabinoids Screen Ethyl Alcohol < 3.0 B-Hydroxybutyrate COVID-19 Source Nasopharynx SARS-CoV-2 (PCR) Negative Influenza Type A (PCR) Negative Influenza Type B (PCR) Negative RSV (PCR) Negative Add-On Test Request 03/19/25 03/19/25 03/19/25 14:34 14:34 14:34 WBC RBC Hgb Hct MCV MCH MCHC RDW Plt Count MPV Immature Gran % Neutrophils % Lymphocytes % Monocytes % Eosinophils % Basophils % Nucleated RBC % Absolute Neutrophils Absolute Lymphocytes Absolute Monocytes Absolute Eosinophils Absolute Basophils VBG pH VBG pCO2 VBG pO2 VBG HCO3 VBG Total CO2 VBG O2 Saturation VBG Base Excess VBG Lactate Sodium Potassium Chloride Carbon Dioxide Anion Gap BUN Creatinine Est GFR (CKD-EPI 2020) Glucose Calcium Phosphorus Magnesium Total Bilirubin AST ALT Alkaline Phosphatase Troponin I Total Protein Albumin Beta-Hydroxybutyrate TSH Urine Color Yellow Urine Clarity Clear Clear Urine pH 5.5 5.5 Ur Specific [place] 1.025 Urine Protein Urine Ketones Urine Blood Urine Nitrite Urine Bilirubin Urine Urobilinogen Ur Leukocyte Esterase Urine RBC Urine WBC Ur Epithelial Cells Urine Crystals Urine Bacteria Urine Casts Urine Mucus Ur Culture Indicated? Urine Glucose Urine Opiates Screen Urine Methadone Screen Ur Barbiturates Screen Ur Tricyclics Screen Ur Amphetamines Screen U Benzodiazepines Scrn Urine Cocaine Screen U Cannabinoids Screen Ethyl Alcohol B-Hydroxybutyrate COVID-19 Source SARS-CoV-2 (PCR) Influenza Type A (PCR) Influenza Type B (PCR) RSV (PCR) Add-On Test Request 03/19/25 03/19/25 03/19/25 14:34 14:34 14:34 WBC RBC Hgb Hct MCV MCH MCHC RDW Plt Count MPV Immature Gran % Neutrophils % Lymphocytes % Monocytes % Eosinophils % Basophils % Nucleated RBC % Absolute Neutrophils Absolute Lymphocytes Absolute Monocytes Absolute Eosinophils Absolute Basophils VBG pH VBG pCO2 VBG pO2 VBG HCO3 VBG Total CO2 VBG O2 Saturation VBG Base Excess VBG Lactate Sodium Potassium Chloride Carbon Dioxide Anion Gap BUN Creatinine Est GFR (CKD-EPI 2020) Glucose Calcium Phosphorus Magnesium Total Bilirubin AST ALT Alkaline Phosphatase Troponin I Total Protein Albumin Beta-Hydroxybutyrate TSH Urine Color Urine Clarity Urine pH Ur Specific [place] 1.025 Urine Protein 100 H 30 H Urine Ketones >=160 H >=160 H Urine Blood Trace-intact H Urine Nitrite Urine Bilirubin Urine Urobilinogen Ur Leukocyte Esterase Urine RBC Urine WBC Ur Epithelial Cells Urine Crystals Urine Bacteria Urine Casts Urine Mucus Ur Culture Indicated? Urine Glucose Urine Opiates Screen Urine Methadone Screen Ur Barbiturates Screen Ur Tricyclics Screen Ur Amphetamines Screen U Benzodiazepines Scrn Urine Cocaine Screen U Cannabinoids Screen Ethyl Alcohol B-Hydroxybutyrate COVID-19 Source SARS-CoV-2 (PCR) Influenza Type A (PCR) Influenza Type B (PCR) RSV (PCR) Add-On Test Request 03/19/25 03/19/25 03/19/25 14:34 14:34 14:34 WBC RBC Hgb Hct MCV MCH MCHC RDW Plt Count MPV Immature Gran % Neutrophils % Lymphocytes % Monocytes % Eosinophils % Basophils % Nucleated RBC % Absolute Neutrophils Absolute Lymphocytes Absolute Monocytes Absolute Eosinophils Absolute Basophils VBG pH VBG pCO2 VBG pO2 VBG HCO3 VBG Total CO2 VBG O2 Saturation VBG Base Excess VBG Lactate Sodium Potassium Chloride Carbon Dioxide Anion Gap BUN Creatinine Est GFR (CKD-EPI 2020) Glucose Calcium Phosphorus Magnesium Total Bilirubin AST ALT Alkaline Phosphatase Troponin I Total Protein Albumin Beta-Hydroxybutyrate TSH Urine Color Urine Clarity Urine pH Ur Specific [place] Urine Protein Urine Ketones Urine Blood Trace-intact H Urine Nitrite Negative Negative Urine Bilirubin Small H Small H Urine Urobilinogen 0.2 Ur Leukocyte Esterase Urine RBC Urine WBC Ur Epithelial Cells Urine Crystals Urine Bacteria Urine Casts Urine Mucus Ur Culture Indicated? Urine Glucose Urine Opiates Screen Urine Methadone Screen Ur Barbiturates Screen Ur Tricyclics Screen Ur Amphetamines Screen U Benzodiazepines Scrn Urine Cocaine Screen U Cannabinoids Screen Ethyl Alcohol B-Hydroxybutyrate COVID-19 Source SARS-CoV-2 (PCR) Influenza Type A (PCR) Influenza Type B (PCR) RSV (PCR) Add-On Test Request 03/19/25 03/19/25 03/19/25 14:34 14:34 14:34 WBC RBC Hgb Hct MCV MCH MCHC RDW Plt Count MPV Immature Gran % Neutrophils % Lymphocytes % Monocytes % Eosinophils % Basophils % Nucleated RBC % Absolute Neutrophils Absolute Lymphocytes Absolute Monocytes Absolute Eosinophils Absolute Basophils VBG pH VBG pCO2 VBG pO2 VBG HCO3 VBG Total CO2 VBG O2 Saturation VBG Base Excess VBG Lactate Sodium Potassium Chloride Carbon Dioxide Anion Gap BUN Creatinine Est GFR (CKD-EPI 2020) Glucose Calcium Phosphorus Magnesium Total Bilirubin AST ALT Alkaline Phosphatase Troponin I Total Protein Albumin Beta-Hydroxybutyrate TSH Urine Color Urine Clarity Urine pH Ur Specific [place] Urine Protein Urine Ketones Urine Blood Urine Nitrite Urine Bilirubin Urine Urobilinogen 0.2 Ur Leukocyte Esterase Negative Negative Urine RBC 3-5 H 0-2 Urine WBC Negative Ur Epithelial Cells Urine Crystals Urine Bacteria Urine Casts Urine Mucus Ur Culture Indicated? Urine Glucose Urine Opiates Screen Urine Methadone Screen Ur Barbiturates Screen Ur Tricyclics Screen Ur Amphetamines Screen U Benzodiazepines Scrn Urine Cocaine Screen U Cannabinoids Screen Ethyl Alcohol B-Hydroxybutyrate COVID-19 Source SARS-CoV-2 (PCR) Influenza Type A (PCR) Influenza Type B (PCR) RSV (PCR) Add-On Test Request 03/19/25 03/19/25 03/19/25 14:34 14:34 14:34 WBC RBC Hgb Hct MCV MCH MCHC RDW Plt Count MPV Immature Gran % Neutrophils % Lymphocytes % Monocytes % Eosinophils % Basophils % Nucleated RBC % Absolute Neutrophils Absolute Lymphocytes Absolute Monocytes Absolute Eosinophils Absolute Basophils VBG pH VBG pCO2 VBG pO2 VBG HCO3 VBG Total CO2 VBG O2 Saturation VBG Base Excess VBG Lactate Sodium Potassium Chloride Carbon Dioxide Anion Gap BUN Creatinine Est GFR (CKD-EPI 2020) Glucose Calcium Phosphorus Magnesium Total Bilirubin AST ALT Alkaline Phosphatase Troponin I Total Protein Albumin Beta-Hydroxybutyrate TSH Urine Color Urine Clarity Urine pH Ur Specific [place] Urine Protein Urine Ketones Urine Blood Urine Nitrite Urine Bilirubin Urine Urobilinogen Ur Leukocyte Esterase Urine RBC Urine WBC Negative Ur Epithelial Cells Negative Rare Urine Crystals Rare Amorphous Negative Urine Bacteria Few Urine Casts Urine Mucus Ur Culture Indicated? Urine Glucose Urine Opiates Screen Urine Methadone Screen Ur Barbiturates Screen Ur Tricyclics Screen Ur Amphetamines Screen U Benzodiazepines Scrn Urine Cocaine Screen U Cannabinoids Screen Ethyl Alcohol B-Hydroxybutyrate COVID-19 Source SARS-CoV-2 (PCR) Influenza Type A (PCR) Influenza Type B (PCR) RSV (PCR) Add-On Test Request 03/19/25 03/19/25 03/19/25 14:34 14:34 14:34 WBC RBC Hgb Hct MCV MCH MCHC RDW Plt Count MPV Immature Gran % Neutrophils % Lymphocytes % Monocytes % Eosinophils % Basophils % Nucleated RBC % Absolute Neutrophils Absolute Lymphocytes Absolute Monocytes Absolute Eosinophils Absolute Basophils VBG pH VBG pCO2 VBG pO2 VBG HCO3 VBG Total CO2 VBG O2 Saturation VBG Base Excess VBG Lactate Sodium Potassium Chloride Carbon Dioxide Anion Gap BUN Creatinine Est GFR (CKD-EPI 2020) Glucose Calcium Phosphorus Magnesium Total Bilirubin AST ALT Alkaline Phosphatase Troponin I Total Protein Albumin Beta-Hydroxybutyrate TSH Urine Color Urine Clarity Urine pH Ur Specific [place] Urine Protein Urine Ketones Urine Blood Urine Nitrite Urine Bilirubin Urine Urobilinogen Ur Leukocyte Esterase Urine RBC Urine WBC Ur Epithelial Cells Urine Crystals Urine Bacteria Rare Urine Casts Negative Negative Urine Mucus Negative Negative Ur Culture Indicated? No Urine Glucose Urine Opiates Screen Urine Methadone Screen Ur Barbiturates Screen Ur Tricyclics Screen Ur Amphetamines Screen U Benzodiazepines Scrn Urine Cocaine Screen U Cannabinoids Screen Ethyl Alcohol B-Hydroxybutyrate COVID-19 Source SARS-CoV-2 (PCR) Influenza Type A (PCR) Influenza Type B (PCR) RSV (PCR) Add-On Test Request 03/19/25 03/19/25 03/19/25 14:34 14:34 14:35 WBC RBC Hgb Hct MCV MCH MCHC RDW Plt Count MPV Immature Gran % Neutrophils % Lymphocytes % Monocytes % Eosinophils % Basophils % Nucleated RBC % Absolute Neutrophils Absolute Lymphocytes Absolute Monocytes Absolute Eosinophils Absolute Basophils VBG pH VBG pCO2 VBG pO2 VBG HCO3 VBG Total CO2 VBG O2 Saturation VBG Base Excess VBG Lactate Sodium Potassium Chloride Carbon Dioxide Anion Gap BUN Creatinine Est GFR (CKD-EPI 2020) Glucose Calcium Phosphorus Magnesium Total Bilirubin AST ALT Alkaline Phosphatase Troponin I 4 Total Protein Albumin Beta-Hydroxybutyrate TSH Urine Color Urine Clarity Urine pH Ur Specific [place] Urine Protein Urine Ketones Urine Blood Urine Nitrite Urine Bilirubin Urine Urobilinogen Ur Leukocyte Esterase Urine RBC Urine WBC Ur Epithelial Cells Urine Crystals Urine Bacteria Urine Casts Urine Mucus Ur Culture Indicated? No Urine Glucose 500 H 500 H Urine Opiates Screen Negative Urine Methadone Screen Negative Ur Barbiturates Screen Negative Ur Tricyclics Screen Negative Ur Amphetamines Screen Negative U Benzodiazepines Scrn Negative Urine Cocaine Screen Negative U Cannabinoids Screen Negative Ethyl Alcohol B-Hydroxybutyrate COVID-19 Source SARS-CoV-2 (PCR) Influenza Type A (PCR) Influenza Type B (PCR) RSV (PCR) Add-On Test Request 03/19/25 03/19/25 03/19/25 15:15 16:15 17:30 WBC RBC Hgb Hct MCV MCH MCHC RDW Plt Count MPV Immature Gran % Neutrophils % Lymphocytes % Monocytes % Eosinophils % Basophils % Nucleated RBC % Absolute Neutrophils Absolute Lymphocytes Absolute Monocytes Absolute Eosinophils Absolute Basophils VBG pH 7.30 L VBG pCO2 29 L VBG pO2 50 VBG HCO3 14 L VBG Total CO2 13 L VBG O2 Saturation 86 VBG Base Excess -13 L VBG Lactate Sodium Cancelled 133 L 135 L Potassium Cancelled 3.0 L 2.9 L Chloride Cancelled 97 L 99 Carbon Dioxide Cancelled 13.4 L 14.2 L Anion Gap Cancelled 22.2 H 21.4 H BUN Cancelled 20 20 Creatinine Cancelled 0.68 L 0.67 L Est GFR (CKD-EPI 2020) Cancelled 119.98 122.05 Glucose Cancelled 309 H 295 H Calcium Cancelled 8.1 L 7.9 L Phosphorus 2.7 Magnesium 1.7 1.6 Total Bilirubin AST ALT Alkaline Phosphatase Troponin I 8 Total Protein Albumin Beta-Hydroxybutyrate TSH Urine Color Urine Clarity Urine pH Ur Specific [place] Urine Protein Urine Ketones Urine Blood Urine Nitrite Urine Bilirubin Urine Urobilinogen Ur Leukocyte Esterase Urine RBC Urine WBC Ur Epithelial Cells Urine Crystals Urine Bacteria Urine Casts Urine Mucus Ur Culture Indicated? Urine Glucose Urine Opiates Screen Urine Methadone Screen Ur Barbiturates Screen Ur Tricyclics Screen Ur Amphetamines Screen U Benzodiazepines Scrn Urine Cocaine Screen U Cannabinoids Screen Ethyl Alcohol B-Hydroxybutyrate COVID-19 Source SARS-CoV-2 (PCR) Influenza Type A (PCR) Influenza Type B (PCR) RSV (PCR) Add-On Test Request 03/19/25 03/19/25 03/19/25 18:15 18:25 18:45 WBC RBC Hgb Hct MCV MCH MCHC RDW Plt Count MPV Immature Gran % Neutrophils % Lymphocytes % Monocytes % Eosinophils % Basophils % Nucleated RBC % Absolute Neutrophils Absolute Lymphocytes Absolute Monocytes Absolute Eosinophils Absolute Basophils VBG pH 7.29 L VBG pCO2 29 L VBG pO2 71 VBG HCO3 14 L VBG Total CO2 13 L VBG O2 Saturation 95 VBG Base Excess -13 L VBG Lactate Sodium Cancelled 135 L Potassium Cancelled 2.9 L Chloride Cancelled 101 Carbon Dioxide Cancelled 13.5 L Anion Gap Cancelled 20.5 H BUN Cancelled 19 Creatinine Cancelled 0.67 L Est GFR (CKD-EPI 2020) Cancelled 122.05 Glucose Cancelled 282 H Calcium Cancelled 7.7 L Phosphorus Magnesium Cancelled Total Bilirubin AST ALT Alkaline Phosphatase Troponin I Total Protein Albumin Beta-Hydroxybutyrate TSH Urine Color Urine Clarity Urine pH Ur Specific [place] Urine Protein Urine Ketones Urine Blood Urine Nitrite Urine Bilirubin Urine Urobilinogen Ur Leukocyte Esterase Urine RBC Urine WBC Ur Epithelial Cells Urine Crystals Urine Bacteria Urine Casts Urine Mucus Ur Culture Indicated? Urine Glucose Urine Opiates Screen Urine Methadone Screen Ur Barbiturates Screen Ur Tricyclics Screen Ur Amphetamines Screen U Benzodiazepines Scrn Urine Cocaine Screen U Cannabinoids Screen Ethyl Alcohol B-Hydroxybutyrate COVID-19 Source SARS-CoV-2 (PCR) Influenza Type A (PCR) Influenza Type B (PCR) RSV (PCR) Add-On Test Request 03/19/25 03/19/25 03/19/25 19:15 19:45 20:06 WBC RBC Hgb Hct MCV MCH MCHC RDW Plt Count MPV Immature Gran % Neutrophils % Lymphocytes % Monocytes % Eosinophils % Basophils % Nucleated RBC % Absolute Neutrophils Absolute Lymphocytes Absolute Monocytes Absolute Eosinophils Absolute Basophils VBG pH VBG pCO2 VBG pO2 VBG HCO3 VBG Total CO2 VBG O2 Saturation VBG Base Excess VBG Lactate Sodium Cancelled 137 Potassium Cancelled 2.9 L Chloride Cancelled 103 Carbon Dioxide Cancelled 15.6 L Anion Gap Cancelled 18.4 H BUN Cancelled 18 Creatinine Cancelled 0.66 L Est GFR (CKD-EPI 2020) Cancelled 124.18 Glucose Cancelled 231 H Calcium Cancelled 7.8 L Phosphorus Magnesium Cancelled Total Bilirubin AST ALT Alkaline Phosphatase Troponin I Total Protein Albumin Beta-Hydroxybutyrate TSH Urine Color Urine Clarity Urine pH Ur Specific [place] Urine Protein Urine Ketones Urine Blood Urine Nitrite Urine Bilirubin Urine Urobilinogen Ur Leukocyte Esterase Urine RBC Urine WBC Ur Epithelial Cells Urine Crystals Urine Bacteria Urine Casts Urine Mucus Ur Culture Indicated? Urine Glucose Urine Opiates Screen Urine Methadone Screen Ur Barbiturates Screen Ur Tricyclics Screen Ur Amphetamines Screen U Benzodiazepines Scrn Urine Cocaine Screen U Cannabinoids Screen Ethyl Alcohol B-Hydroxybutyrate COVID-19 Source SARS-CoV-2 (PCR) Influenza Type A (PCR) Influenza Type B (PCR) RSV (PCR) Add-On Test Request 03/19/25 03/19/25 03/19/25 20:15 20:30 20:45 WBC RBC Hgb Hct MCV MCH MCHC RDW Plt Count MPV Immature Gran % Neutrophils % Lymphocytes % Monocytes % Eosinophils % Basophils % Nucleated RBC % Absolute Neutrophils Absolute Lymphocytes Absolute Monocytes Absolute Eosinophils Absolute Basophils VBG pH VBG pCO2 VBG pO2 VBG HCO3 VBG Total CO2 VBG O2 Saturation VBG Base Excess VBG Lactate Sodium Cancelled 138 Potassium Cancelled 2.8 L* Chloride Cancelled 104 Carbon Dioxide Cancelled 17.5 L Anion Gap Cancelled 16.5 H BUN Cancelled 17 Creatinine Cancelled 0.62 L Est GFR (CKD-EPI 2020) Cancelled 133.47 Glucose Cancelled 206 H Calcium Cancelled 7.7 L Phosphorus Magnesium Cancelled Total Bilirubin AST ALT Alkaline Phosphatase Troponin I Total Protein Albumin Beta-Hydroxybutyrate TSH Urine Color Urine Clarity Urine pH Ur Specific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
--- NOTE | 2025-03-22 15:35 | CMDISCH_ITS ---
Date of service: 03/22/25 Time of Service: 15:35 LACE Index Scoring Tool Questions: Length of Stay (in days): 3 Was the patient admitted via the E.D.?: Yes Comorbidities: Diabetes w/o Complication E.D. Visits: 5 Answers: Total Score: 11 Risk of Readmission: High Risk Care Management Discharge Plan Reason for Hospitalization: DKA Discharge Plan: Alfredo returned home today with no new services. He was transported home via private vehicle by family. He will follow up with his PCP and discharge plan of care. Patient/Family Education Needs: Review discharge instructions and limitations, discussion of self care needs including ask me three. SDOH Health Related Social Needs: Health related social needs house/econ circumstance Health related social needs details sometimes money i s tight
--- NOTE | 2025-03-23 09:16 | W.NUTRFU ---
Date of service: 03/21/25 Time of Service: 08:00 Nutrition Note NOTE: Visited with patient two days ago while working in the kitchen Sunday. Was able to spend about 10-15 min reviewing educational handout and concepts Mr Perez would benefit from. He relates his feelings about his recent hyperglycemia being contributed to illness (dairrhea and vomiting) and also did not use his insulin as he should - states he was not eating so felt he should not use it. Patient educated on glucose mgt with insulin and should monitor more closely during illness as increased insulin requirements are usually the norm during illness. Patient took handout and my card as I offered outpatient education and he was interested. Declined to make appt now but states once back home and over this hump would like to spend some time getting more information. Reviewed menu planning for ~12-13 servings of CHO and emphasized difference between types of CHO choices to choose to contribute to this limit. Time Spent in Nutritional Counseling and Treatment: 10 min
== END 2025-03-22 13:45 | disposition home or self-care (01) | DRG 638 ==
LOC: ER 16:29 → ICU 17:12
PROVIDERS: Family Medicine; Admitting Provider Family Medicine; Emergency Provider Emergency Medicine; PCP Family Medicine; Responsible Provider Family Medicine; Visit Provider Family Medicine
DX: E11.10 Type 2 diabetes mellitus with ketoacidosis without coma (principal); F11.20 Opioid dependence, uncomplicated; F10.20 Alcohol dependence, uncomplicated; R00.0 Tachycardia, unspecified; R11.10 Vomiting, unspecified; T38.3X6A Underdosing of insulin and oral hypoglycemic [antidiabetic] drugs, initial encounter; R19.7 Diarrhea, unspecified; Z79.84 Long term (current) use of oral hypoglycemic drugs; Z59.9 Problem related to housing and economic circumstances, unspecified; Y63.6 Underdosing and nonadministration of necessary drug, medicament or biological substance; R10.9 Unspecified abdominal pain; M54.50 Low back pain, unspecified; F17.210 Nicotine dependence, cigarettes, uncomplicated; F43.12 Post-traumatic stress disorder, chronic; D50.9 Iron deficiency anemia, unspecified; G25.81 Restless legs syndrome; F32.A Depression, unspecified; F43.22 Adjustment disorder with anxiety; Z96.651 Presence of right artificial knee joint; I10 Essential (primary) hypertension; Z79.4 Long term (current) use of insulin; Z87.09 Personal history of other diseases of the respiratory system; R94.31 Abnormal electrocardiogram [ECG] [EKG]; K21.9 Gastro-esophageal reflux disease without esophagitis; E87.6 Hypokalemia
CPT/HCPCS: 00123; 36415; 36416; 36556; 36592; 76937; 80048; 80053; 80307; 82010; 82805; 82962; 87637; 93005; 96360; 96361; 97110; 97162; 99291; J1650; 71045; 80320; 81003; 81015; 83605; 83735; 84100; 84132; 84443; 84484; 85025; 93010; 99222; 99232; 99233; 99238; J1815; J3475; J3480

== ENCOUNTER 2025-04-01 11:10 | Outpatient (CLI) | payer OTHER, SELFPAY ==
[2025-04-01 12:40] LABS: Anion Gap 8.4 mmol/L (3-11); BUN 21 mg/dL (9-23); CO2 28.4 mmol/L (20.0-31.0); Calcium 9.6 mg/dL (8.3-10.6); Chloride 99 mmol/L (98-107); Glucose 224 mg/dL (74-106); Potassium 3.8 mmol/L (3.5-5.1); Sodium 136 mmol/L (136-145)
[2025-04-01 23:01] LABS: PSA, Diagnostic 0.7 ng/mL (<=3.5)
== END 2025-04-01 11:11 | disposition home or self-care (01) ==
LOC: LBO 11:11
PROVIDERS: PCP Family Medicine; Visit Provider Family Medicine
DX: N40.0 Benign prostatic hyperplasia without lower urinary tract symptoms (principal); E87.6 Hypokalemia
CPT/HCPCS: 36415; 80048; 84153